=== PATIENT | female | born 1965 | race Caucasian/White ===

== ENCOUNTER 2020-09-15 12:56 | Outpatient (REF) | payer MEDICARE, MEDICAID, SELFPAY | END 2020-09-15 12:57 | disposition home or self-care (01) | LOC: HO.LAB 12:56 | PROVIDERS: Visit Provider Nurse Practitioner Family | DX: Z13.9 Encounter for screening, unspecified (principal) | CPT/HCPCS: 87071; 87880; U0003 ==

== ENCOUNTER 2020-10-18 10:41 | Outpatient (REF) | payer MEDICARE, MEDICAID, SELFPAY ==
[2020-10-18 12:45] LABS: Thyroid Stimulating Hormone 1.21 uIU/mL (0.32-4.0)
[2020-10-18 13:17] LABS: Folate 8.4 ng/mL (> or = 4.0); Vitamin B12 388 pg/mL (200-900)
== END 2020-10-18 10:42 | disposition home or self-care (01) ==
LOC: HO.LAB 10:41
PROVIDERS: PCP Internal Medicine; Visit Provider Psychiatry & Neurology Neurology
DX: R41.3 Other amnesia (principal)
CPT/HCPCS: 36415; 82607; 82746; 84443

== ENCOUNTER 2020-11-16 08:23 | Outpatient (REF) | payer MEDICARE, MEDICAID, SELFPAY ==
--- NOTE | 2020-11-16 08:27 | CT_ITS ---
EXAMINATION: CT HEAD WITHOUT CONTRAST CLINICAL INFORMATION: Seizure. COMPARISON: Head CT November 07, 2019. TECHNIQUE: Contiguous axial imaging was performed from the skull base to vertex without intravenous administration of contrast. This CT examination was performed using dose optimization techniques as appropriate, variously including the following: *Automated exposure control *Adjustment of mA and/or kV according to patient size (this includes techniques or standardized protocols for targeted exams where dose is matched to indication/reason for exam; i.e. extremities or head) *Use of iterative reconstruction technique FINDINGS: There is a suspected right CP angle/right intracanalicular mass that could reflect a vestibular schwannoma. Given that the patient has a non-MRI compatible pacemaker, this can be further assessed with a contrast-enhanced CT of the head. There is no intracranial hemorrhage, hydrocephalus, extra-axial surface collection, midline shift, or other herniation pattern. Benoit to white matter differentiation is diffusely maintained without evidence of an evolved acute territorial infarct. The basilar cisterns are preserved. No significant soft tissue abnormality. No acute osseous abnormality. The paranasal sinuses and the mastoid air cells are well aerated. CT/CT head/brain wo con IMPRESSION: There is a suspected right CP angle/right intracanalicular mass that could reflect a vestibular schwannoma. Given that the patient has a non-MRI compatible pacemaker, this can be further assessed with a contrast-enhanced CT of the head.
== END 2020-11-16 08:24 | disposition home or self-care (01) ==
LOC: HO.CT 08:23
PROVIDERS: Visit Provider Psychiatry & Neurology Neurology
DX: R56.9 Unspecified convulsions (principal)
CPT/HCPCS: 70450

== ENCOUNTER 2020-11-30 10:17 | Outpatient (REF) | payer MEDICARE, MEDICAID, SELFPAY ==
[2020-11-30 11:02] LABS: MANUAL DIFF FLAG NO
[2020-11-30 11:10] LABS: Basophils Percent Auto 0.3 % (0-2); Eosinophils Absolute Auto 0.1 X10*3/uL (0.0-0.4); Eosinophils Percent Auto 1.2 % (0-4); Hematocrit 39.1 % (37-47); Hemoglobin 12.4 g/dl (12.0-16.0); Imm Gran Abs Auto 0.03 X10*3/uL (0.00-0.03); Imm Gran Pct Auto 0.3 % (0.0-0.4); Lymphocytes Absolute Auto 2.9 X10*3/uL (1.2-4.9); Lymphocytes Percent Auto 30.3 % (20-40); Mean Corpuscular HGB Conc 31.7 g/dl (31.0-35.0); Mean Corpuscular Hemoglobin 27.6 pg (27.0-33.0); Mean Corpuscular Volume 87.1 fL (80-98); Mean Platelet Volume 8.9 fL (9.4-12.3); Monocytes Absolute Auto 0.6 X10*3/uL (0.1-1.2); Neutrophils Absolute Auto 5.9 X10*3/uL (2.0-8.3); Neutrophils Percent Auto 61.9 % (45-73); Platelet Count 341 X10*3/uL (160-400); Red Blood Count 4.49 X10*6/uL (4.20-5.50); Red Cell Distribution Width 13.1 % (11.0-16.0); White Blood Count 9.5 X10*3/uL (4.8-10.8)
[2020-11-30 11:13] LABS: Glucose Urine UA NEG (NEG); Leukocyte Esterase Urine NEG (NEG); Nitrite Urine NEG (NEG); PH 6.5 (5.0-8.0); Urine Blood NEG (NEG); Urine Ketones NEG (NEG); Urine Protein NEG (NEG-TRACE)
[2020-11-30 11:15] LABS: Appearance Urine CLEAR; Color Urine YELLOW
[2020-11-30 11:23] LABS: RBC Urine 0 /HPF (0); Squamous Epithelial Cell Urine TRACE /LPF; WBC Urine 0 /HPF (0-4)
[2020-11-30 12:18] LABS: Erythrocyte Sedimentation Rate 10 MM/HR (0-20)
[2020-11-30 12:40] LABS: Folate 6.3 ng/mL (> or = 4.0); Vitamin B12 410 pg/mL (200-900)
[2020-11-30 13:29] LABS: Alanine Aminotransferase 13 U/L (0-31); Albumin Level 4.1 g/dL (3.5-5.0); Alkaline Phosphatase 125 U/L (39-117); Anion Gap 11 (12-20); Aspartate Amino Transferase 18 U/L (5-31); Bilirubin Total 0.6 mg/dL (0.0-1.0); Blood Urea Nitrogen 17 mg/dL (9-16); Calcium 9.2 mg/dL (8.4-10.2); Carbon Dioxide 29 mmol/L (22-29); Chloride 104 mmol/L (96-108); Cholesterol 198 mg/dL; Estimated Glomerular Filt Rate > 60; Glucose Random 93 mg/dL (60-115); HDL Cholesterol 69 mg/dL; LDL Cholesterol Calculated 113 mg/dl; Potassium 4.4 mmol/L (3.3-5.1); Sodium 140 mmol/L (135-145); Total Protein 6.8 g/dL (6.5-8.0); Triglycerides 82 mg/dL
[2020-11-30 13:50] LABS: Free T4 (Free Thyroxine) 0.99 ng/dL (0.71-1.85); Thyroid Stimulating Hormone 1.19 uIU/mL (0.32-4.0); Vitamin D 25-OH Total 10.5 ng/mL (>30)
== END 2020-11-30 10:18 | disposition home or self-care (01) ==
LOC: HO.LAB 10:17
PROVIDERS: PCP Internal Medicine; Visit Provider Psychiatry & Neurology Neurology
DX: I10 Essential (primary) hypertension (principal); F31.32 Bipolar disorder, current episode depressed, moderate; E78.00 Pure hypercholesterolemia, unspecified
CPT/HCPCS: 36415; 80053; 80061; 81001; 82306; 82607; 82746; 84439; 84443; 85025; 85652

== ENCOUNTER 2020-12-06 07:53 | Outpatient (REF) | payer MEDICARE, MEDICAID, SELFPAY | END 2020-12-06 07:54 | disposition home or self-care (01) | LOC: HO.CT 07:53 | PROVIDERS: Visit Provider Psychiatry & Neurology Neurology | DX: Z13.89 Encounter for screening for other disorder (principal) ==

== ENCOUNTER 2020-12-10 08:04 | Outpatient (REF) | payer MEDICARE, MEDICAID, SELFPAY ==
--- NOTE | ~2020-12-10 | CT_ITS ---
CT HEAD WITH CONTRAST CLINICAL INFORMATION: Acoustic neuroma. COMPARISON: Head CT 11/16/2020. TECHNIQUE: Contiguous axial imaging was performed from the skull base to vertex following the administration of 100 mL of Omnipaque [address] examination was performed using dose optimization techniques as appropriate, variously including the following: *Automated exposure control *Adjustment of mA and/or kV according to patient size (this includes techniques or standardized protocols for targeted exams where dose is matched to indication/reason for exam; i.e. extremities or head) *Use of iterative reconstruction technique FINDINGS: It is very difficult to identify a discrete enhancing lesion within the CP angles and the intracanalicular regions however these areas are obscured by artifact on this postcontrast head CT. The previous noncontrast CT finding may have been artifactual or there could be a nonenhancing CP angle/intracanalicular lesion. There is no pathologic enhancement intracranially. There is no intracranial hemorrhage, hydrocephalus, extra-axial surface collection, midline shift, or other herniation pattern. Benoit to white matter differentiation is diffusely maintained without evidence of an evolved acute territorial infarct. The basilar cisterns are preserved. No significant soft tissue abnormality. No acute osseous abnormality. The paranasal sinuses and the mastoid air cells are well aerated. CT/CT head/brain w con IMPRESSION: It is very difficult to identify a discrete enhancing lesion within the CP angles and the intracanalicular regions however these areas are obscured by artifact on this postcontrast head CT. The previous noncontrast CT finding may have been artifactual or there could be a nonenhancing CP angle/intracanalicular lesion. There is no pathologic enhancement intracranially.
[2020-12-10] MEDS: iohexoL 350 MG/ML 100 ML INFUS..BTL 75 ML IV (09:08)
== END 2020-12-10 08:05 | disposition home or self-care (01) ==
LOC: HO.CT 08:04
PROVIDERS: Visit Provider Psychiatry & Neurology Neurology
DX: D33.3 Benign neoplasm of cranial nerves (principal)
CPT/HCPCS: 70460; Q9967

== ENCOUNTER → 2020-12-20 13:03 | Outpatient (BNVA) | payer MEDICARE, MEDICAID, SELFPAY | PROVIDERS: PCP Internal Medicine; Visit Provider Nurse Practitioner | DX: Z13.89 Encounter for screening for other disorder (principal) | CPT/HCPCS: Q3014 ==

== ENCOUNTER → 2021-01-17 13:31 | Outpatient (BNVA) | payer MEDICARE, MEDICAID, SELFPAY | PROVIDERS: PCP Internal Medicine; Visit Provider Nurse Practitioner | DX: K59.04 Chronic idiopathic constipation (principal); Z12.11 Encounter for screening for malignant neoplasm of colon; K21.9 Gastro-esophageal reflux disease without esophagitis; K90.0 Celiac disease | CPT/HCPCS: Q3014 ==

== ENCOUNTER 2021-01-30 02:50 | Emergency (ER) | payer MEDICARE, MEDICAID, SELFPAY ==
--- NOTE | ~2021-01-30 | XR_ITS ---
EXAMINATION: CHEST 1 VIEW CLINICAL INFORMATION: Chest tightness. COMPARISON: 05/17/2020. TECHNIQUE: An AP view of the chest is provided. FINDINGS: The cardiac silhouette is stable. Pacer leads are in unchanged position. The mediastinal and hilar contours are unremarkable. There are neither pleural effusions nor pneumothoraces. There are no consolidations. The osseous structures are stable. XR/XR chest 1V IMPRESSION: No evidence for acute disease.
--- NOTE | ~2021-01-30 | CT_ITS ---
EXAMINATION: CT PULMONARY EMBOLISM STUDY CLINICAL INFORMATION: Chest pressure, shortness of breath, elevated d-dimer. COMPARISON: Same day chest radiograph. Chest CTA from 11/04/2019. TECHNIQUE: Contiguous helical images of the chest were obtained following the administration of IV contrast. Multiplanar reconstructions were performed. MIPS were obtained and reviewed. DLP: 286 mGy-cm. CONTRAST: 65 mL of Omnipaque 350 were administered without incident. FINDINGS: The heart is of normal size. There is no pericardial effusion. The great vessels are unremarkable. Specifically, there is no pulmonary arterial filling defect. There is no CT evidence for pulmonary embolism. There are no chest wall masses. Review of lung windows demonstrates that there are neither pleural effusions nor pneumothoraces. There are no consolidations. There are no pulmonary parenchymal nodules. Limited evaluation of the upper abdomen demonstrates that the liver is of normal size and attenuation without focal lesions.))). Surgical clips are identified. Normal adrenal glands are identified. CT/CT angio chest PE protocol IMPRESSION: No CT evidence for pulmonary embolism. Automated exposure control (Care Dose) Adjustment of the mA and/or kv according to patient size (this includes techniques or standardized protocols for targeted exams where dose is matched to indication / reason for exam; i.e. extremities or head).
[2021-01-30 02:53] VITALS: BP 118/64; PULSE 62; RESP 18; TEMP 36.7; O2SAT 100; BMI 32.3
--- NOTE | 2021-01-30 03:06 | ECG_ITS ---
Test Reason : ASTHMA Blood Pressure : / mmHG Vent. Rate : 060 BPM Atrial Rate : 060 BPM P-R Int : 154 ms QRS Dur : 082 ms QT Int : 432 ms P-R-T Axes : 017 029 032 degrees QTc Int : 432 ms Atrial-paced rhythm Abnormal ECG When compared with ECG of 17-MAY-2020 19:15, Electronic atrial pacemaker has replaced Sinus rhythm Referred By: Lo Engel Electronically Signed By:Oziel Morfin
--- NOTE | 2021-01-30 03:07 | ED.ASTHMA ---
HPI - Asthma General Chief Complaint: Asthma Stated Complaint: Asthma Time Seen by Provider: 01/30/21 02:59 Source: patient Mode of arrival: ambulatory Limitations: no limitations History of Present Illness HPI Narrative: Patient comes emergency room complaining of chest tightness, states she has been using a lot of albuterol lately due to her asthma exacerbation. Approximately 4 days ago she took the last dose of a 5 day prednisone burst. Patient used her inhaler right before coming to the emergency room. At this time, she says that she feels better, no shortness of breath. Patient states her chest feels tight, no chest pain, no shortness of breath Related Data Home Medications Medication Instructions Recorded Confirmed albuterol sulfate 90 mcg/actuation 90 mcg INHALATION DAILY 07/16/20 01/13/21 aerosol inhaler aripiprazole 5 mg tablet 5 mg PO DAILY 07/16/20 01/13/21 atorvastatin 20 mg tablet 20 mg PO BEDTIME 07/16/20 01/13/21 benztropine 1 mg tablet 1 mg PO DAILY 07/16/20 01/13/21 buspirone 15 mg tablet 15 mg PO TID 07/16/20 01/13/21 clonazepam 2 mg tablet 2 mg PO BID 07/16/20 01/13/21 epinephrine 0.3 mg/0.3 mL 0.3 mg IM NEEDED PRN 07/16/20 01/13/21 injection, auto-injector fluticasone furoate 200 200 inh INHALATION NEEDED 07/16/20 01/13/21 mcg-vilanterol 25 mcg/dose inhalation powder fluticasone propionate 50 50 mcg INTRANASAL NEEDED 07/16/20 01/13/21 mcg/actuation nasal spray,suspension isosorbide mononitrate 30 mg 30 mg PO DAILY 07/16/20 01/13/21 tablet,extended release 24 hr montelukast 10 mg tablet 10 mg PO DAILY 07/16/20 01/13/21 omalizumab 150 mg subcutaneous 150 mg SUBCUT USEASDIRECTD 07/16/20 01/13/21 solution rosuvastatin 20 mg tablet 20 mg PO BEDTIME 07/16/20 01/13/21 sertraline 100 mg tablet 100 mg PO DAILY 07/16/20 01/13/21 tiotropium bromide 2.5 2.5 mcg INHALATION NEEDED 07/16/20 01/13/21 mcg/actuation mist for inhalation gabapentin 300 mg capsule mg PO 01/17/21 suvorexant 20 mg tablet mg PO 01/17/21 Previous Rx's Medication Instructions Recorded hydrocortisone 2.5 % topical cream 1 appl [place] BID-QID PRN #30 g 11/12/20 with perineal applicator linaclotide 145 mcg capsule 145 mcg PO QAM 30 Days #30 cap 12/20/20 amoxicillin 875 mg tablet 875 mg PO BID #14 tab 01/13/21 cholecalciferol (vitamin D3) 1,250 1,250 mcg PO QWEEK 90 Days #13 cap 01/13/21 mcg (50,000 unit) capsule dicyclomine 20 mg tablet 20 mg PO QID PRN 30 Days #60 tab 01/17/21 famotidine 40 mg tablet 40 mg PO BID 30 Days #60 tab 01/17/21 sennosides 8.6 mg capsule 17.2 mg PO BEDTIME 30 Days #60 cap 01/17/21 prednisone 10 mg tablet See Rx Instructions PO DAILY #20 01/18/21 tab Allergies Allergy/AdvReac Type Severity Reaction Status Date / Time almond Allergy Severe DIFFICULTY Verified 01/30/21 02:53 BREATHING shellfish derived Allergy Severe ANAPHYLAXIS Verified 01/30/21 02:53 morphine Allergy Intermediate C/P - Verified 01/30/21 02:53 STOMACH CRAMPS, HIVES, DIFF BREATHING, anaphylaxis, shortness of breath strawberry Allergy Mild HIVES Verified 01/30/21 02:53 Sulfa (Sulfonamide Allergy Mild DIARRHEA Verified 01/30/21 02:53 Antibiotics) [SULFA (SULFONAMIDE ANTIBIOTICS)] gluten [GLUTEN] Allergy Unknown UNKNOWN Verified 01/30/21 02:53 meperidine [Demerol] Allergy Unknown upset Verified 01/30/21 02:53 stomach nitrofurantoin [Macrobid] Allergy Unknown Unknown Verified 01/30/21 02:53 codeine AdvReac Mild STOMACH Verified 01/30/21 02:53 [From TYLENOL-CODEINE #3] SPASM hydromorphone [From DILAUDID] AdvReac Mild STOMACH Verified 01/30/21 02:53 UPSET Review of Systems Review of Systems: Constitutional : No Weight loss, No Fever, No Chills, No Night Sweats, No Fatigue, No Malaise ENT/Mouth : No Hearing loss, No Ear Pain, No Nasal Congestion, No Sinus Pain, No Hoarseness, No sore throat, No Rhinorrhea, No Swallowing Difficulty Eyes: No Eye Pain, No Swelling, No Redness, No Foreign Body, No Discharge, No Vision Changes Cardiovascular : No Chest Pain, No SOB, No Dyspnea on Exertion, No Orthopnea, No Edema, No Palpitations Respiratory : Complaining of chest tightness, intermittent wheezing for several days, intermittent shortness of breath but none at this time Gastrointestinal : No Nausea, No Vomiting, No Diarrhea, No Constipation, No abdominal Pain, No Hematochezia, No Melena Genitourinary : no irregular bleeding, No Dysuria, No Urinary Frequency, No Hematuria, No Urinary Incontinence, No Urgency, No Flank Pain, No Urinary Flow Changes, No Hesitancy Musculoskeletal : No joint pain, No Myalgias, No Joint Swelling Skin : No Skin Lesions, No rash Neuro : No Weakness, No Numbness, No Paresthesias, No Loss of Consciousness, No Dizziness, No Headache Psych : No Anxiety/Panic, No Depression, No SI/HI/AH/VH, No Social Issues, Heme/Lymph: No Bruising, No Bleeding,No Lymphadenopathy Endocrine : No Polyuria, No Polydipsia, No Temperature Intolerance PMFSH Past Medical History Medical History Anemia Asthma Bipolar disorder Celiac sprue Depression Fibromyalgia GERD (gastroesophageal reflux disease) Hypercholesterolemia Hypertension Irritable bowel syndrome Knee osteoarthritis Obstructive sleep apnea Osteopenia Pulmonary nocardiosis Sick sinus syndrome Superficial thrombophlebitis TIA (transient ischemic attack) Surgical History H/O cardiac catheterization History of appendectomy History of arthroscopy of right shoulder History of cardiac pacemaker History of cholecystectomy History of foot surgery History of laparoscopic partial gastrectomy History of total hysterectomy with bilateral salpingo-oophorectomy (BSO) Hx of arthroscopy of knee Hx of colonoscopy Family History Family History Father No problems noted. Mother CVD (cerebrovascular disease) CAD (coronary artery disease) Stroke Maternal Grandmother Myocardial infarction Paternal Grandmother CVD (cerebrovascular disease) CAD (coronary artery disease) Social History Social History (Updated 01/17/21 @ 13:32 by Phoebe Hassan [facility]) Household Members: Children Alcohol intake: never Smoking Status: Never smoker Advance Directives: No Advance Directives Information Provided: No Current occupational status: disabled Physical Exam Vital Signs: Vital Signs: Last Vital Signs Temp 98.1 F 01/30/21 02:53 Pulse 62 01/30/21 02:53 Resp 18 01/30/21 02:53 BP 118/64 01/30/21 02:53 Pulse Ox 100 01/30/21 02:53 Body Mass Index 32.3 Appearance: Alert. Oriented X3. No acute distress. Eyes: Pupils equal, round and reactive to light. ENT: Pharynx normal. Neck: Normal inspection. Neck supple. No lymph nodes noted. No crepitus CVS: Normal heart rate and rhythm. Pulses normal. Normal S1 and S2 Respiratory: No respiratory distress. Breath sounds normal. No Wheezing. No rales Abdomen: Soft and nontender. No rigidity. No distention. good BS x4 Skin: Skin warm and dry. Normal skin color. Normal skin turgor. Extremities: No lower extremity edema. No lower extremity edema. No Lacerations. No Rash Neuro: Oriented X 3. No motor deficit. No sensory deficit. Moving all extermities. No slurred speech. Course Course Course Narrative: Patient's white blood cell count is 15.9, secondary to prednisone use for several days. Sepsis is not suspected. Patient has no fever, vitals within normal limits. CTA for pulmonary embolism within normal limits. Patient was ambulated around the emergency room, oxygen saturation remained stable at 99% RA, patient had no chest pain, no shortness of breath, patient feels well. Patient ready for discharge MDM - Asthma Lab Data Result diagrams: 01/30/21 03:28 01/30/21 03:28 Labs: Lab Results 01/30/21 01/30/21 01/30/21 Range/Units 03:28 03:28 03:28 WBC 15.9 H (4.8-10.8) X10*3/uL RBC 4.26 (4.20-5.50) X10*6/uL Hgb 11.5 L (12.0-16.0) g/dl Hct 37.2 (37-47) % MCV 87.3 (80-98) fL MCH 27.0 (27.0-33.0) pg MCHC 30.9 L (31.0-35.0) g/dl RDW 14.1 (11.0-16.0) % Plt Count 322 (160-400) X10*3/uL MPV 8.8 L (9.4-12.3) fL Immature Gran % (Auto) 0.8 H (0.0-0.4) % Neut % (Auto) 69.9 (45-73) % Lymph % (Auto) 17.0 L (20-40) % [place] % (Auto) 12.1 H (2-11) % Eos % (Auto) 0.1 (0-4) % Baso % (Auto) 0.1 (0-2) % Lymph # (Auto) 2.7 (1.2-4.9) X10*3/uL [place] # (Auto) 1.9 H (0.1-1.2) X10*3/uL Eos # (Auto) 0.0 (0.0-0.4) X10*3/uL Baso # (Auto) 0.0 (0.0-0.2) X10*3/uL Abs Immat Gran (auto) 0.13 H (0.00-0.03) X10*3/uL Absolute Neuts (auto) 11.1 H (2.0-8.3) X10*3/uL Absolute Nucleated RBC 0.000 (0.0-0.012) X10*3/uL Nucleated RBC % (auto) 0.0 (0.0-0.2) /100WBC Smear Tech's Comments VERIFIED D-Dimer NG/ML Sodium 142 (135-145) mmol/L Potassium 4.5 (3.3-5.1) mmol/L Chloride 105 (96-108) mmol/L Carbon Dioxide 24 (22-29) mmol/L Anion Gap 18 (12-20) BUN 14 (9-16) mg/dL Creatinine 0.64 (0.5-1.4) mg/dL Estim Creat Clear Calc 85.1 Estimated GFR > 60 Random Glucose 86 (60-115) mg/dL Calcium 8.7 (8.4-10.2) mg/dL Troponin I High Sens < 3.5 (<3.5-17.0) ng/L B-Natriuretic Peptide 43 (<100) pg/mL 01/30/21 Range/Units 04:09 WBC (4.8-10.8) X10*3/uL RBC (4.20-5.50) X10*6/uL Hgb (12.0-16.0) g/dl Hct (37-47) % MCV (80-98) fL MCH (27.0-33.0) pg MCHC (31.0-35.0) g/dl RDW (11.0-16.0) % Plt Count (160-400) X10*3/uL MPV (9.4-12.3) fL Immature Gran % (Auto) (0.0-0.4) % Neut % (Auto) (45-73) % Lymph % (Auto) (20-40) % [place] % (Auto) (2-11) % Eos % (Auto) (0-4) % Baso % (Auto) (0-2) % Lymph # (Auto) (1.2-4.9) X10*3/uL [place] # (Auto) (0.1-1.2) X10*3/uL Eos # (Auto) (0.0-0.4) X10*3/uL Baso # (Auto) (0.0-0.2) X10*3/uL Abs Immat Gran (auto) (0.00-0.03) X10*3/uL Absolute Neuts (auto) (2.0-8.3) X10*3/uL Absolute Nucleated RBC (0.0-0.012) X10*3/uL Nucleated RBC % (auto) (0.0-0.2) /100WBC Smear Tech's Comments D-Dimer 514 NG/ML Sodium (135-145) mmol/L Potassium (3.3-5.1) mmol/L Chloride (96-108) mmol/L Carbon Dioxide (22-29) mmol/L Anion Gap (12-20) BUN (9-16) mg/dL Creatinine (0.5-1.4) mg/dL Estim Creat Clear Calc Estimated GFR Random Glucose (60-115) mg/dL Calcium (8.4-10.2) mg/dL Troponin I High Sens (<3.5-17.0) ng/L B-Natriuretic Peptide (<100) pg/mL Imaging Data Chest x-ray: Radiologist's impression: The cardiac silhouette is stable. Pacer leads are in unchanged position. The mediastinal and hilar contours are unremarkable. There are neither pleural effusions nor pneumothoraces. There are no consolidations. The osseous structures are stable. XR/XR chest 1V IMPRESSION: No evidence for acute disease. ECG Data Attestation: I personally reviewed and interpreted this ECG as follows: (Atrial paced rhythm, heart rate 60, no ST segment depression or elevation, EKG interference) Discharge Plan Discharge Clinical Impression: Dyspnea Qualifiers: Dyspnea type: unspecified Qualified Code(s): R06.00 - Dyspnea, unspecified Patient Disposition: Home, Self-Care Instructions: Shortness of Breath (ED) Additional Instructions: Please follow-up with your primary care physician tomorrow. If you have any worsening or new symptoms, please return to the emergency room or call 911 Prescriptions: No Action hydrocortisone [Proctosol HC] 2.5 % cream with perineal applicator 1 appl WV BID-QID PRN (Reason: hemorrhoids) Qty: 30 RF: 1 prednisone 10 mg tablet See Rx Instructions PO DAILY Qty: 20 RF: 0 Breo Ellipta 200-25 mcg/dose blister with device 200 inh inhalation NEEDED RF: 0 Spiriva Respimat 2.5 mcg/actuation mist 2.5 mcg inhalation NEEDED RF: 0 aripiprazole 5 mg tablet 5 mg PO DAILY RF: 0 benztropine 1 mg tablet 1 mg PO DAILY RF: 0 sertraline 100 mg tablet 100 mg PO DAILY RF: 0 clonazepam 2 mg tablet 2 mg PO BID RF: 0 rosuvastatin 20 mg tablet 20 mg PO BEDTIME RF: 0 Xolair 150 mg recon soln 150 mg subcut USEASDIRECTD RF: 0 fluticasone propionate 50 mcg/actuation spray,suspension 50 mcg intranasal NEEDED RF: 0 isosorbide mononitrate 30 mg tablet extended release 24 hr 30 mg PO DAILY RF: 0 atorvastatin 20 mg tablet 20 mg PO BEDTIME RF: 0 buspirone 15 mg tablet 15 mg PO TID RF: 0 albuterol sulfate 90 mcg/actuation HFA aerosol inhaler 90 mcg inhalation DAILY RF: 0 montelukast 10 mg tablet 10 mg PO DAILY RF: 0 epinephrine 0.3 mg/0.3 mL auto-injector 0.3 mg IM NEEDED PRN (Reason: Anaphylaxis) RF: 0 amoxicillin 875 mg tablet 875 mg PO BID Qty: 14 RF: 0 cholecalciferol (vitamin D3) 1,250 mcg (50,000 unit) capsule 1,250 mcg PO QWEEK 90 Days Qty: 13 RF: 1 Linzess 145 mcg capsule 145 mcg PO QAM 30 Days Qty: 30 RF: 3 senna 8.6 mg capsule 17.2 mg PO BEDTIME 30 Days Qty: 60 RF: 1 famotidine 40 mg tablet 40 mg PO BID 30 Days Qty: 60 RF: 6 dicyclomine 20 mg tablet 20 mg PO QID PRN (Reason: Cramps) 30 Days Qty: 60 RF: 6
[2021-01-30 03:39] LABS: Basophils Percent Auto 0.1 % (0-2); Eosinophils Percent Auto 0.1 % (0-4); Hematocrit 37.2 % (37-47); Hemoglobin 11.5 g/dl (12.0-16.0); Imm Gran Abs Auto 0.13 X10*3/uL (0.00-0.03); Imm Gran Pct Auto 0.8 % (0.0-0.4); Lymphocytes Absolute Auto 2.7 X10*3/uL (1.2-4.9); MANUAL DIFF FLAG SCAN; Mean Corpuscular HGB Conc 30.9 g/dl (31.0-35.0); Mean Corpuscular Volume 87.3 fL (80-98); Mean Platelet Volume 8.8 fL (9.4-12.3); Monocytes Absolute Auto 1.9 X10*3/uL (0.1-1.2); Monocytes Percent Auto 12.1 % (2-11); Neutrophils Absolute Auto 11.1 X10*3/uL (2.0-8.3); Neutrophils Percent Auto 69.9 % (45-73); Platelet Count 322 X10*3/uL (160-400); Red Blood Count 4.26 X10*6/uL (4.20-5.50); Red Cell Distribution Width 14.1 % (11.0-16.0); SCAN SMEAR FLAG 1; White Blood Count 15.9 X10*3/uL (4.8-10.8)
[2021-01-30 03:40] LABS: SLIDE REVIEW VERIFIED
[2021-01-30 03:59] LABS: Anion Gap 18 (12-20); Blood Urea Nitrogen 14 mg/dL (9-16); Calcium 8.7 mg/dL (8.4-10.2); Carbon Dioxide 24 mmol/L (22-29); Chloride 105 mmol/L (96-108); Creatinine Clr Calc Pharmacy 85.1; Estimated Glomerular Filt Rate > 60; Glucose Random 86 mg/dL (60-115); Potassium 4.5 mmol/L (3.3-5.1); Sodium 142 mmol/L (135-145)
[2021-01-30 04:00] VITALS: BP 130/66; PULSE 66; RESP 20; TEMP 36.8; O2SAT 100
[2021-01-30 04:04] LABS: B Type Natriuretic Peptide 43 pg/mL (<100); Troponin-I High Sensitivity < 3.5 ng/L (<3.5-17.0)
[2021-01-30 04:25] LABS: D Dimer 514 NG/ML
--- NOTE | 2021-01-30 05:05 | PC.NURSE ---
While in CT scan, 20g in right AC infiltrated. New 20g IV access established in left AC by this RN. Yared Cummins RN (primary ED RN) aware.
[2021-01-30] MEDS: iohexoL 350 MG/ML 100 ML INFUS..BTL 65 ML IV (05:19)
== END 2021-01-30 06:01 | disposition home or self-care (01) ==
PROVIDERS: Emergency Provider Emergency Medicine; PCP Internal Medicine
DX: R06.00 Dyspnea, unspecified (principal); J45.909 Unspecified asthma, uncomplicated; Z79.899 Other long term (current) drug therapy
CPT/HCPCS: 36415; 71045; 71275; 80048; 83880; 84484; 85025; 85379; 93005; 99284; Q9967

== ENCOUNTER 2021-01-31 06:40 | Emergency (ER) | payer MEDICARE, MEDICAID, SELFPAY ==
--- NOTE | ~2021-01-31 | XR_ITS ---
EXAMINATION: XR CHEST CLINICAL INFORMATION: Chest pain COMPARISON: Chest radiographs 01/30/2021, 05/17/2020, CTA chest 01/30/2021 TECHNIQUE: Frontal view of the chest was obtained. FINDINGS: There is no pneumothorax or pneumomediastinum. No airspace consolidation or groundglass opacity or effusion. The costophrenic sulci are clear. The heart is normal in size. Bipolar pacemaker again noted with atrial and ventricular leads. The hilar and mediastinal contours and bony structures are stable. XR/XR chest 1V IMPRESSION: No acute intrathoracic disease.
[2021-01-31 07:29] VITALS: BP 120/67; PULSE 83; RESP 16; TEMP 38.7; O2SAT 98; BMI 30.2
--- NOTE | 2021-01-31 07:41 | ECG_ITS ---
Test Reason : FEVER Blood Pressure : / mmHG Vent. Rate : 065 BPM Atrial Rate : 065 BPM P-R Int : 126 ms QRS Dur : 082 ms QT Int : 374 ms P-R-T Axes : 060 018 036 degrees QTc Int : 388 ms Normal sinus rhythm Normal ECG When compared with ECG of 30-JAN-2021 03:19, Sinus rhythm has replaced Electronic atrial pacemaker Referred By: Krysta Bailey Electronically Signed By:Oziel Morfin
--- NOTE | 2021-01-31 07:44 | ED_ITS ---
HPI - Fever General Chief Complaint: Fever Stated Complaint: COVID SYMPTOMS - IN BLACK CHAIRS Time Seen by Provider: 01/31/21 07:40 Source: patient Mode of arrival: ambulatory Limitations: no limitations History of Present Illness HPI Narrative: 55-year-old female came in for evaluation for chest pain/fever for the past 4 days. This is a 55-year-old female who is status post a Alek and Alek COVID vaccination about 2 weeks ago, patient declined any exposure to a known sick contact, came in for the past 4 days been having chest tightness, coughing, shortness of breath, fever, generalized body ache, generalized joint ache. Patient was seen in the emergency department yesterday for similar symptoms, patient had extensive workup including CT of the chest because the elevated D- dimer which did not confirm PE. Patient declined recent travel, patient has been complying with CDC guideline, face mask, social distancing, hand washing. Related Data Home Medications Medication Instructions Recorded Confirmed albuterol sulfate 90 mcg/actuation 90 mcg INHALATION DAILY 07/16/20 01/13/21 aerosol inhaler aripiprazole 5 mg tablet 5 mg PO DAILY 07/16/20 01/13/21 atorvastatin 20 mg tablet 20 mg PO BEDTIME 07/16/20 01/13/21 benztropine 1 mg tablet 1 mg PO DAILY 07/16/20 01/13/21 buspirone 15 mg tablet 15 mg PO TID 07/16/20 01/13/21 clonazepam 2 mg tablet 2 mg PO BID 07/16/20 01/13/21 epinephrine 0.3 mg/0.3 mL 0.3 mg IM NEEDED PRN 07/16/20 01/13/21 injection, auto-injector fluticasone furoate 200 200 inh INHALATION NEEDED 07/16/20 01/13/21 mcg-vilanterol 25 mcg/dose inhalation powder fluticasone propionate 50 50 mcg INTRANASAL NEEDED 07/16/20 01/13/21 mcg/actuation nasal spray,suspension isosorbide mononitrate 30 mg 30 mg PO DAILY 07/16/20 01/13/21 tablet,extended release 24 hr montelukast 10 mg tablet 10 mg PO DAILY 07/16/20 01/13/21 omalizumab 150 mg subcutaneous 150 mg SUBCUT USEASDIRECTD 07/16/20 01/13/21 solution rosuvastatin 20 mg tablet 20 mg PO BEDTIME 07/16/20 01/13/21 sertraline 100 mg tablet 100 mg PO DAILY 07/16/20 01/13/21 tiotropium bromide 2.5 2.5 mcg INHALATION NEEDED 07/16/20 01/13/21 mcg/actuation mist for inhalation gabapentin 300 mg capsule mg PO 01/17/21 suvorexant 20 mg tablet mg PO 01/17/21 Previous Rx's Medication Instructions Recorded hydrocortisone 2.5 % topical cream 1 appl AR BID-QID PRN #30 g 11/12/20 with perineal applicator linaclotide 145 mcg capsule 145 mcg PO QAM 30 Days #30 cap 12/20/20 amoxicillin 875 mg tablet 875 mg PO BID #14 tab 01/13/21 cholecalciferol (vitamin D3) 1,250 1,250 mcg PO QWEEK 90 Days #13 cap 01/13/21 mcg (50,000 unit) capsule dicyclomine 20 mg tablet 20 mg PO QID PRN 30 Days #60 tab 01/17/21 famotidine 40 mg tablet 40 mg PO BID 30 Days #60 tab 01/17/21 sennosides 8.6 mg capsule 17.2 mg PO BEDTIME 30 Days #60 cap 01/17/21 prednisone 10 mg tablet See Rx Instructions PO DAILY #20 01/18/21 tab Allergies Allergy/AdvReac Type Severity Reaction Status Date / Time almond Allergy Severe DIFFICULTY Verified 01/30/21 02:53 BREATHING shellfish derived Allergy Severe ANAPHYLAXIS Verified 01/30/21 02:53 morphine Allergy Intermediate C/P - Verified 01/30/21 02:53 STOMACH CRAMPS, HIVES, DIFF BREATHING, anaphylaxis, shortness of breath strawberry Allergy Mild HIVES Verified 01/30/21 02:53 Sulfa (Sulfonamide Allergy Mild DIARRHEA Verified 01/30/21 02:53 Antibiotics) [SULFA (SULFONAMIDE ANTIBIOTICS)] gluten [GLUTEN] Allergy Unknown UNKNOWN Verified 01/30/21 02:53 meperidine [Demerol] Allergy Unknown upset Verified 01/30/21 02:53 stomach nitrofurantoin [Macrobid] Allergy Unknown Unknown Verified 01/30/21 02:53 codeine AdvReac Mild STOMACH Verified 01/30/21 02:53 [From TYLENOL-CODEINE #3] SPASM hydromorphone [From DILAUDID] AdvReac Mild STOMACH Verified 01/30/21 02:53 UPSET Review of Systems Review of Systems: All other systems are reviewed and are negative Constitutional: Reports as per HPI and Reports no additional constitutional complaints Eyes: Reports as per HPI and Reports no additional eye complaints Reports system reviewed and no additional complaints, except as documented Cardiovascular: Reports as per HPI and Reports no additional cardiovascular complaints Respiratory: Reports as per HPI and Reports no additional respiratory complaints Gastrointestinal: Reports as per HPI and Reports no additional gastrointestinal complaints Genitourinary: Reports no additional female genitourinary complaints Musculoskeletal: Reports no additional musculoskeletal complaints Skin/Breast: Reports system reviewed and no additional complaints, except as docu Psychiatric: Reports no additional psychiatric complaints Endocrine: Reports no additional endocrine complaints Hematologic/Lymphatic: Reports no additional hematologic/lymphatic complaints Allergic/Immunologic: Reports no additional allergic/immunologic complaints Reports system reviewed and no additional complaints, except as documented and Reports Abnormal speech present [facility] Past Medical History Medical History Anemia Asthma Bipolar disorder Celiac sprue Depression Fibromyalgia GERD (gastroesophageal reflux disease) Hypercholesterolemia Hypertension Irritable bowel syndrome Knee osteoarthritis Obstructive sleep apnea Osteopenia Pulmonary nocardiosis Sick sinus syndrome Superficial thrombophlebitis TIA (transient ischemic attack) Surgical History H/O cardiac catheterization History of appendectomy History of arthroscopy of right shoulder History of cardiac pacemaker History of cholecystectomy History of foot surgery History of laparoscopic partial gastrectomy History of total hysterectomy with bilateral salpingo-oophorectomy (BSO) Hx of arthroscopy of knee Hx of colonoscopy Family History Family History Father No problems noted. Mother CVD (cerebrovascular disease) CAD (coronary artery disease) Stroke Maternal Grandmother Myocardial infarction Paternal Grandmother CVD (cerebrovascular disease) CAD (coronary artery disease) Social History Social History Household Members: Children Alcohol intake: never Smoking Status: Never smoker Use of substances other than those prescribed or required for medical reasons: No Advance Directives: No Advance Directives Information Provided: No Current occupational status: disabled Physical Exam Vital Signs: Vital Signs: Last Vital Signs Temp 101.7 F H 01/31/21 08:18 Pulse 83 01/31/21 08:18 Resp 16 01/31/21 08:18 BP 120/67 01/31/21 08:18 Pulse Ox 98 01/31/21 08:18 Body Mass Index 30.2 Vital signs have been reviewed as appeared to be correct. Blood pressure normal. Heart rate normal. Respiration rate normal. Febrile. Oxygen saturation normal. Appearance: Alert. Oriented X3. No acute distress. Head: Normal external exam. Normocephalic. Atraumatic. No Carpenter signs noted. No raccoon eyes noted Eyes: PERRLA. EOMI. Conjunctiva and sclera normal. Eyelids normal. ENT: TM's Normal. Pharynx normal. Uvula midline. Moist mucous membranes. No trismus noted. No drooling noted. No muffled voice noted. Neck: Normal inspection. Neck supple. FROM. No adenopathy. Thyroid Normal. No meningeal signs. No neck mass noted. CVS: Normal heart rate and rhythm. Heart sound normal. No murmurs noted. Pulses normal throughout. Respiratory: No respiratory distress. Painless inspiration. Breath sounds normal. No wheezes/rales/rhonchi noted. Chest nontender. No accessory muscle usage noted or decreased air movement noted. Abdomen: Soft and nontender. Bowel sounds normal in all 4 quadrants. No distention noted. No organomegaly noted. No visible injury noted. Back: No CVA tenderness. Full range of motion noted. Skin: Skin warm and dry. Normal skin color. Normal skin turgor. No rashes/lesions/lacerations noted. Extremities: No lower extremity edema. Extremities exhibit normal range of motion. Extremities nontender. Neuro: Oriented X 3. No motor deficit. No sensory deficit. Reflexes normal. Course Course Course Narrative: Assessment and plan. This is a 55-year-old female who presented with flu-like symptoms. Despite patient had 1st dose of Alek and Alek vaccination for COVID 2 weeks ago patient tested positive for COVID infection today which will explain patient's symptoms. Patient hemodynamically stable, no respiratory issue, no hypoxia. Patient was instructed to go home using antipyretic medication as needed, return for difficulty breathing. And continue with CDC guidelines precautions. MDM - Fever Lab Data Attestation: I reviewed the patient's lab results. Result diagrams: 01/31/21 08:06 01/31/21 08:06 Labs: Lab Results 01/31/21 01/31/21 Range/Units 08:06 08:06 WBC 9.0 (4.8-10.8) X10*3/uL RBC 4.14 L (4.20-5.50) X10*6/uL Hgb 11.4 L (12.0-16.0) g/dl Hct 35.9 L (37-47) % MCV 86.7 (80-98) fL MCH 27.5 (27.0-33.0) pg MCHC 31.8 (31.0-35.0) g/dl RDW 14.5 (11.0-16.0) % Plt Count 244 (160-400) X10*3/uL MPV 9.0 L (9.4-12.3) fL Immature Gran % (Auto) 0.8 H (0.0-0.4) % Neut % (Auto) 71.8 (45-73) % Lymph % (Auto) 11.2 L (20-40) % [place] % (Auto) 15.9 H (2-11) % Eos % (Auto) 0.2 (0-4) % Baso % (Auto) 0.1 (0-2) % Lymph # (Auto) 1.0 L (1.2-4.9) X10*3/uL [place] # (Auto) 1.4 H (0.1-1.2) X10*3/uL Eos # (Auto) 0.0 (0.0-0.4) X10*3/uL Baso # (Auto) 0.0 (0.0-0.2) X10*3/uL Abs Immat Gran (auto) 0.07 H (0.00-0.03) X10*3/uL Absolute Neuts (auto) 6.5 (2.0-8.3) X10*3/uL Absolute Nucleated RBC 0.000 (0.0-0.012) X10*3/uL Nucleated RBC % (auto) 0.0 (0.0-0.2) /100WBC COVID-19 (ALEXEY) Positive A (Negative) COVID-19 Clin Com See Note Imaging Data Chest x-ray: Radiologist's impression: No acute intrathoracic disease. ECG Data ECG #1: Interpretation: Normal sinus rhythm at 65 beats per minutes, normal axis, normal intervals, no ST-T changes. Discharge Plan Discharge Clinical Impression: COVID-19 virus infection Patient Disposition: Home, Self-Care Instructions: COVID-19 (Coronavirus Disease 2019) (ED) Additional Instructions: Continue with frequent hand washing, continue with wearing face mask, and continue with social distancing. You should be self quarantine for the next 2 weeks. Return to the emergency department if having difficulty breathing. Prescriptions: No Action hydrocortisone [Proctosol HC] 2.5 % cream with perineal applicator 1 appl AR BID-QID PRN (Reason: hemorrhoids) Qty: 30 RF: 1 prednisone 10 mg tablet See Rx Instructions PO DAILY Qty: 20 RF: 0 Breo Ellipta 200-25 mcg/dose blister with device 200 inh inhalation NEEDED RF: 0 Spiriva Respimat 2.5 mcg/actuation mist 2.5 mcg inhalation NEEDED RF: 0 aripiprazole 5 mg tablet 5 mg PO DAILY RF: 0 benztropine 1 mg tablet 1 mg PO DAILY RF: 0 sertraline 100 mg tablet 100 mg PO DAILY RF: 0 clonazepam 2 mg tablet 2 mg PO BID RF: 0 rosuvastatin 20 mg tablet 20 mg PO BEDTIME RF: 0 Xolair 150 mg recon soln 150 mg subcut USEASDIRECTD RF: 0 fluticasone propionate 50 mcg/actuation spray,suspension 50 mcg intranasal NEEDED RF: 0 isosorbide mononitrate 30 mg tablet extended release 24 hr 30 mg PO DAILY RF: 0 atorvastatin 20 mg tablet 20 mg PO BEDTIME RF: 0 buspirone 15 mg tablet 15 mg PO TID RF: 0 albuterol sulfate 90 mcg/actuation HFA aerosol inhaler 90 mcg inhalation DAILY RF: 0 montelukast 10 mg tablet 10 mg PO DAILY RF: 0 epinephrine 0.3 mg/0.3 mL auto-injector 0.3 mg IM NEEDED PRN (Reason: Anaphylaxis) RF: 0 amoxicillin 875 mg tablet 875 mg PO BID Qty: 14 RF: 0 cholecalciferol (vitamin D3) 1,250 mcg (50,000 unit) capsule 1,250 mcg PO QWEEK 90 Days Qty: 13 RF: 1 Linzess 145 mcg capsule 145 mcg PO QAM 30 Days Qty: 30 RF: 3 senna 8.6 mg capsule 17.2 mg PO BEDTIME 30 Days Qty: 60 RF: 1 famotidine 40 mg tablet 40 mg PO BID 30 Days Qty: 60 RF: 6 dicyclomine 20 mg tablet 20 mg PO QID PRN (Reason: Cramps) 30 Days Qty: 60 RF: 6
[2021-01-31] MEDS: 0.9 % Sodium Chloride 1,000 ML 999 ML IVCONT (08:14)
[2021-01-31] MEDS: Acetaminophen 325 MG TABLET 650 MG PO (08:15)
[2021-01-31 08:18] VITALS: BP 120/67; PULSE 83; RESP 16; TEMP 38.7; O2SAT 98
[2021-01-31 08:21] LABS: MANUAL DIFF FLAG NO
[2021-01-31 08:33] LABS: Basophils Percent Auto 0.1 % (0-2); Eosinophils Percent Auto 0.2 % (0-4); Hematocrit 35.9 % (37-47); Hemoglobin 11.4 g/dl (12.0-16.0); Imm Gran Abs Auto 0.07 X10*3/uL (0.00-0.03); Imm Gran Pct Auto 0.8 % (0.0-0.4); Lymphocytes Percent Auto 11.2 % (20-40); Mean Corpuscular HGB Conc 31.8 g/dl (31.0-35.0); Mean Corpuscular Hemoglobin 27.5 pg (27.0-33.0); Mean Corpuscular Volume 86.7 fL (80-98); Monocytes Absolute Auto 1.4 X10*3/uL (0.1-1.2); Monocytes Percent Auto 15.9 % (2-11); Neutrophils Absolute Auto 6.5 X10*3/uL (2.0-8.3); Neutrophils Percent Auto 71.8 % (45-73); Platelet Count 244 X10*3/uL (160-400); Red Blood Count 4.14 X10*6/uL (4.20-5.50); Red Cell Distribution Width 14.5 % (11.0-16.0)
[2021-01-31 08:44] LABS: COVID-19 Test Positive (Negative)
[2021-01-31 08:49] LABS: Lactic Acid 1.1 mmol/L (0.5-2.0)
[2021-01-31 08:56] LABS: Alanine Aminotransferase 22 U/L (0-31); Albumin Level 3.5 g/dL (3.5-5.0); Alkaline Phosphatase 106 U/L (39-117); Anion Gap 11 (12-20); Aspartate Amino Transferase 21 U/L (5-31); Bilirubin Direct < 0.2 mg/dL (0.0-0.5); Bilirubin Total 0.4 mg/dL (0.0-1.0); Blood Urea Nitrogen 11 mg/dL (9-16); Carbon Dioxide 27 mmol/L (22-29); Chloride 103 mmol/L (96-108); Creatinine Clr Calc Pharmacy 84.9; Estimated Glomerular Filt Rate > 60; Glucose Random 93 mg/dL (60-115); Lipase 25 U/L (8-78); Potassium 4.3 mmol/L (3.3-5.1); Sodium 137 mmol/L (135-145); Total Protein 5.9 g/dL (6.5-8.0)
[2021-01-31 09:00] LABS: B Type Natriuretic Peptide 29 pg/mL (<100); Troponin-I High Sensitivity < 3.5 ng/L (<3.5-17.0)
[2021-01-31 09:37] VITALS: BP 112/61; PULSE 87; RESP 15; TEMP 37.6; O2SAT 96
[2021-01-31 10:00] VITALS: BP 112/61; PULSE 87; RESP 15; TEMP 37.6; O2SAT 96
== END 2021-01-31 10:21 | disposition home or self-care (01) ==
PROVIDERS: Emergency Provider Emergency Medicine; PCP Internal Medicine
DX: U07.1 COVID-19 (principal); R07.9 Chest pain, unspecified; J45.909 Unspecified asthma, uncomplicated; K21.9 Gastro-esophageal reflux disease without esophagitis; E78.00 Pure hypercholesterolemia, unspecified; I10 Essential (primary) hypertension; Z86.73 Personal history of transient ischemic attack (TIA), and cerebral infarction without residual deficits; Z79.899 Other long term (current) drug therapy; Z79.51 Long term (current) use of inhaled steroids; Z79.02 Long term (current) use of antithrombotics/antiplatelets
CPT/HCPCS: 36415; 71045; 80048; 80076; 83605; 83690; 83880; 84484; 85025; 87040; 87635; 93005; 96360; 99284; 99285

== ENCOUNTER 2021-02-10 11:21 | Outpatient (REF) | payer MEDICARE, MEDICAID, SELFPAY ==
--- NOTE | ~2021-02-10 | XR_ITS ---
EXAMINATION: XR CHEST CLINICAL INFORMATION: Covid 19 COMPARISON: January 31, 2021 TECHNIQUE: 2 views of the chest were obtained. FINDINGS: There is a small focus of density present within the mid right lung. There also appears to be some faint peripheral density about the lateral aspects of the right hemithorax as well as at the right base. No significant confluent disease is appreciated. Heart normal size. No evidence of pulmonary edema. No pneumothorax. No significant pleural effusion. Dual-chamber pacemaker in place. XR/XR chest 2V IMPRESSION: Small focal regions of density within the right lung which may be related to atelectasis or atypical/viral pneumonitis.
== END 2021-02-10 11:22 | disposition home or self-care (01) ==
LOC: HO.HMGCX 11:21
PROVIDERS: PCP Internal Medicine; Visit Provider Hospitalist
DX: U07.1 COVID-19 (principal)
CPT/HCPCS: 71046

== ENCOUNTER 2021-02-14 02:02 | Emergency (ER) | payer MEDICARE, MEDICAID, SELFPAY ==
--- NOTE | ~2021-02-14 | CT_ITS ---
EXAMINATION: CT ABDOMEN AND PELVIS WITH CONTRAST CLINICAL INFORMATION: Left-sided abdominal pain. Rule out diverticulitis, bowel obstruction. COMPARISON: 01/25/2019 TECHNIQUE: Multidetector volumetric images were obtained from the superior aspect of the liver through the pubic symphysis following administration 85 mL of Omnipaque 350 intravenous contrast. Sagittal and coronal reformatted images were obtained on the technologist's workstation. Oral contrast: No This CT examination was performed using dose optimization techniques as appropriate, variously including the following: *Automated exposure control *Adjustment of mA and/or kV according to patient size (this includes techniques or standardized protocols for targeted exams where dose is matched to indication/reason for exam; i.e. extremities or head) *Use of iterative reconstruction technique DLP: 543 mGy-cm FINDINGS: LUNG BASES: Minimal patchy bibasilar opacities noted. Cardiac pacer leads noted. LIVER, GALLBLADDER, AND BILIARY TREE: The liver is normal in size, shape, and attenuation. No focal hepatic lesion. Cholecystectomy. Mild intrahepatic biliary ductal dilatation. No ductal filling defect. This is similar to prior. PANCREAS: Unremarkable. SPLEEN: Unremarkable. ADRENAL GLANDS: Unremarkable. KIDNEYS AND URETERS: The kidneys are normal in size, shape, and attenuation. There is mild fullness of the left renal collecting system. The left ureter is decompressed. No calculi are seen. Right midpole 0.8 cm hypoattenuating lesion is unchanged from prior. BLADDER: Unremarkable. GASTROINTESTINAL TRACT: Status post sleeve gastrectomy. Normal caliber small bowel. No obstruction. No colonic wall thickening or inflammatory change. No free air. No free fluid. ABDOMINAL WALL: No significant hernia is appreciated. LYMPH NODES: Normal. VASCULAR: Normal caliber aorta with mild atherosclerotic calcification. PELVIC VISCERA: Uterus is not seen. No adnexal mass. OSSEOUS STRUCTURES: No acute or suspicious osseous abnormality. CT/CT abdomen pelvis w con IMPRESSION: Mild fullness of the left renal collecting system. The ureter is decompressed. No calculi seen. No diverticulosis. No inflammatory changes. No bowel obstruction. Mild patchy lung basilar opacities are nonspecific. While this could represent atelectasis, these may be infectious or inflammatory.
[2021-02-14 02:08] VITALS: BP 125/65; PULSE 60; RESP 20; TEMP 36.8; O2SAT 97; BMI 28.3
--- NOTE | 2021-02-14 02:16 | PC.NURSE ---
at bedside for eval. UA obtained and sent.
--- NOTE | 2021-02-14 02:28 | ED_ITS ---
HPI - Abdominal Pain General Chief Complaint: Abdominal Pain Stated Complaint: back pain Time Seen by Provider: 02/14/21 02:07 Source: patient Mode of arrival: ambulatory Limitations: no limitations History of Present Illness HPI narrative: 55-year-old female who presents emergency department for evaluation of left-sided abdominal pain and left-sided flank pain. The patient states that the pain came on suddenly around 5:00 p.m. and has gotten progressively worse. She describes the pain as a constant, sharp pain which is 10/10. The pain is associated with nausea and she had 2 episodes of vomiting. She states that she was constipated and yesterday she took milk of magnesia and senna which caused her to have a large diarrheal stool today. She states she did notice bright red blood in the stool. She denied fever, chills, chest pain, shortness of breath, cough. The patient does have a history of left-sided diverticulitis and she states the pain is similar to her diverticulitis pain. The patient was seen by her doctor on , 4 days prior to evaluation. The patient had left-sided throat pain and was started on doxycycline and doxycycline. She says she had a chest x-ray at that time which was unremarkable. The patient did have a COVID-19 infection 3 weeks prior. Past surgical history is significant for appendectomy, cholecystectomy, gastric sleeve surgery 3 years prior done at [facility], hysterectomy. Related Data Home Medications Medication Instructions Recorded Confirmed albuterol sulfate 90 mcg/actuation 90 mcg INHALATION DAILY 07/16/20 02/10/21 aerosol inhaler aripiprazole 5 mg tablet 5 mg PO DAILY 07/16/20 02/10/21 atorvastatin 20 mg tablet 20 mg PO BEDTIME 07/16/20 02/10/21 benztropine 1 mg tablet 1 mg PO DAILY 07/16/20 02/10/21 buspirone 15 mg tablet 15 mg PO TID 07/16/20 02/10/21 clonazepam 2 mg tablet 2 mg PO BID 07/16/20 02/10/21 epinephrine 0.3 mg/0.3 mL 0.3 mg IM NEEDED PRN 07/16/20 01/13/21 injection, auto-injector fluticasone furoate 200 200 inh INHALATION NEEDED 07/16/20 01/13/21 mcg-vilanterol 25 mcg/dose inhalation powder fluticasone propionate 50 50 mcg INTRANASAL NEEDED 07/16/20 01/13/21 mcg/actuation nasal spray,suspension isosorbide mononitrate 30 mg 30 mg PO DAILY 07/16/20 01/13/21 tablet,extended release 24 hr montelukast 10 mg tablet 10 mg PO DAILY 07/16/20 01/13/21 omalizumab 150 mg subcutaneous 150 mg SUBCUT USEASDIRECTD 07/16/20 01/13/21 solution rosuvastatin 20 mg tablet 20 mg PO BEDTIME 07/16/20 02/10/21 sertraline 100 mg tablet 100 mg PO DAILY 07/16/20 02/10/21 tiotropium bromide 2.5 2.5 mcg INHALATION NEEDED 07/16/20 02/10/21 mcg/actuation mist for inhalation gabapentin 300 mg capsule mg PO 01/17/21 02/10/21 suvorexant 20 mg tablet mg PO 01/17/21 02/10/21 Previous Rx's Medication Instructions Recorded hydrocortisone 2.5 % topical cream 1 appl OK BID-QID PRN #30 g 11/12/20 with perineal applicator linaclotide 145 mcg capsule 145 mcg PO QAM 30 Days #30 cap 12/20/20 amoxicillin 875 mg tablet 875 mg PO BID #14 tab 01/13/21 cholecalciferol (vitamin D3) 1,250 1,250 mcg PO QWEEK 90 Days #13 cap 01/13/21 mcg (50,000 unit) capsule dicyclomine 20 mg tablet 20 mg PO QID PRN 30 Days #60 tab 01/17/21 famotidine 40 mg tablet 40 mg PO BID 30 Days #60 tab 01/17/21 sennosides 8.6 mg capsule 17.2 mg PO BEDTIME 30 Days #60 cap 01/17/21 prednisone 10 mg tablet See Rx Instructions PO DAILY #20 01/18/21 tab ibuprofen 400 mg tablet 400 mg PO Q8H PRN #60 tab 02/02/21 dexamethasone 4 mg tablet 4 mg PO .COMPLEX #18 tab 02/10/21 doxycycline hyclate 100 mg tablet 100 mg PO BID #14 tab 02/10/21 Allergies Allergy/AdvReac Type Severity Reaction Status Date / Time almond Allergy Severe DIFFICULTY Verified 02/14/21 02:14 BREATHING shellfish derived Allergy Severe ANAPHYLAXIS Verified 02/14/21 02:14 morphine Allergy Intermediate C/P - Verified 02/14/21 02:14 STOMACH CRAMPS, HIVES, DIFF BREATHING, anaphylaxis, shortness of breath strawberry Allergy Mild HIVES Verified 02/14/21 02:14 Sulfa (Sulfonamide Allergy Mild DIARRHEA Verified 02/14/21 02:14 Antibiotics) [SULFA (SULFONAMIDE ANTIBIOTICS)] gluten [GLUTEN] Allergy Unknown UNKNOWN Verified 02/14/21 02:14 meperidine [Demerol] Allergy Unknown upset Verified 02/14/21 02:14 stomach nitrofurantoin [Macrobid] Allergy Unknown Unknown Verified 02/14/21 02:14 codeine AdvReac Mild STOMACH Verified 02/14/21 02:14 [From TYLENOL-CODEINE #3] SPASM hydromorphone [From DILAUDID] AdvReac Mild STOMACH Verified 02/14/21 02:14 UPSET Review of Systems Review of Systems Yes all other systems are reviewed and are negative Physical Exam Vital Signs: Vital Signs: Last Vital Signs Temp 98.3 F 02/14/21 02:08 Pulse 60 02/14/21 02:08 Resp 20 02/14/21 02:08 BP 125/65 02/14/21 02:08 Pulse Ox 97 02/14/21 02:08 Body Mass Index 28.3 Const: General: cooperative and healthy appearing Orientation/consciousness: oriented to person and oriented to place Limitations: no limitations HENMT: Head: Yes normal to inspection, Yes normocephalic and Yes atraumatic Ears: external ears normal General nose exam: Normal external nose present Face and sinus: Yes normal facial exam Mouth: Normal oral and palatal mucosa present Throat: Yes posterior oropharynx normal Eyes: Periorbital: periorbital findings normal Eyelids: Yes eyelids normal Conjunctivae: conjunctivae normal Sclerae: sclerae normal Corneas: cor neas normal Pupils: Equal, round and reactive pupils present Direct Ophthalmoscopy: normal light reflex Neck: Neck: Yes full ROM, Yes no lymphadenopathy, Yes no meningeal signs, Yes trachea midline and Yes supple Chest: Chest palpation & inspection: normal inspection of the chest and normal palpation of entire chest wall Resp: Effort & Inspection: normal respiratory effort and able to speak in complete sentences Auscultation: clear to auscultation bilaterally Cardio: Rate: regular rate Rhythm: regular rhythm Heart sounds: S1 normal heart sound present, S2 normal heart sound present and no murmurs GI: Inspection: Yes normal to inspection Palpation (GI): Soft to palpation, Tenderness to palpation present (GI) in the LLQ (Moderate) and in the LUQ (Moderate), no guarding, not rigid and No hepatosplenomegaly present : General: Yes CVA tenderness on the left (Moderate) Back/Spine/Pelvis: Back: CVA tenderness Cervical Spine: normal cervical lordosis Thoracic/Lumbar Spine: thoracic and lumbar spine normal to inspection Skin: Lesions: no lesions Rashes: no rashes Wounds: no wounds Neuro: General: oriented to person, oriented to place and no meningeal signs Cranial nerves: Yes CN's II-XII intact bilaterally and Yes Equal, round and reactive pupils present Cognition (Neuro): normal cognition Motor exam (neuro): 5/5 motor strength present throughout Extrem: General: Yes normal to inspection and Yes full ROM Psych: Appearance: well kempt Mental Status: mental status grossly normal Speech and movement: Normal speech and movement present Affect: normal affect Attitude: cooperative Thought process: Normal thought process present Thought content: Normal thought content present Course Course Course Narrative: 55-year-old female who presents emergency department for evaluation of left sided abdominal and left flank pain which began yesterday at 5:00 p.m.. The pain has been constant and is 10/10. Patient does have a histo ry of diverticulitis and multiple surgical procedures including gastric sleeve 3 years prior. The differential includes but is not limited to diverticulitis, renal stone, bowel obstruction, internal hernia, ischemic bowel. I did order a CBC, CMP, lipase, lactic acid, urinalysis. The patient was also ordered to get a CT scan of the abdomen pelvis with IV contrast. Her pain was treated with fentanyl 100 mcg IV. She was also given Zofran 4 mg IV for her nausea and normal saline IV x1 L. 0409: The patient's laboratory evaluation [place] [address] and an elevated platelet count of 688. The patient did recently start prednisone and this could explain the elevated WBC. The patient's CT scan of the abdomen pelvis with IV contrast revealed mild fullness of the left renal collecting system with a decompressed ureter and no calcification. There was no evidence for diverticulosis, no inflammatory is changes and no bowel obstruction noted. The patient did get improvement of her abdominal pain with the fentanyl. Her exam revealed decreased tenderness of the left side of her abdomen with resolution of the left flank tenderness. I did discuss these findings with the patient, at this time I do not have a clear etiology for the patient's symptoms. The patient states she has tramadol at home that she takes for pain. She was advised to take her tramadol as prescribed by her doctor, to return to the emergency department if her symptoms get worse and to follow-up with her doctor for re-evaluation within 2 days. MDM - Abdominal Pain Lab Data Result diagrams: 02/14/21 02:36 02/14/21 02:35 Labs: Lab Results 02/14/21 02/14/21 02/14/21 Range/Units 02:16 02:35 02:35 WBC (4.8-10.8) X10*3/uL RBC (4.20-5.50) X10*6/uL Hgb (12.0-16.0) g/dl Hct (37-47) % MCV (80-98) fL MCH (27.0-33.0) pg MCHC (31.0-35.0) g/dl RDW (11.0-16.0) % Plt Count (160-400) X10*3/uL MPV (9.4-12.3) fL Immature Gran % (Auto) (0.0-0.4) % Neut % (Auto) (45-73) % Lymph % (Auto) (20-40) % [place] % (Auto) (2-11) % Eos % (Auto) (0-4) % Baso % (Auto) (0-2) % Lymph # (Auto) (1.2-4.9) X10*3/uL [place] # (Auto) (0.1-1.2) X10*3/uL Eos # (Auto) (0.0-0.4) X10*3/uL Baso # (Auto) (0.0-0.2) X10*3/uL Abs Immat Gran (auto) (0.00-0.03) X10*3/uL Absolute Neuts (auto) (2.0-8.3) X10*3/uL Absolute Nucleated RBC (0.0-0.012) X10*3/uL Nucleated RBC % (auto) (0.0-0.2) /100WBC Sodium 140 (135-145) mmol/L Potassium 4.7 (3.3-5.1) mmol/L Chloride 105 (96-108) mmol/L Carbon Dioxide 27 (22-29) mmol/L Anion Gap 13 (12-20) BUN 22 H D (9-16) mg/dL Creatinine 0.62 (0.5-1.4) mg/dL Estim Creat Clear Calc 82.0 Estimated GFR > 60 Random Glucose 85 (60-115) mg/dL Lactic Acid 1.7 (0.5-2.0) mmol/L Calcium 9.3 D (8.4-10.2) mg/dL Total Bilirubin 0.3 (0.0-1.0) mg/dL AST 14 (5-31) U/L ALT 17 (0-31) U/L Alkaline Phosphatase 144 H D (39-117) U/L Total Protein 6.6 (6.5-8.0) g/dL Albumin 3.7 (3.5-5.0) g/dL Lipase 38 (8-78) U/L Urine Color YELLOW Urine Appearance CLEAR Urine pH 7.5 (5.0-8.0) Ur Specific [place] 1.015 (1.005-1.025) Urine Protein NEG (NEG-TRACE) MG/DL Urine Glucose (UA) NEG (NEG) MG/DL Urine Ketones NEG (NEG) MG/DL Urine Blood NEG (NEG) Urine Nitrite NEG (NEG) Ur Leukocyte Esterase NEG (NEG) 02/14/21 Range/Units 02:36 WBC 17.1 H (4.8-10.8) X10*3/uL RBC 4.76 (4.20-5.50) X10*6/uL Hgb 13.1 (12.0-16.0) g/dl Hct 39.9 (37-47) % MCV 83.8 (80-98) fL MCH 27.5 (27.0-33.0) pg MCHC 32.8 (31.0-35.0) g/dl RDW 13.2 (11.0-16.0) % Plt Count 688 H D (160-400) X10*3/uL MPV 8.8 L (9.4-12.3) fL Immature Gran % (Auto) 0.8 H (0.0-0.4) % Neut % (Auto) 73.7 H (45-73) % Lymph % (Auto) 17.3 L (20-40) % [place] % (Auto) 8.1 (2-11) % Eos % (Auto) 0.0 (0-4) % Baso % (Auto) 0.1 (0-2) % Lymph # (Auto) 3.0 (1.2-4.9) X10*3/uL [place] # (Auto) 1.4 H (0.1-1.2) X10*3/uL Eos # (Auto) 0.0 (0.0-0.4) X10*3/uL Baso # (Auto) 0.0 (0.0-0.2) X10*3/uL Abs Immat Gran (auto) 0.14 H (0.00-0.03) X10*3/uL Absolute Neuts (auto) 12.6 H (2.0-8.3) X10*3/uL Absolute Nucleated RBC 0.000 (0.0-0.012) X10*3/uL Nucleated RBC % (auto) 0.0 (0.0-0.2) /100WBC Sodium (135-145) mmol/L Potassium (3.3-5.1) mmol/L Chloride (96-108) mmol/L Carbon Dioxide (22-29) mmol/L Anion Gap (12-20) BUN (9-16) mg/dL Creatinine (0.5-1.4) mg/dL Estim Creat Clear Calc Estimated GFR Random Glucose (60-115) mg/dL Lactic Acid (0.5-2.0) mmol/L Calcium (8.4-10.2) mg/dL Total Bilirubin (0.0-1.0) mg/dL AST (5-31) U/L ALT (0-31) U/L Alkaline Phosphatase (39-117) U/L Total Protein (6.5-8.0) g/dL Albumin (3.5-5.0) g/dL Lipase (8-78) U/L Urine Color Urine Appearance Urine pH (5.0-8.0) Ur Specific [place] (1.005-1.025) Urine Protein (NEG-TRACE) MG/DL Urine Glucose (UA) (NEG) MG/DL Urine Ketones (NEG) MG/DL Urine Blood (NEG) Urine Nitrite (NEG) Ur Leukocyte Esterase (NEG) Discharge Plan Discharge Clinical Impression: Acute flank pain Abdominal pain Qualifiers: Abdominal location: left lower quadrant Qualified Code(s): R10.32 - Left lower quadrant pain Patient Disposition: Home, Self-Care Instructions: Abdominal Pain (ED) Additional Instructions: Your blood work did reveal a elevation in your white blood cell count and your platelet count, this could be secondary to the prednisone that you are taking. Your blood work was otherwise unremarkable. Your urinalysis was normal. Your CT scan of your abdomen pelvis with IV contrast revealed no evidence of diverticulitis at this time. You do have some swelling of the left kidney which could suggest that you passed a kidney stone however this is hard to diagnose since no kidney stone was seen. At this time I do not have a clear cause for your pain but I think it is okay to send you home. Take your tramadol as prescribed by your doctor for your pain. Follow-up with your doctor in 2 days. Please return to the emergency department if your symptoms get worse or if you develop any symptoms that are concerning to you. Prescriptions: No Action hydrocortisone [Proctosol HC] 2.5 % cream with perineal applicator 1 appl OK BID-QID PRN (Reason: hemorrhoids) Qty: 30 RF: 1 prednisone 10 mg tablet See Rx Instructions PO DAILY Qty: 20 RF: 0 ibuprofen 400 mg tablet 400 mg PO Q8H PRN (Reason: pain) Qty: 60 RF: 0 Breo Ellipta 200-25 mcg/dose blister with device 200 inh inhalation NEEDED RF: 0 Spiriva Respimat 2.5 mcg/actuation mist 2.5 mcg inhalation NEEDED RF: 0 aripiprazole 5 mg tablet 5 mg PO DAILY RF: 0 benztropine 1 mg tablet 1 mg PO DAILY RF: 0 sertraline 100 mg tablet 100 mg PO DAILY RF: 0 clonazepam 2 mg tablet 2 mg PO BID RF: 0 rosuvastatin 20 mg tablet 20 mg PO BEDTIME RF: 0 Xolair 150 mg recon soln 150 mg subcut USEASDIRECTD RF: 0 fluticasone propionate 50 mcg/actuation spray,suspension 50 mcg intranasal NEEDED RF: 0 isosorbide mononitrate 30 mg tablet extended release 24 hr 30 mg PO DAILY RF: 0 atorvastatin 20 mg tablet 20 mg PO BEDTIME RF: 0 buspirone 15 mg tablet 15 mg PO TID RF: 0 albuterol sulfate 90 mcg/actuation HFA aerosol inhaler 90 mcg inhalation DAILY RF: 0 montelukast 10 mg tablet 10 mg PO DAILY RF: 0 epinephrine 0.3 mg/0.3 mL auto-injector 0.3 mg IM NEEDED PRN (Reason: Anaphylaxis) RF: 0 amoxicillin 875 mg tablet 875 mg PO BID Qty: 14 RF: 0 cholecalciferol (vitamin D3) 1,250 mcg (50,000 unit) capsule 1,250 mcg PO QWEEK 90 Days Qty: 13 RF: 1 doxycycline hyclate 100 mg tablet 100 mg PO BID Qty: 14 RF: 0 dexamethasone 4 mg tablet 4 mg PO .COMPLEX Qty: 18 RF: 0 Linzess 145 mcg capsule 145 mcg PO QAM 30 Days Qty: 30 RF: 3 gabapentin 300 mg capsule PO RF: 0 Belsomra 20 mg tablet PO RF: 0 senna 8.6 mg capsule 17.2 mg PO BEDTIME 30 Days Qty: 60 RF: 1 famotidine 40 mg tablet 40 mg PO BID 30 Days Qty: 60 RF: 6 dicyclomine 20 mg tablet 20 mg PO QID PRN (Reason: Cramps) 30 Days Qty: 60 RF: 6 PMFSH Past Medical History Medical History Anemia Asthma Bipolar disorder Celiac sprue Depression Diverticulitis Fibromyalgia GERD (gastroesophageal reflux disease) Hypercholesterolemia Hypertension Irritable bowel syndrome Knee osteoarthritis Obstructive sleep apnea Osteopenia Pulmonary nocardiosis Sick sinus syndrome Superficial thrombophlebitis TIA (transient ischemic attack) Surgical History H/O cardiac catheterization History of appendectomy History of arthroscopy of right shoulder History of cardiac pacemaker History of cholecystectomy History of foot surgery History of laparoscopic partial gastrectomy History of total hysterectomy with bilateral salpingo-oophorectomy (BSO) Hx of arthroscopy of knee Hx of colonoscopy Family History Family History Father No problems noted. Mother CVD (cerebrovascular disease) CAD (coronary artery disease) Stroke Maternal Grandmother Myocardial infarction Paternal Grandmother CVD (cerebrovascular disease) CAD (coronary artery disease) Social History Social History Household Members: Children Alcohol intake: never Smoking Status: Never smoker Advance Directives: No Current occupational status: disabled
[2021-02-14 02:39] LABS: MANUAL DIFF FLAG NO
[2021-02-14 02:40] LABS: Basophils Percent Auto 0.1 % (0-2); Hematocrit 39.9 % (37-47); Hemoglobin 13.1 g/dl (12.0-16.0); Imm Gran Abs Auto 0.14 X10*3/uL (0.00-0.03); Imm Gran Pct Auto 0.8 % (0.0-0.4); Lymphocytes Percent Auto 17.3 % (20-40); Mean Corpuscular HGB Conc 32.8 g/dl (31.0-35.0); Mean Corpuscular Hemoglobin 27.5 pg (27.0-33.0); Mean Corpuscular Volume 83.8 fL (80-98); Mean Platelet Volume 8.8 fL (9.4-12.3); Monocytes Absolute Auto 1.4 X10*3/uL (0.1-1.2); Monocytes Percent Auto 8.1 % (2-11); Neutrophils Absolute Auto 12.6 X10*3/uL (2.0-8.3); Neutrophils Percent Auto 73.7 % (45-73); Platelet Count 688 X10*3/uL (160-400); Red Blood Count 4.76 X10*6/uL (4.20-5.50); Red Cell Distribution Width 13.2 % (11.0-16.0); White Blood Count 17.1 X10*3/uL (4.8-10.8)
[2021-02-14] MEDS: fentaNYL citrate/PF 100 MCG/2 ML VIAL IVPUSH (02:43)
[2021-02-14] MEDS: ondansetron HCL 4 MG/2 ML VIAL IVPUSH (02:43)
[2021-02-14] MEDS: 0.9 % Sodium Chloride 1,000 ML 999 ML IV (02:44)
[2021-02-14 02:45] LABS: Glucose Urine UA NEG (NEG); Leukocyte Esterase Urine NEG (NEG); Nitrite Urine NEG (NEG); PH 7.5 (5.0-8.0); Specific Gravity - Urine 1.015 (1.005-1.025); Urine Blood NEG (NEG); Urine Ketones NEG (NEG); Urine Protein NEG (NEG-TRACE)
--- NOTE | 2021-02-14 02:46 | PC.NURSE ---
IV established, labs obtained. Pt medicated per DEC for 07/[address] Call montero within reach, continue to monitor.
[2021-02-14 02:49] LABS: Appearance Urine CLEAR; Color Urine YELLOW
[2021-02-14 02:55] LABS: Lactic Acid 1.7 mmol/L (0.5-2.0)
[2021-02-14 03:09] LABS: Alanine Aminotransferase 17 U/L (0-31); Albumin Level 3.7 g/dL (3.5-5.0); Alkaline Phosphatase 144 U/L (39-117); Anion Gap 13 (12-20); Aspartate Amino Transferase 14 U/L (5-31); Bilirubin Total 0.3 mg/dL (0.0-1.0); Blood Urea Nitrogen 22 mg/dL (9-16); Calcium 9.3 mg/dL (8.4-10.2); Carbon Dioxide 27 mmol/L (22-29); Chloride 105 mmol/L (96-108); Estimated Glomerular Filt Rate > 60; Glucose Random 85 mg/dL (60-115); Lipase 38 U/L (8-78); Potassium 4.7 mmol/L (3.3-5.1); Sodium 140 mmol/L (135-145); Total Protein 6.6 g/dL (6.5-8.0)
[2021-02-14] MEDS: iohexoL 350 MG/ML 100 ML INFUS..BTL 85 ML IV (03:24)
[2021-02-14 04:21] VITALS: BP 166/75; PULSE 59; RESP 16
== END 2021-02-14 04:44 | disposition home or self-care (01) ==
PROVIDERS: Emergency Provider Emergency Medicine Emergency Medical Services; PCP Internal Medicine
DX: R10.32 Left lower quadrant pain (principal); R10.9 Unspecified abdominal pain; I10 Essential (primary) hypertension; E78.00 Pure hypercholesterolemia, unspecified; Z86.73 Personal history of transient ischemic attack (TIA), and cerebral infarction without residual deficits
CPT/HCPCS: 36415; 74177; 80053; 81003; 83605; 83690; 85025; 96361; 96374; 96375; 99284; J2405; J3010; Q9967

== ENCOUNTER 2021-07-05 08:07 | Outpatient (REF) | payer MEDICARE, MEDICAID, SELFPAY ==
--- NOTE | ~2021-07-05 | MM_ITS ---
EXAMINATION: BONE DENSITOMETRY CLINICAL INDICATION: Menopause. COMPARISON: Previous BD dated 01/09/2019 and baseline BD dated 11/02/2009. TECHNIQUE: Using a [employer] DXA System (software version: 13.1) manufactured by [employer], dual-energy x-ray absorptiometry was performed of the lumbar spine and left hip. The images are of good technical quality. Summary results are attached. FINDINGS: AP SPINE L1-L4: Current: BMD 0.910 g/cm2, Z-score -1.5, T-score -2.3, osteopenia, 2.7% decrease from previous, 10.7% decrease from baseline (<5% change is not significant). Prior: BMD 0.935 g/cm2. Baseline: BMD 1.019 g/cm2. LEFT FEMUR, NECK: Current: BMD 0.838 g/cm2, Z-score -0.4, T-score -1.4, osteopenia. Prior: BMD 0.824 g/cm2. Baseline: BMD 0.919 g/cm2. LEFT FEMUR, TOTAL: Current: BMD 0.856 g/cm2, Z-score -0.6, T-score -1.2, osteopenia, 3.4% decrease from previous, 15.7% decrease from baseline (<5% change is not significant). Prior: BMD 0.886 g/cm2. Baseline: BMD 1.016 g/cm2. IDENTIFIED RISK FACTORS: Early menopause, bilateral oophorectomy, secondary osteoporosis, hysterectomy. HISTORY OF FRACTURE: None listed. MEDICATIONS: Calcium, vitamin D. MM/XR DEXA axial skeleton IMPRESSION: 1. DIAGNOSIS: Osteopenia based on the lowest T-score value of -2.3 in the lumbar spine applying World Health Organization criteria. 2. 10-YEAR FRACTURE RISK PREDICTION, FRAX: Major osteoporotic fracture (clinical spine, forearm, hip or shoulder) 3.7%. Hip fracture 0.3%. 3. Treatment Recommendations: NOF guidelines recommend consideration for treatment in postmenopausal women and men age 50 and older presenting with the following: -A hip or vertebral (clinical or morphometric) fracture. -T-score less than or equal to -2.5 at the femoral neck or spine after appropriate evaluation to exclude secondary causes. -Low bone mass at the hip or spine and a 10-year fracture probability by FRAX of greater than or equal to 3% for hip fracture or greater than or equal to 20% for major osteoporotic fracture based on the [place] adapted WHO algorithm. 4. Other Recommendations: All treatment decisions require clinical judgment and consideration of individual patient factors, including patient preferences, comorbidities, previous drug use, risk factors not captured in the FRAX model (e.g. frailty, falls, vitamin D deficiency, increased bone turnover, interval significant decline in bone density) and possible under or overestimation of fracture risk by FRAX. Additional medical evaluation for secondary cause of low bone mineral density may be appropriate. FUTURE SCAN RECOMMENDATION: People with diagnosed cases of osteoporosis or at high risk for fracture should have regular bone mineral density tests. For patients eligible for Medicare, routine testing is allowed once every 2 years. The testing frequency can be increased to one year for patients who have rapidly progressing disease, those who are receiving or discontinuing medical therapy to restore bone mass, or have additional risk factors.
== END 2021-07-05 08:08 | disposition home or self-care (01) ==
LOC: HO.MAMMO 08:07
PROVIDERS: PCP Nurse Practitioner Family; Visit Provider Nurse Practitioner Family
DX: Z13.820 Encounter for screening for osteoporosis (principal); M85.80 Other specified disorders of bone density and structure, unspecified site; Z78.0 Asymptomatic menopausal state; Z79.899 Other long term (current) drug therapy
CPT/HCPCS: 77080

== ENCOUNTER → 2021-08-25 13:57 | Outpatient (BNVA) | payer MEDICARE, MEDICAID, SELFPAY | PROVIDERS: PCP Internal Medicine; Referring Provider Internal Medicine; Visit Provider Nurse Practitioner | DX: K59.04 Chronic idiopathic constipation (principal); K90.0 Celiac disease; K21.9 Gastro-esophageal reflux disease without esophagitis | CPT/HCPCS: 99212 ==

== ENCOUNTER 2021-10-18 16:44 | Outpatient (REF) | payer MEDICARE, MEDICAID, SELFPAY ==
[2021-10-18 18:01] LABS: Influenza A PCR NEGATIVE (Negative); Influenza B PCR NEGATIVE (Negative); Resp Syncy Virus RNA Qual PCR NEGATIVE (Negative); SARS COV2 PCR INHOUSE NEGATIVE (Negative)
== END 2021-10-18 16:45 | disposition home or self-care (01) ==
LOC: HO.LNP 16:44
PROVIDERS: Visit Provider Physician Assistant
DX: J32.9 Chronic sinusitis, unspecified (principal); Z20.822 Contact with and (suspected) exposure to COVID-19
CPT/HCPCS: 0241U

== ENCOUNTER 2021-11-09 07:31 | Outpatient (REF) | payer MEDICARE, MEDICAID, SELFPAY ==
--- NOTE | ~2021-11-09 | MM_ITS ---
EXAMINATION: MM SCREENING DIGITAL BREAST TOMOSYNTHESIS, BILATERAL CLINICAL INFORMATION: Screening. Asymptomatic. The lifetime risk of breast cancer based on the Tyrer-Cuzick Model is 10%. COMPARISON: Mammography: 12/09/2018, 11/27/2017, 03/22/2016 TECHNIQUE: Digital breast tomosynthesis is performed in both the craniocaudal and mediolateral oblique views along with computer-aided detection (CAD). Synthesized 2D images are generated from the tomosynthesis. Additional right CC view is provided. FINDINGS: There are scattered areas of fibroglandular density (ACR BI-RADS breast composition Category b). There are no significant masses, abnormal calcifications, or other abnormalities. There is a pacemaker generator overlying and partly obscuring left axilla on MLO view. There are scattered bilateral vascular and some punctate round calcifications. The visualized axilla and skin contours are unremarkable. No significant changes from prior exams. MM/MM tomosynthesis screening BI IMPRESSION: No mammographic evidence of malignancy. ASSESSMENT: BI-RADS 2: Benign RECOMMENDATION: Routine annual mammography screening. This patient's information was entered into a reminder system with a target due date for their next mammogram.
== END 2021-11-09 07:32 | disposition home or self-care (01) ==
LOC: HO.MAMMO 07:31
PROVIDERS: PCP Internal Medicine; Visit Provider Internal Medicine
DX: Z12.31 Encounter for screening mammogram for malignant neoplasm of breast (principal)
CPT/HCPCS: 77063; 77067

== ENCOUNTER → 2021-11-24 13:59 | Outpatient (BNVA) | payer MEDICARE, MEDICAID, SELFPAY | PROVIDERS: PCP Internal Medicine; Referring Provider Internal Medicine; Visit Provider Nurse Practitioner | DX: K59.04 Chronic idiopathic constipation (principal); K21.9 Gastro-esophageal reflux disease without esophagitis; K90.0 Celiac disease | CPT/HCPCS: 99212 ==

== ENCOUNTER → 2022-01-04 10:57 | Outpatient (BNVA) | payer MEDICARE, MEDICAID, SELFPAY | PROVIDERS: Visit Provider Internal Medicine | DX: Z13.89 Encounter for screening for other disorder (principal) ==

== ENCOUNTER 2022-04-12 08:54 | Outpatient (REF) | payer MEDICARE, MEDICAID, SELFPAY ==
[2022-04-12 09:09] LABS: MANUAL DIFF FLAG NO
[2022-04-12 10:31] LABS: Basophils Percent Auto 0.4 % (0-2); Eosinophils Absolute Auto 0.3 X10*3/uL (0.0-0.4); Eosinophils Percent Auto 3.9 % (0-4); Hematocrit 39.6 % (37.0-47.0); Hemoglobin 12.4 g/dl (12.0-16.0); Imm Gran Abs Auto 0.03 X10*3/uL (0.00-0.03); Imm Gran Pct Auto 0.4 % (0.0-0.4); Lymphocytes Absolute Auto 2.9 X10*3/uL (1.2-4.9); Lymphocytes Percent Auto 34.6 % (20-40); Mean Corpuscular HGB Conc 31.3 g/dl (31.0-35.0); Mean Corpuscular Hemoglobin 26.6 pg (27.0-33.0); Mean Platelet Volume 9.2 fL (9.4-12.3); Monocytes Absolute Auto 0.8 X10*3/uL (0.1-1.2); Monocytes Percent Auto 9.1 % (2-11); Neutrophils Absolute Auto 4.4 x10*3/uL (2.0-8.3); Neutrophils Percent Auto 51.6 % (45-73); Platelet Count 328 X10*3/uL (160-400); Red Blood Count 4.66 X10*6/uL (4.20-5.50); Red Cell Distribution Width 13.2 % (11.0-16.0); White Blood Count 8.5 X10*3/uL (4.8-10.8)
[2022-04-12 11:10] LABS: Cholesterol 221 mg/dL; HDL Cholesterol 68 mg/dL; LDL Cholesterol Calculated 135 mg/dl; Triglycerides 93 mg/dL
[2022-04-12 11:21] LABS: Free T4 (Free Thyroxine) 0.92 ng/dL (0.71-1.85); Thyroid Stimulating Hormone 1.31 uIU/mL (0.32-4.0); Vitamin D 25-OH Total 13.9 ng/mL (>30)
[2022-04-12 11:33] LABS: Vitamin B12 623 pg/mL (200-900)
== END 2022-04-12 08:55 | disposition home or self-care (01) ==
LOC: HO.LAB 08:54
PROVIDERS: PCP Internal Medicine; Visit Provider Internal Medicine
DX: E78.00 Pure hypercholesterolemia, unspecified (principal)
CPT/HCPCS: 36415; 80061; 82306; 82607; 82746; 84439; 84443; 85025

== ENCOUNTER 2022-05-31 08:30 | Outpatient (RCR) | payer MEDICARE, MEDICAID, SELFPAY | END 2022-07-18 09:03 | disposition home or self-care (01) | LOC: HO.OT 08:30 | PROVIDERS: PCP Internal Medicine; Visit Provider Physician Assistant | DX: Z96.691 Finger-joint replacement of right hand (principal) | CPT/HCPCS: 29130; 97035; 97110; 97140; 97166; 97760 ==

== ENCOUNTER → 2022-07-04 09:57 | Outpatient (BNVA) | payer MEDICARE, MEDICAID, SELFPAY | PROVIDERS: PCP Internal Medicine; Visit Provider Internal Medicine Rheumatology | DX: M25.552 Pain in left hip (principal); M54.9 Dorsalgia, unspecified; M79.7 Fibromyalgia | CPT/HCPCS: 99202 ==

== ENCOUNTER 2022-11-07 16:56 | Emergency (ER) | payer MEDICARE, MEDICAID, SELFPAY ==
--- NOTE | ~2022-11-07 | XR_ITS ---
EXAMINATION: XR CHEST CLINICAL INFORMATION: Chest pain with shortness of breath COMPARISON: 02/10/2021 TECHNIQUE: 2 views of the chest were obtained. FINDINGS: A left chest wall bipolar pacemaker is present in good position. No significant abnormality is noted involving the heart, lungs, mediastinum, bony thorax or soft tissues. Multifocal infiltrates seen on the 02/10/2021 study have all cleared. Surgical clips are present in the gallbladder fossa. XR/XR chest 2V IMPRESSION: No acute intrathoracic disease.
--- NOTE | 2022-11-07 16:58 | ED_ITS ---
HPI - Chest Pain General Chief Complaint: Chest Pain <JW Mclaughlin - Last Filed: 11/07/22 17:04> Stated Complaint: Chest pain <JW Mclaughlin - Last Filed: 11/07/22 17:04> Time Seen by Provider: 11/07/22 22:11 <JW Mclaughlin - Last Filed: 11/07/22 17:04> Source: patient <Poncho Anaya MD - Last Filed: 11/08/22 06:28> Mode of arrival: ambulatory <Poncho Anaya MD - Last Filed: 11/08/22 06:28> Limitations: no limitations <Poncho Anaya MD - Last Filed: 11/08/22 06:28> History of Present Illness HPI narrative: Patient status post replacement of pacemaker battery on 10/24/2022 for bradycardia, history of hypertension arthritis comes here for the pain in the area of pacemaker for last 2 days also complaining of headache no shortness of breath no fever no chills patient feels anxious <Poncho Anaya MD - Last Filed: 11/08/22 06:28> Related Data Home Medications: Home Medications Medication Instructions Recorded Confirmed aripiprazole 5 mg tablet 5 mg PO DAILY 07/16/20 08/15/22 benztropine 1 mg tablet 1 mg PO DAILY 07/16/20 08/15/22 buspirone 15 mg tablet 15 mg PO TID 07/16/20 08/15/22 clonazepam 2 mg tablet 2 mg PO BID 07/16/20 08/15/22 epinephrine 0.3 mg/0.3 mL 0.3 mg IM NEEDED PRN Anaphylaxis 07/16/20 08/15/22 injection, auto-injector fluticasone furoate 200 200 inh inhalation NEEDED 07/16/20 08/15/22 mcg-vilanterol 25 mcg/dose inhalation powder (Breo Ellipta) fluticasone propionate 50 50 mcg intranasal NEEDED 07/16/20 08/15/22 mcg/actuation nasal spray,suspension isosorbide mononitrate 30 mg 30 mg PO DAILY 07/16/20 08/15/22 tablet,extended release 24 hr montelukast 10 mg tablet 10 mg PO DAILY 07/16/20 08/15/22 rosuvastatin 20 mg tablet 20 mg PO BEDTIME 07/16/20 08/15/22 sertraline 100 mg tablet 100 mg PO DAILY 07/16/20 08/15/22 tiotropium bromide 2.5 2.5 mcg inhalation NEEDED 07/16/20 08/15/22 mcg/actuation mist for inhalation (Spiriva Respimat) suvorexant 20 mg tablet 20 mg PO DAILY 01/17/21 08/15/22 omalizumab 150 mg subcutaneous 150 mg subcut .every 2 weeks 07/04/22 08/15/22 solution (Xolair) Previous Rx's Medication Instructions Recorded ibuprofen 600 mg tablet 600 mg PO Q8H PRN pain #20 tabs 10/18/21 dicyclomine 20 mg tablet 20 mg PO QID PRN Cramps 30 days 11/24/21 #60 tabs linaclotide 290 mcg capsule 290 mcg PO QAM #30 caps 11/24/21 (Linzess) sennosides 8.6 mg tablet (senna) 17.2 mg PO BEDTIME #60 tabs 11/24/21 albuterol sulfate 90 mcg/actuation 2 puff inhalation Q6H PRN 04/18/22 aerosol inhaler shortness of breath or wheezing #6.7 grams cholecalciferol (vitamin D3) 50 50 mcg PO DAILY 90 days #90 caps 08/15/22 mcg (2,000 unit) capsule ondansetron 8 mg disintegrating 8 mg PO DAILY PRN nausea and 08/15/22 tablet vomiting 30 days #14 tabs tramadol 50 mg tablet 50 mg PO TID PRN pain 30 days #90 08/22/22 tabs fluconazole 150 mg tablet 150 mg PO ONCE 1 day #1 tab 10/04/22 (Diflucan) pantoprazole 40 mg tablet,delayed 40 mg PO DAILY 90 days #90 tabs 10/19/22 release ibuprofen 600 mg tablet 600 mg PO Q6H PRN fever or pain 11/07/22 #30 tabs <JW Mclaughlin - Last Filed: 11/07/22 17:04> Allergies/Adverse Reactions: Allergies Allergy/AdvReac Type Severity Reaction Status Date / Time almond Allergy Severe DIFFICULTY Verified 08/15/22 16:54 BREATHING shellfish derived Allergy Severe ANAPHYLAXIS Verified 08/15/22 16:54 morphine Allergy Intermediate C/P - Verified 08/15/22 16:54 STOMACH CRAMPS, HIVES, DIFF BREATHING, anaphylaxis, shortness of breath strawberry Allergy Mild HIVES Verified 08/15/22 16:54 Sulfa (Sulfonamide Allergy Mild DIARRHEA Verified 08/15/22 16:54 Antibiotics) [SULFA (SULFONAMIDE ANTIBIOTICS)] gluten [GLUTEN] Allergy Unknown UNKNOWN Verified 08/15/22 16:54 meperidine [Demerol] Allergy Unknown upset Verified 08/15/22 16:54 stomach nitrofurantoin [Macrobid] Allergy Unknown Unknown Verified 08/15/22 16:54 codeine AdvReac Mild STOMACH Verified 08/15/22 16:54 [From TYLENOL-CODEINE #3] SPASM hydromorphone [From DILAUDID] AdvReac Mild STOMACH Verified 08/15/22 16:54 UPSET <JW Mclaughlin - Last Filed: 11/07/22 17:04> Review of Systems Review of Systems: Yes all other systems are reviewed and are negative <Poncho Anaya MD - Last Filed: 11/08/22 06:28> FOR[facility]LY [facility] Past Medical History Medical History: Medical History Anemia Asthma Bipolar disorder Breast cancer screening by mammogram Carpal tunnel syndrome Celiac sprue Colon cancer screening COVID-19 virus infection Depression Diverticulitis Fibromyalgia GERD (gastroesophageal reflux disease) History of arthroplasty of finger Hypercholesterolemia Hypertension Knee osteoarthritis Obstructive sleep apnea Osteopenia Otitis externa Pharyngitis Post-menopausal Pulmonary nocardiosis Rectal bleed Right otitis media Screening for diabetes mellitus Sick sinus syndrome Sinus congestion Superficial thrombophlebitis Thumb injury TIA (transient ischemic attack) Trigger finger <JW Mclaughlin - Last Filed: 11/07/22 17:04> Surgical History: Surgical History H/O cardiac catheterization H/O carpal tunnel repair H/O thumb surgery History of appendectomy History of arthroscopy of right shoulder History of cardiac pacemaker History of cholecystectomy History of foot surgery History of laparoscopic partial gastrectomy History of total hysterectomy with bilateral salpingo-oophorectomy (BSO) Hx of arthroscopy of knee Hx of colonoscopy <JW Mclaughlin - Last Filed: 11/07/22 17:04> Family History Family History: Family History Father No problems noted. 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1 <JW Mclaughlin - Last Filed: 11/07/22 17:04> Vital Signs: Last Vital Signs Temp 98.3 F 11/07/22 17:00 Pulse 70 11/07/22 17:00 Resp 18 11/07/22 17:00 BP 148/51 H 11/07/22 17:00 Pulse Ox 100 11/07/22 17:00 O2 Del Method 11/07/22 17:00 BMI result Body Mass Index 33.1 <Poncho Anaya MD - Last Filed: 11/08/22 06:28> Appearance: Alert. Oriented X3. No acute distress. Anxious Eyes: PERRLA, No Nystagmus ENT: Pharynx normal. Oral Mucosa moist Neck: Normal inspection. Neck supple. CVS: Normal heart rate and rhythm. Pulses normal. Tenderness at the pacemaker area skin normal in color Respiratory: No respiratory distress. Equal air entry bilateral, no wheezing/ rales/rhonchi Abdomen: Soft and nontender. Bowel sounds are present, no mass palpable, no CVA tenderness Skin: Skin warm and dry. Normal skin color. Normal skin turgor. Extremities: No lower extremity edema. No calf tenderness Neuro: Oriented X 3. No motor deficit. No sensory deficit.No cerebellar signs , cranial nerves II-XII intact <Poncho Anaya MD - Last Filed: 11/08/22 06:28> Course Course Course Narrative: RME - 56 yo female with history fibromyalgia, asthma, bipolar disorder, GERD, HLD, obesity s/p gastric sleeve, history of PPM with recent replacement on 10/24 due to malfunction who presents to the ER for evaluation of central chest pressure that started last night along with SOB. Was at cardiology office today for wound check and pacer evaluation - told all was fine but to come to the ER if symptoms worsened. Chest pain radiates up into the neck, worse with exertion. Tried inhalers at home. Also report throbbing headache. VSS In triage. Needs EKG, CXR, trop, labs. <JW Mclaughlin - Last Filed: 11/07/22 17:04> Medications Administered Discontinued Medications Generic Name Dose Route Start Last Admin Trade Name Freq PRN Reason Stop Dose Admin Ibuprofen 600 mg 11/07/22 22:33 11/08/22 00:02 Ibuprofen 600 Mg Tablet PO 11/07/22 22:34 Not Given ONCE ONE <JW Mclaughlin - Last Filed: 11/07/22 17:04> Medications Administered Discontinued Medications Generic Name Dose Route Start Last Admin Trade Name Freq PRN Reason Stop Dose Admin Ibuprofen 600 mg 11/07/22 22:33 11/08/22 00:02 Ibuprofen 600 Mg Tablet PO 11/07/22 22:34 Not Given ONCE ONE <Poncho Anaya MD - Last Filed: 11/08/22 06:28> Medical Decision Making Medical Decision Making MDM Narrative: Patient with pain at the site of the pacemaker for last few days 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 <Poncho Anaya MD - Last Filed: 11/08/22 06:28> Result Diagrams: 11/07/22 17:29 11/07/22 17:29 <JW Mclaughlin - Last Filed: 11/07/22 17:04> Labs: Lab Results 11/07/22 11/07/22 11/07/22 Range/Units 17:29 17:29 17:29 WBC 10.6 (4.8-10.8) X10*3/uL RBC 4.56 (4.20-5.50) X10*6/uL Hgb 12.1 (12.0-16.0) g/dl Hct 38.1 (37.0-47.0) % MCV 83.6 (80.0-98.0) fL MCH 26.5 L (27.0-33.0) pg MCHC 31.8 (31.0-35.0) g/dl RDW 14.2 (11.0-16.0) % Plt Count 341 (160-400) X10*3/uL MPV 8.9 L (9.4-12.3) fL Immature Gran % (Auto) 0.3 (0.0-0.4) % Neut % (Auto) 53.2 (45-73) % Lymph % (Auto) 37.1 (20-40) % Emmons % (Auto) 7.7 (2-11) % Eos % (Auto) 1.4 (0-4) % Baso % (Auto) 0.3 (0-2) % Lymph # (Auto) 3.9 (1.2-4.9) X10*3/uL Emmons # (Auto) 0.8 (0.1-1.2) X10*3/uL Eos # (Auto) 0.2 (0.0-0.4) X10*3/uL Baso # (Auto) 0.0 (0.0-0.2) X10*3/uL Abs Immat Gran (auto) 0.03 (0.00-0.03) X10*3/uL Absolute Neuts (auto) 5.6 (2.0-8.3) x10*3/uL Absolute Nucleated RBC 0.000 (0.0-0.012) X10*3/uL Nucleated RBC % (auto) 0.0 (0.0-0.2) /100WBC PT (10.0-13.1) SEC INR (0.9-1.1) APTT (26.0-36.4) SEC Sodium 143 (135-145) mmol/L Potassium 3.6 (3.3-5.1) mmol/L Chloride 106 (96-108) mmol/L Carbon Dioxide 29 (22-29) mmol/L Anion Gap 12 (12-20) BUN 13 (9-16) mg/dL Creatinine 0.66 (0.5-1.4) mg/dL Estim Creat Clear Calc 82.6 Estimated GFR > 60 Random Glucose 97 (60-115) mg/dL Calcium 9.2 (8.4-10.2) mg/dL Magnesium 2.2 (1.6-2.6) mg/dL Total Bilirubin 0.3 (0.0-1.0) mg/dL Direct Bilirubin < 0.2 (0.0-0.5) mg/dL AST 23 (5-31) U/L ALT 18 (0-31) U/L Alkaline Phosphatase 125 H (39-117) U/L Troponin I High Sens < 3.5 (<3.5-17.0) ng/L B-Natriuretic Peptide (<100) pg/mL Total Protein 6.7 (6.5-8.0) g/dL Albumin 4.0 (3.5-5.0) g/dL COVID-19 ([facility]) (Negative) COVID-19 Clin Com 11/07/22 11/07/22 11/07/22 Range/Units 17:29 17:29 17:29 WBC (4.8-10.8) X10*3/uL RBC (4.20-5.50) X10*6/uL Hgb (12.0-16.0) g/dl Hct (37.0-47.0) % MCV (80.0-98.0) fL MCH (27.0-33.0) pg MCHC (31.0-35.0) g/dl RDW (11.0-16.0) % Plt Count (160-400) X10*3/uL MPV (9.4-12.3) fL Immature Gran % (Auto) (0.0-0.4) % Neut % (Auto) (45-73) % Lymph % (Auto) (20-40) % Emmons % (Auto) (2-11) % Eos % (Auto) (0-4) % Baso % (Auto) (0-2) % Lymph # (Auto) (1.2-4.9) X10*3/uL Emmons # (Auto) (0.1-1.2) X10*3/uL Eos # (Auto) (0.0-0.4) X10*3/uL Baso # (Auto) (0.0-0.2) X10*3/uL Abs Immat Gran (auto) (0.00-0.03) X10*3/uL Absolute Neuts (auto) (2.0-8.3) x10*3/uL Absolute Nucleated RBC (0.0-0.012) X10*3/uL Nucleated RBC % (auto) (0.0-0.2) /100WBC PT 10.6 (10.0-13.1) SEC INR 0.9 (0.9-1.1) APTT 31.1 (26.0-36.4) SEC Sodium (135-145) mmol/L Potassium (3.3-5.1) mmol/L Chloride (96-108) mmol/L Carbon Dioxide (22-29) mmol/L Anion Gap (12-20) BUN (9-16) mg/dL Creatinine (0.5-1.4) mg/dL Estim Creat Clear Calc Estimated GFR Random Glucose (60-115) mg/dL Calcium (8.4-10.2) mg/dL Magnesium (1.6-2.6) mg/dL Total Bilirubin (0.0-1.0) mg/dL Direct Bilirubin (0.0-0.5) mg/dL AST (5-31) U/L ALT (0-31) U/L Alkaline Phosphatase (39-117) U/L Troponin I High Sens (<3.5-17.0) ng/L B-Natriuretic Peptide 29 (<100) pg/mL Total Protein (6.5-8.0) g/dL Albumin (3.5-5.0) g/dL COVID-19 ([facility]) Negative (Negative) COVID-19 Clin Com See Note <JW Mclaughlin - Last Filed: 11/07/22 17:04> Lab Results 11/07/22 11/07/22 11/07/22 Range/Units 17:29 17:29 17:29 WBC 10.6 (4.8-10.8) X10*3/uL RBC 4.56 (4.20-5.50) X10*6/uL Hgb 12.1 (12.0-16.0) g/dl Hct 38.1 (37.0-47.0) % MCV 83.6 (80.0-98.0) fL MCH 26.5 L (27.0-33.0) pg MCHC 31.8 (31.0-35.0) g/dl RDW 14.2 (11.0-16.0) % Plt Count 341 (160-400) X10*3/uL MPV 8.9 L (9.4-12.3) fL Immature Gran % (Auto) 0.3 (0.0-0.4) % Neut % (Auto) 53.2 (45-73) % Lymph % (Auto) 37.1 (20-40) % Emmons % (Auto) 7.7 (2-11) % Eos % (Auto) 1.4 (0-4) % Baso % (Auto) 0.3 (0-2) % Lymph # (Auto) 3.9 (1.2-4.9) X10*3/uL Emmons # (Auto) 0.8 (0.1-1.2) X10*3/uL Eos # (Auto) 0.2 (0.0-0.4) X10*3/uL Baso # (Auto) 0.0 (0.0-0.2) X10*3/uL Abs Immat Gran (auto) 0.03 (0.00-0.03) X10*3/uL Absolute Neuts (auto) 5.6 (2.0-8.3) x10*3/uL Absolute Nucleated RBC 0.000 (0.0-0.012) X10*3/uL Nucleated RBC % (auto) 0.0 (0.0-0.2) /100WBC PT (10.0-13.1) SEC INR (0.9-1.1) APTT (26.0-36.4) SEC Sodium 143 (135-145) mmol/L Potassium 3.6 (3.3-5.1) mmol/L Chloride 106 (96-108) mmol/L Carbon Dioxide 29 (22-29) mmol/L Anion Gap 12 (12-20) BUN 13 (9-16) mg/dL Creatinine 0.66 (0.5-1.4) mg/dL Estim Creat Clear Calc 82.6 Estimated GFR > 60 Random Glucose 97 (60-115) mg/dL Calcium 9.2 (8.4-10.2) mg/dL Magnesium 2.2 (1.6-2.6) mg/dL Total Bilirubin 0.3 (0.0-1.0) mg/dL Direct Bilirubin < 0.2 (0.0-0.5) mg/dL AST 23 (5-31) U/L ALT 18 (0-31) U/L Alkaline Phosphatase 125 H (39-117) U/L Troponin I High Sens < 3.5 (<3.5-17.0) ng/L B-Natriuretic Peptide (<100) pg/mL Total Protein 6.7 (6.5-8.0) g/dL Albumin 4.0 (3.5-5.0) g/dL COVID-19 ([facility]) (Negative) COVID-19 Clin Com 11/07/22 11/07/22 11/07/22 Range/Units 17:29 17:29 17:29 WBC (4.8-10.8) X10*3/uL RBC (4.20-5.50) X10*6/uL Hgb (12.0-16.0) g/dl Hct (37.0-47.0) % MCV (80.0-98.0) fL MCH (27.0-33.0) pg MCHC (31.0-35.0) g/dl RDW (11.0-16.0) % Plt Count (160-400) X10*3/uL MPV (9.4-12.3) fL Immature Gran % (Auto) (0.0-0.4) % Neut % (Auto) (45-73) % Lymph % (Auto) (20-40) % Emmons % (Auto) (2-11) % Eos % (Auto) (0-4) % Baso % (Auto) (0-2) % Lymph # (Auto) (1.2-4.9) X10*3/uL Emmons # (Auto) (0.1-1.2) X10*3/uL Eos # (Auto) (0.0-0.4) X10*3/uL Baso # (Auto) (0.0-0.2) X10*3/uL Abs Immat Gran (auto) (0.00-0.03) X10*3/uL Absolute Neuts (auto) (2.0-8.3) x10*3/uL Absolute Nucleated RBC (0.0-0.012) X10*3/uL Nucleated RBC % (auto) (0.0-0.2) /100WBC PT 10.6 (10.0-13.1) SEC INR 0.9 (0.9-1.1) APTT 31.1 (26.0-36.4) SEC Sodium (135-145) mmol/L Potassium (3.3-5.1) mmol/L Chloride (96-108) mmol/L Carbon Dioxide (22-29) mmol/L Anion Gap (12-20) BUN (9-16) mg/dL Creatinine (0.5-1.4) mg/dL Estim Creat Clear Calc Estimated GFR Random Glucose (60-115) mg/dL Calcium (8.4-10.2) mg/dL Magnesium (1.6-2.6) mg/dL Total Bilirubin (0.0-1.0) mg/dL Direct Bilirubin (0.0-0.5) mg/dL AST (5-31) U/L ALT (0-31) U/L Alkaline Phosphatase (39-117) U/L Troponin I High Sens (<3.5-17.0) ng/L B-Natriuretic Peptide 29 (<100) pg/mL Total Protein (6.5-8.0) g/dL Albumin (3.5-5.0) g/dL COVID-19 ([facility]) Negative (Negative) COVID-19 Clin Com See Note <Poncho Anaya MD - Last Filed: 11/08/22 06:28> Independent Interpretation I performed an independent interpretation of an: EKG <Poncho Anaya MD - Last Filed: 11/08/22 06:28> Interpretation: Atrial paced rhythm ventricular rate 60 beats per minute no acute ST wave changes no acute ischemia <Poncho Anaya MD - Last Filed: 11/08/22 06:28> Discharge Plan Discharge Clinical Impression: Chest wall pain following surgery <JW Mclaughlin - Last Filed: 11/07/22 17:04> Patient Disposition: Home, Self-Care <JW Mclaughlin - Last Filed: 11/07/22 17:04> Instructions: Chest Wall Pain (ED) <JW Mclaughlin - Last Filed: 11/07/22 17:04> Additional Instructions: Take ibuprofen for pain Follow with PCP/director media <JW Mclaughlin - Last Filed: 11/07/22 17:04> Prescriptions: New ibuprofen 600 mg tablet 600 mg PO Q6H PRN (Reason: fever or pain) Qty: 30 0RF No Action tramadol 50 mg tablet 50 mg PO TID PRN (Reason: pain) 30 Days Qty: 90 1RF fluconazole [Diflucan] 150 mg tablet 150 mg PO ONCE 1 Days Qty: 1 0RF pantoprazole 40 mg tablet,delayed release (DR/EC) 40 mg PO DAILY 90 Days Qty: 90 0RF Breo Ellipta 200-25 mcg/dose blister with device 200 inh inhalation NEEDED Spiriva Respimat 2.5 mcg/actuation mist 2.5 mcg inhalation NEEDED aripiprazole 5 mg tablet 5 mg PO DAILY benztropine 1 mg tablet 1 mg PO DAILY sertraline 100 mg tablet 100 mg PO DAILY clonazepam 2 mg tablet 2 mg PO BID rosuvastatin 20 mg tablet 20 mg PO BEDTIME fluticasone propionate 50 mcg/actuation spray,suspension 50 mcg intranasal NEEDED isosorbide mononitrate 30 mg tablet extended release 24 hr 30 mg PO DAILY buspirone 15 mg tablet 15 mg PO TID montelukast 10 mg tablet 10 mg PO DAILY epinephrine 0.3 mg/0.3 mL auto-injector 0.3 mg IM NEEDED PRN (Reason: Anaphylaxis) Xolair 150 mg recon soln 150 mg subcut .every 2 weeks Label Comments: every 2 weeks albuterol sulfate 90 mcg/actuation HFA aerosol inhaler 2 puff inhalation Q6H PRN (Reason: shortness of breath or wheezing) Qty: 6.7 0RF ibuprofen 600 mg tablet 600 mg PO Q8H PRN (Reason: pain) Qty: 20 0RF cholecalciferol (vitamin D3) 50 mcg (2,000 unit) capsule 50 mcg PO DAILY 90 Days Qty: 90 3RF ondansetron 8 mg tablet,disintegrating 8 mg PO DAILY PRN (Reason: nausea and vomiting) 30 Days Qty: 14 0RF Belsomra 20 mg tablet 20 mg PO DAILY sennosides [senna] 8.6 mg tablet 17.2 mg PO BEDTIME Qty: 60 6RF Linzess 290 mcg capsule 290 mcg PO QAM Qty: 30 6RF dicyclomine 20 mg tablet 20 mg PO QID PRN (Reason: Cramps) 30 Days Qty: 60 6RF <JW Mclaughlin - Last Filed: 11/07/22 17:04> Interventions: ED Discharge Assessment Last Done: 11/08/22 00:03 <JW Mclaughlin - Last Filed: 11/07/22 17:04> Discharge Date/Time: 11/08/22 00:04 <JW Mclaughlin - Last Filed: 11/07/22 17:04>
[2022-11-07 17:00] VITALS: BP 148/51; PULSE 70; RESP 18; TEMP 36.8; O2SAT 100; BMI 33.1
--- NOTE | 2022-11-07 17:02 | ECG_ITS ---
Test Reason : CHEST PAIN Blood Pressure : / mmHG Vent. Rate : 060 BPM Atrial Rate : 060 BPM P-R Int : 188 ms QRS Dur : 082 ms QT Int : 428 ms P-R-T Axes : 086 022 036 degrees QTc Int : 428 ms Atrial-paced rhythm Abnormal ECG When compared with ECG of 31-JAN-2021 07:49, Electronic atrial pacemaker has replaced Sinus rhythm T wave inversion now evident in Anterior leads Referred By: Jayla Owen Electronically Signed By:JAS FRIEDMAN
[2022-11-07 17:42] LABS: MANUAL DIFF FLAG NO
[2022-11-07 17:50] LABS: Basophils Percent Auto 0.3 % (0-2); Eosinophils Absolute Auto 0.2 X10*3/uL (0.0-0.4); Eosinophils Percent Auto 1.4 % (0-4); Hematocrit 38.1 % (37.0-47.0); Hemoglobin 12.1 g/dl (12.0-16.0); Imm Gran Abs Auto 0.03 X10*3/uL (0.00-0.03); Imm Gran Pct Auto 0.3 % (0.0-0.4); Lymphocytes Absolute Auto 3.9 X10*3/uL (1.2-4.9); Lymphocytes Percent Auto 37.1 % (20-40); Mean Corpuscular HGB Conc 31.8 g/dl (31.0-35.0); Mean Corpuscular Hemoglobin 26.5 pg (27.0-33.0); Mean Corpuscular Volume 83.6 fL (80.0-98.0); Mean Platelet Volume 8.9 fL (9.4-12.3); Monocytes Absolute Auto 0.8 X10*3/uL (0.1-1.2); Monocytes Percent Auto 7.7 % (2-11); Neutrophils Absolute Auto 5.6 x10*3/uL (2.0-8.3); Neutrophils Percent Auto 53.2 % (45-73); Platelet Count 341 X10*3/uL (160-400); Red Blood Count 4.56 X10*6/uL (4.20-5.50); Red Cell Distribution Width 14.2 % (11.0-16.0); White Blood Count 10.6 X10*3/uL (4.8-10.8)
[2022-11-07 17:58] LABS: INTERNATIONAL NORM RATIO 0.9 (0.9-1.1); Prothrombin Time 10.6 SEC (10.0-13.1)
[2022-11-07 18:01] LABS: Partial Thromboplastin Time 31.1 SEC (26.0-36.4)
[2022-11-07 18:10] LABS: COVID-19 Test Negative (Negative); IDNOW Serial# 16C4AD1C
[2022-11-07 18:16] LABS: Alanine Aminotransferase 18 U/L (0-31); Alkaline Phosphatase 125 U/L (39-117); Anion Gap 12 (12-20); Aspartate Amino Transferase 23 U/L (5-31); Bilirubin Direct < 0.2 mg/dL (0.0-0.5); Bilirubin Total 0.3 mg/dL (0.0-1.0); Blood Urea Nitrogen 13 mg/dL (9-16); Calcium 9.2 mg/dL (8.4-10.2); Carbon Dioxide 29 mmol/L (22-29); Chloride 106 mmol/L (96-108); Creatinine Clr Calc Pharmacy 82.6; Estimated Glomerular Filt Rate > 60; Glucose Random 97 mg/dL (60-115); Magnesium 2.2 mg/dL (1.6-2.6); Potassium 3.6 mmol/L (3.3-5.1); Sodium 143 mmol/L (135-145); Total Protein 6.7 g/dL (6.5-8.0)
[2022-11-07 18:21] LABS: B Type Natriuretic Peptide 29 pg/mL (<100)
[2022-11-07 18:23] LABS: Troponin-I High Sensitivity < 3.5 ng/L (<3.5-17.0)
--- NOTE | 2022-11-07 23:30 | PC.NURSE ---
This RN in to bedside to medicate pt. for d/c. Pt. had already left without medications or paperwork. Pt. did receive rx that was called into pharmacy.
== END 2022-11-08 00:04 | disposition home or self-care (01) ==
PROVIDERS: Physician Assistant; Emergency Provider Internal Medicine; PCP Internal Medicine
DX: R07.89 Other chest pain (principal); R06.02 Shortness of breath; Z20.822 Contact with and (suspected) exposure to COVID-19; Z20.828 Contact with and (suspected) exposure to other viral communicable diseases; Z79.899 Other long term (current) drug therapy
CPT/HCPCS: 36415; 71046; 80048; 80076; 83735; 83880; 84484; 85025; 85610; 85730; 87635; 93005; 99283

== ENCOUNTER 2022-11-20 08:39 | Emergency (ER) | payer MEDICARE, MEDICAID, SELFPAY ==
--- NOTE | ~2022-11-20 | CT_ITS ---
EXAMINATION: CT ABDOMEN AND PELVIS WITHOUT CONTRAST CLINICAL INFORMATION: Lower abdominal pain. History of diverticulitis. COMPARISON: CT scans of the abdomen and pelvis dating between February 14, 2021 and December 10, 2007. TECHNIQUE: Multidetector volumetric imaging was performed from the superior aspect of the liver through the pubic symphysis. Sagittal and coronal reformatted images were obtained on the technologist's workstation. This CT examination was performed using dose optimization techniques as appropriate, variously including the following: *Automated exposure control *Adjustment of mA and/or kV according to patient size (this includes techniques or standardized protocols for targeted exams where dose is matched to indication/reason for exam; i.e. extremities or head) *Use of iterative reconstruction technique DLP: 539 mGy-cm FINDINGS: Limited by lack of oral and intravenous contrast. LUNG BASES: The lung bases appear clear, with no evidence of inflammation or nodules. Tips of pulse generator device lead and right ventricular apex. LIVER, GALLBLADDER, AND BILIARY TREE: The liver appears unremarkable in size, shape, and attenuation. No focal hepatic lesion or biliary ductal dilatation is appreciated. Status post cholecystectomy. PANCREAS: Unremarkable SPLEEN: Unremarkable ADRENAL GLANDS: Unremarkable KIDNEYS AND URETERS: Mild fullness of the left renal collecting system appears unchanged. The kidneys otherwise appear unremarkable in size, shape, and attenuation. No hydronephrosis, hydroureter, or calculi seen. BLADDER: Unremarkable GASTROINTESTINAL TRACT: Status post gastric sleeve. Small hiatus hernia. The small and large bowel appear unremarkable. No diverticulosis. Normal-appearing distal ileum and vermiform appendix. ABDOMINAL WALL: No significant hernia is appreciated. Postsurgical changes of the anterior abdominal wall to the right of midline. LYMPH NODES: No evidence of adenopathy by size criteria. VASCULAR: Unremarkable PELVIC VISCERA: Uterus not visualized, suggesting prior surgical removal. OSSEOUS STRUCTURES: Unremarkable CT/CT abdomen pelvis wo IV con IMPRESSION: No acute finding.
[2022-11-20 09:10] VITALS: BP 102/49; PULSE 60; RESP 14; TEMP 36.2; O2SAT 100; BMI 33.7
--- NOTE | 2022-11-20 09:59 | ED_ITS ---
HPI - Abdominal Pain General Chief Complaint: Abdominal Pain Stated Complaint: Abd pain Time Seen by Provider: 11/20/22 09:54 Source: patient Mode of arrival: ambulatory Limitations: no limitations History of Present Illness HPI narrative: Increased right sided abdominal pain for one week, no back pain, no dysuria no hematuria, yesterday had nausea, vomiting and diarrhea. Chills only no fever. MD elicited complaint: abdominal pain Pertinent past history: diverticulitis and other (she has had her uterus, ovaries, gallbladder and appendix all removed) Onset (ago): week(s) Pain Consistency: constant Severity: moderate Quality: cramping, stabbing and sharp Radiation: LLQ and RLQ Associated symptoms: nausea, vomiting and diarrhea Related Data Home Medications Medication Instructions Recorded Confirmed aripiprazole 5 mg tablet 5 mg PO DAILY 07/16/20 08/15/22 benztropine 1 mg tablet 1 mg PO DAILY 07/16/20 08/15/22 buspirone 15 mg tablet 15 mg PO TID 07/16/20 08/15/22 clonazepam 2 mg tablet 2 mg PO BID 07/16/20 08/15/22 epinephrine 0.3 mg/0.3 mL 0.3 mg IM NEEDED PRN Anaphylaxis 07/16/20 08/15/22 injection, auto-injector fluticasone furoate 200 200 inh inhalation NEEDED 07/16/20 08/15/22 mcg-vilanterol 25 mcg/dose inhalation powder (Breo Ellipta) fluticasone propionate 50 50 mcg intranasal NEEDED 07/16/20 08/15/22 mcg/actuation nasal spray,suspension isosorbide mononitrate 30 mg 30 mg PO DAILY 07/16/20 08/15/22 tablet,extended release 24 hr montelukast 10 mg tablet 10 mg PO DAILY 07/16/20 08/15/22 rosuvastatin 20 mg tablet 20 mg PO BEDTIME 07/16/20 08/15/22 sertraline 100 mg tablet 100 mg PO DAILY 07/16/20 08/15/22 tiotropium bromide 2.5 2.5 mcg inhalation NEEDED 07/16/20 08/15/22 mcg/actuation mist for inhalation (Spiriva Respimat) suvorexant 20 mg tablet 20 mg PO DAILY 01/17/21 08/15/22 omalizumab 150 mg subcutaneous 150 mg subcut .every 2 weeks 07/04/22 08/15/22 solution (Xolair) Previous Rx's Medication Instructions Recorded ibuprofen 600 mg tablet 600 mg PO Q8H PRN pain #20 tabs 10/18/21 dicyclomine 20 mg tablet 20 mg PO QID PRN Cramps 30 days 11/24/21 #60 tabs linaclotide 290 mcg capsule 290 mcg PO QAM #30 caps 11/24/21 (Linzess) sennosides 8.6 mg tablet (senna) 17.2 mg PO BEDTIME #60 tabs 11/24/21 albuterol sulfate 90 mcg/actuation 2 puff inhalation Q6H PRN 04/18/22 aerosol inhaler shortness of breath or wheezing #6.7 grams cholecalciferol (vitamin D3) 50 50 mcg PO DAILY 90 days #90 caps 08/15/22 mcg (2,000 unit) capsule ondansetron 8 mg disintegrating 8 mg PO DAILY PRN nausea and 08/15/22 tablet vomiting 30 days #14 tabs tramadol 50 mg tablet 50 mg PO TID PRN pain 30 days #90 08/22/22 tabs fluconazole 150 mg tablet 150 mg PO ONCE 1 day #1 tab 10/04/22 (Diflucan) pantoprazole 40 mg tablet,delayed 40 mg PO DAILY 90 days #90 tabs 10/19/22 release ibuprofen 600 mg tablet 600 mg PO Q6H PRN fever or pain 11/07/22 #30 tabs dicyclomine 20 mg tablet 20 mg PO TID #20 tabs 11/20/22 Allergies Allergy/AdvReac Type Severity Reaction Status Date / Time almond Allergy Severe DIFFICULTY Verified 08/15/22 16:54 BREATHING shellfish derived Allergy Severe ANAPHYLAXIS Verified 08/15/22 16:54 morphine Allergy Intermediate C/P - Verified 08/15/22 16:54 STOMACH CRAMPS, HIVES, DIFF BREATHING, anaphylaxis, shortness of breath strawberry Allergy Mild HIVES Verified 08/15/22 16:54 Sulfa (Sulfonamide Allergy Mild DIARRHEA Verified 08/15/22 16:54 Antibiotics) [SULFA (SULFONAMIDE ANTIBIOTICS)] gluten [GLUTEN] Allergy Unknown UNKNOWN Verified 08/15/22 16:54 meperidine [Demerol] Allergy Unknown upset Verified 08/15/22 16:54 stomach nitrofurantoin [Macrobid] Allergy Unknown Unknown Verified 08/15/22 16:54 codeine AdvReac Mild STOMACH Verified 08/15/22 16:54 [From TYLENOL-CODEINE #3] SPASM hydromorphone [From DILAUDID] AdvReac Mild STOMACH Verified 08/15/22 16:54 UPSET Review of Systems Review of Systems Yes all other systems are reviewed and are negative Gastrointestinal: Reports diarrhea, Reports nausea and Reports vomiting PMFSH Past Medical History Medical History Anemia Asthma Bipolar disorder Breast cancer screening by mammogram Carpal tunnel syndrome Celiac sprue Colon cancer screening COVID-19 virus infection Depression Diverticulitis Fibromyalgia GERD (gastroesophageal reflux disease) History of arthroplasty of finger Hypercholesterolemia Hypertension Knee osteoarthritis Obstructive sleep apnea Osteopenia Otitis externa Pharyngitis Post-menopausal Pulmonary nocardiosis Rectal bleed Right otitis media Screening for diabetes mellitus Sick sinus syndrome Sinus congestion Superficial thrombophlebitis Thumb injury TIA (transient ischemic attack) Trigger finger Surgical History H/O cardiac catheterization H/O carpal tunnel repair H/O thumb surgery History of appendectomy History of arthroscopy of right shoulder History of cardiac pacemaker History of cholecystectomy History of foot surgery History of laparoscopic partial gastrectomy History of total hysterectomy with bilateral salpingo-oophorectomy (BSO) Hx of arthroscopy of knee Hx of colonoscopy Family History Family History Father No problems noted. 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) Alcohol intake: never Patient Tobacco Use Status: Never used Tobacco Smoked in Last 30 Days: No e-Cigarette/Vaping Use: Never Used Second Hand Smoke Exposure: No Use of substances other than those prescribed or required for medical reasons: No Any prior treatment program specific to substance use: No Advance Directives: No Advance Directives Information Provided: Yes service: No Current occupational status: disabled Cognitive needs: No Hearing needs: No Vision needs: No Physical Exam ED Vital Signs: Vital Signs - 24 hr 11/20/22 09:10 Temperature 97.1 F Pulse Rate 60 Respiratory Rate 14 Blood Pressure 102/49 L Pulse Oximetry 100 Oxygen Delivery Method Room Air BMI result Body Mass Index 33.7 Const Other: obese female uncomfortable Orientation/consciousness: oriented to person and patient oriented x3 Limitations: no limitations HENMT Head: Yes normal to inspection Ears: external ears normal General nose exam: Normal external nose present Mouth: Normal oral and palatal mucosa present and oropharynx normal Throat: Yes posterior oropharynx normal Eyes General: appearance normal, both eyes and all related structures Neck Neck: Yes normal visual inspection Chest Chest palpation & inspection: normal inspection of the chest Resp Auscultation: clear to auscultation bilaterally Cardio Jugular venous distension: no JVD Rate: regular rate Rhythm: regular rhythm Heart sounds: S1 normal heart sound present and S2 normal heart sound present GI Other: soft, diffuse lower abdominal tenderness General: Yes no CVA tenderness Back/Spine/Pelvis Back: no CVA tenderness Skin General skin exam: no rashes or lesions noted Neuro General: oriented to person and patient oriented x3 Cranial nerves: Yes CN's II-XII intact bilaterally Motor exam (neuro): 5/5 motor strength present throughout Extrem General: Yes normal to inspection Psych Appearance: grossly normal Course Reevaluation(s) Reevaluation #1: no diverticulitis or renal colic seen, will dc on and follow up with pmd Time: 11:19 Medical Decision Making Differential Diagnosis Differential Diagnoses: The differential diagnosis associated with the presentation includes diverticulitis, renal colic, coilits, Admission/Observation Consideration of admission/observation: Escalation of care including admission/observation considered (Patient with known diverticulitis, admission was considered) Lab Data MDM Lab Attestation statement: I reviewed the patient's lab results. 11/20/22 10:12 11/20/22 10:12 Labs: Lab Results 11/20/22 11/20/22 11/20/22 Range/Units 10:12 10:12 10:32 WBC 9.8 (4.8-10.8) X10*3/uL RBC 4.47 (4.20-5.50) X10*6/uL Hgb 11.8 L (12.0-16.0) g/dl Hct 37.6 (37.0-47.0) % MCV 84.1 (80.0-98.0) fL MCH 26.4 L (27.0-33.0) pg MCHC 31.4 (31.0-35.0) g/dl RDW 14.2 (11.0-16.0) % Plt Count 375 (160-400) X10*3/uL MPV 9.0 L (9.4-12.3) fL Immature Gran % (Auto) 0.4 (0.0-0.4) % Neut % (Auto) 54.7 (45-73) % Lymph % (Auto) 34.0 (20-40) % Andrew % (Auto) 9.2 (2-11) % Eos % (Auto) 1.4 (0-4) % Baso % (Auto) 0.3 (0-2) % Lymph # (Auto) 3.4 (1.2-4.9) X10*3/uL Andrew # (Auto) 0.9 (0.1-1.2) X10*3/uL Eos # (Auto) 0.1 (0.0-0.4) X10*3/uL Baso # (Auto) 0.0 (0.0-0.2) X10*3/uL Abs Immat Gran (auto) 0.04 H (0.00-0.03) X10*3/uL Absolute Neuts (auto) 5.4 (2.0-8.3) x10*3/uL Absolute Nucleated RBC 0.000 (0.0-0.012) X10*3/uL Nucleated RBC % (auto) 0.0 (0.0-0.2) /100WBC Sodium 141 (135-145) mmol/L Potassium 4.4 D (3.3-5.1) mmol/L Chloride 104 (96-108) mmol/L Carbon Dioxide 28 (22-29) mmol/L Anion Gap 13 (12-20) BUN 10 (9-16) mg/dL Creatinine 0.57 (0.5-1.4) mg/dL Estim Creat Clear Calc 96.6 Estimated GFR > 60 Random Glucose 93 (60-115) mg/dL Calcium 9.4 (8.4-10.2) mg/dL Total Bilirubin 0.4 (0.0-1.0) mg/dL AST 22 (5-31) U/L ALT 14 (0-31) U/L Alkaline Phosphatase 127 H (39-117) U/L Total Protein 6.9 (6.5-8.0) g/dL Albumin 4.2 (3.5-5.0) g/dL Lipase 21 (8-78) U/L Urine Color Yellow Urine Appearance Cloudy Urine pH 7.5 (5.0-9.0) Ur Specific [place] 1.015 (1.005-1.025) Urine Protein Negative (Neg-Trace) mg/dL Urine Glucose (UA) Negative (Negative) mg/dL Urine Ketones Negative (Negative) mg/dL Urine Blood Negative (Negative) Urine Nitrite Negative (Negative) Ur Leukocyte Esterase Negative (Negative) Independent Interpretation I performed an independent interpretation of an: CT Scan (no abscess or diverticulitis seen by me) Radiology Impression Discussion of test interpretation with radiology: I have reviewed the radiologist's reading. Medications Administered Discontinued Medications Generic Name Dose Route Start Last Admin Trade Name Freq PRN Reason Stop Dose Admin Ketorolac Tromethamine 30 mg 11/20/22 10:03 11/20/22 10:16 Ketorolac Tromethamine 30 Mg/Ml Vial IVPUSH 11/20/22 10:04 30 mg ONCE ONE Administration Ondansetron HCl 4 mg 11/20/22 10:03 11/20/22 10:16 Ondansetron Hcl 4 Mg/2 Ml Vial IVPUSH 11/20/22 10:04 4 mg ONCE ONE Administration Discharge Plan Discharge Clinical Impression: Abdominal pain Patient Disposition: Home, Self-Care Instructions: Abdominal Pain (ED) Prescriptions: New dicyclomine 20 mg tablet 20 mg PO TID Qty: 20 0RF No Action tramadol 50 mg tablet 50 mg PO TID PRN (Reason: pain) 30 Days Qty: 90 1RF fluconazole [Diflucan] 150 mg tablet 150 mg PO ONCE 1 Days Qty: 1 0RF pantoprazole 40 mg tablet,delayed release (DR/EC) 40 mg PO DAILY 90 Days Qty: 90 0RF ibuprofen 600 mg tablet 600 mg PO Q6H PRN (Reason: fever or pain) Qty: 30 0RF Breo Ellipta 200-25 mcg/dose blister with device 200 inh inhalation NEEDED Spiriva Respimat 2.5 mcg/actuation mist 2.5 mcg inhalation NEEDED aripiprazole 5 mg tablet 5 mg PO DAILY benztropine 1 mg tablet 1 mg PO DAILY sertraline 100 mg tablet 100 mg PO DAILY clonazepam 2 mg tablet 2 mg PO BID rosuvastatin 20 mg tablet 20 mg PO BEDTIME fluticasone propionate 50 mcg/actuation spray,suspension 50 mcg intranasal NEEDED isosorbide mononitrate 30 mg tablet extended release 24 hr 30 mg PO DAILY buspirone 15 mg tablet 15 mg PO TID montelukast 10 mg tablet 10 mg PO DAILY epinephrine 0.3 mg/0.3 mL auto-injector 0.3 mg IM NEEDED PRN (Reason: Anaphylaxis) Xolair 150 mg recon soln 150 mg subcut .every 2 weeks Label Comments: every 2 weeks albuterol sulfate 90 mcg/actuation HFA aerosol inhaler 2 puff inhalation Q6H PRN (Reason: shortness of breath or wheezing) Qty: 6.7 0RF ibuprofen 600 mg tablet 600 mg PO Q8H PRN (Reason: pain) Qty: 20 0RF cholecalciferol (vitamin D3) 50 mcg (2,000 unit) capsule 50 mcg PO DAILY 90 Days Qty: 90 3RF ondansetron 8 mg tablet,disintegrating 8 mg PO DAILY PRN (Reason: nausea and vomiting) 30 Days Qty: 14 0RF Belsomra 20 mg tablet 20 mg PO DAILY sennosides [senna] 8.6 mg tablet 17.2 mg PO BEDTIME Qty: 60 6RF Linzess 290 mcg capsule 290 mcg PO QAM Qty: 30 6RF dicyclomine 20 mg tablet 20 mg PO QID PRN (Reason: Cramps) 30 Days Qty: 60 6RF Referrals: Po,Javy Camilo MD [Primary Care Provider] - 5 days
[2022-11-20] MEDS: Ketorolac Tromethamine 30 MG/ML VIAL IVPUSH (10:16)
[2022-11-20] MEDS: ondansetron HCL 4 MG/2 ML VIAL IVPUSH (10:16)
[2022-11-20 10:20] LABS: MANUAL DIFF FLAG NO
[2022-11-20 10:31] LABS: Basophils Percent Auto 0.3 % (0-2); Eosinophils Absolute Auto 0.1 X10*3/uL (0.0-0.4); Eosinophils Percent Auto 1.4 % (0-4); Hematocrit 37.6 % (37.0-47.0); Hemoglobin 11.8 g/dl (12.0-16.0); Imm Gran Abs Auto 0.04 X10*3/uL (0.00-0.03); Imm Gran Pct Auto 0.4 % (0.0-0.4); Lymphocytes Absolute Auto 3.4 X10*3/uL (1.2-4.9); Mean Corpuscular HGB Conc 31.4 g/dl (31.0-35.0); Mean Corpuscular Hemoglobin 26.4 pg (27.0-33.0); Mean Corpuscular Volume 84.1 fL (80.0-98.0); Monocytes Absolute Auto 0.9 X10*3/uL (0.1-1.2); Monocytes Percent Auto 9.2 % (2-11); Neutrophils Absolute Auto 5.4 x10*3/uL (2.0-8.3); Neutrophils Percent Auto 54.7 % (45-73); Platelet Count 375 X10*3/uL (160-400); Red Blood Count 4.47 X10*6/uL (4.20-5.50); Red Cell Distribution Width 14.2 % (11.0-16.0); White Blood Count 9.8 X10*3/uL (4.8-10.8)
[2022-11-20 10:38] LABS: Appearance Urine Cloudy; Color Urine Yellow; Glucose Urine UA Negative (Negative); Leukocyte Esterase Urine Negative (Negative); Nitrite Urine Negative (Negative); PH 7.5 (5.0-9.0); Specific Gravity - Urine 1.015 (1.005-1.025); Urine Blood Negative (Negative); Urine Ketones Negative (Negative); Urine Protein Negative (Neg-Trace)
[2022-11-20 10:41] LABS: Alanine Aminotransferase 14 U/L (0-31); Albumin Level 4.2 g/dL (3.5-5.0); Alkaline Phosphatase 127 U/L (39-117); Anion Gap 13 (12-20); Aspartate Amino Transferase 22 U/L (5-31); Bilirubin Total 0.4 mg/dL (0.0-1.0); Blood Urea Nitrogen 10 mg/dL (9-16); Calcium 9.4 mg/dL (8.4-10.2); Carbon Dioxide 28 mmol/L (22-29); Chloride 104 mmol/L (96-108); Creatinine Clr Calc Pharmacy 96.6; Estimated Glomerular Filt Rate > 60; Glucose Random 93 mg/dL (60-115); Lipase 21 U/L (8-78); Potassium 4.4 mmol/L (3.3-5.1); Sodium 141 mmol/L (135-145); Total Protein 6.9 g/dL (6.5-8.0)
[2022-11-20 12:01] VITALS: BP 107/64; PULSE 76; RESP 15; O2SAT 98
== END 2022-11-20 12:04 | disposition home or self-care (01) ==
PROVIDERS: Emergency Provider Emergency Medicine; PCP Internal Medicine
DX: R10.30 Lower abdominal pain, unspecified (principal); I10 Essential (primary) hypertension; E78.00 Pure hypercholesterolemia, unspecified; Z79.899 Other long term (current) drug therapy; Z79.02 Long term (current) use of antithrombotics/antiplatelets
CPT/HCPCS: 36415; 74176; 80053; 81003; 83690; 85025; 96374; 96375; 99284; J1885; J2405

== ENCOUNTER → 2022-12-29 08:14 | Outpatient (BNVA) | payer MEDICARE, MEDICAID, SELFPAY | PROVIDERS: PCP Internal Medicine; Visit Provider Nurse Practitioner | DX: K21.9 Gastro-esophageal reflux disease without esophagitis (principal); K59.04 Chronic idiopathic constipation | CPT/HCPCS: 99212 ==

== ENCOUNTER 2023-01-03 07:42 | Outpatient (REF) | payer MEDICARE, MEDICAID, SELFPAY ==
--- NOTE | ~2023-01-03 | MM_ITS ---
EXAMINATION: MM SCREENING DIGITAL BREAST TOMOSYNTHESIS, BILATERAL CLINICAL INFORMATION: Screening. Asymptomatic. Family history breast cancer, mother, sister. The lifetime risk of breast cancer based on the Tyrer-Cuzick Model is 9%. COMPARISON: Mammography: 11/09/2021, 12/09/2018, 11/27/2017, 03/22/2016 TECHNIQUE: Digital breast tomosynthesis is performed in both the craniocaudal and mediolateral oblique views along with computer-aided detection (CAD). Synthesized 2D images are generated from the tomosynthesis. FINDINGS: There are scattered areas of fibroglandular density (ACR BI-RADS breast composition Category b). Parenchymal pattern is similar to prior studies and there is no developing density or interval significant mass or architectural abnormality. There are scattered minor asymmetries similar to previous exam. Small intramammary node again seen mid upper outer right breast. There is a pacemaker generator overlying the posterior left axilla on MLO view. No abnormal calcifications. No significant changes. MM/MM tomosynthesis screening BI IMPRESSION: No mammographic evidence of malignancy. ASSESSMENT: BI-RADS 2: Benign RECOMMENDATION: Routine annual mammography screening. This patient's information was entered into a reminder system with a target due date for their next mammogram.
== END 2023-01-03 07:43 | disposition home or self-care (01) ==
LOC: HO.MAMMO 07:42
PROVIDERS: PCP Internal Medicine; Visit Provider Internal Medicine
DX: Z12.31 Encounter for screening mammogram for malignant neoplasm of breast (principal)
CPT/HCPCS: 77063; 77067

== ENCOUNTER 2023-06-29 07:55 | Outpatient (AMB) | payer MEDICARE, MEDICAID, SELFPAY ==
--- NOTE | 2023-06-29 08:01 | A.OFFVIS_ITS ---
Intake Vital Signs 06/29/23 08:05 Height 4 ft 11 in Weight 170 lb BMI 34.3 BP 109/66 Blood Pressure Location Lt brachial Position Sitting Pulse 60 Intake Visit Reasons: 6 month CIC GERD Intake Note: Patient 6 month follow for CIC GERD. Patient cc: acid reflex she think is the hot chocolate at night time, and denies any other GI issues. 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: No Accompanied by: Self / Same As Patient Allergies almond Allergy (Severe, Verified 07/02/23 16:53) DIFFICULTY BREATHING shellfish derived Allergy (Severe, Verified 07/02/23 16:53) ANAPHYLAXIS morphine Allergy (Intermediate, Verified 07/02/23 16:53) C/P - STOMACH CRAMPS, HIVES, DIFF BREATHING, anaphylaxis, shortness of breath strawberry Allergy (Mild, Verified 07/02/23 16:53) HIVES Sulfa (Sulfonamide Antibiotics) [SULFA (SULFONAMIDE ANTIBIOTICS)] Allergy (Mild, Verified 07/02/23 16:53) DIARRHEA gluten [GLUTEN] Allergy (Unknown, Verified 07/02/23 16:53) UNKNOWN meperidine [Demerol] Allergy (Unknown, Verified 07/02/23 16:53) upset stomach nitrofurantoin [Macrobid] Allergy (Unknown, Verified 07/02/23 16:53) Unknown codeine [From TYLENOL-CODEINE #3] Adverse Reaction (Mild, Verified 07/02/23 16:53) STOMACH SPASM hydromorphone [From DILAUDID] Adverse Reaction (Mild, Verified 07/02/23 16:53) STOMACH UPSET HPI 6 month CIC GERD HPI Details Assessment & Plan (1) Chronic idiopathic constipation: Code(s): K59.04 - Chronic idiopathic constipation Plan: Her pacemaker failed and she was in and out of the hospital with this in early October! Because of this and her increase in NSAID use for post op pain her GERD was worse. AND, despite me prescribing bid protonix she was only getting qd for a while - and then she ran out. Her RX has since been straightened out, and now her GERD IS controlled on bid protonix. She also is using bentyl for cramping with good relief, and her Linzess 290 with senna is moving her bowels well. She will need a cardiac cath, and right rotator cuff surgery. She remains satisfied with her GI regimen and is agreeable to a 6 mos follow up. ROV 6 mos. (2) GERD (gastroesophageal reflux diseas e): Code(s): K21.9 - Gastro-esophageal reflux disease without esophagitis Qualifiers: Esophagitis presence: without esophagitis Qualified Code(s): K21.9 - Gastro-esophageal reflux disease without esophagitis (3) Celiac sprue: Comment: Last EGD bx 2017--changes c/ Celiac Disease Last [id number]--12 Code(s): K90.0 - Celiac disease Medications: Refilled dicyclomine 20 mg PO TID 90 t abs 6RF linaclotide (Linze ss) 290 mcg PO QAM 30 caps 6RF pantoprazole 40 mg PO BID 90 d ays 180 tabs 2RF K21.9 - Gastro-eso phageal reflux dis ease without esoph agitis sennosides (senna) 17.2 mg (2 x 8.6 m g) PO BEDTIME 60 t abs 6RF TODAYS VISIT The only new upcoming problem is knee pain and she has failed cortisone injections and is considering TKR. Her GERD IS controlled on bid protonix, except when she drinks hot chocolate at night which she plans on cutting out and considering herbal tea instead at bedtime. She also is using bentyl for cramping with good relief, and her Linzess 290 with senna is moving her bowels well. ROV 6 mos. [facility] Medical History Anemia Asthma Bipolar disorder Breast cancer screening by mammogram Carpal tunnel syndrome Celiac sprue Colon cancer screening COVID-19 virus infection Depression Diverticulitis Fibromyalgia GERD (gastroesophageal reflux disease) History of arthroplasty of finger Hypercholesterolemia Hypertension Knee osteoarthritis Obstructive sleep apnea Osteopenia Otitis externa Pharyngitis Post-menopausal Pulmonary nocardiosis Rectal bleed Right otitis media Screening for diabetes mellitus Sick sinus syndrome Sinus congestion Superficial thrombophlebitis Thumb injury TIA (transient ischemic attack) Trigger finger Surgical History H/O thumb surgery H/O carpal tunnel repair Hx of colonoscopy H/O cardiac catheterization History of laparoscopic partial gastrectomy History of foot surgery History of cardiac pacemaker History of arthroscopy of right shoulder Hx of arthroscopy of knee History of cholecystectomy History of appendectomy History of total hysterectomy with bilateral salpingo-oophorectomy (BSO) Family History Father No problems noted. 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) Alcohol intake: never Patient Tobacco Use Status: Never used Tobacco e-Cigarette/Vaping Use: Never Used Second Hand Smoke Exposure: No service: No Current occupational status: disabled Cognitive needs: No Hearing needs: No Vision needs: No Review of Systems Const Denies fatigue, Denies fever(s), Denies night sweats, Denies poor appetite and Denies weight loss ENT Reports Normal hearing present, Denies dental pain, Denies dysphagia, Denies hearing loss, Denies mouth pain, Denies odynophagia, Denies throat swelling, Denies tongue swelling and Reports other (Dentition adequate) Card Reports no additional complaints Resp Reports no additional complaints GI Denies abdominal pain, Denies melena, Denies bloating, Denies hematochezia, Reports constipation, Denies GI cramping, Denies dysphagia, Denies excessive flatus, Denies early satiety, Reports heartburn, Denies diarrhea, Denies nausea, Denies odynophagia, Denies vomiting and Denies hematemesis Musc Reports myalgias and Reports arthralgias Skin/Breast Denies pruritus, Denies lesions, Denies rash and Denies jaundice Neuro Reports Normal hearing present and Denies Abnormal speech present Endo Denies fatigue Aller/Immun Denies throat swelling and Denies tongue swelling Physical Exam Vital Signs: Last Vital Signs Pulse 60 06/29/23 08:05 BP 109/66 06/29/23 08:05 BMI result Body Mass Index 34.3 Const General: cooperative, no acute distress, well developed and well groomed Nutritional Appearance: well nourished and obese Orientation/consciousness: oriented to person, oriented to place and oriented to time Limitations: No language barrier HEENT Head: Yes normocephalic and Yes atraumatic Eyes General: appearance normal, both eyes and all related structures Pupils: Equal, round and reactive pupils present Neck Neck: Yes normal visual inspection and Yes no lymphadenopathy Thyroid: Thyroid normal Resp Effort & Inspection: normal respiratory effort and able to speak in complete sentences Auscultation: clear to auscultation bilaterally Cardio Rate: regular rate Rhythm: regular rhythm Heart sounds: Normal, physiologic split S2 sound present Peripheral pulses: radial pulses present and posterior tibial pulses present GI Inspection: No distended, No Abdominal panniculus present and Yes obesity Palpation (GI): Soft to palpation, nontender, no guarding, not rigid and No hepatosplenomegaly present Percussion: Yes normal to percussion Auscultation: normal bowel sounds Rectal Exam - Female: deferred Skin General skin exam: no rashes or lesions noted, turgor normal, skin not dry, no jaundice, No spider nevi and no striae Rashes: no rashes Nails: normal Neuro General: oriented to person, oriented to place and oriented to time Cranial nerves: Yes Equal, round and reactive pupils present and Yes Normal hearing present Speech: No Abnormal speech present Extrem General: Yes normal to inspection, No clubbing, No cyanosis and No edema Psych Appearance: grossly normal and well kempt Mental Status: mental status grossly normal Speech and movement: Normal speech and movement present Affect: normal affect Attitude: cooperative Thought process: Normal thought process present and not confabulating Thought content: Normal thought content present Insight: Limited insight present (Psych) Judgement: Limited judgement present (Psych) Assessment & Plan Assessment & Plan (1) Chronic idiopathic constipation: Code(s): K59.04 - Chronic idiopathic constipation Plan: The only new upcoming problem is knee pain and she has failed cortisone injections and is considering TKR. Her GERD IS controlled on bid protonix, except when she drinks hot chocolate at night which she plans on cutting out and considering herbal tea instead at bedtime. She also is using bentyl for cramping with good relief, and her Linzess 290 with senna is moving her bowels well. ROV 6 mos. (2) GERD (gastroesophageal reflux disease): Code(s): K21.9 - Gastro-esophageal reflux disease without esophagitis Qualifiers: Esophagitis presence: without esophagitis Qualified Code(s): K21.9 - Gastro-esophageal reflux disease without esophagitis Medications: Refilled pantoprazole 40 mg PO BID 180 tabs 2RF 90 days K21.9 - Gastro-esophageal reflux disease without esophagitis linaclotide (Linzess) 290 mcg PO QAM 30 caps 6RF dicyclomine 20 mg PO TID 90 tabs 6RF sennosides (senna) 17.2 mg (2 x 8.6 mg) PO BEDTIME 60 tabs 6RF Coding Level of Care Code Est Pt Level 3 (89222) Diagnoses Chronic idiopathic constipation K59.04 Gastroesophageal reflux disease without esophagitis K21.9 Esophagitis presence: without esophagitis
[2023-06-29 08:05] VITALS: BP 109/66; PULSE 60; BMI 34.3
== END 2023-06-29 08:29 | disposition home or self-care (01) ==
PROVIDERS: PCP Internal Medicine; Visit Provider Nurse Practitioner
DX: K59.04 Chronic idiopathic constipation (principal); K21.9 Gastro-esophageal reflux disease without esophagitis
CPT/HCPCS: 99213

== ENCOUNTER → 2023-06-29 07:55 | Outpatient (BNVA) | payer MEDICARE, MEDICAID, SELFPAY | PROVIDERS: PCP Internal Medicine; Visit Provider Nurse Practitioner | DX: K59.04 Chronic idiopathic constipation (principal); K21.9 Gastro-esophageal reflux disease without esophagitis | CPT/HCPCS: 99212 ==

== ENCOUNTER 2023-07-02 16:45 | Outpatient (AMB) | payer MEDICARE, MEDICAID, SELFPAY ==
[2023-07-02 16:51] VITALS: BP 122/70; BMI 34.7
--- NOTE | 2023-07-02 16:51 | MHC.PC.OV ---
Vital Signs 07/02/23 16:51 Height 4 ft 11 in Weight 172 lb BMI 34.7 BP 122/70 Blood Pressure Location Lt brachial Position Sitting Intake Visit Reasons: 3m F/U Asthma, GERD, hypercholesterolemia Intake Note: Patient here for 3 month follow up Asthma, GERD, hypercholesterolemia Manager Mental Health Required: No Accompanied by: Self / Same As Patient Allergies almond Allergy (Severe, Verified 07/02/23 16:53) DIFFICULTY BREATHING shellfish derived Allergy (Severe, Verified 07/02/23 16:53) ANAPHYLAXIS morphine Allergy (Intermediate, Verified 07/02/23 16:53) C/P - STOMACH CRAMPS, HIVES, DIFF BREATHING, anaphylaxis, shortness of breath strawberry Allergy (Mild, Verified 07/02/23 16:53) HIVES Sulfa (Sulfonamide Antibiotics) [SULFA (SULFONAMIDE ANTIBIOTICS)] Allergy (Mild, Verified 07/02/23 16:53) DIARRHEA gluten [GLUTEN] Allergy (Unknown, Verified 07/02/23 16:53) UNKNOWN meperidine [Demerol] Allergy (Unknown, Verified 07/02/23 16:53) upset stomach nitrofurantoin [Macrobid] Allergy (Unknown, Verified 07/02/23 16:53) Unknown codeine [From TYLENOL-CODEINE #3] Adverse Reaction (Mild, Verified 07/02/23 16:53) STOMACH SPASM hydromorphone [From DILAUDID] Adverse Reaction (Mild, Verified 07/02/23 16:53) STOMACH UPSET Tobacco use date assessed: 12/15/22 Dental Screening Dental Screen Date: 07/02/23 Did you have a dental visit in the last 12 months?: Yes Did you have a dental problem in the last 6 months where you did not have access to dental care?: No Was dental information given to patient?: Patient has dentist HPI 3m F/U Asthma, GERD, hypercholesterolemia HPI Details 57-year-old obese female with bipolar disorder hypercholesterolemia GERD hypertension asthma coming in for follow-up. Patient was last seen in December 2022 has a history of laparoscopic partial gastrectomy July 2018. Mammograms up-to-date colonoscopy is up-to-date. Review of the notes patient follows up with Gastroenterology seen last week for chronic idiopathic constipation and GERD continuing on pantoprazole, Linzess dicyclomine and senna.. Patient also follows up with orthopedics May 2023 grade for end-stage arthritis of the right knee considering right knee arthroplasty. Received also note from Cardiology nonobstructive coronary artery disease per current cardiac CTA chest pain has improved with Imdur echo is within normal limits. Last cholesterol test was March 2022. Patient is here for follow-up. Keloid problem on the L chest where the pacemaker is PFSH Medical History Anemia Asthma Bipolar disorder Breast cancer screening by mammogram Carpal tunnel syndrome Celiac sprue Colon cancer screening COVID-19 virus infection Depression Diverticulitis Fibromyalgia GERD (gastroesophageal reflux disease) History of arthroplasty of finger Hypercholesterolemia Hypertension Knee osteoarthritis Obstructive sleep apnea Osteopenia Otitis externa Pharyngitis Post-menopausal Pulmonary nocardiosis Rectal bleed Right otitis media Screening for diabetes mellitus Sick sinus syndrome Sinus congestion Superficial thrombophlebitis Thumb injury TIA (transient ischemic attack) Trigger finger Surgical History H/O thumb surgery H/O carpal tunnel repair Hx of colonoscopy H/O cardiac catheterization History of laparoscopic partial gastrectomy History of foot surgery History of cardiac pacemaker History of arthroscopy of right shoulder Hx of arthroscopy of knee History of cholecystectomy History of appendectomy History of total hysterectomy with bilateral salpingo-oophorectomy (BSO) Family History Father No problems noted. 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 Laron Cobb, Evelyn Osuna, Lane Garcia and colleagues, with an educational zaida from [employer]. Physical exam (Primary Care) Vital Signs: Last Vital Signs BP 122/70 07/02/23 16:51 BMI result Body Mass Index 34.7 Tobacco/Smoking Status: Tobacco use Status Tobacco use date assessed 12/15/22 07/02/23 16:55 Patient Tobacco Use Status Never used Tobacco 07/02/23 16:55 e-Cigarette/Vaping Use Never Used 07/02/23 16:55 Thrive Assessment: Date of Thrive Assessment Date Thrive assessed 12/15/22 07/02/23 16:55 Const General: alert; No acute distress Eyes Conjunctivae: conjunctivae normal Chest Other: 3 in keloid on the skin with pacemaker was placed Chest/axillae images: 1. Keloid formed on pacemaker scar 3 in pink scar Resp Auscultation: clear to auscultation bilaterally Cardio Rate: regular rate Rhythm: regular rhythm GI Inspection: Yes normal to inspection Extrem General: Yes normal to inspection and No edema Assessment and Plan Assessment & Plan (1) Hypercholesterolemia: Code(s): E78.00 - Pure hypercholesterolemia, unspecified Plan: Avoid fried foods, chicken skin, eggs, butter margarine, pastries and meat. Be it pork or beef they have a lot of cholesterol LDL goal of less than 70 patient on rosuvastatin 20 mg reminded about the blood work (2) GERD (gastroesophageal reflux disease): Code(s): K21.9 - Gastro-esophageal reflux disease without esophagitis Qualifiers: Esophagitis presence: without esophagitis Qualified Code(s): K21.9 - Gastro-esophageal reflux disease without esophagitis Plan: Avoid the foods that causes that usually spicy foods, tomato products, juices, coffee, soda and foods that your sensitive to. After eating do not lie down, allow 3-4 hours before in lie down. And keep the head of bed above 30 degrees to avoid the acid from going up. (3) Hypertension: Comment: Catheterization 2016 clear coronary. Code(s): I10 - Essential (primary) hypertension Qualifiers: Hypertension type: essential hypertension Qualified Code(s): I10 - Essential (primary) hypertension Plan: Continue with blood pressure medication. Decrease salt intake and exercise patient takes diltiazem (4) Bipolar disorder: Comment: Counseling and psychiatry with emelia Hoyt September 2021 Code(s): F31.9 - Bipolar disorder, unspecified Qualifiers: Active/Remission status: currently active Current bipolar episode type: depressed Current episode severity: moderate Qualified Code(s): F31.32 - Bipolar disorder, current episode depressed, moderate Plan: Continue with counseling and therapy patient is on sertraline 100 mg once a day clonazepam as needed Abilify buspirone and benztropine (5) Asthma: Code(s): J45.909 - Unspecified asthma, uncomplicated Qualifiers: Asthma severity: mild Asthma persistence: intermittent Asthma complication type: uncomplicated Qualified Code(s): J45.20 - Mild intermittent asthma, uncomplicated Plan: Continue with the albuterol has the Breo and Spiriva for controllers patient also on Xolair and singular (6) History of laparoscopic partial gastrectomy: Comment: 07-18-2018 Code(s): Z90.3 - Acquired absence of stomach [part of] Plan: Keep active (7) Obesity (BMI 30-39.9): Code(s): E66.9 - Obesity, unspecified Plan: Diet and exercise (8) Chronic idiopathic constipation: Code(s): K59.04 - Chronic idiopathic constipation Plan: Patient follows up with Gastroenterology and is on Linzess and senna (9) Osteoarthritis of right knee: Code(s): M17.11 - Unilateral primary osteoarthritis, right knee Plan: Patient has met with orthopedics and planned right total knee arthroplasty (10) Keloid of skin: Code(s): L91.0 - Hypertrophic scar Plan: Referral to Dermatology Orders: Orders Comprehensive Met. Panel Today D72.829 - Elevated white blood cell count, unspecified Referrals Dermatology Referral L91.0 - Hypertrophic scar Medications: Changed From albuterol sulfate 90 mcg/actuation 2 puffs inhalation Q6H PRN 6.7 grams 0RF shortness of breath or wheezing To albuterol sulfate 90 mcg/actuation VEntolin HFA 2 puffs inhalation Q6H PRN 6.7 grams 0RF shortness of breath or wheezing Coding Level of Care Code Est Pt Level 4 (95701) Diagnoses Hypercholesterolemia E78.00 Gastroesophageal reflux disease without esophagitis K21.9 Esophagitis presence: without esophagitis Essential hypertension I10 Hypertension type: essential hypertension Bipolar affective disorder, currently depressed, moderate F31.32 Active/Remission status: currently active Current bipolar episode type: depressed Current episode severity: moderate Mild intermittent asthma without complication J45.20 Asthma severity: mild Asthma persistence: intermittent Asthma complication type: uncomplicated History of laparoscopic partial gastrectomy Z90.3 Obesity (BMI 30-39.9) E66.9 Chronic idiopathic constipation K59.04 Osteoarthritis of right knee M17.11 Keloid of skin L91.0
== END 2023-07-02 17:11 | disposition home or self-care (01) ==
PROVIDERS: PCP Internal Medicine; Visit Provider Internal Medicine
DX: K21.9 Gastro-esophageal reflux disease without esophagitis (principal); I10 Essential (primary) hypertension; F31.32 Bipolar disorder, current episode depressed, moderate; J45.20 Mild intermittent asthma, uncomplicated; Z90.3 Acquired absence of stomach [part of]; E78.00 Pure hypercholesterolemia, unspecified; E66.9 Obesity, unspecified; K59.04 Chronic idiopathic constipation; M17.11 Unilateral primary osteoarthritis, right knee; L91.0 Hypertrophic scar
CPT/HCPCS: 99214

== ENCOUNTER 2023-08-07 11:16 | Outpatient (AMB) | payer MEDICARE, MEDICAID, SELFPAY ==
--- NOTE | 2023-08-07 11:16 | A.OFFPC_ITS ---
Intake Visit Reasons: Per Dr Po Allergies almond Allergy (Severe, Verified 08/07/23 11:17) DIFFICULTY BREATHING shellfish derived Allergy (Severe, Verified 08/07/23 11:17) ANAPHYLAXIS morphine Allergy (Intermediate, Verified 08/07/23 11:17) C/P - STOMACH CRAMPS, HIVES, DIFF BREATHING, anaphylaxis, shortness of breath strawberry Allergy (Mild, Verified 08/07/23 11:17) HIVES Sulfa (Sulfonamide Antibiotics) [SULFA (SULFONAMIDE ANTIBIOTICS)] Allergy (Mild, Verified 08/07/23 11:17) DIARRHEA gluten [GLUTEN] Allergy (Unknown, Verified 08/07/23 11:17) UNKNOWN meperidine [Demerol] Allergy (Unknown, Verified 08/07/23 11:17) upset stomach nitrofurantoin [Macrobid] Allergy (Unknown, Verified 08/07/23 11:17) Unknown codeine [From TYLENOL-CODEINE #3] Adverse Reaction (Mild, Verified 08/07/23 11:17) STOMACH SPASM hydromorphone [From DILAUDID] Adverse Reaction (Mild, Verified 08/07/23 11:17) STOMACH UPSET Medication List - Last Reconciled 08/07/23 by Javy Schaefer, albuterol sulfate 90 mcg/actuation 2 puffs inhalation Q6H PRN aripiprazole 5 mg PO DAILY benztropine 1 mg PO DAILY buspirone mg PO cholecalciferol (vitamin D3) 50 mcg PO DAILY 90 days clonazepam 2 mg PO BID dicyclomine 20 mg PO TID diltiazem HCl ER mg PO epinephrine 0.3 mg IM NEEDED PRN fluticasone furoate-vilanterol 200-25 mcg/dose (Breo Ellipta) 200 inhalations inhalation NEEDED fluticasone propionate 50 mcg/actuation 50 mcg intranasal NEEDED ibuprofen 600 mg PO Q6H PRN isosorbide mononitrate ER mg PO linaclotide (Linzess) 290 mcg PO QAM montelukast 10 mg PO DAILY omalizumab (Xolair) 150 mg subcut .every 2 weeks ondansetron 8 mg PO DAILY PRN 30 days pantoprazole 40 mg PO BID 90 days prednisone 4 tabs QD x 2 days then 3 tabs QD x 2 days then 2 tabs Qd x 2 days then 1 tab QD x 2 days PO daily; rosuvastatin 20 mg PO BEDTIME sennosides (senna) 17.2 mg (2 x 8.6 mg) PO BEDTIME sertraline 100 mg PO DAILY suvorexant 20 mg PO DAILY tiotropium bromide 2.5 mcg/actuation (Spiriva Respimat) 2.5 mcg inhalation NEEDED tramadol 50 mg PO TID PRN 30 days Tobacco use date assessed: 12/15/22 Dental Screening Dental Screen Date: 08/07/23 Did you have a dental visit in the last 12 months?: Yes Did you have a dental problem in the last 6 months where you did not have access to dental care?: No Was dental information given to patient?: Patient has dentist HPI Per Dr Schaefer HPI Details Fifty 7 Year old obese female with asthma bipolar disorder hypertension last seen in 07/02/2023. Patient comes in for an acute problem through Telehealth 4 days of asthma exacerbaction. no fevers PFSH Medical History Anemia Asthma Bipolar disorder Breast cancer screening by mammogram Carpal tunnel syndrome Celiac sprue Colon cancer screening COVID-19 virus infection Depression Diverticulitis Fibromyalgia GERD (gastroesophageal reflux disease) History of arthroplasty of finger Hypercholesterolemia Hypertension Knee osteoarthritis Obstructive sleep apnea Osteopenia Otitis externa Pharyngitis Post-menopausal Pulmonary nocardiosis Rectal bleed Right otitis media Screening for diabetes mellitus Sick sinus syndrome Sinus congestion Superficial thrombophlebitis Thumb injury TIA (transient ischemic attack) Trigger finger Surgical History H/O thumb surgery H/O carpal tunnel repair Hx of colonoscopy H/O cardiac catheterization History of laparoscopic partial gastrectomy History of foot surgery History of cardiac pacemaker History of arthroscopy of right shoulder Hx of arthroscopy of knee History of cholecystectomy History of appendectomy History of total hysterectomy with bilateral salpingo-oophorectomy (BSO) Family History Father No problems noted. 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 1. Little interest or pleasure in doing things: more than half the days 2. Feeling down, depressed, or hopeless: nearly every day 3. Trouble falling or staying asleep, or sleeping too much: more than half the days 4. Feeling tired or having little energy: nearly every day 5. Poor appetite or overeating: more than half the days 6. Feeling bad about yourself - or that you are a failure or have let yourself or your family down: more than half the days 7. Trouble concentrating on things, such as reading the newspaper or watching television: more than half the days 8. Moving or speaking so slowly that other people could have noticed. Or the opposite - being so fidgety or restless that you have been moving around a lot more than usual: more than half the days 9. Thoughts that you would be better off or of hurting yourself in some way: not at all Total score: 18 Depression Screening Interpretation: Positive Depression Screening Follow-up: In treatment Depression Screening Done: Yes Source: Developed by Drs. Laron Cobb, Evelyn Osuna, Lane Garcia and colleagues, with an educational zaida from [employer]. Thrive Questionnaire Date Thrive assessed: 12/15/22 AUDIT C Alcohol Use Questionnaire (AUDIT-C) 1. How often do you have a drink containing alcohol?: Never 2. How many drinks containing alcohol do you have on a typical day when you are drinking?: 1 or 2 (none) 3. How often do you have six or more drinks on one occasion?: Never Total Score: 0 Score Reviewed/Action Taken: No MILE-7 AMB Questionnaire MILE-7 Date MILE - 7 assessed: 12/15/22 Source: Developed by Drs. Laron Cobb, Evelyn Osuna, Lane Garcia and colleagues, with an educational zaida from [employer]. Physical exam (Primary Care) Tobacco/Smoking Status: Tobacco use Status Tobacco use date assessed 12/15/22 08/07/23 11:18 Patient Tobacco Use Status Never used Tobacco 08/07/23 11:18 e-Cigarette/Vaping Use Never Used 08/07/23 11:18 PHQ-9: PHQ-9 Score PHQ-9: Total score 18 08/07/23 11:18 Depression Screening Interpretation: Positive Depression Screening Follow-up: In treatment Thrive Assessment: Date of Thrive Assessment Date Thrive assessed 12/15/22 08/07/23 11:18 Telehealth Telehealth Location of provider rendering services: practice address Location of patient: address on file Patient Identification confirmed using: Name, : Yes Telehealth method: video (Iphone) Patient verbally consented to treatment: Yes Patient verbally consented to billing insurance company: Yes Patient informed of any privacy concerns related to visit: Yes Minutes spent on Phone/Video with Pt.: 15 Assessment and Plan Assessment & Plan (1) Asthma exacerbation: Code(s): J45.901 - Unspecified asthma with (acute) exacerbation Plan: Prednisone sent in patient has inhalers. Discussed about taking food with the prednisone. Medications: New prednisone 4 tabs QD x 2 days then 3 tabs QD x 2 days then 2 tabs Qd x 2 days then 1 tab QD x 2 days PO daily; 20 tabs 0RF J45.901 - Unspecified asthma with (acute) exacerbation, J45.909 - Unspecified asthma, uncomplicated Coding Level of Care Code Tele Est Pt Level 3 (91370) Diagnoses Asthma exacerbation J45.901 Additional Codes PHQ-9 - 62039 - PHQ-9 Billing: ([id number])
== END 2023-08-07 14:40 | disposition home or self-care (01) ==
LOC: HO.HMGH 11:16
PROVIDERS: PCP Internal Medicine; Visit Provider Internal Medicine
DX: J45.901 Unspecified asthma with (acute) exacerbation (principal)
CPT/HCPCS: 99213

== ENCOUNTER 2023-08-23 13:04 | Outpatient (AMB) | payer MEDICARE, MEDICAID, SELFPAY ==
--- NOTE | 2023-08-23 13:08 | MHC.OFFWIV ---
Intake Vital Signs 08/23/23 13:17 Height 4 ft 11 in Weight 167 lb 7 oz BMI 33.8 BP 128/62 Blood Pressure Location Rt brachial Position Sitting Pulse 84 Pulse Source Pulse Oximeter Temp 97.3 F Temp Source Temporal Artery Scan Pulse Oximetry (%) 97 Oxygen Delivery Method Room Air Intake Visit Reasons: EST/asthma flair up [phone] Intake Note: Pt is here c/o asthma flair ups. Pt states she just finished prednisone and it hasn't helped her. Patient Tobacco Use Status: Never used Tobacco Allergies almond Allergy (Severe, Verified 08/23/23 13:08) DIFFICULTY BREATHING shellfish derived Allergy (Severe, Verified 08/23/23 13:08) ANAPHYLAXIS morphine Allergy (Intermediate, Verified 08/23/23 13:08) C/P - STOMACH CRAMPS, HIVES, DIFF BREATHING, anaphylaxis, shortness of breath strawberry Allergy (Mild, Verified 08/23/23 13:08) HIVES Sulfa (Sulfonamide Antibiotics) [SULFA (SULFONAMIDE ANTIBIOTICS)] Allergy (Mild, Verified 08/23/23 13:08) DIARRHEA gluten [GLUTEN] Allergy (Unknown, Verified 08/23/23 13:08) UNKNOWN meperidine [Demerol] Allergy (Unknown, Verified 08/23/23 13:08) upset stomach nitrofurantoin [Macrobid] Allergy (Unknown, Verified 08/23/23 13:08) Unknown codeine [From TYLENOL-CODEINE #3] Adverse Reaction (Mild, Verified 08/23/23 13:08) STOMACH SPASM hydromorphone [From DILAUDID] Adverse Reaction (Mild, Verified 08/23/23 13:08) STOMACH UPSET Do you need a note to return to daycare/school/sports/work: Yes HPI HPI Comments History of Present Illness Details The patient presents to urgent care for evaluation of asthma exacerbation as her cough and congestion. Patient reports that her asthma flare started about 2 weeks ago and she was seen and treated with a course of prednisone but reports that her cough and shortness of breath did not improve. She has been using her albuterol inhaler and nebulizer consistently. Four days ago she reports that her cough seemed to worsen and she is now coughing up productive sputum with a greenish discoloration. She feels fatigued occasional chills but no fever. No chest pain. [facility] Medical History Anemia Asthma Bipolar disorder Breast cancer screening by mammogram Carpal tunnel syndrome Celiac sprue Colon cancer screening COVID-19 virus infection Depression Diverticulitis Fibromyalgia GERD (gastroesophageal reflux disease) History of arthroplasty of finger Hypercholesterolemia Hypertension Knee osteoarthritis Obstructive sleep apnea Osteopenia Otitis externa Pharyngitis Post-menopausal Pulmonary nocardiosis Rectal bleed Right otitis media Screening for diabetes mellitus Sick sinus syndrome Sinus congestion Superficial thrombophlebitis Thumb injury TIA (transient ischemic attack) Trigger finger Surgical History H/O thumb surgery H/O carpal tunnel repair Hx of colonoscopy H/O cardiac catheterization History of laparoscopic partial gastrectomy History of foot surgery History of cardiac pacemaker History of arthroscopy of right shoulder Hx of arthroscopy of knee History of cholecystectomy History of appendectomy History of total hysterectomy with bilateral salpingo-oophorectomy (BSO) Family History Father No problems noted. 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) Alcohol intake: never Patient Tobacco Use Status: Never used Tobacco e-Cigarette/Vaping Use: Never Used Second Hand Smoke Exposure: No service: No Current occupational status: disabled Cognitive needs: No Hearing needs: No Vision needs: No Physical Exam Vital Signs: Last Vital Signs Temp 97.3 F 08/23/23 13:17 Pulse 84 08/23/23 13:17 BP 128/62 08/23/23 13:17 Pulse Ox 97 08/23/23 13:17 Oxygen Delivery Method Room Air 08/23/23 13:17 BMI result Body Mass Index 33.8 Const General: healthy appearing and no acute distress HEENT Mouth: Normal oral and palatal mucosa present Resp Effort & Inspection: normal respiratory effort and able to speak in complete sentences Auscultation: clear to auscultation bilaterally Cardio Rate: regular rate Rhythm: regular rhythm Assessment & Plan Assessment & Plan (1) Asthma exacerbation: Code(s): J45.901 - Unspecified asthma with (acute) exacerbation Plan Given that the patient has an ongoing asthma flare despite as steroids at both Po and inhaled along with albuterol therapy will add antibiotic and see if this alleviates the patient's symptoms. Patient comfortable with this plan. Medications: New azithromycin For 250 mg dose pack: take 500 mg today (day 1), then 250 mg for 4 days (days 2-5) PO 6 tabs 0RF Coding Level of Care Code Est Pt Level 3 (09172) Diagnoses Asthma exacerbation J45.901
[2023-08-23 13:17] VITALS: BP 128/62; PULSE 84; TEMP 36.3; O2SAT 97; BMI 33.8
== END 2023-08-23 14:00 | disposition home or self-care (01) ==
PROVIDERS: PCP Internal Medicine; Visit Provider Emergency Medicine
DX: J45.901 Unspecified asthma with (acute) exacerbation (principal)
CPT/HCPCS: 99213

== ENCOUNTER 2023-08-30 16:06 | Outpatient (AMB) | payer MEDICARE, MEDICAID, SELFPAY ==
[2023-08-30 16:26] VITALS: BP 118/68; PULSE 61; O2SAT 100; BMI 34.1
--- NOTE | 2023-08-30 16:26 | A.OFFPC_ITS ---
Vital Signs 08/30/23 16:26 Height 4 ft 11 in Weight 169 lb BMI 34.1 BP 118/68 Blood Pressure Location Lt brachial Position Sitting Pulse 61 Pulse Source Pulse Oximeter Pulse Oximetry (%) 100 Oxygen Delivery Method Room Air Intake Visit Reasons: physical Gage Designer: Not Required per policy Accompanied by: Self / Same As Patient Allergies almond Allergy (Severe, Verified 08/30/23 16:26) DIFFICULTY BREATHING shellfish derived Allergy (Severe, Verified 08/30/23 16:26) ANAPHYLAXIS morphine Allergy (Intermediate, Verified 08/30/23 16:) C/P - STOMACH CRAMPS, HIVES, DIFF BREATHING, anaphylaxis, shortness of breath strawberry Allergy (Mild, Verified 08/30/23 16:) HIVES Sulfa (Sulfonamide Antibiotics) [SULFA (SULFONAMIDE ANTIBIOTICS)] Allergy (Mild, Verified 08/30/23 16:26) DIARRHEA gluten [GLUTEN] Allergy (Unknown, Verified 08/30/23 16:) UNKNOWN meperidine [Demerol] Allergy (Unknown, Verified 08/30/23 16:) upset stomach nitrofurantoin [Macrobid] Allergy (Unknown, Verified 08/30/23 16:) Unknown codeine [From TYLENOL-CODEINE #3] Adverse Reaction (Mild, Verified 08/30/23 16:26) STOMACH SPASM hydromorphone [From DILAUDID] Adverse Reaction (Mild, Verified 08/30/23 16:26) STOMACH UPSET Medication List - Last Reconciled 08/30/23 by Javy Camilo Po, albuterol sulfate 90 mcg/actuation 2 puffs inhalation Q6H PRN aripiprazole 5 mg PO DAILY benztropine 1 mg PO DAILY buspirone mg PO BID cholecalciferol (vitamin D3) 50 mcg PO DAILY 90 days clonazepam 2 mg PO BID dicyclomine 20 mg PO TID diltiazem HCl ER mg PO DAILY epinephrine 0.3 mg IM NEEDED PRN fluticasone furoate-vilanterol 200-25 mcg/dose (Breo Ellipta) 200 inhalations inhalation NEEDED fluticasone propionate 50 mcg/actuation 50 mcg intranasal NEEDED ibuprofen 600 mg PO Q6H PRN isosorbide mononitrate ER mg PO linaclotide (Linzess) 290 mcg PO QAM montelukast 10 mg PO DAILY omalizumab (Xolair) 150 mg subcut .every 2 weeks ondansetron 8 mg PO DAILY PRN 30 days pantoprazole 40 mg PO BID 90 days rosuvastatin 20 mg PO BEDTIME sennosides (senna) 17.2 mg (2 x 8.6 mg) PO BEDTIME sertraline 100 mg PO DAILY suvorexant 20 mg PO DAILY tiotropium bromide 2.5 mcg/actuation (Spiriva Respimat) 2.5 mcg inhalation NEEDED tramadol 50 mg PO TID PRN 30 days Tobacco use date assessed: 12/15/22 Dental Screening Dental Screen Date: 08/30/23 Did you have a dental visit in the last 12 months?: Yes Did you have a dental problem in the last 6 months where you did not have access to dental care?: No Was dental information given to patient?: Patient has dentist HPI physical HPI Details 57-year-old obese female with a history of GERD hypercholesterolemia hypertension celiac sprue bipolar disorder asthma migraine coming in for physical exam. Patient has a history of laparoscopic partial gastrectomy. Last seen in July 2023 for asthma exacerbation. Patient's colonoscopy is up-to-date mammograms up-to-date. Patient did see pulmonary and placed on prednisone and augmentin. PAtient also had the shot on the R knee from [facility] - gel . occ dizziness R ear pain. [facility] Medical History Sinus congestion History of arthroplasty of finger Trigger finger Carpal tunnel syndrome Thumb injury Right otitis media Post-menopausal Screening for diabetes mellitus Otitis externa Pharyngitis Diverticulitis COVID-19 virus infection Breast cancer screening by mammogram Colon cancer screening Rectal bleed Sick sinus syndrome Hypercholesterolemia TIA (transient ischemic attack) Obstructive sleep apnea GERD (gastroesophageal reflux disease) Hypertension Superficial thrombophlebitis Pulmonary nocardiosis Osteopenia Celiac sprue Bipolar disorder Asthma Fibromyalgia Depression Anemia Knee osteoarthritis Surgical History H/O thumb surgery H/O carpal tunnel repair Hx of colonoscopy H/O cardiac catheterization History of laparoscopic partial gastrectomy History of foot surgery History of cardiac pacemaker History of arthroscopy of right shoulder Hx of arthroscopy of knee History of cholecystectomy History of appendectomy History of total hysterectomy with bilateral salpingo-oophorectomy (BSO) Family History Father No problems noted. 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 1. Little interest or pleasure in doing things: more than half the days 2. Feeling down, depressed, or hopeless: nearly every day 3. Trouble falling or staying asleep, or sleeping too much: more than half the days 4. Feeling tired or having little energy: nearly every day 5. Poor appetite or overeating: more than half the days 6. Feeling bad about yourself - or that you are a failure or have let yourself or your family down: more than half the days 7. Trouble concentrating on things, such as reading the newspaper or watching television: more than half the days 8. Moving or speaking so slowly that other people could have noticed. Or the opposite - being so fidgety or restless that you have been moving around a lot more than usual: more than half the days 9. Thoughts that you would be better off or of hurting yourself in some way: not at all Total score: 18 Depression Screening Interpretation: Positive Depression Screening Follow-up: In treatment Depression Screening Done: Yes Source: Developed by Drs. Laron Cobb, Evelyn Osuna, Lane Garcia and colleagues, with an educational zaida from [employer] Thrive Questionnaire Date Thrive assessed: 12/15/22 AUDIT C Alcohol Use Questionnaire (AUDIT-C) 1. How often do you have a drink containing alcohol?: Never 2. How many drinks containing alcohol do you have on a typical day when you are drinking?: 1 or 2 (none) 3. How often do you have six or more drinks on one occasion?: Never Total Score: 0 Score Reviewed/Action Taken: No MILE-7 AMB Questionnaire MILE-7 Date MILE - 7 assessed: 12/15/22 Source: Developed by Drs. Laron Cobb, Evelyn Osuna, Lane Garcia and colleagues, with an educational zaida from [employer] Review of Systems Const Denies poor appetite and Denies weakness Eyes Denies no additional complaints ENT Reports Normal hearing present, Denies dizziness, Denies nasal congestion, Denies tinnitus and Denies sore throat Card Denies chest pain, Denies syncope, Denies rapid heart rate and Denies dyspnea Resp Denies cough and Denies dyspnea GI Denies change in stool character, Reports constipation, Denies diarrhea, Denies nausea and Denies vomiting Denies urinary frequency, Denies difficulty voiding and Denies dysuria Neuro Reports Normal hearing present, Denies confusion, Denies dizziness, Denies syncope and Denies weakness Psych Denies confusion Physical exam (Primary Care) Vital Signs: Last Vital Signs Pulse 61 08/30/23 16:26 BP 118/68 08/30/23 16:26 Pulse Ox 100 08/30/23 16:26 Oxygen Delivery Method Room Air 08/30/23 16:26 BMI result Body Mass Index 34.1 Tobacco/Smoking Status: Tobacco use Status Tobacco use date assessed 12/15/22 08/30/23 16:32 Patient Tobacco Use Status Never used Tobacco 08/30/23 16:32 e-Cigarette/Vaping Use Never Used 08/30/23 16:32 PHQ-9: PHQ-9 Score PHQ-9: Total score 18 08/30/23 16:32 Depression Screening Interpretation: Positive Depression Screening Follow-up: In treatment Thrive Assessment: Date of Thrive Assessment Date Thrive assessed 12/15/22 08/30/23 16:32 Const General: No confusion Orientation/consciousness: No confusion HENMT Head: Yes normocephalic Ears: external ears normal and TM's normal bilaterally Face and sinus: Yes normal facial exam Mouth: moist mucous membranes Throat: Yes tonsils normal Eyes Conjunctivae: conjunctivae normal Pupils: Equal, round and reactive pupils present and Pupil accommodation reflex normal Direct Ophthalmoscopy: normal light reflex Neck Neck: No lymphadenopathy Thyroid: Thyroid normal Chest Chest palpation & inspection: normal inspection of the chest Resp Effort & Inspection: normal respiratory effort and no audible wheezes Auscultation: clear to auscultation bilaterally, no crackles, no wheezes and lung sounds not diminished Cardio Rate: regular rate Rhythm: regular rhythm Peripheral pulses: radial pulses present and dorsalis pedis present GI Palpation (GI): no masses Auscultation: normal bowel sounds and normoactive bowel sounds Rectal Exam - Female: deferred Skin General skin exam: no rashes or lesions noted Rashes: no rashes Neuro General: No confusion Cranial nerves: Yes Equal, round and reactive pupils present and Yes Normal hearing present Cognition (Neuro): normal cognition Gait exam (Neuro): Normal gait present Motor exam (neuro): 5/5 motor strength present throughout Deep tendon reflexes (DTR's): Right brachioradialis reflex intensity grade: 2+, Left brachioradialis reflex intensity grade: 2+, Right patellar reflex intensity grade: 2+ and Left patellar reflex intensity grade: 2+ Extrem General: No edema Assessment and Plan Assessment & Plan (1) Annual physical exam: Code(s): Z00.00 - Encounter for general adult medical examination without abnormal fin dings (2) Hypercholesterolemia: Code(s): E78.00 - Pure hypercholesterolemia, unspecified Plan: Avoid fried foods, chicken skin, eggs, butter margarine, pastries and meat. Be it pork or beef they have a lot of cholesterol LDL goal of less than 130 and triglyceride of less than 150 patient on rosuvastatin 20 mg once a day November 2022 last blood (3) GERD (gastroesophageal reflux disease): Code(s): K21.9 - Gastro-esophageal reflux disease without esophagitis Qualifiers: Esophagitis presence: without esophagitis Qualified Code(s): K21.9 - Gastro-esophageal reflux disease without esophagitis Plan: Avoid the foods that causes that usually spicy foods, tomato products, juices, coffee, soda and foods that your sensitive to. After eating do not lie down, allow 3-4 hours before in lie down. And keep the head of bed above 30 degrees to avoid the acid from going up. (4) Hypertension: Comment: Catheterization 2016 clear coronary. Code(s): I10 - Essential (primary) hypertension Qualifiers: Hypertension type: essential hypertension Qualified Code(s): I10 - Essential (primary) hypertension Plan: Continue with blood pressure medication. Decrease salt intake and exercise patient is on diltiazem (5) Celiac sprue: Comment: Last EGD bx 2017--changes c/ Celiac Disease Last [id number] Code(s): K90.0 - Celiac disease Plan: Gluten free diet (6) Bipolar disorder: Comment: Counseling and psychiatry with emelia Hoyt September 2021 Code(s): F31.9 - Bipolar disorder, unspecified Qualifiers: Active/Remission status: currently active Current bipolar episode type: depressed Current episode severity: moderate Qualified Code(s): F31.32 - Bipolar disorder, current episode depressed, moderate Plan: Continue with counseling and therapy (7) Asthma: Code(s): J45.909 - Unspecified asthma, uncomplicated Qualifiers: Asthma severity: mild Asthma persistence: intermittent Asthma complication type: uncomplicated Qualified Code(s): J45.20 - Mild intermittent asthma, uncomplicated Plan: Continue with inhalers (8) History of laparoscopic partial gastrectomy: Comment: 07-18-2018 Code(s): Z90.3 - Acquired absence of stomach [part of] (9) Obesity (BMI 30-39.9): Code(s): E66.9 - Obesity, unspecified Plan: Diet and exercise Medications: Refilled tramadol 50 mg PO TID 30 days PRN 90 tabs 1RF pain M17.0 - Bilateral primary osteoarthritis of knee, M17.10 - Unilateral primary osteoarthritis, unspecified knee ondansetron 8 mg PO DAILY 30 days PRN 14 tabs 0RF nausea and vomiting Coding Level of Care Code Est Pt Prev Care 40-64y(07563) Diagnoses Annual physical exam Z00.00 Hypercholesterolemia E78.00 Gastroesophageal reflux disease without esophagitis K21.9 Esophagitis presence: without esophagitis Essential hypertension I10 Hypertension type: essential hypertension Celiac sprue K90.0 Bipolar affective disorder, currently depressed, moderate F31.32 Active/Remission status: currently active Current bipolar episode type: depressed Current episode severity: moderate Mild intermittent asthma without complication J45.20 Asthma severity: mild Asthma persistence: intermittent Asthma complication type: uncomplicated History of laparoscopic partial gastrectomy Z90.3 Obesity (BMI 30-39.9) E66.9 Additional Codes PHQ-9 - 12486 - PHQ-9 Billing: ([id number])
== END 2023-08-30 17:14 | disposition home or self-care (01) ==
PROVIDERS: Visit Provider Internal Medicine
DX: Z00.00 Encounter for general adult medical examination without abnormal findings (principal); F31.32 Bipolar disorder, current episode depressed, moderate; E78.00 Pure hypercholesterolemia, unspecified; K21.9 Gastro-esophageal reflux disease without esophagitis; I10 Essential (primary) hypertension; K90.0 Celiac disease; J45.20 Mild intermittent asthma, uncomplicated; Z90.3 Acquired absence of stomach [part of]; E66.9 Obesity, unspecified; H60.91 Unspecified otitis externa, right ear
CPT/HCPCS: 96127; 99396

== ENCOUNTER 2023-08-31 08:23 | Outpatient (REF) | payer MEDICARE, MEDICAID, SELFPAY ==
--- NOTE | ~2023-08-31 | XR_ITS ---
EXAMINATION: XR SHOULDER, BILATERAL CLINICAL INFORMATION: Pain and unspecified shoulder COMPARISON: Left shoulder of 09/27/2016 TECHNIQUE: 3 views each of bilateral shoulders. FINDINGS: Left shoulder: Redemonstration of a left chest wall pacer overlying the left shoulder, limiting evaluation. Mild degenerative changes with hypertrophic change and narrowing of the acromioclavicular joint. Mild hypertrophic spurring along the inferomedial aspect of the humeral head. No abnormal soft tissue calcifications identified adjacent to the humeral head. Right shoulder: Widening of the acromioclavicular interval measuring 11 mm, of indeterminate age, appearing more pronounced compared with chest radiograph of 11/07/2022, although comparison limited due to technical differences. Glenohumeral alignment maintained. Irregularity and sclerosis with corticated cystic region along the superolateral aspect of the humeral head. No abnormal soft tissue calcifications identified adjacent to the humeral head. XR/XR shoulder RT min 2V IMPRESSION: 1. Widening of the right acromioclavicular space with mild associated degenerative changes appears increased compared with chest radiograph of 11/07/2022 although comparison limited due to technical differences. 2. Mild to moderate degenerative changes in the bilateral shoulders. MRI recommended if there is concern for fracture or other underlying pathology.
--- NOTE | ~2023-08-31 | XR_ITS ---
EXAMINATION: XR SHOULDER, BILATERAL CLINICAL INFORMATION: Pain and unspecified shoulder COMPARISON: Left shoulder of 09/27/2016 TECHNIQUE: 3 views each of bilateral shoulders. FINDINGS: Left shoulder: Redemonstration of a left chest wall pacer overlying the left shoulder, limiting evaluation. Mild degenerative changes with hypertrophic change and narrowing of the acromioclavicular joint. Mild hypertrophic spurring along the inferomedial aspect of the humeral head. No abnormal soft tissue calcifications identified adjacent to the humeral head. Right shoulder: Widening of the acromioclavicular interval measuring 11 mm, of indeterminate age, appearing more pronounced compared with chest radiograph of 11/07/2022, although comparison limited due to technical differences. Glenohumeral alignment maintained. Irregularity and sclerosis with corticated cystic region along the superolateral aspect of the humeral head. No abnormal soft tissue calcifications identified adjacent to the humeral head. XR/XR shoulder LT min 2V IMPRESSION: 1. Widening of the right acromioclavicular space with mild associated degenerative changes appears increased compared with chest radiograph of 11/07/2022 although comparison limited due to technical differences. 2. Mild to moderate degenerative changes in the bilateral shoulders. MRI recommended if there is concern for fracture or other underlying pathology.
== END 2023-08-31 08:24 | disposition home or self-care (01) ==
LOC: HO.HOSX 08:23
PROVIDERS: Visit Provider Orthopaedic Surgery
DX: M75.51 Bursitis of right shoulder (principal); M75.52 Bursitis of left shoulder; M25.511 Pain in right shoulder; M25.512 Pain in left shoulder
CPT/HCPCS: 20610; 73030; 99202; J0665; J1100

== ENCOUNTER 2023-08-31 09:30 | Outpatient (AMB) | payer MEDICARE, MEDICAID, SELFPAY ==
--- NOTE | 2023-08-31 09:47 | A.OFFVIS_ITS ---
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 Patient reports that she has been having bilateral shoulder pain for quite somel time now. She has history of bilateral shoulder surgeries with Dr. Mccray. [place] relief after surgery but has recently had increase of pain. Increased pain with all ROM of th e shoulder and lifting. Denies numbness and tingling. Takes tylenol, ibuprofen, and tramadol for her pain which only gives mild relief, Allergies almond Allergy (Severe, Verified 08/31/23 09:55) DIFFICULTY BREATHING shellfish derived Allergy (Severe, Verified 08/31/23 09:55) ANAPHYLAXIS morphine Allergy (Intermediate, Verified 08/31/23 09:55) C/P - STOMACH CRAMPS, HIVES, DIFF BREATHING, anaphylaxis, shortness of breath strawberry Allergy (Mild, Verified 08/31/23 09:55) HIVES Sulfa (Sulfonamide Antibiotics) [SULFA (SULFONAMIDE ANTIBIOTICS)] Allergy (Mild, Verified 08/31/23 09:55) DIARRHEA gluten [GLUTEN] Allergy (Unknown, Verified 08/31/23 09:55) UNKNOWN meperidine [Demerol] Allergy (Unknown, Verified 08/31/23 09:55) upset stomach nitrofurantoin [Macrobid] Allergy (Unknown, Verified 08/31/23 09:55) Unknown codeine [From TYLENOL-CODEINE #3] Adverse Reaction (Mild, Verified 08/31/23 09:55) STOMACH SPASM hydromorphone [From DILAUDID] Adverse Reaction (Mild, Verified 08/31/23 09:55) STOMACH UPSET HPI 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 She complains of pain with daily activity, worse with overhead activity and at night. She finds lifting activities difficult for her as well. She says her pain began ~2 months ago, and she finds mild relief from NSAIDs or Tramadol. She has a hx of bilateral shoulder in ~2013. [facility] Medical History (Updated 08/31/23 @ 10:00 by Mahesh Carrillo) Otitis externa Sinus congestion History of arthroplasty of finger Trigger finger Carpal tunnel syndrome Thumb injury Right otitis media Post-menopausal Screening for diabetes mellitus Pharyngitis Diverticulitis COVID-19 virus infection Breast cancer screening by mammogram Colon cancer screening Rectal bleed Sick sinus syndrome Hypercholesterolemia TIA (transient ischemic attack) Obstructive sleep apnea GERD (gastroesophageal reflux disease) Hypertension Superficial thrombophlebitis Pulmonary nocardiosis Osteopenia Celiac sprue Bipolar disorder Asthma Fibromyalgia Depression Anemia Knee osteoarthritis Surgical History H/O thumb surgery H/O carpal tunnel repair Hx of colonoscopy H/O cardiac catheterization History of laparoscopic partial gastrectomy History of foot surgery History of cardiac pacemaker History of arthroscopy of right shoulder Hx of arthroscopy of knee History of cholecystectomy History of appendectomy History of total hysterectomy with bilateral salpingo-oophorectomy (BSO) Family History Father No problems noted. 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) Alcohol intake: never Patient Tobacco Use Status: Never used Tobacco e-Cigarette/Vaping Use: Never Used Second Hand Smoke Exposure: No service: No Current occupational status: disabled Cognitive needs: No Hearing needs: No Vision needs: No Review of Systems Const All systems reviewed & are unremarkable except as noted in HPI and below Physical Exam Vital Signs: BMI result Body Mass Index 34.1 Const General: no acute distress, alert and awake Orientation/consciousness: patient oriented x3 HEENT Head: Yes normocephalic and Yes atraumatic Eyes EOM: EOMs intact bilaterally Resp Effort & Inspection: normal respiratory effort and able to speak in complete sentences Cardio Jugular venous distension: no JVD Skin General skin exam: turgor normal Rashes: no rashes Neuro General: patient oriented x3 Extrem Other: Bilateral Shoulders: FUll ROM with pain overhead +H/N bilaterally Neg empty can Psych Appearance: grossly normal Affect: normal affect Attitude: cooperative Office Procedures Joint Injection/Drain Joint Injection/Drain Details: Injected 1 mL of Decadron and 3 mL 1% lidocaine and 3 mL of 0.25% Marcaine. Site was prepped using aseptic technique. Patient tolerated the procedure well. Primary Site: right shoulder Approach Used: posterolateral Coding - Large joint Procedure code (CPT) selection complete Results Reviewed Results Reviewed: I personally reviewed relevant radiographs. Mild enthesopathy bilaterally with ACJ OA, mild bilaterally Assessment & Plan Assessment & Plan (1) Bursitis of right shoulder: Code(s): M75.51 - Bursitis of right shoulder Plan: This is a 57 year old woman with bilateral shoulder bursitis, R>L. She has pain with daily activity, worse with overhead activity and at night. She finds some relief from Motrin and Tramadol. I discussed her diagnosis and treatment options. I injected her right shoulder bursa today, which she tolerated well, and ordered PT. I recommend NSAIDs and she continue activity as tolerated, she should be mindful to not push through pain. (2) Bursitis of left shoulder: Code(s): M75.52 - Bursitis of left shoulder Plan Scribed for Gerber Rubin MD by Mahesh Carrillo, medical data entry clerk, on 08/31/23 at 10:00 AM, EST. Orders: Orders XR shoulder RT min 2V 08/31/23 M25.519 - Pain in unspecified shoulder XR shoulder LT min 2V 08/31/23 M25.519 - Pain in unspecified shoulder Coding Level of Care Code New Pt Level 4 (48748) Diagnoses Bursitis of right shoulder M75.51 Bursitis of left shoulder M75.52 CPT Codes Coding - Large joint: - Large joint ([id number])
[2023-08-31 09:48] VITALS: BMI 34.1
== END 2023-08-31 11:02 | disposition home or self-care (01) ==
PROVIDERS: PCP Internal Medicine; Visit Provider Orthopaedic Surgery
DX: M75.51 Bursitis of right shoulder (principal); M75.52 Bursitis of left shoulder
CPT/HCPCS: 20610; 99204

== ENCOUNTER 2023-11-22 11:00 | Outpatient (RCR) | payer MEDICARE, MEDICAID, SELFPAY ==
--- NOTE | 2023-12-06 14:34 | MHC.PT.DC ---
[facility] [place] Office [place] Office [place] Office [address] Osman Lewis [address] [phone] F: [phone] F: [phone] F: [phone] F: [phone] Physical Therapy Discharge Report Diagnosis: RIGHT SHOULDER BURSITIS (KP) Date of Surgery: NA Date of Evaluation: 09/27/23 Date of Discharge: 11/22/23 Treatments to Date: 12 Cancellations to Date: 0 No Shows to Date: 0 Discharge Status: Achieved Goals Improved Function Independent with HEP Discharge Summary: has progressed well in PT, has increased in function and improved ROM and strength overall. DC on this date Electronically signed by: Arlen Fernando PT DPT Please sign and return to therapist. Thank you for your referral.
== END 2023-12-06 14:34 | disposition home or self-care (01) ==
LOC: HO.PT 11:00
PROVIDERS: PCP Internal Medicine; Visit Provider Orthopaedic Surgery
DX: M75.51 Bursitis of right shoulder (principal)
CPT/HCPCS: 97110; 97140; 97161; 97530

== ENCOUNTER 2023-12-03 09:52 | Outpatient (AMB) | payer MEDICARE, MEDICAID, SELFPAY ==
[2023-12-03 11:51] VITALS: BP 110/70; PULSE 74; TEMP 36.9; O2SAT 97; BMI 33.3
--- NOTE | 2023-12-03 11:51 | AM.OFFWIN_ITS ---
Intake Vital Signs 12/03/23 11:51 Height 4 ft 11 in Weight 165 lb BMI 33.3 BP 110/70 Blood Pressure Location Lt brachial Position Sitting Pulse 74 Pulse Source Pulse Oximeter Temp 98.5 F Temp Source Temporal Artery Scan Pulse Oximetry (%) 97 Intake Visit Reasons: EP sinus infection [phone] Intake Note: pt is here today for sinus infection started 3 days ago Patient Tobacco Use Status: Never used Tobacco Allergies almond Allergy (Severe, Verified 12/03/23 11:53) DIFFICULTY BREATHING shellfish derived Allergy (Severe, Verified 12/03/23 11:53) ANAPHYLAXIS morphine Allergy (Intermediate, Verified 12/03/23 11:53) C/P - STOMACH CRAMPS, HIVES, DIFF BREATHING, anaphylaxis, shortness of breath strawberry Allergy (Mild, Verified 12/03/23 11:53) HIVES Sulfa (Sulfonamide Antibiotics) [SULFA (SULFONAMIDE ANTIBIOTICS)] Allergy (Mild, Verified 12/03/23 11:53) DIARRHEA gluten [GLUTEN] Allergy (Unknown, Verified 12/03/23 11:53) UNKNOWN meperidine [Demerol] Allergy (Unknown, Verified 12/03/23 11:53) upset stomach nitrofurantoin [Macrobid] Allergy (Unknown, Verified 12/03/23 11:53) Unknown codeine [From TYLENOL-CODEINE #3] Adverse Reaction (Mild, Verified 12/03/23 11:53) STOMACH SPASM hydromorphone [From DILAUDID] Adverse Reaction (Mild, Verified 12/03/23 11:53) STOMACH UPSET Do you need a note to return to daycare/school/sports/work: No HPI HPI Comments History of Present Illness Details The patient presents to urgent care for evaluation of 3 days of facial pain and pressure over the maxillary region bilaterally with copious nasal drainage and discharge of yellowish-green color. No fever. Congestion. [facility] Medical History (Updated 08/31/23 @ 10:00 by Mahesh Carrillo) Otitis externa Sinus congestion History of arthroplasty of finger Trigger finger Carpal tunnel syndrome Thumb injury Right otitis media Post-menopausal Screening for diabetes mellitus Pharyngitis Diverticulitis COVID-19 virus infection Breast cancer screening by mammogram Colon cancer screening Rectal bleed Sick sinus syndrome Hypercholesterolemia TIA (transient ischemic attack) Obstructive sleep apnea GERD (gastroesophageal reflux disease) Hypertension Superficial thrombophlebitis Pulmonary nocardiosis Osteopenia Celiac sprue Bipolar disorder Asthma Fibromyalgia Depression Anemia Knee osteoarthritis Surgical History H/O thumb surgery H/O carpal tunnel repair Hx of colonoscopy H/O cardiac catheterization History of laparoscopic partial gastrectomy History of foot surgery History of cardiac pacemaker History of arthroscopy of right shoulder Hx of arthroscopy of knee History of cholecystectomy History of appendectomy History of total hysterectomy with bilateral salpingo-oophorectomy (BSO) Family History Father No problems noted. 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) Alcohol intake: never Patient Tobacco Use Status: Never used Tobacco e-Cigarette/Vaping Use: Never Used Second Hand Smoke Exposure: No service: No Current occupational status: disabled Cognitive needs: No Hearing needs: No Vision needs: No Review of Systems Const Reports headache(s) and Denies increased appetite ENT Reports headache(s), Reports nasal obstruction, Denies disequilibrium, Reports post nasal drip, Reports sinus pain and Denies sore throat Card Denies radiating jaw, neck or arm pain and Denies dyspnea Resp Denies hemoptysis and Denies dyspnea Neuro Reports headache(s) and Denies disequilibrium Physical Exam Vital Signs: Last Vital Signs Temp 98.5 F 12/03/23 11:51 Pulse 74 12/03/23 11:51 BP 110/70 12/03/23 11:51 Pulse Ox 97 12/03/23 11:51 BMI result Body Mass Index 33.3 Const General: healthy appearing and no acute distress HEENT Head: Yes normal to inspection Ears: external ears normal General nose exam: Abnormal mucous membranes and turbinates present and Other nasal findings present (max sinus TTP BL) Mouth: Normal oral and palatal mucosa present Throat: Yes posterior oropharynx normal Chest Chest palpation & inspection: normal inspection of the chest Resp Effort & Inspection: normal respiratory effort and able to speak in complete sentences Assessment & Plan Assessment & Plan (1) Sinusitis: Code(s): J32.9 - Chronic sinusitis, unspecified Plan Symptoms suggestive of sinusitis which may be viral however patient on a course of prednisone making bacterial superinfection more plausible. Will place patient on course of antibiotics. Medications: New azithromycin For 250 mg dose pack: take 500 mg today (day 1), then 250 mg for 4 days (days 2-5) PO 6 tabs 0RF Coding Level of Care Code Est Pt Level 3 (35794) Diagnoses Sinusitis J32.9
== END 2023-12-03 12:20 | disposition home or self-care (01) ==
PROVIDERS: PCP Internal Medicine; Visit Provider Emergency Medicine
DX: J32.9 Chronic sinusitis, unspecified (principal)
CPT/HCPCS: 99213

== ENCOUNTER 2023-12-28 07:57 | Outpatient (AMB) | payer MEDICARE, MEDICAID, SELFPAY ==
--- NOTE | 2023-12-28 08:05 | A.OFFVIS_ITS ---
Intake Vital Signs 12/28/23 08:07 Height 4 ft 11 in Weight 167 lb 8.821 oz BMI 33.8 BP 110/67 Blood Pressure Location Lt brachial Position Sitting Pulse 59 Intake Visit Reasons: 6 month follow up Intake Note: Di presents in the office as a 6 month follow up. CC: She states that she is not having any concerns! She is scheduled for total knee replacement in January. Pharmacy Aide Required: No Allergies almond Allergy (Severe, Verified 12/28/23 08:08) DIFFICULTY BREATHING shellfish derived Allergy (Severe, Verified 12/28/23 08:08) ANAPHYLAXIS morphine Allergy (Intermediate, Verified 12/28/23 08:08) C/P - STOMACH CRAMPS, HIVES, DIFF BREATHING, anaphylaxis, shortness of breath strawberry Allergy (Mild, Verified 12/28/23 08:08) HIVES Sulfa (Sulfonamide Antibiotics) [SULFA (SULFONAMIDE ANTIBIOTICS)] Allergy (Mild, Verified 12/28/23 08:08) DIARRHEA gluten [GLUTEN] Allergy (Unknown, Verified 12/28/23 08:08) UNKNOWN meperidine [Demerol] Allergy (Unknown, Verified 12/28/23 08:08) upset stomach nitrofurantoin [Macrobid] Allergy (Unknown, Verified 12/28/23 08:08) Unknown codeine [From TYLENOL-CODEINE #3] Adverse Reaction (Mild, Verified 12/28/23 08:08) STOMACH SPASM hydromorphone [From DILAUDID] Adverse Reaction (Mild, Verified 12/28/23 08:08) STOMACH UPSET HPI 6 month follow up HPI Details Assessment & Plan (1) Chronic idiopathic constipation: Code(s): K59.04 - Chronic idiopathic constipation Plan: The only new upcoming problem is knee pain and she has failed cortisone injections and is considering TKR. Her GERD IS controlled on bid protonix, except when she drinks hot chocolate at night which she plans on cutting out and considering herbal tea instead at bedtime. She also is using bentyl for cramping with good relief, and her Linzess 290 with senna is moving her bowels well. ROV 6 mos. (2) GERD (gastroesophageal reflux diseas e): Code(s): K21.9 - Gastro-esophageal reflux disease without esophagitis Qualifiers: Esophagitis presence: without esophagitis Qualified Code(s): K21.9 - Gastro-esophageal reflux disease without esophagitis Medications: Refilled pantoprazole 40 mg PO BID 180 t abs 2RF 90 days K21.9 - Gastro-eso phageal reflux dis ease without esoph agitis linaclotide (Linze ss) 290 mcg PO QAM 30 caps 6RF dicyclomine 20 mg PO TID 90 ta bs 6RF sennosides (senna) 17.2 mg (2 x 8.6 m g) PO BEDTIME 60 t abs 6RF TODAYS VISIT She will be having a TKR in January! This will be done at [facility]. She has chronic unexplained nausea and she needs 1 zofran a day - her PCP had been sending the sublingual dissolving form and it appears this has been limited to 15 pills a month. I will try sending the regular tablet as this was well covered for her in the past and will see if we can get her better quantities. She continues on her Linzess 290, senna, dicyclomine, pantoprazole 40 mg twice a day and now her Zofran. With this she is satisfied with her GI regimen. Return office visit in 6 months [facility] Medical History Otitis externa Sinus congestion History of arthroplasty of finger Trigger finger Carpal tunnel syndrome Thumb injury Right otitis media Post-menopausal Screening for diabetes mellitus Pharyngitis Diverticulitis COVID-19 virus infection Breast cancer screening by mammogram Colon cancer screening Rectal bleed Sick sinus syndrome Hypercholesterolemia TIA (transient ischemic attack) Obstructive sleep apnea GERD (gastroesophageal reflux disease) Hypertension Superficial thrombophlebitis Pulmonary nocardiosis Osteopenia Celiac sprue Bipolar disorder Asthma Fibromyalgia Depression Anemia Knee osteoarthritis Surgical History H/O thumb surgery H/O carpal tunnel repair Hx of colonoscopy H/O cardiac catheterization History of laparoscopic partial gastrectomy History of foot surgery History of cardiac pacemaker History of arthroscopy of right shoulder Hx of arthroscopy of knee History of cholecystectomy History of appendectomy History of total hysterectomy with bilateral salpingo-oophorectomy (BSO) Family History Father No problems noted. 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) Alcohol intake: never Patient Tobacco Use Status: Never used Tobacco e-Cigarette/Vaping Use: Never Used Second Hand Smoke Exposure: No service: No Current occupational status: disabled Cognitive needs: No Hearing needs: No Vision needs: No Review of Systems Const Denies fatigue, Denies fever(s), Denies night sweats, Denies poor appetite and Denies weight loss ENT Reports Normal hearing present, Denies dental pain, Denies dysphagia, Denies hearing loss, Denies mouth pain, Denies odynophagia, Denies throat swelling, Denies tongue swelling and Reports other (Dentition adequate) Card Reports no additional complaints Resp Reports no additional complaints GI Details: Denies abdominal pain, Denies melena, Denies bloating, Denies hematochezia, Reports constipation, Denies GI cramping, Denies dysphagia, Denies excessive flatus, Denies early satiety, Reports heartburn, Denies diarrhea, Reports nausea, Denies odynophagia, Denies vomiting and Denies hematemesis Musc Reports arthralgias and Reports stiffness Skin/Breast Denies pruritus, Denies lesions, Denies rash and Denies jaundice Neuro Reports Normal hearing present and Denies Abnormal speech present Endo Denies fatigue Aller/Immun Denies throat swelling and Denies tongue swelling Physical Exam Vital Signs: Last Vital Signs Pulse 59 12/28/23 08:07 BP 110/67 12/28/23 08:07 BMI result Body Mass Index 33.8 Const General: cooperative, no acute distress, well developed and well groomed Nutritional Appearance: well nourished and obese Orientation/consciousness: oriented to person, oriented to place and oriented to time Limitations: No language barrier HEENT Head: Yes normocephalic and Yes atraumatic Eyes General: appearance normal, both eyes and all related structures Pupils: Equal, round and reactive pupils present Neck Neck: Yes normal visual inspection and Yes no lymphadenopathy Thyroid: Thyroid normal Resp Effort & Inspection: normal respiratory effort and able to speak in complete sentences Auscultation: clear to auscultation bilaterally Cardio Rate: regular rate Rhythm: regular rhythm Heart sounds: Normal, physiologic split S2 sound present Peripheral pulses: radial pulses present and posterior tibial pulses present GI Inspection: No distended, Yes Abdominal panniculus present and Yes obesity Palpation (GI): Soft to palpation, nontender, no guarding, not rigid and No hepatosplenomegaly present Percussion: Yes normal to percussion Auscultation: normal bowel sounds Rectal Exam - Female: deferred Skin General skin exam: no rashes or lesions noted, turgor normal, skin not dry, no jaundice, No spider nevi and no striae Rashes: no rashes Nails: normal Neuro General: oriented to person, oriented to place and oriented to time Cranial nerves: Yes Equal, round and reactive pupils present and Yes Normal hearing present Speech: No Abnormal speech present Extrem General: Yes normal to inspection, No clubbing, No cyanosis and No edema Psych Appearance: grossly normal and well kempt Mental Status: mental status grossly normal Speech and movement: Normal speech and movement present Affect: normal affect Attitude: cooperative Thought process: Normal thought process present and not confabulating Thought content: Normal thought content present Insight: Limited insight present (Psych) Judgement: Limited judgement present (Psych) Assessment & Plan Assessment & Plan (1) Chronic idiopathic constipation: Code(s): K59.04 - Chronic idiopathic constipation (2) GERD (gastroesophageal reflux disease): Code(s): K21.9 - Gastro-esophageal reflux disease without esophagitis Qualifiers: Esophagitis presence: without esophagitis Qualified Code(s): K21.9 - Gastro-esophageal reflux disease without esophagitis Plan She will be having a TKR in January! This will be done at [facility]. She has chronic unexplained nausea and she needs 1 zofran a day - her PCP had been sending the sublingual dissolving form and it appears this has been limited to 15 pills a month. I will try sending the regular tablet as this was well covered for her in the past and will see if we can get her better quantities. She continues on her Linzess 290, senna, dicyclomine, pantoprazole 40 mg twice a day and now her Zofran. With this she is satisfied with her GI regimen. Return office visit in 6 month Medications: New ondansetron HCl 4 mg PO BID-TID 30 days PRN 60 tabs 3RF nausea and vomiting Refilled dicyclomine 20 mg PO TID 90 tabs 6RF pantoprazole 40 mg PO BID 90 days 180 tabs 2RF K21.9 - Gastro-esophageal reflux disease without esophagitis linaclotide (Linzess) 290 mcg PO QAM 30 caps 6RF sennosides (senna) 17.2 mg (2 x 8.6 mg) PO BEDTIME 60 tabs 6RF Coding Level of Care Code Est Pt Level 3 (45479) Diagnoses Chronic idiopathic constipation K59.04 Gastroesophageal reflux disease without esophagitis K21.9 Esophagitis presence: without esophagitis
[2023-12-28 08:07] VITALS: BP 110/67; PULSE 59; BMI 33.8
== END 2023-12-28 08:30 | disposition home or self-care (01) ==
PROVIDERS: PCP Internal Medicine; Visit Provider Nurse Practitioner
DX: K59.04 Chronic idiopathic constipation (principal); K21.9 Gastro-esophageal reflux disease without esophagitis
CPT/HCPCS: 99213

== ENCOUNTER → 2023-12-28 07:57 | Outpatient (BNVA) | payer MEDICARE, MEDICAID, SELFPAY | PROVIDERS: PCP Internal Medicine; Visit Provider Nurse Practitioner | DX: K59.04 Chronic idiopathic constipation (principal); K21.9 Gastro-esophageal reflux disease without esophagitis | CPT/HCPCS: 99212 ==

== ENCOUNTER 2024-01-18 09:22 | Outpatient (REF) | payer MEDICARE, MEDICAID, SELFPAY ==
[2024-01-18 09:43] LABS: MANUAL DIFF FLAG NO
[2024-01-18 10:41] LABS: Basophils Percent Auto 0.2 % (0-2); Eosinophils Absolute Auto 0.1 X10*3/uL (0.0-0.4); Eosinophils Percent Auto 1.3 % (0-4); Hematocrit 41.2 % (37.0-47.0); Hemoglobin 12.8 g/dl (12.0-16.0); Imm Gran Abs Auto 0.04 X10*3/uL (0.00-0.03); Imm Gran Pct Auto 0.4 % (0.0-0.4); Lymphocytes Absolute Auto 2.9 X10*3/uL (1.2-4.9); Lymphocytes Percent Auto 29.1 % (20-40); Mean Corpuscular HGB Conc 31.1 g/dl (31.0-35.0); Mean Corpuscular Hemoglobin 27.1 pg (27.0-33.0); Mean Corpuscular Volume 87.3 fL (80.0-98.0); Mean Platelet Volume 9.1 fL (9.4-12.3); Monocytes Absolute Auto 0.8 X10*3/uL (0.1-1.2); Monocytes Percent Auto 7.5 % (2-11); Neutrophils Absolute Auto 6.2 x10*3/uL (2.0-8.3); Neutrophils Percent Auto 61.5 % (45-73); Platelet Count 365 X10*3/uL (160-400); Red Blood Count 4.72 X10*6/uL (4.20-5.50); Red Cell Distribution Width 13.4 % (11.0-16.0); White Blood Count 10.1 X10*3/uL (4.8-10.8)
[2024-01-18 11:22] LABS: Erythrocyte Sedimentation Rate 12 MM/HR (0-20)
[2024-01-18 11:40] LABS: Alanine Aminotransferase 14 U/L (0-31); Albumin Level 3.9 g/dL (3.5-5.0); Alkaline Phosphatase 115 U/L (39-117); Anion Gap 11 (12-20); Aspartate Amino Transferase 19 U/L (5-31); Bilirubin Total 0.5 mg/dL (0.0-1.0); Blood Urea Nitrogen 14 mg/dL (9-16); Calcium 9.2 mg/dL (8.4-10.2); Carbon Dioxide 29 mmol/L (22-29); Chloride 105 mmol/L (96-108); Cholesterol 203 mg/dL (<200); Estimated Glomerular Filt Rate > 60; Glucose Random 83 mg/dL (60-115); HDL Cholesterol 75 mg/dL (>40); LDL Cholesterol Calculated 115 mg/dL (<100); Potassium 3.6 mmol/L (3.3-5.1); Sodium 141 mmol/L (135-145); Triglycerides 66 mg/dL (<150)
[2024-01-18 11:59] LABS: Free T4 (Free Thyroxine) 0.97 ng/dL (0.71-1.85); Thyroid Stimulating Hormone 1.22 uIU/mL (0.32-4.0); Vitamin D 25-OH Total 8.7 ng/mL (>30)
[2024-01-18 12:01] LABS: Folate 8.5 ng/mL (> or = 4.0); Vitamin B12 684 pg/mL (200-900)
== END 2024-01-18 09:23 | disposition home or self-care (01) ==
LOC: HO.LAB 09:22
PROVIDERS: PCP Internal Medicine; Visit Provider Internal Medicine
DX: E78.00 Pure hypercholesterolemia, unspecified (principal); M54.9 Dorsalgia, unspecified; M79.7 Fibromyalgia; M25.552 Pain in left hip
CPT/HCPCS: 36415; 80053; 80061; 82306; 82607; 82746; 84439; 84443; 85025; 85652

== ENCOUNTER 2024-02-13 15:19 | Outpatient (REF) | payer MEDICARE, MEDICAID, SELFPAY ==
--- NOTE | ~2024-02-13 | MM_ITS ---
EXAMINATION: MM SCREENING DIGITAL BREAST TOMOSYNTHESIS, BILATERAL CLINICAL INFORMATION: Screening. Asymptomatic. Family history breast cancer, mother, sister. COMPARISON: Mammography: 01/03/2023, 11/09/2021, 12/09/2018, 11/27/2017, 03/22/2016. TECHNIQUE: Digital breast tomosynthesis is performed in both the craniocaudal and mediolateral oblique views along with computer-aided detection (CAD). Synthesized 2D images are generated from the tomosynthesis. Added left MLO view was submitted. FINDINGS: There are scattered areas of fibroglandular density (ACR BI-RADS breast composition Category b). Left-sided pacemaker in place, obscuring the majority of the left axilla. There are benign type and benign vascular calcifications both breasts. There are no suspicious masses, suspicious grouped calcifications, or areas of architectural distortion in either breast. The parenchymal pattern is stable from prior exams. No skin or right axillary abnormalities. MM/MM tomosynthesis screening BI IMPRESSION: No mammographic evidence of malignancy. ASSESSMENT: BI-RADS BI-RADS 2 - Benign Findings RECOMMENDATION: Routine annual mammography screening. 1 year F/U This examination should not preclude the clinical evaluation of a suspicious palpable abnormality. This patient's information was entered into a reminder system with a target due date for their next mammogram.
== END 2024-02-13 15:20 | disposition home or self-care (01) ==
LOC: HO.MAMMO 15:19
PROVIDERS: PCP Internal Medicine; Visit Provider Internal Medicine
DX: Z12.31 Encounter for screening mammogram for malignant neoplasm of breast (principal)
CPT/HCPCS: 77063; 77067

== ENCOUNTER → 2024-02-13 15:30 | Outpatient (BNV) | payer MEDICARE, MEDICAID, SELFPAY | PROVIDERS: PCP Internal Medicine; Visit Provider Radiology Diagnostic Radiology | DX: Z12.31 Encounter for screening mammogram for malignant neoplasm of breast (principal) | CPT/HCPCS: 77063; 77067 ==

== ENCOUNTER 2024-02-22 13:50 | Inpatient (IN) | payer MEDICARE, MEDICAID, SELFPAY ==
--- NOTE | ~2024-02-22 | CT_ITS ---
EXAMINATION: CT HEAD WITHOUT CONTRAST (STROKE PROTOCOL) CLINICAL INFORMATION: Stroke protocol. Left facial numbness, left upper extremity monoparesis COMPARISON: CT scan of brain without contrast on 11/16/2020, with contrast on on 12/10/2020 TECHNIQUE: Contiguous axial imaging was performed from the skull base to vertex without intravenous administration of contrast. This CT examination was performed using dose optimization techniques as appropriate, variously including the following: *Automated exposure control *Adjustment of mA and/or kV according to patient size (this includes techniques or standardized protocols for targeted exams where dose is matched to indication/reason for exam; i.e. extremities or head) *Use of iterative reconstruction technique DLP: 586.98 mGy-cm FINDINGS: Right parasagittal posterior cranial fossa arachnoid cyst is seen measuring 2.3 cm in AP diameter, 1.6 cm in width, 4.3 cm in vertical height, displacing the right cerebellum. Ventricles, sulci and cisterns are otherwise normal. Stable chronic sagittal 1.1 x 0.4 cm bandlike lacunar infarct is seen in right internal capsule anterior limb. There is no midline shift, no abnormal intra- or extra- axial fluid accumulation. Benoit and white matter differentiation is normal. Alignment is unchanged asymmetric subtle soft tissue density is seen in posterior right cerebellopontine angle. Bone window images show no evidence of skull fracture. CT/CT head for stroke IMPRESSION: 1. Unchanged chronic lacunar infarct in right internal capsule anterior limb. 2. No intracranial hemorrhage or skull fracture is seen. 3. No evidence of space occupying lesion could be found. 4. The current plain CT scan of the brain shows no diagnostic evidence of acute cerebral infarction. 5. Unchanged asymmetric soft tissue density in posterior right cerebellopontine angle, with no discrete lesion seen on previous postcontrast images. 6. Unchanged right parasagittal posterior cranial fossa arachnoid cyst. This critical result was discussed with Dr. Augusto Schuler at 1445 hours on 02/22/2024. It was ascertained that the content and urgency of the report was understood at the time of direct communication.
--- NOTE | ~2024-02-22 | CT_ITS ---
EXAMINATION: CTA OF THE HEAD AND NECK CLINICAL INFORMATION: Left facial numbness. COMPARISON: Head CT on 12/10/2020. TECHNIQUE: Test bolus sequences followed by intravenous administration 70 mL of Omnipaque 350. Helical imaging was performed in the axial plane from the mediastinum to the skull vertex. Delayed postcontrast imaging of the head was also performed. The data was processed at the lead cytogenetic technologist's workstation for generation of MIP sequences. Three-dimensional volume rendered reformatted images were also generated at an offline 3-D workstation. Stenoses are assessed in accordance with NASCET criteria unless otherwise indicated. This CT examination was performed using dose optimization techniques as appropriate, variously including the following: *Automated exposure control *Adjustment of mA and/or kV according to patient size (this includes techniques or standardized protocols for targeted exams where dose is matched to indication/reason for exam; i.e. extremities or head) *Use of iterative reconstruction technique DLP: 1371 mGy-cm. FINDINGS: CTA neck: The imaged aortic arch and origins of the great vessels are normal in caliber with mild wall calcifications. The common carotid arteries are widely patent. The carotid bifurcations are normal caliber with mild wall calcifications. Minimal atheromatous disease visible at the origins of the internal carotid arteries without significant stenosis. The remainder of the cervical internal carotid arteries are normal. The vertebral arteries opacify normally and are of normal caliber. The soft tissues of the neck are unremarkable. There are mild degenerative changes of the temporomandibular joints, more so on the left side. The imaged portions of the lungs are clear. CTA head: The intradural vertebral arteries and basilar artery are normal. The posterior cerebral arteries are widely patent. The internal carotid arteries are of normal caliber with mild wall calcifications. The KAYLEN and MCA vascular complexes bilaterally are normal. There is no abnormal parenchymal or leptomeningeal enhancement. Small posterior fossa arachnoid cyst again visible. The venous sinuses opacify normally. CT/CT angio head neck IMPRESSION: No hemodynamically significant stenosis or vessel occlusion in the cervical or intracranial vasculature.
--- NOTE | 2024-02-22 13:51 | ED.GENADULT ---
HPI - General Adult General Chief complaint: Stroke Stated complaint: L side facial numbness, L side pain, hx of strokes Time Seen by Provider: 02/22/24 14:05 Source: patient Mode of arrival: ambulatory Limitations: no limitations History of Present Illness HPI narrative: This is a 58yof with pmhx HTN, HLD, asthma, anemia, depression, GERD, VIMAL, OA, TIA who presents for evaluation of left-sided paresthesias and weakness. Patient states she previously has a had a stroke with weakness in the right leg. She states she is planning on having a right knee replacement next week. She states not taking her aspirin recently as recommended by her surgeon given that she is scheduled to have a knee surgery next week. She states waking up this morning at 10am and states that she initially felt like she slept right because it felt like her left leg was asleep. She states this did not resolve. She states development of similar sensation in her left arm and face. She states associated pain on the left side of her face. She states no vision changes or loss. She states no hearing changes. She states no chest pain or dyspnea. She states no neck pain or back pain. Related Data Home Medications ?Medication ?Instructions ?Recorded ?Confirmed aripiprazole 5 mg tablet 5 mg PO DAILY 07/16/20 08/30/23 benztropine 1 mg tablet 1 mg PO DAILY 07/16/20 08/30/23 clonazepam 2 mg tablet 2 mg PO BID 07/16/20 08/30/23 epinephrine 0.3 mg/0.3 mL 0.3 mg IM NEEDED PRN Anaphylaxis 07/16/20 08/30/23 injection, auto-injector fluticasone furoate 200 200 inh inhalation NEEDED 07/16/20 08/30/23 mcg-vilanterol 25 mcg/dose inhalation powder (Breo Ellipta) fluticasone propionate 50 50 mcg intranasal NEEDED 07/16/20 08/30/23 mcg/actuation nasal spray,suspension montelukast 10 mg tablet 10 mg PO DAILY 07/16/20 08/30/23 rosuvastatin 20 mg tablet 20 mg PO BEDTIME 07/16/20 08/30/23 sertraline 100 mg tablet 100 mg PO DAILY 07/16/20 08/30/23 tiotropium bromide 2.5 2.5 mcg inhalation NEEDED 07/16/20 08/30/23 mcg/actuation mist for inhalation (Spiriva Respimat) suvorexant 20 mg tablet 20 mg PO DAILY 01/17/21 08/30/23 omalizumab 150 mg subcutaneous 150 mg subcut .every 2 weeks 07/04/22 08/30/23 solution (Xolair) isosorbide mononitrate 60 mg mg PO 12/29/22 08/30/23 tablet,extended release 24 hr buspirone 10 mg tablet mg PO BID 08/30/23 08/30/23 diltiazem HCl 120 mg capsule,24 mg PO DAILY 08/30/23 08/30/23 hr,extended release prednisone 20 mg tablet mg PO 12/03/23 Previous Rx's ?Medication ?Instructions ?Recorded cholecalciferol (vitamin D3) 50 50 mcg PO DAILY 90 days #90 caps 08/15/22 mcg (2,000 unit) capsule ibuprofen 600 mg tablet 600 mg PO Q6H PRN fever or pain 11/07/22 #30 tabs albuterol sulfate 90 mcg/actuation 2 puff inhalation Q6H PRN 07/31/23 aerosol inhaler shortness of breath or wheezing #6.7 grams [id number] 3.5 4 drp otic (ear) left Q8H 10 days 08/30/23 mg/mL-10,000 unit/mL-1 % ear #10 mL solution ondansetron 8 mg disintegrating 8 mg PO DAILY PRN nausea and 08/30/23 tablet vomiting 30 days #14 tabs tramadol 50 mg tablet 50 mg PO TID PRN pain 30 days #90 08/30/23 tabs azithromycin 250 mg tablet See Rx Instructions PO .COMPLEX #6 12/03/23 tabs dicyclomine 20 mg tablet 20 mg PO TID #90 tabs 12/28/23 linaclotide 290 mcg capsule 290 mcg PO QAM #30 caps 12/28/23 (Linzess) ondansetron HCl 4 mg tablet 4 mg PO BID-TID PRN nausea and 12/28/23 vomiting 30 days #60 tabs pantoprazole 40 mg tablet,delayed 40 mg PO BID 90 days #180 tabs 12/28/23 release sennosides 8.6 mg tablet (senna) 17.2 mg (2 x 8.6 mg) PO BEDTIME 12/28/23 #60 tabs Allergies Allergy/AdvReac Type Severity Reaction Status Date / Time almond Allergy Severe DIFFICULTY Verified 02/22/24 13:56 BREATHING shellfish derived Allergy Severe ANAPHYLAXIS Verified 02/22/24 13:56 morphine Allergy Intermediate C/P - Verified 02/22/24 13:56 STOMACH CRAMPS, HIVES, DIFF BREATHING, anaphylaxis, shortness of breath strawberry Allergy Mild HIVES Verified 02/22/24 13:56 Sulfa (Sulfonamide Allergy Mild DIARRHEA Verified 02/22/24 13:56 Antibiotics) [SULFA (SULFONAMIDE ANTIBIOTICS)] gluten [GLUTEN] Allergy Unknown UNKNOWN Verified 02/22/24 13:56 meperidine [Demerol] Allergy Unknown upset Verified 02/22/24 13:56 stomach nitrofurantoin [Macrobid] Allergy Unknown Unknown Verified 02/22/24 13:56 codeine AdvReac Mild STOMACH Verified 02/22/24 13:56 [From TYLENOL-CODEINE #3] SPASM hydromorphone [From DILAUDID] AdvReac Mild STOMACH Verified 02/22/24 13:56 UPSET Review of Systems Review of Systems: ROS as per HPI [facility] Past Medical History Medical History Otitis externa Sinus congestion History of arthroplasty of finger Trigger finger Carpal tunnel syndrome Thumb injury Right otitis media Post-menopausal Screening for diabetes mellitus Pharyngitis Diverticulitis COVID-19 virus infection Breast cancer screening by mammogram Colon cancer screening Rectal bleed Sick sinus syndrome Hypercholesterolemia TIA (transient ischemic attack) Obstructive sleep apnea GERD (gastroesophageal reflux disease) Hypertension Superficial thrombophlebitis Pulmonary nocardiosis Osteopenia Celiac sprue Bipolar disorder Asthma Fibromyalgia Depression Anemia Knee osteoarthritis Surgical History H/O thumb surgery H/O carpal tunnel repair Hx of colonoscopy H/O cardiac catheterization History of laparoscopic partial gastrectomy History of foot surgery History of cardiac pacemaker History of arthroscopy of right shoulder Hx of arthroscopy of knee History of cholecystectomy History of appendectomy History of total hysterectomy with bilateral salpingo-oophorectomy (BSO) Family History Family History Father No problems noted. 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) Alcohol intake: never Patient Tobacco Use Status: Never used Tobacco Smoked in Last 30 Days: No e-Cigarette/Vaping Use: Never Used Second Hand Smoke Exposure: No Use of substances other than those prescribed or required for medical reasons: No Advance Directives: No Advance Directives Information Provided: Yes service: No Current occupational status: disabled Cognitive needs: No Hearing needs: No Vision needs: No Physical Exam ED Vital Signs: Vital Signs - 24 hr 02/22/24 13:52 02/22/24 16:41 02/22/24 18:09 Temperature 97.8 F 98.0 F 98.3 F Pulse Rate 61 60 63 Respiratory Rate 18 12 16 Blood Pressure 142/61 H 106/49 L 112/54 L Pulse Oximetry 99 99 99 Oxygen Delivery Method Room Air Room Air Room Air BMI result Body Mass Index 34.1 Gen: NAD, AOx3 HEENT: NCAT, EOMI, normal conjunctiva, no skin changes or tenderness to left face or post auricular region CV: RRR Pulm: CTAB, no increased work of breathing GI: Soft, NTND, no rebound, guarding or rigidity Neuro: Alert and oriented x3, cranial nerves 2-12 were assessed individually and notable for decreased sensation to light touch in left lower face - otherwise intact, no dysmetria, no dysdiadochokinesia, sensation intact to light touch in right upper and lower extremities, decreased sensation to light touch in LUE and LLE, 5/5 strength in RUE and RLE, 4/5 strength in LUE, 5/5 strength in LLE NIH Stroke Scale Internal: Initial- Upon Arrival Time: 13:55 Level of Consciousness: Alert Level of Consciousness Questions: Answers both questions correctly Level of Consciousness Commands: Performs both tasks correctly Best Gaze: Normal Visual: No visual loss Facial Palsy: Normal Motor Arm (Right): No drift Motor Arm (Left): Some effort against gravity Motor Leg (Right): No drift Motor Leg (Left): No drift Limb Ataxia: Absent Sensory: Mild to moderate sensory loss (left facial) Best Language: No aphasia Dysarthia: Normal Extinction and Inattention: No abnormality Score: 3 Course Course Course Narrative: This is a rapid medical exam performed by Cecilio Yang NP: Additional HPI, ROS, PE not included below will be deferred to primary provider. Patient is a 58-year-old female with history of TIA, CPA tumor, HTN, asthma, bipolar, fibromyalgia, migraines presenting to the ED with complaint of left sided facial numbness since 9, now also complaining of jaw pain and some chest tightness. Right sided deficits from previous stroke. Has been off her ASA due to upcoming knee surgery. NIHSS 3. Patient activated as stroke alert from triage. Medications Administered Discontinued Medications Generic Name Dose Route Start Last Admin Trade Name Freq PRN Reason Stop Dose Admin Potassium Chloride 40 meq 02/22/24 17:16 02/22/24 17:41 Potassium Chloride Er 20 Meq Tab.Er.Prt PO 02/22/24 17:17 40 meq ONCE ONE Administration Medical Decision Making Medical Decision Making MDM Narrative: Patient arrives here with left-sided paresthesias and weakness. NIHSS 3 - for left-sided decreased sensation to light touch and weakness in her left upper arm. Code stroke is activated. Given that patient reports symptom onset at time of wakening 1000 hour this morning, patient is certainly outside of the window for thrombolysis at time of presentation approximately 4 hours after wakening and given that her symptoms may have started while sleeping. I am notified by Dr. Carr at 1426 02/22/[address] brain shows nothing acute . Differential diagnosis includes, but is not limited to cerebrovascular accident, transient ischemic attack, paresthesias, electrolyte abnormality. Patient is afebrile and hemodynamically stable on room air. I reviewed and interpreted labs, which are notable for mild hypokalemia, which is repleted. I reviewed and interpreted EKG, which is unremarkable for any acute findings, and troponin is negative effectively ruling out ACS. Diagnostic imaging studies are unremarkable for any acute findings. Patient reports taking baby aspirin prior to arrival so this is completed with 243mg po aspirin. On reexamination, she reports ongoing paresthesias. Her left upper extremity weakness has resolved. Patient is admitted to hospitalist Dr. Tamayo for further work up and management. Admission/Observation Consideration of admission/observation: Escalation of care including admission/observation considered Consult Healthcare Provider Management of the patient was discussed with: Superintendent Recreation I have discussed care with Neurologist, Dr. Lawrence, who states if there is concern for cerebrovascular accident to admit to hospitalist. Lab Data MDM Lab Attestation statement: I reviewed the patient's lab results. 02/22/24 14:32 02/22/24 15:00 Labs: Lab Results 02/22/24 02/22/24 02/22/24 Range/Units 14:29 14:32 14:38 WBC 9.3 (4.8-10.8) X10*3/uL RBC 4.21 (4.20-5.50) X10*6/uL Hgb 12.0 (12.0-16.0) g/dl Hct 36.5 L (37.0-47.0) % MCV 86.7 (80.0-98.0) fL MCH 28.5 (27.0-33.0) pg MCHC 32.9 (31.0-35.0) g/dl RDW 13.4 (11.0-16.0) % Plt Count 309 (160-400) X10*3/uL MPV 9.0 L (9.4-12.3) fL Immature Gran % (Auto) 0.3 (0.0-0.4) % Neut % (Auto) 58.8 (45-73) % Lymph % (Auto) 33.5 (20-40) % Castro % (Auto) 6.2 (2-11) % Eos % (Auto) 1.1 (0-4) % Baso % (Auto) 0.1 (0-2) % Lymph # (Auto) 3.1 (1.2-4.9) X10*3/uL Castro # (Auto) 0.6 (0.1-1.2) X10*3/uL Eos # (Auto) 0.1 (0.0-0.4) X10*3/uL Baso # (Auto) 0.0 (0.0-0.2) X10*3/uL Abs Immat Gran (auto) 0.03 (0.00-0.03) X10*3/uL Absolute Neuts (auto) 5.5 (2.0-8.3) x10*3/uL Absolute Nucleated RBC 0.000 (0.0-0.012) X10*3/uL Nucleated RBC % (auto) 0.0 (0.0-0.2) /100WBC PT 10.8 L (11.1-13.3) SEC Whole Blood PT 12.0 (11.1-13.5) sec INR 0.9 (0.9-1.1) Whole Blood INR 1.0 (0.9-1.1) APTT 30.3 (26.0-36.8) SEC Sodium (135-145) mmol/L Potassium (3.3-5.1) mmol/L Chloride (96-108) mmol/L Carbon Dioxide (22-29) mmol/L Anion Gap (12-20) BUN (9-16) mg/dL Creatinine (0.5-1.4) mg/dL Estim Creat Clear Calc Estimated GFR POC Glucose 110 (60-115) mg/dL Random Glucose (60-115) mg/dL Calcium (8.4-10.2) mg/dL Total Creatine Kinase (26-140) U/L Troponin I High Sens < 2.7 (<3.5-17.0) ng/L 02/22/24 Range/Units 15:00 WBC (4.8-10.8) X10*3/uL RBC (4.20-5.50) X10*6/uL Hgb (12.0-16.0) g/dl Hct (37.0-47.0) % MCV (80.0-98.0) fL MCH (27.0-33.0) pg MCHC (31.0-35.0) g/dl RDW (11.0-16.0) % Plt Count (160-400) X10*3/uL MPV (9.4-12.3) fL Immature Gran % (Auto) (0.0-0.4) % Neut % (Auto) (45-73) % Lymph % (Auto) (20-40) % Castro % (Auto) (2-11) % Eos % (Auto) (0-4) % Baso % (Auto) (0-2) % Lymph # (Auto) (1.2-4.9) X10*3/uL Castro # (Auto) (0.1-1.2) X10*3/uL Eos # (Auto) (0.0-0.4) X10*3/uL Baso # (Auto) (0.0-0.2) X10*3/uL Abs Immat Gran (auto) (0.00-0.03) X10*3/uL Absolute Neuts (auto) (2.0-8.3) x10*3/uL Absolute Nucleated RBC (0.0-0.012) X10*3/uL Nucleated RBC % (auto) (0.0-0.2) /100WBC PT (11.1-13.3) SEC Whole Blood PT (11.1-13.5) sec INR (0.9-1.1) Whole Blood INR (0.9-1.1) APTT (26.0-36.8) SEC Sodium 142 (135-145) mmol/L Potassium 3.1 L (3.3-5.1) mmol/L Chloride 108 (96-108) mmol/L Carbon Dioxide 25 (22-29) mmol/L Anion Gap 12 (12-20) BUN 13 (9-16) mg/dL Creatinine 0.63 (0.5-1.4) mg/dL Estim Creat Clear Calc 85.8 Estimated GFR > 60 POC Glucose (60-115) mg/dL Random Glucose 112 (60-115) mg/dL Calcium 8.9 (8.4-10.2) mg/dL Total Creatine Kinase 74 (26-140) U/L Troponin I High Sens (<3.5-17.0) ng/L Independent Interpretation I performed an independent interpretation of an: EKG Interpretation: EKG demonstrates paced rhythm at 60 bpm, no STEMI (when compared to prior EKG November 07, 2022 there are no diagnostic ischemic changes) Radiology Impression Discussion of test interpretation with radiology: I have reviewed the radiologist's reading. Radiologist Impression: CT/CT head for stroke IMPRESSION: 1. Unchanged chronic lacunar infarct in right internal capsule anterior limb. 2. No intracranial hemorrhage or skull fracture is seen. 3. No evidence of space occupying lesion could be found. 4. The current plain CT scan of the brain shows no diagnostic evidence of acute cerebral infarction. 5. Unchanged asymmetric soft tissue density in posterior right cerebellopontine angle, with no discrete lesion seen on previous postcontrast images. 6. Unchanged right parasagittal posterior cranial fossa arachnoid cyst. This critical result was discussed with Dr. Augusto Schuler at 1445 hours on 02/22/2024. It was ascertained that the content and urgency of the report was understood at the time of direct communication. Dictated By: Dale Carr Signed By: <Electronically signed by Dale Carr in OV> 02/22/24 1447 Discharge Plan Discharge Clinical Impression: Arm paresthesia, left, Paresthesia of left leg, Facial paresthesia, Left arm weakness Prescriptions: No Action albuterol sulfate 90 mcg/actuation HFA aerosol inhaler 2 puff inhalation Q6H PRN (Reason: shortness of breath or wheezing) Qty: 6.7 0RF Rx Instructions: VEntolin HFA ibuprofen 600 mg tablet 600 mg PO Q6H PRN (Reason: fever or pain) Qty: 30 0RF Breo Ellipta 200-25 mcg/dose blister with device 200 inh inhalation NEEDED Spiriva Respimat 2.5 mcg/actuation mist 2.5 mcg inhalation NEEDED aripiprazole 5 mg tablet 5 mg PO DAILY benztropine 1 mg tablet 1 mg PO DAILY sertraline 100 mg tablet 100 mg PO DAILY clonazepam 2 mg tablet 2 mg PO BID rosuvastatin 20 mg tablet 20 mg PO BEDTIME fluticasone propionate 50 mcg/actuation spray,suspension 50 mcg intranasal NEEDED montelukast 10 mg tablet 10 mg PO DAILY epinephrine 0.3 mg/0.3 mL auto-injector 0.3 mg IM NEEDED PRN (Reason: Anaphylaxis) Xolair 150 mg recon soln 150 mg subcut .every 2 weeks Patient Comments: every 2 weeks tramadol 50 mg tablet 50 mg PO TID PRN (Reason: pain) 30 Days Qty: 90 1RF ondansetron 8 mg tablet,disintegrating 8 mg PO DAILY PRN (Reason: nausea and vomiting) 30 Days Qty: 14 0RF [id number]-[id number]-NR 3.5-10,000-1 mg/mL-unit/mL-% solution 4 drp otic (ear) left Q8H 10 Days Qty: 10 0RF prednisone 20 mg tablet PO azithromycin 250 mg tablet See Rx Instructions PO .COMPLEX Qty: 6 0RF Rx Instructions: For 250 mg dose pack: take 500 mg today (day 1), then 250 mg for 4 days (days 2-5) PO cholecalciferol (vitamin D3) 50 mcg (2,000 unit) capsule 50 mcg PO DAILY 90 Days Qty: 90 3RF Belsomra 20 mg tablet 20 mg PO DAILY isosorbide mononitrate 60 mg tablet extended release 24 hr PO buspirone 10 mg tablet PO BID diltiazem HCl 120 mg capsule,extended release 24 hr PO DAILY dicyclomine 20 mg tablet 20 mg PO TID Qty: 90 6RF Linzess 290 mcg capsule 290 mcg PO QAM Qty: 30 6RF pantoprazole 40 mg tablet,delayed release (DR/EC) 40 mg PO BID 90 Days Qty: 180 2RF sennosides [senna] 8.6 mg tablet 17.2 mg PO BEDTIME Qty: 60 6RF ondansetron HCl 4 mg tablet 4 mg PO BID-TID PRN (Reason: nausea and vomiting) 30 Days Qty: 60 3RF Print Language: Hungarian
[2024-02-22 13:52] VITALS: BP 142/61; PULSE 61; RESP 18; TEMP 36.6; O2SAT 99; BMI 34.1
--- NOTE | 2024-02-22 13:56 | ECG_ITS ---
Test Reason : left jaw pain Blood Pressure : / mmHG Vent. Rate : 060 BPM Atrial Rate : 060 BPM P-R Int : 186 ms QRS Dur : 086 ms QT Int : 454 ms P-R-T Axes : 000 020 035 degrees QTc Int : 454 ms Atrial-paced rhythm Abnormal ECG When compared with ECG of 07-NOV-2022 17:33, No significant change was found Referred By: Maday Yang Electronically Signed By:Oziel Morfin
[2024-02-22 14:37] LABS: MANUAL DIFF FLAG NO
--- NOTE | 2024-02-22 14:40 | PC.NURSE ---
pt brought from triage to room 11, this nurse began speaking with patient was then told she previously had a stroke and is going to be a stroke protocol, this nurse went to ct scan and brought pt immediately to CT scan, upon returning to the room pt had IV inserted, labs drawn, ekg performed, poc obtained, pts smile is symmetrical, equal grasp, equal strength to upper and lower extremities although pt states she feels weaker to her left upper and lower extremity. bedside swallow performed in which pt passed. library monitor applied- pt is atrial paced at 60, call montero within reach, awaiting provider, will continue to monitor
[2024-02-22 14:43] LABS: Glucose, Whole Blood 110 mg/dL (60-115)
[2024-02-22 14:44] LABS: Basophils Percent Auto 0.1 % (0-2); Eosinophils Absolute Auto 0.1 X10*3/uL (0.0-0.4); Eosinophils Percent Auto 1.1 % (0-4); Hematocrit 36.5 % (37.0-47.0); Imm Gran Abs Auto 0.03 X10*3/uL (0.00-0.03); Imm Gran Pct Auto 0.3 % (0.0-0.4); Lymphocytes Absolute Auto 3.1 X10*3/uL (1.2-4.9); Lymphocytes Percent Auto 33.5 % (20-40); Mean Corpuscular HGB Conc 32.9 g/dl (31.0-35.0); Mean Corpuscular Hemoglobin 28.5 pg (27.0-33.0); Mean Corpuscular Volume 86.7 fL (80.0-98.0); Monocytes Absolute Auto 0.6 X10*3/uL (0.1-1.2); Monocytes Percent Auto 6.2 % (2-11); Neutrophils Absolute Auto 5.5 x10*3/uL (2.0-8.3); Neutrophils Percent Auto 58.8 % (45-73); Platelet Count 309 X10*3/uL (160-400); Red Blood Count 4.21 X10*6/uL (4.20-5.50); Red Cell Distribution Width 13.4 % (11.0-16.0); White Blood Count 9.3 X10*3/uL (4.8-10.8)
[2024-02-22 14:56] LABS: INTERNATIONAL NORM RATIO 0.9 (0.9-1.1); Prothrombin Time 10.8 SEC (11.1-13.3)
[2024-02-22 14:59] LABS: Partial Thromboplastin Time 30.3 SEC (26.0-36.8)
[2024-02-22 15:00] LABS: Troponin-I High Sensitivity < 2.7 ng/L (<3.5-17.0)
[2024-02-22 15:05] LABS: Stroke Lab Use COMPLETE
[2024-02-22 15:16] LABS: Anion Gap 12 (12-20)
[2024-02-22 15:21] LABS: Blood Urea Nitrogen 13 mg/dL (9-16); Calcium 8.9 mg/dL (8.4-10.2); Carbon Dioxide 25 mmol/L (22-29); Chloride 108 mmol/L (96-108); Creatinine Clr Calc Pharmacy 85.8; Estimated Glomerular Filt Rate > 60; Glucose Random 112 mg/dL (60-115); Potassium 3.1 mmol/L (3.3-5.1); Sodium 142 mmol/L (135-145)
--- NOTE | 2024-02-22 16:15 | MHC.STROKE ---
Called to ED for stroke alert. Pt awake, will respond with head shake to some questions but has been nonverbal. Slight moaning at times. Pt unable to squeeze hands when asked. Not moving any of her extremities intially. Pt tearful. Hypertensive with BP 188/153. CTH and CTA completed. Medicated with Labetolol prior to MRI. Accompanied patient to MRI. BP 186/88 prior to entering MRI. BP 185/88 post MRI. Upon return to ED, some movement noted in left hand. Hx: Per , patient reported that her head felt strange starting around 11am. Reported dizziness. Pt went about her day with no further complaints. Around 1443, stated that the patient was sitting on the couch and not moving, difficult to understand and that her hands seemed stiff . No seizure like activity per family. Family reports patient was well yesterday and this am. Plan of care discussed with patient. Stroke Education provided. Will continue to assist as needed
[2024-02-22 16:41] VITALS: BP 106/49; PULSE 60; RESP 12; TEMP 36.7; O2SAT 99
[2024-02-22] MEDS: Potassium Chloride ER 20 MEQ TAB.ER.PRT 40 MEQ PO (17:41)
--- NOTE | 2024-02-22 17:42 | PC.NURSE ---
pt medicated per order
[2024-02-22 18:09] VITALS: BP 112/54; PULSE 63; RESP 16; TEMP 36.8; O2SAT 99
[2024-02-22 19:40] VITALS: BP 96/42; PULSE 60; RESP 12; O2SAT 98
--- NOTE | 2024-02-22 20:05 | PC.NURSE ---
pt is axox4 ambulated to bathroom with steady gait. bp as documented, pt asymptomatic. provider aware. pt reports pain/numbness resolved. pt to ct scan now.
--- NOTE | 2024-02-22 20:14 | PM.IMHP ---
History of Present Illness Date of Service: 02/22/24 Attending physician on admission: Jason Tamayo Chief Complaint: Left-sided weakness Pt is a 58-year-old female with a PMH significant for?mild nonobstructive CAD (normal left main coronary artery, 20% stenosis of mid LAD, 20% stenosis of the mid circumflex, and mild luminal irregularities in the RCA on 04/24/2016), sick sinus syndrome s/p Med[employer] pacemaker implantation on 03/09/2010 with subsequent generator change on 10/25/2022, atypical chest pain syndrome, asthma, fibromyalgia, GERD, HTN, HLD, hx of CVA, and anxiety who presents to the ED with?lef-sided numbness, tingling, and weakness. Patient reports going to bed in her normal state of health but awakening to numbness, tingling, and weakness on her left side from face to foot. Initially thought she had slept on it wrong, but symptoms did not resolve over the next hour or so. Then developed headache and pain in her left shoulder and jaw. Patient took her home medications including inhaler, nitro, and anxiety medications to no effect. Then went out to the store and noticed her left leg felt heavy, was dragging her left foot, and generally having difficulty walking, which prompted her visit to the ED for further evaluation. Denies any difficulty swallowing or facial droop. No dysarthria or difficulty word finding. Denies any episode of confusion or fogginess. No chest pain/pressure, palpitations. Denies shortness of breath. No fever, chills, nausea, vomiting, abdominal pain. Of note, patient had previous stroke with right sided deficits. Reports has been taking her medications as prescribed, except for her aspirin which she reduced from 325 mg daily to 81 mg daily on Sunday of this week in anticipation for scheduled right TKA on this upcoming Sunday. In the ED pt was hypotensive as low as 96/42, vitals otherwise stable and WNL. Labs were significant for potassium of 3.1, otherwise grossly unremarkable. No leukocytosis. Stable H&H. Renal function baseline. Troponin negative. CPK WNL. CT?of head negative for acute intracranial pathology. Showed unchanged chronic lacunar infarct in right internal capsule anterior limb, and unchanged asymmetric soft tissue density in posterior right cerebellopontine angle and arachnoid cyst. EKG demonstrated atrial paced rhythm without evidence of significant ST elevations or depressions. Pt was treated with potassium chloride, and aspirin. Pt will be admitted to the hospital for treatment and further evaluation of left-sided weakness concerning for possible acute CVA. [facility] Medical History Otitis externa Sinus congestion History of arthroplasty of finger Trigger finger Carpal tunnel syndrome Thumb injury Right otitis media Post-menopausal Screening for diabetes mellitus Pharyngitis Diverticulitis COVID-19 virus infection Breast cancer screening by mammogram Colon cancer screening Rectal bleed Sick sinus syndrome Hypercholesterolemia TIA (transient ischemic attack) Obstructive sleep apnea GERD (gastroesophageal reflux disease) Hypertension Superficial thrombophlebitis Pulmonary nocardiosis Osteopenia Celiac sprue Bipolar disorder Asthma Fibromyalgia Depression Anemia Knee osteoarthritis Family History Father No problems noted. Mother CAD (coronary artery disease) CVD (cerebrovascular disease) Glaucoma Stroke Breast cancer Maternal Grandmother Myocardial infarction Glaucoma Paternal Grandmother CAD (coronary artery disease) CVD (cerebrovascular disease) Sister Breast cancer Other Mental health disorder Surgical History H/O thumb surgery H/O carpal tunnel repair Hx of colonoscopy H/O cardiac catheterization History of laparoscopic partial gastrectomy History of foot surgery History of cardiac pacemaker History of arthroscopy of right shoulder Hx of arthroscopy of knee History of cholecystectomy History of appendectomy History of total hysterectomy with bilateral salpingo-oophorectomy (BSO) Social History Household Members: None Housing: House Are you a primary ocular care technician to a significant other at home: No Do you presently have visiting 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) Alcohol intake: never Patient Tobacco Use Status: Never used Tobacco Smoked in Last 30 Days: No e-Cigarette/Vaping Use: Never Used Second Hand Smoke Exposure: No Use of substances other than those prescribed or required for medical reasons: No Advance Directives: No Advance Directives Information Provided: Yes service: No Current occupational status: disabled Cognitive needs: No Hearing needs: No Vision needs: No Meds Allergies Allergy/AdvReac Type Severity Reaction Status Date / Time almond Allergy Severe DIFFICULTY Verified 02/22/24 13:56 BREATHING shellfish derived Allergy Severe ANAPHYLAXIS Verified 02/22/24 13:56 morphine Allergy Intermediate C/P - Verified 02/22/24 13:56 STOMACH CRAMPS, HIVES, DIFF BREATHING, anaphylaxis, shortness of breath strawberry Allergy Mild HIVES Verified 02/22/24 13:56 Sulfa (Sulfonamide Allergy Mild DIARRHEA Verified 02/22/24 13:56 Antibiotics) [SULFA (SULFONAMIDE ANTIBIOTICS)] gluten [GLUTEN] Allergy Unknown UNKNOWN Verified 02/22/24 13:56 meperidine [Demerol] Allergy Unknown upset Verified 02/22/24 13:56 stomach nitrofurantoin [Macrobid] Allergy Unknown Unknown Verified 02/22/24 13:56 codeine AdvReac Mild STOMACH Verified 02/22/24 13:56 [From TYLENOL-CODEINE #3] SPASM hydromorphone [From DILAUDID] AdvReac Mild STOMACH Verified 02/22/24 13:56 UPSET Home Medications ?Medication ?Instructions ?Recorded ?Confirmed ?Last Taken ?Type aripiprazole 5 mg tablet 5 mg PO DAILY 07/16/20 08/30/23 Unknown History benztropine 1 mg tablet 1 mg PO DAILY 07/16/20 08/30/23 Unknown History clonazepam 2 mg tablet 1 - 2 mg PO DAILY PRN Anxiety 07/16/20 08/30/23 Unknown History epinephrine 0.3 mg/0.3 mL 0.3 mg IM NEEDED PRN Anaphylaxis 07/16/20 08/30/23 Unknown History injection, auto-injector fluticasone furoate 200 1 inh inhalation DAILY 07/16/20 08/30/23 Unknown History mcg-vilanterol 25 mcg/dose inhalation powder (Breo Ellipta) fluticasone propionate 50 50 mcg intranasal NEEDED 07/16/20 08/30/23 Unknown History mcg/actuation nasal spray,suspension montelukast 10 mg tablet 10 mg PO DAILY 07/16/20 08/30/23 Unknown History rosuvastatin 20 mg tablet 20 mg PO BEDTIME 07/16/20 08/30/23 Unknown History tiotropium bromide 2.5 2.5 mcg inhalation NEEDED 07/16/20 08/30/23 Unknown History mcg/actuation mist for inhalation (Spiriva Respimat) suvorexant 20 mg tablet 20 mg PO DAILY 01/17/21 08/30/23 Unknown History omalizumab 150 mg subcutaneous 150 mg subcut .every 2 weeks 07/04/22 08/30/23 Unknown History solution (Xolair) diltiazem HCl 120 mg capsule,24 120 mg PO DAILY 08/30/23 08/30/23 Unknown History hr,extended release buspirone 10 mg tablet 20 mg PO TID 02/22/24 Unknown History isosorbide mononitrate 60 mg 60 mg PO DAILY 02/22/24 Unknown History tablet,extended release 24 hr linaclotide 290 mcg capsule 290 mcg PO DAILY 02/22/24 Unknown History (Linzess) melatonin 3 mg tablet 3 mg PO BEDTIME PRN Insomnia 02/22/24 Unknown History meloxicam 15 mg tablet 15 mg PO DAILY 02/22/24 Unknown History sertraline 100 mg tablet (Zoloft) 150 mg PO DAILY 02/22/24 Unknown History umeclidinium 62.5 mcg/actuation 1 inh inhalation DAILY 02/22/24 Unknown History blister powder for inhalation (Incruse Ellipta) Physical Exam Vital Signs and Narrative: Vital Signs: Last Vital Signs Temp 98.3 F 02/22/24 18:09 Pulse 60 02/22/24 19:40 Resp 12 02/22/24 19:40 BP 96/42 L 02/22/24 19:40 Pulse Ox 98 02/22/24 19:40 O2 Del Method Room Air 02/22/24 19:40 BMI result Body Mass Index 34.1 Constitutional: Alert, in no acute distress. Mental Status: Oriented to person, place and time. Eyes: Pupils are equal, round, and reactive to light. Ear, Nose, and Throat: Oropharynx clear, mucous membranes moist. Ears and nose without deformities. Trachea midline. Respiratory: Clear to auscultation bilaterally. No wheezing, rales, or rhonchi. Cardiovascular: S1, S2 regular. No murmurs, rubs, or gallops. Gastrointestinal: Abdomen soft, non-tender, non-distended. Normal bowel sounds. Neurologic: Moves all extremities spontaneously, though with 3/5 reduced strength of left upper and lower extremities. Reduced sensation to light touch of left face. Intact sensation to light touch of upper and lower extremities bilaterally. Skin: Warm, dry. Extremities: No edema. Psychiatric: Normal mood and affect. Results Labs 02/22/24 14:32 02/22/24 15:00 Labs: Laboratory Results - last 24 hr 02/22/24 02/22/24 02/22/24 14:29 14:32 14:38 MCV 86.7 MCH 28.5 MCHC 32.9 RDW 13.4 Plt Count 309 MPV 9.0 L Immature Gran % (Auto) 0.3 Neut % (Auto) 58.8 Lymph % (Auto) 33.5 [place] % (Auto) 6.2 Eos % (Auto) 1.1 Baso % (Auto) 0.1 Lymph # (Auto) 3.1 [place] # (Auto) 0.6 Eos # (Auto) 0.1 Baso # (Auto) 0.0 Abs Immat Gran (auto) 0.03 Absolute Neuts (auto) 5.5 Absolute Nucleated RBC 0.000 Nucleated RBC % (auto) 0.0 PT 10.8 L Whole Blood PT 12.0 INR 0.9 Whole Blood INR 1.0 APTT 30.3 Anion Gap Estim Creat Clear Calc Estimated GFR POC Glucose 110 Random Glucose Calcium Total Creatine Kinase Troponin I High Sens < 2.7 02/22/24 15:00 MCV MCH MCHC RDW Plt Count MPV Immature Gran % (Auto) Neut % (Auto) Lymph % (Auto) [place] % (Auto) Eos % (Auto) Baso % (Auto) Lymph # (Auto) [place] # (Auto) Eos # (Auto) Baso # (Auto) Abs Immat Gran (auto) Absolute Neuts (auto) Absolute Nucleated RBC Nucleated RBC % (auto) PT Whole Blood PT INR Whole Blood INR APTT Anion Gap 12 Estim Creat Clear Calc 85.8 Estimated GFR > 60 POC Glucose Random Glucose 112 Calcium 8.9 Total Creatine Kinase 74 Troponin I High Sens Imaging Radiologist's Impressions: Impressions Head CT 02/22/24 14:27 IMPRESSION: 1. Unchanged chronic lacunar infarct in right internal capsule anterior limb. 2. No intracranial hemorrhage or skull fracture is seen. 3. No evidence of space occupying lesion could be found. 4. The current plain CT scan of the brain shows no diagnostic evidence of acute cerebral infarction. 5. Unchanged asymmetric soft tissue density in posterior right cerebellopontine angle, with no discrete lesion seen on previous postcontrast images. 6. Unchanged right parasagittal posterior cranial fossa arachnoid cyst. This critical result was discussed with Dr. Augusto Schuler at 1445 hours on 02/22/2024. It was ascertained that the content and urgency of the report was understood at the time of direct communication. Assessment and Plan (1) Left-sided weakness: Status: Acute Plan Pt is a 58-year-old female with a PMH significant for?mild nonobstructive CAD (normal left main coronary artery, 20% stenosis of mid LAD, 20% stenosis of the mid circumflex, and mild luminal irregularities in the RCA on 04/24/2016), sick sinus syndrome s/p Medtr[employer] pacemaker implantation on 03/09/2010 with subsequent generator change on 10/25/2022, atypical chest pain syndrome, asthma, fibromyalgia, GERD, HTN, hx of CVA, and anxiety who presents to the ED with?lef-sided numbness, tingling, and weakness. Pt will be admitted to the hospital for treatment and further evaluation of left-sided weakness concerning for possible acute CVA. Left-sided weakness Pt with continued left-sided weakness, numbness, and tingling since awakening this morning, concerning for acute CVA Hx of previous CVA with right-sided deficits Reduced aspirin from 324mg to 81mg daily on Sunday due to right TKA on 02/26/2024 CT of head negative for acute intracranial hemorrhage or edematous territorial infarction Continue aspirin, increase atorvastatin to 40 mg daily Pt not a candidate for MRI of brain due to pacemaker Will get CTA of head/neck Echocardiogram Lipid profile PT/OT and speech evaluation Neurology consult Cardiac diet Monitor on telemetry Asthma Not in acute exacerbation Continue home inhalers Atypical chest pain syndrome Continue isosorbide mononitrate, nitro p.r.n. GERD Continue PPI Anxiety Continue home meds Full Code Attending:?Dr. Tamayo DVT Prophylaxis: Lovenox Pt will require a hospitalization of at least two nights for treatment of?left-sided weakness concerning for acute CVA. Patient will require additional workup and imaging, as well as close monitoring of vitals and cardiac functioning, and specialist consultation with Neurology. Quality Stroke Does the patient have a stroke diagnosis?: No Reason for No Anti-thrombotic by Day Two: Contraindicated (Last known well time last night before bed.) VTE Prior VTE?: No VTE Risk Level:: Medical - moderate - high VTE Device Contraindication: Treatment Not Indicated VTE Drug Contraindication: N/A - Med Ordered
[2024-02-22] MEDS: iohexoL 350 MG/ML 100 ML INFUS..BTL IV (20:15)
[2024-02-22] MEDS: Aspirin 81 MG TAB.CHEW 243 MG PO (20:23)
[2024-02-22 20:24] VITALS: BP 105/55; PULSE 60; RESP 15; O2SAT 100
--- NOTE | 2024-02-22 21:24 | PHA.MEDREC ---
Pharmacy Consult ? Medication Reconciliation Pharmacy has completed the medication reconciliation with the patient, pt reported all medication doses and directions when provided with name.
[2024-02-22] MEDS: Enoxaparin Sodium 40 MG/0.4 ML SYRINGE SUBCUT (21:32)
[2024-02-22 21:44] LABS: Cholesterol 172 mg/dL (<200); HDL Cholesterol 58 mg/dL (>40); LDL Cholesterol Calculated 94 mg/dL (<100); Triglycerides 103 mg/dL (<150)
[2024-02-22 23:49] VITALS: BP 109/51; PULSE 66; RESP 20; TEMP 36.8; O2SAT 99
[2024-02-23] VITALS (7 sets, daily range): BP systolic 116–135; BP diastolic 56–63; PULSE 60–99; RESP 13–20; TEMP 36.2–36.7; O2SAT 96–99; BMI 34.5
[2024-02-23 06:38] LABS: MANUAL DIFF FLAG NO
[2024-02-23 06:42] LABS: Basophils Percent Auto 0.2 % (0-2); Eosinophils Absolute Auto 0.1 X10*3/uL (0.0-0.4); Eosinophils Percent Auto 1.4 % (0-4); Hematocrit 37.3 % (37.0-47.0); Hemoglobin 12.1 g/dl (12.0-16.0); Imm Gran Abs Auto 0.02 X10*3/uL (0.00-0.03); Imm Gran Pct Auto 0.2 % (0.0-0.4); Lymphocytes Absolute Auto 3.6 X10*3/uL (1.2-4.9); Lymphocytes Percent Auto 43.2 % (20-40); Mean Corpuscular HGB Conc 32.4 g/dl (31.0-35.0); Mean Corpuscular Hemoglobin 27.8 pg (27.0-33.0); Mean Corpuscular Volume 85.6 fL (80.0-98.0); Mean Platelet Volume 8.9 fL (9.4-12.3); Monocytes Absolute Auto 0.6 X10*3/uL (0.1-1.2); Platelet Count 319 X10*3/uL (160-400); Red Blood Count 4.36 X10*6/uL (4.20-5.50); Red Cell Distribution Width 13.6 % (11.0-16.0); White Blood Count 8.3 X10*3/uL (4.8-10.8)
[2024-02-23 06:54] LABS: Anion Gap 12 (12-20); Blood Urea Nitrogen 13 mg/dL (9-16); Carbon Dioxide 24 mmol/L (22-29); Chloride 109 mmol/L (96-108); Creatinine Clr Calc Pharmacy 92.2; Estimated Glomerular Filt Rate > 60; Glucose Random 87 mg/dL (60-115); Potassium 3.7 mmol/L (3.3-5.1); Sodium 141 mmol/L (135-145)
--- NOTE | 2024-02-23 07:37 | P.CNNE_ITS ---
History of Present Illness Data of Consult Service Date: 02/23/24 Primary Care Provider: Unknown Physician HPI Reason for consult: Left-sided numbness 58 years old woman with previous history of headaches not having frequent headaches recently developed left leg numbness and soon after this numbness extended to involve left part of trunk and arm and then face. She came to emergency room and was initially evaluated for acute stroke. She was also having a headache that started after symptoms of numbness. There was no recent cold or flu-like illness. Her head CT and CTA did not reveal any acute abnormality or significant abnormality. Review of Systems 2 Review of Systems: No recent cold or flu-like illness PMFSH Past Medical History Medical History Otitis externa Sinus congestion History of arthroplasty of finger Trigger finger Carpal tunnel syndrome Thumb injury Right otitis media Post-menopausal Screening for diabetes mellitus Pharyngitis Diverticulitis COVID-19 virus infection Breast cancer screening by mammogram Colon cancer screening Rectal bleed Sick sinus syndrome Hypercholesterolemia TIA (transient ischemic attack) Obstructive sleep apnea GERD (gastroesophageal reflux disease) Hypertension Superficial thrombophlebitis Pulmonary nocardiosis Osteopenia Celiac sprue Bipolar disorder Asthma Fibromyalgia Depression Anemia Knee osteoarthritis Family History Family History Father No problems noted. Mother CAD (coronary artery disease) CVD (cerebrovascular disease) Glaucoma Stroke Breast cancer Maternal Grandmother Myocardial infarction Glaucoma Paternal Grandmother CAD (coronary artery disease) CVD (cerebrovascular disease) Sister Breast cancer Other Mental health disorder Surgical History Surgical History H/O thumb surgery H/O carpal tunnel repair Hx of colonoscopy H/O cardiac catheterization History of laparoscopic partial gastrectomy History of foot surgery History of cardiac pacemaker History of arthroscopy of right shoulder Hx of arthroscopy of knee History of cholecystectomy History of appendectomy History of total hysterectomy with bilateral salpingo-oophorectomy (BSO) Social History Social History Household Members: Spouse Housing: House Are you a primary anesthesiologist and critical care to a significant other at home: No Do you presently have visiting nurse or other home services: Yes (ERGONOMIST) Alcohol intake: never Patient Tobacco Use Status: Never used Tobacco e-Cigarette/Vaping Use: Never Used Second Hand Smoke Exposure: No service: No Current occupational status: disabled Cognitive needs: No Hearing needs: No Vision needs: No Meds Allergies Allergy/AdvReac Type Severity Reaction Status Date / Time almond Allergy Severe DIFFICULTY Verified 02/22/24 13:56 BREATHING shellfish derived Allergy Severe ANAPHYLAXIS Verified 02/22/24 13:56 morphine Allergy Intermediate C/P - Verified 02/22/24 13:56 STOMACH CRAMPS, HIVES, DIFF BREATHING, anaphylaxis, shortness of breath strawberry Allergy Mild HIVES Verified 02/22/24 13:56 Sulfa (Sulfonamide Allergy Mild DIARRHEA Verified 02/22/24 13:56 Antibiotics) [SULFA (SULFONAMIDE ANTIBIOTICS)] gluten [GLUTEN] Allergy Unknown UNKNOWN Verified 02/22/24 13:56 meperidine [Demerol] Allergy Unknown upset Verified 02/22/24 13:56 stomach nitrofurantoin [Macrobid] Allergy Unknown Unknown Verified 02/22/24 13:56 codeine AdvReac Mild STOMACH Verified 02/22/24 13:56 [From TYLENOL-CODEINE #3] SPASM hydromorphone [From DILAUDID] AdvReac Mild STOMACH Verified 02/22/24 13:56 UPSET Active Medications: Current Medications Acetaminophen (Acetaminophen 325 Mg Tablet) 650 mg PO Q6H PRN PRN Reason: Pain, Mild (Pain Scale 1-3) Albuterol Sulfate (Albuterol Sulfate 90 Mcg 8 Gm Inhaler) 2 puff INHALE Q6H PRN PRN Reason: shortness of breath or wheezing Aripiprazole (Aripiprazole 5 Mg Tablet) 5 mg PO DAILY [facility] Benztropine Mesylate (Benztropine Mesylate 1 Mg Tablet) 1 mg PO DAILY [facility] Buspirone HCl (Buspirone Hcl 10 Mg Tablet) 20 mg PO TID [facility] Dicyclomine HCl (Dicyclomine Hcl 10 Mg Capsule) 20 mg PO BID [facility] Diltiazem HCl (Diltiazem Hcl Cd 120 Mg Cap.Er.Deg) 120 mg PO DAILY [facility]; Protocol Enoxaparin Sodium (Enoxaparin Sodium 40 Mg/0.4 Ml Syringe) 40 mg SUBCUT Q24H [facility] Last Admin: 02/22/24 21:32 Dose: 40 mg Fluticasone Propionate (Fluticasone Propionate Nasal 16 Gm [place]) 1 spray NOSTRIL-B BEDTIME [facility] Fluticasone/Vilanterol (Fluticasone/Vilanterol 200/25 Blst.W.Dev) 1 puff INHALE DAILY [facility] Isosorbide Mononitrate (Isosorbide Mononitrate 60 Mg Tab.Er.24h) 60 mg PO DAILY [facility]; Protocol Melatonin (Melatonin 3 Mg Tablet) 6 mg PO BEDTIME PRN PRN Reason: Insomnia Montelukast Sodium (Montelukast Sodium 10 Mg Tablet) 10 mg PO BEDTIME [facility] Non-Formulary Medication (Linaclotide [Linzess]) 290 mcg PO DAILY PRN PRN Reason: Constipation Non-Formulary Medication (Meloxicam) 15 mg PO DAILY [facility] Non-Formulary Medication (Omalizumab [Xolair]) 150 mg SUBCUT .every 2 weeks [facility] Non-Formulary Medication (Pantoprazole) 40 mg PO BID [facility] Non-Formulary Medication (Rosuvastatin) 20 mg PO DAILY [facility] Non-Formulary Medication (Suvorexant) 20 mg PO DAILY PRN PRN Reason: Insomnia Non-Formulary Medication (Umeclidinium [Incruse Ellipta]) 1 inhalation INHALE DAILY [facility] Ondansetron HCl (Ondansetron Hcl 4 Mg/2 Ml Vial) 4 mg IVPUSH Q8H PRN PRN Reason: Nausea and Vomiting Ondansetron HCl (Ondansetron Odt 4 Mg Tab.Rapdis) 4 mg TRANSLINGU TID PRN PRN Reason: nausea and vomiting Senna (Sennosides 8.6 Mg Tablet) 17.2 mg PO BEDTIME [facility] Sertraline HCl (Sertraline Hcl 50 Mg Tablet) 150 mg PO DAILY [facility] Sodium Chloride (0.9 % Sodium Chloride Flush 3 Ml Syringe) 3 ml IVFLUSH QSHIFT [facility] Last Admin: 02/23/24 02:24 Dose: Not Given Tiotropium [place] (Tiotropium [place] 2.5 Mcg 1 Puff/2.5 Mcg Mist.Inhal) puff INHALE DAILY [facility] Home Medications ?Medication ?Instructions ?Recorded ?Confirmed ?Last Taken ?Type aripiprazole 5 mg tablet 5 mg PO DAILY 07/16/20 02/22/24 02/22/24 History benztropine 1 mg tablet 1 mg PO DAILY 07/16/20 02/22/24 02/22/24 History clonazepam 2 mg tablet 1 - 2 mg PO DAILY PRN Anxiety 07/16/20 02/22/24 Unknown History epinephrine 0.3 mg/0.3 mL 0.3 mg IM NEEDED PRN Anaphylaxis 07/16/20 02/22/24 Unknown History injection, auto-injector fluticasone furoate 200 1 inh inhalation DAILY 07/16/20 02/22/24 02/22/24 History mcg-vilanterol 25 mcg/dose inhalation powder (Breo Ellipta) fluticasone propionate 50 50 mcg intranasal BEDTIME 07/16/20 02/22/24 Unknown History mcg/actuation nasal spray,suspension montelukast 10 mg tablet 10 mg PO BEDTIME 07/16/20 02/22/24 Unknown History rosuvastatin 20 mg tablet 20 mg PO DAILY 07/16/20 02/22/24 02/22/24 History tiotropium bromide 2.5 2.5 mcg inhalation DAILY 07/16/20 02/22/24 Unknown History mcg/actuation mist for inhalation (Spiriva Respimat) suvorexant 20 mg tablet 20 mg PO DAILY PRN Insomnia 01/17/21 02/22/24 Unknown History omalizumab 150 mg subcutaneous 150 mg subcut .every 2 weeks 07/04/22 02/22/24 02/12/24 History solution (Xolair) diltiazem HCl 120 mg capsule,24 120 mg PO DAILY 08/30/23 02/22/24 02/22/24 History hr,extended release buspirone 10 mg tablet 20 mg PO TID 02/22/24 02/22/24 02/22/24 History dicyclomine 20 mg tablet 20 mg PO BID 02/22/24 02/22/24 02/22/24 History isosorbide mononitrate 60 mg 60 mg PO DAILY 02/22/24 02/22/24 02/22/24 History tablet,extended release 24 hr linaclotide 290 mcg capsule 290 mcg PO DAILY PRN Constipation 02/22/24 02/22/24 Unknown History (Linzess) meloxicam 15 mg tablet 15 mg PO DAILY 02/22/24 02/22/24 02/22/24 History ondansetron HCl 4 mg tablet 4 mg PO TID PRN nausea and vomiting 02/22/24 02/22/24 Unknown History sertraline 100 mg tablet (Zoloft) 150 mg PO DAILY 02/22/24 02/22/24 02/22/24 History umeclidinium 62.5 mcg/actuation 1 inh inhalation DAILY 02/22/24 02/22/24 02/22/24 History blister powder for inhalation (Incruse Ellipta) Physical Exam 2 Vital Signs: Vital Signs: Last Vital Signs Temp 97.1 F 02/23/24 04:00 Pulse 62 02/23/24 04:00 Resp 18 02/23/24 04:00 BP 135/62 02/23/24 04:00 Pulse Ox 99 02/23/24 04:00 O2 Del Method Room Air 02/23/24 04:00 BMI result Body Mass Index 34.5 Neuro: Other: She is alert and awake with normal spontaneity of speech fluency comprehension and affect. Face is symmetrical. Visual hodge are full. There is no focal weakness. Plantars are flexor. Results Labs 02/23/24 06:27 02/23/24 06:27 Labs: Short CBC 02/22/24 02/23/24 Range/Units 14:32 06:27 WBC 9.3 8.3 (4.8-10.8) X10*3/uL Hgb 12.0 12.1 (12.0-16.0) g/dl Hct 36.5 L 37.3 (37.0-47.0) % Plt Count 309 319 (160-400) X10*3/uL BMP 02/22/24 02/23/24 15:00 06:27 Sodium 142 141 Potassium 3.1 L 3.7 Chloride 108 109 H Carbon Dioxide 25 24 BUN 13 13 Creatinine 0.63 0.59 Calcium 8.9 9.0 Cardiac Enzymes 02/22/24 Range/Units 15:00 Total Creatine Kinase 74 (26-140) U/L Noncontrast head CT did not reveal any acute abnormality. There is a small hypodense lesion in right basal ganglia that was also noted in 2018. CTA did not reveal any large vessel disease. Assessment and Plan (1) Left-sided weakness: Status: Acute 58 years old woman with left-sided numbness that slowly evolved followed by headache. This set of clinical features are strongly suggestive of hemiplegic migraine. Her blood pressure is not high. I noted that she had brain scans in the past and in [address] scan of brain revealed a right basal ganglia signal abnormality that we still see. Differential diagnosis would also include demyelinating disease and I recommend obtaining an MRI of brain without contrast to rule out any acute lesion. Procedures Date of Service Date of Service: 02/23/24
[2024-02-23] MEDS: Dicyclomine HCl 10 MG CAPSULE 20 MG PO (08:11)
[2024-02-23] MEDS: Sertraline HCL 50 MG TABLET 150 MG PO (08:11)
[2024-02-23] MEDS: dilTIAZem HCL CD 120 MG CAP.ER.DEG PO (08:11)
[2024-02-23] MEDS: 0.9 % Sodium Chloride Flush 3 ML SYRINGE IVFLUSH (08:11)
[2024-02-23] MEDS: Atorvastatin Calcium 80 MG TABLET PO (08:12)
[2024-02-23] MEDS: ARIPiprazole 5 MG TABLET PO (08:12)
[2024-02-23] MEDS: Omeprazole 20 MG CAPSULE.DR PO ×2 (08:12→15:42)
[2024-02-23] MEDS: Isosorbide Mononitrate 60 MG TAB.ER.24H PO (08:12)
[2024-02-23] MEDS: busPIRone HCl 10 MG TABLET 20 MG PO (08:13)
[2024-02-23] MEDS: Benztropine Mesylate 1 MG TABLET PO (08:13)
[2024-02-23] MEDS: Acetaminophen 325 MG TABLET 650 MG PO (10:04)
[2024-02-23] MEDS: Fluticasone/Vilanterol 200/25 BLST.W.DEV 1 PUFF INHALE (10:04)
[2024-02-23] MEDS: ondansetron HCL 4 MG/2 ML VIAL IVPUSH (10:04)
--- NOTE | 2024-02-23 11:40 | P.DS_ITS ---
DS: Providers Provider Date of Service: 02/23/24 Date of admission: 02/22/24 21:02 Primary care physician: Unknown Physician Consults: 02/22/24 21:03 Consult to Neurology Routine Consulting Provider: [facility] Reason for consultation: left sided numbness DS: Diagnosis Discharge Diagnosis (1) Left-sided weakness: Status: Acute DS: Summary Hospital Course Hospital Course: admission hpi Attending physician on admission: Jason Tamayo Chief Complaint: Left-sided weakness Pt is a 58-year-old female with a PMH significant for?mild nonobstructive CAD (normal left main coronary artery, 20% stenosis of mid LAD, 20% stenosis of the mid circumflex, and mild luminal irregularities in the RCA on 04/24/2016), sick sinus syndrome s/p [employer] pacemaker implantation on 03/09/2010 with subsequent generator change on 10/25/2022, atypical chest pain syndrome, asthma, fibromyalgia, GERD, HTN, HLD, hx of CVA, and anxiety who presents to the ED with?lef-sided numbness, tingling, and weakness. Patient reports going to bed in her normal state of health but awakening to numbness, tingling, and weakness on her left side from face to foot. Initially thought she had slept on it wrong, but symptoms did not resolve over the next hour or so. Then developed headache and pain in her left shoulder and jaw. Patient took her home medications including inhaler, nitro, and anxiety medications to no effect. Then went out to the store and noticed her left leg felt heavy, was dragging her left foot, and generally having difficulty walking, which prompted her visit to the ED for further evaluation. Denies any difficulty swallowing or facial droop. No dysarthria or difficulty word finding. Denies any episode of confusion or fogginess. No chest pain/pressure, palpitations. Denies shortness of breath. No fever, chills, nausea, vomiting, abdominal pain. Of note, patient had previous stroke with right sided deficits. Reports has been taking her medications as prescribed, except for her aspirin which she reduced from 325 mg daily to 81 mg daily on Sunday of this week in anticipation for scheduled right TKA on this upcoming Sunday. In the ED pt was hypotensive as low as 96/42, vitals otherwise stable and WNL. Labs were significant for potassium of 3.1, otherwise grossly unremarkable. No leukocytosis. Stable H&H. Renal function baseline. Troponin negative. CPK WNL. CT?of head negative for acute intracranial pathology. Showed unchanged chronic lacunar infarct in right internal capsule anterior limb, and unchanged asymmetric soft tissue density in posterior right cerebellopontine angle and arachnoid cyst. EKG demonstrated atrial paced rhythm without evidence of significant ST elevations or depressions. Pt was treated with potassium chloride, and aspirin. Pt will be admitted to the hospital for treatment and further evaluation of left-sided weakness concerning for possible acute CVA. hospital course: She presented with left-sided numbness and weakness that slowly evolved followed by headache. Symptoms have resolved, CT head and CTA of head and neck show no acute finding. Neurologist evaluated her and thinking her presentation is consistent with hemiplegic Migraine, however recommended an MRI to further evaluate an old right basal ganglia signal abnormalities.. Given that she has a pace maker, MRI cannot be done until a rep is available to put in MRI mode next week, and therefore will arrange for the MRI to be done on outpatient basis to rule out demylanating disease Time Attestation Discharge Coordination Time (in mins): 30 Quality: Safe Use of Opioids Does Pt have an Active Cancer Diagnosis on the Problem List?: No Quality: Stroke Does the patient have a stroke diagnosis?: No Physical Exam Vital Signs: Vital Signs: Last Vital Signs Temp 97.6 F 02/23/24 11:33 Pulse 99 02/23/24 11:33 Resp 18 02/23/24 11:33 BP 116/63 02/23/24 11:33 Pulse Ox 99 02/23/24 11:33 O2 Del Method Room Air 02/23/24 11:33 BMI result Body Mass Index 34.5 DS: Data Data Completed and Pending Labs on day of discharge: Laboratory Results - last 24 hr 02/22/24 02/22/24 02/22/24 14:29 14:32 14:38 WBC 9.3 RBC 4.21 Hgb 12.0 Hct 36.5 L MCV 86.7 MCH 28.5 MCHC 32.9 RDW 13.4 Plt Count 309 MPV 9.0 L Immature Gran % (Auto) 0.3 Neut % (Auto) 58.8 Lymph % (Auto) 33.5 [place] % (Auto) 6.2 Eos % (Auto) 1.1 Baso % (Auto) 0.1 Lymph # (Auto) 3.1 [place] # (Auto) 0.6 Eos # (Auto) 0.1 Baso # (Auto) 0.0 Abs Immat Gran (auto) 0.03 Absolute Neuts (auto) 5.5 Absolute Nucleated RBC 0.000 Nucleated RBC % (auto) 0.0 PT 10.8 L Whole Blood PT 12.0 INR 0.9 Whole Blood INR 1.0 APTT 30.3 Sodium Potassium Chloride Carbon Dioxide Anion Gap BUN Creatinine Estim Creat Clear Calc Estimated GFR POC Glucose 110 Random Glucose Calcium Total Creatine Kinase Troponin I High Sens < 2.7 Triglycerides Cholesterol LDL Cholesterol, Calc HDL Cholesterol 02/22/24 02/23/24 15:00 06:27 WBC 8.3 RBC 4.36 Hgb 12.1 Hct 37.3 MCV 85.6 MCH 27.8 MCHC 32.4 RDW 13.6 Plt Count 319 MPV 8.9 L Immature Gran % (Auto) 0.2 Neut % (Auto) 48.0 Lymph % (Auto) 43.2 H [place] % (Auto) 7.0 Eos % (Auto) 1.4 Baso % (Auto) 0.2 Lymph # (Auto) 3.6 [place] # (Auto) 0.6 Eos # (Auto) 0.1 Baso # (Auto) 0.0 Abs Immat Gran (auto) 0.02 Absolute Neuts (auto) 4.0 Absolute Nucleated RBC 0.000 Nucleated RBC % (auto) 0.0 PT Whole Blood PT INR Whole Blood INR APTT Sodium 142 141 Potassium 3.1 L 3.7 Chloride 108 109 H Carbon Dioxide 25 24 Anion Gap 12 12 BUN 13 13 Creatinine 0.63 0.59 Estim Creat Clear Calc 85.8 92.2 Estimated GFR > 60 > 60 POC Glucose Random Glucose 112 87 Calcium 8.9 9.0 Total Creatine Kinase 74 Troponin I High Sens Triglycerides 103 Cholesterol 172 LDL Cholesterol, Calc 94 HDL Cholesterol 58 Discharge Plan Discharge Anticipated Discharge Date/Time: 02/23/24 11:37 Patient Disposition: Home, Self-Care Discharge Diagnosis: Hemiplegic Migraine Referrals: Lance GROSSMAN [Outside] Physician,Unknown J [Primary Care Provider] - 1 Week Discharge Medications: Continued albuterol sulfate 90 mcg/actuation HFA aerosol inhaler 2 puff inhalation Q6H PRN (Reason: shortness of breath or wheezing) Qty: 6.7 0RF Rx Instructions: VEntolin HFA meloxicam 15 mg tablet 15 mg PO DAILY sertraline [Zoloft] 100 mg tablet 150 mg PO DAILY isosorbide mononitrate 60 mg tablet extended release 24 hr 60 mg PO DAILY buspirone 10 mg tablet 20 mg PO TID Incruse Ellipta 62.5 mcg/actuation blister with device 1 inh inhalation DAILY Linzess 290 mcg capsule 290 mcg PO DAILY PRN (Reason: Constipation) ondansetron HCl 4 mg tablet 4 mg PO TID PRN (Reason: nausea and vomiting) dicyclomine 20 mg tablet 20 mg PO BID Breo Ellipta 200-25 mcg/dose blister with device 1 inh inhalation DAILY Spiriva Respimat 2.5 mcg/actuation mist 2.5 mcg inhalation DAILY aripiprazole 5 mg tablet 5 mg PO DAILY benztropine 1 mg tablet 1 mg PO DAILY clonazepam 2 mg tablet 1 - 2 mg PO DAILY PRN (Reason: Anxiety) rosuvastatin 20 mg tablet 20 mg PO DAILY fluticasone propionate 50 mcg/actuation spray,suspension 50 mcg intranasal BEDTIME montelukast 10 mg tablet 10 mg PO BEDTIME epinephrine 0.3 mg/0.3 mL auto-injector 0.3 mg IM NEEDED PRN (Reason: Anaphylaxis) Xolair 150 mg recon [place]n 150 mg subcut .every 2 weeks Patient Comments: every 2 weeks tramadol 50 mg tablet 50 mg PO TID PRN (Reason: pain) 30 Days Qty: 90 1RF suvorexant 20 mg tablet 20 mg PO DAILY PRN (Reason: Insomnia) diltiazem HCl 120 mg capsule,extended release 24 hr 120 mg PO DAILY pantoprazole 40 mg tablet,delayed release (DR/EC) 40 mg PO BID 90 Days Qty: 180 2RF sennosides [senna] 8.6 mg tablet 17.2 mg PO BEDTIME Qty: 60 6RF Discharge Orders: Discharge Order (Routine); Ordered 02/23/24 Ordered By: Jesu Ward Diet: Advance to usual diet Activity on Discharge: As tolerated Stand Alone Forms: Patient Portal Discharge page Print Language: Upper Sorbian Other Ambulatory Orders: MR head/brain wo con (Routine) Timeframe: 1 Week Facility: [facility] - Location: MRI Ordered By: Jesu Ward Care Plan Goals: control of hemiplegic migraine and rule out other cause of numbness on the left side Health Concerns: hemiplegic migraine Plan of Treatment: follow up with your doctor and Neurologist on outpatient basis Assessment: see above Discharge Date/Time: 02/23/24 16:11
--- NOTE | 2024-02-23 13:46 | MHC.CM.PN ---
pt lives with physical therapy recommends home with services referral to [facility] pt has own ride home
--- NOTE | 2024-02-23 16:46 | W.MHC.F2F ---
Service Date Service Date: 02/23/24 Encounter Date of encounter: 02/23/24 Reasons for Services Signs and symptoms assessed: weaknes, numbness of the left side Reason for physical therapy: therapeutic exercises and gait/transfer training Reason for occupational therapy: therapeutic exercises Homebound: Leaving the home is medically contraindicated at this time without the asist of a device and/or another person due th the listed conditions above and below. Reason homebound: leg weakness Homebound supporting statement: home bound due to weakness on left side and therefore needs the assistance of another person Certification: Based on the above findings, I certify that this patient is confined to the home and needs intermittent nursing home care, physical therapy and/or speech therapy, or continues to need occupational therapy. The patient is under my care, and I have initiated the establishment of the plan of care. The patient will be followed by a physician who will periodically review the plan of care. Time Spent With Patient Time: Total time managing care of this patient today ____ minutes.
== END 2024-02-23 16:11 | disposition home or self-care (01) | DRG 103 ==
LOC: HO.ED 15:32 → HO.EDOVER 21:15 → HO.IMC 02-23 02:19
PROVIDERS: Registered Nurse Emergency; Admitting Provider Student in an Organized Health Care Education/Training Program; Emergency Provider Emergency Medicine; Visit Provider Internal Medicine
DX: G43.409 Hemiplegic migraine, not intractable, without status migrainosus (principal); G47.33 Obstructive sleep apnea (adult) (pediatric); I25.10 Atherosclerotic heart disease of native coronary artery without angina pectoris; M79.7 Fibromyalgia; I49.5 Sick sinus syndrome; Z95.0 Presence of cardiac pacemaker; Z79.51 Long term (current) use of inhaled steroids; Z79.899 Other long term (current) drug therapy
CPT/HCPCS: 36415; 70450; 70496; 70498; 80048; 80061; 82550; 82947; 84484; 85025; 85610; 85730; 93005; 97162; 99285; J1650; J2405; Q9967

== ENCOUNTER → 2024-02-22 13:56 | Outpatient (BNV) | payer MEDICARE, MEDICAID, SELFPAY | PROVIDERS: Admitting Provider Student in an Organized Health Care Education/Training Program; Emergency Provider Emergency Medicine; Visit Provider Internal Medicine Cardiovascular Disease | DX: R94.31 Abnormal electrocardiogram [ECG] [EKG] (principal); R68.84 Jaw pain | CPT/HCPCS: 93010 ==

== ENCOUNTER → 2024-02-22 21:02 | Outpatient (BNV) | payer MEDICARE, MEDICAID, SELFPAY | PROVIDERS: Admitting Provider Student in an Organized Health Care Education/Training Program; Emergency Provider Emergency Medicine; Visit Provider Psychiatry & Neurology Neurology | DX: G81.94 Hemiplegia, unspecified affecting left nondominant side (principal) | CPT/HCPCS: 99222 ==

== ENCOUNTER → 2024-02-22 21:02 | Outpatient (BNV) | payer MEDICARE, MEDICAID, SELFPAY | PROVIDERS: Admitting Provider Student in an Organized Health Care Education/Training Program; Emergency Provider Emergency Medicine; Visit Provider Student in an Organized Health Care Education/Training Program | DX: R53.1 Weakness (principal) | CPT/HCPCS: 99223; 99238; G0180 ==

== ENCOUNTER 2024-03-20 12:37 | Outpatient (AMB) | payer MEDICARE, MEDICAID, SELFPAY ==
[2024-03-20 12:43] VITALS: BP 120/76; PULSE 69; O2SAT 99; BMI 33.0
--- NOTE | 2024-03-20 12:43 | MHC.PC.OV ---
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: Not Required per policy Accompanied by: Self / Same As Patient Allergies almond Allergy (Severe, Verified 03/20/24 12:43) DIFFICULTY BREATHING shellfish derived Allergy (Severe, Verified 03/20/24 12:43) ANAPHYLAXIS morphine Allergy (Intermediate, Verified 03/20/24 12:43) C/P - STOMACH CRAMPS, HIVES, DIFF BREATHING, anaphylaxis, shortness of breath strawberry Allergy (Mild, Verified 03/20/24 12:43) HIVES Sulfa (Sulfonamide Antibiotics) [SULFA (SULFONAMIDE ANTIBIOTICS)] Allergy (Mild, Verified 03/20/24 12:43) DIARRHEA gluten [GLUTEN] Allergy (Unknown, Verified 03/20/24 12:43) UNKNOWN meperidine [Demerol] Allergy (Unknown, Verified 03/20/24 12:43) upset stomach nitrofurantoin [Macrobid] Allergy (Unknown, Verified 03/20/24 12:43) Unknown codeine [From TYLENOL-CODEINE #3] Adverse Reaction (Mild, Verified 03/20/24 12:43) STOMACH SPASM hydromorphone [From DILAUDID] Adverse Reaction (Mild, Verified 03/20/24 12:43) STOMACH UPSET Tobacco use date assessed: 03/20/24 Dental Screening Dental Screen Date: 03/20/24 Did you have a dental visit in the last 12 months?: Yes Did you have a dental problem in the last 6 months where you did not have access to dental care?: No Was dental information given to patient?: Patient has dentist HPI Right Shoulder Pain HPI Details 58-year-old obese female with hypercholesterolemia GERD hypertension celiac sprue bipolar disorder asthma coming in for an acute problem last seen in 09/03/2023 had physical exam at that time. Patient's colonoscopy is up-to-date mammogram is up-to-date. Review of the notes [id number] ER visit for right knee osteoarthritis and had right total knee arthroplasty under Dr. Solomon earlier that time 02/23/2024 was in the hospital for left-sided weakness woke up with left side numbness tingling and weakness noted in the ER to be hypotensive but stable patient was evaluated by Neurology diagnosis of hemiplegic migraine. Patient also follows up with Gastroenterology on Zofran for nausea August patient follows up with orthopedics for bilateral shoulder pain right more than the left diagnosis of bursitis of the right shoulder had injections done also had left shoulder but PFSH Medical History Otitis externa Sinus congestion History of arthroplasty of finger Trigger finger Carpal tunnel syndrome Thumb injury Right otitis media Post-menopausal Screening for diabetes mellitus Pharyngitis Diverticulitis COVID-19 virus infection Breast cancer screening by mammogram Colon cancer screening Rectal bleed Sick sinus syndrome Hypercholesterolemia TIA (transient ischemic attack) Obstructive sleep apnea GERD (gastroesophageal reflux disease) Hypertension Superficial thrombophlebitis Pulmonary nocardiosis Osteopenia Celiac sprue Bipolar disorder Asthma Fibromyalgia Depression Anemia Knee osteoarthritis Surgical History H/O thumb surgery H/O carpal tunnel repair Hx of colonoscopy H/O cardiac catheterization History of laparoscopic partial gastrectomy History of foot surgery History of cardiac pacemaker History of arthroscopy of right shoulder Hx of arthroscopy of knee History of cholecystectomy History of appendectomy History of total hysterectomy with bilateral salpingo-oophorectomy (BSO) Family History Father No problems noted. 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 1. Little interest or pleasure in doing things: more than half the days 2. Feeling down, depressed, or hopeless: nearly every day 3. Trouble falling or staying asleep, or sleeping too much: more than half the days 4. Feeling tired or having little energy: nearly every day 5. Poor appetite or overeating: more than half the days 6. Feeling bad about yourself - or that you are a failure or have let yourself or your family down: more than half the days 7. Trouble concentrating on things, such as reading the newspaper or watching television: more than half the days 8. Moving or speaking so slowly that other people could have noticed. Or the opposite - being so fidgety or restless that you have been moving around a lot more than usual: more than half the days 9. Thoughts that you would be better off or of hurting yourself in some way: not at all Total score: 18 Depression Screening Interpretation: Positive Depression Screening Follow-up: In treatment Depression Screening Done: Yes Source: Developed by Drs. Laron Cobb, Evelyn Osuna, Lane Garcia and colleagues, with an educational zaida from [employer]. Thrive Questionnaire Date Thrive assessed: 02/23/24 AUDIT C Alcohol Use Questionnaire (AUDIT-C) 1. How often do you have a drink containing alcohol?: Never 2. How many drinks containing alcohol do you have on a typical day when you are drinking?: 1 or 2 (none) 3. How often do you have six or more drinks on one occasion?: Never Total Score: 0 Score Reviewed/Action Taken: No MILE-7 AMB Questionnaire MILE-7 Date MILE - 7 assessed: 03/20/24 Feeling nervous, anxious, or on edge: 0 = Not at all Not being able to stop or control worryin = Not at all Worrying too much about different things: 0 = Not at all Trouble relaxin = Not at all Being so restless that it is hard to sit still: 0 = Not at all Becoming easily annoyed or irritable: 0 = Not at all Feeling afraid as if something awful might happen: 0 = Not at all Total MILE-7 score (0-4 normal; 5-9 mild; 10-14 moderate; 15-21 severe): 0 Source: Developed by Drs. Laron Cobb, Evelyn Osuna, Lane Garcia and colleagues, with an educational zaida from [employer]. Physical exam (Primary Care) Vital Signs: Last Vital Signs Pulse 69 03/20/24 12:43 BP 120/76 03/20/24 12:43 Pulse Ox 99 03/20/24 12:43 Oxygen Delivery Method Room Air 03/20/24 12:43 BMI result Body Mass Index 33.0 Tobacco/Smoking Status: Tobacco use Status Tobacco use date assessed 03/20/24 03/20/24 12:47 Patient Tobacco Use Status Never used Tobacco 03/20/24 12:47 e-Cigarette/Vaping Use Never Used 03/20/24 12:47 PHQ-9: PHQ-9 Score PHQ-9: Total score 18 03/20/24 12:47 Depression Screening Interpretation: Positive Depression Screening Follow-up: In treatment Thrive Assessment: Date of Thrive Assessment Date Thrive assessed 02/23/24 03/20/24 12:47 Const General: alert; No acute distress Eyes Conjunctivae: conjunctivae normal Resp Auscultation: clear to auscultation bilaterally Cardio Rate: regular rate Rhythm: regular rhythm GI Inspection: Yes normal to inspection Extrem General: Yes normal to inspection and No edema Assessment and Plan Assessment & Plan (1) Bursitis of left shoulder: Code(s): M75.52 - Bursitis of left shoulder Plan: Patient follows up with orthopedics has had injection in the right shoulder (2) Osteoarthritis of right knee: Comment: Right knee arthroplasty Dr. Solomon 03/03/2024 Code(s): M17.11 - Unilateral primary osteoarthritis, right knee Plan: Status post right knee arthroplasty (3) Obesity (BMI 30-39.9): Code(s): E66.9 - Obesity, unspecified Plan: Diet and exercise (4) History of laparoscopic partial gastrectomy: Comment: 07-18-2018 Code(s): Z90.3 - Acquired absence of stomach [part of] Plan: Stable (5) Bipolar disorder: Comment: Counseling and psychiatry with emelia Hoyt September 2021 Code(s): F31.9 - Bipolar disorder, unspecified Qualifiers: Active/Remission status: currently active Current bipolar episode type: depressed Current episode severity: moderate Qualified Code(s): F31.32 - Bipolar disorder, current episode depressed, moderate Plan: Continue with counseling and therapy (6) Celiac sprue: Comment: Last EGD bx 2017--changes c/ Celiac Disease Last [id number] Code(s): K90.0 - Celiac disease Plan: Patient follows up with Gastroenterology, diet controlled (7) Hypertension: Comment: Catheterization 2016 clear coronary. Code(s): I10 - Essential (primary) hypertension Qualifiers: Hypertension type: essential hypertension Qualified Code(s): I10 - Essential (primary) hypertension Plan: Continue with blood pressure medication. Decrease salt intake and exercise takes diltiazem 120 mg once a day as her bite mononitrate. (8) GERD (gastroesophageal reflux disease): Code(s): K21.9 - Gastro-esophageal reflux disease without esophagitis Qualifiers: Esophagitis presence: without esophagitis Qualified Code(s): K21.9 - Gastro-esophageal reflux disease without esophagitis Plan: Avoid the foods that causes that usually spicy foods, tomato products, juices, coffee, soda and foods that your sensitive to. After eating do not lie down, allow 3-4 hours before in lie down. And keep the head of bed above 30 degrees to avoid the acid from going up. (9) Hypercholesterolemia: Code(s): E78.00 - Pure hypercholesterolemia, unspecified Plan: Avoid fried foods, chicken skin, eggs, butter margarine, pastries and meat. Be it pork or beef they have a lot of cholesterol LDL goal of less than 130 and triglyceride of less than 150 on rosuvastatin 20 once a day Medications: New rosuvastatin 40 mg PO DAILY 30 tabs 9RF E78.00 - Pure hypercholesterolemia, unspecified Coding Level of Care Code Est Pt Level 4 (99782) Complex EM visit Add On G2211 Diagnoses Bursitis of left shoulder M75.52 Osteoarthritis of right knee M17.11 Obesity (BMI 30-39.9) E66.9 History of laparoscopic partial gastrectomy Z90.3 Bipolar affective disorder, currently depressed, moderate F31.32 Active/Remission status: currently active Current bipolar episode type: depressed Current episode severity: moderate Celiac sprue K90.0 Essential hypertension I10 Hypertension type: essential hypertension Gastroesophageal reflux disease without esophagitis K21.9 Esophagitis presence: without esophagitis Hypercholesterolemia E78.00 Additional Codes PHQ-9 - 33113 - PHQ-9 Billing: ([id number])
== END 2024-03-20 13:24 | disposition home or self-care (01) ==
PROVIDERS: PCP Internal Medicine; Visit Provider Internal Medicine
DX: M75.52 Bursitis of left shoulder (principal); F31.32 Bipolar disorder, current episode depressed, moderate; E66.9 Obesity, unspecified; Z68.30 Body mass index [BMI] 30.0-30.9, adult; M17.11 Unilateral primary osteoarthritis, right knee; Z90.3 Acquired absence of stomach [part of]; K90.0 Celiac disease; I10 Essential (primary) hypertension; K21.9 Gastro-esophageal reflux disease without esophagitis; E78.00 Pure hypercholesterolemia, unspecified
CPT/HCPCS: 99214; G2211

== ENCOUNTER 2024-06-24 09:33 | Outpatient (AMB) | payer MEDICARE, MEDICAID, SELFPAY ==
[2024-06-24 09:35] VITALS: BP 125/74; PULSE 67; BMI 32.8
--- NOTE | 2024-06-24 09:35 | A.OFFVIS_ITS ---
Vital Signs 06/24/24 09:35 Height 4 ft 11 in Weight 162 lb 4.163 oz BMI 32.8 BP 125/74 Blood Pressure Location Rt brachial Position Sitting Pulse 67 Intake Visit Reasons: 6 months follow up Intake Note: Di presents in 6 months follow up of CIC. CC: Patient states that she is out of the Linzess. She has been taking the Senna and prune juice. She reports nausea, abd pain today, and some constipation. Pants Closer Required: No Accompanied by: Self / Same As Patient Allergies almond Allergy (Severe, Verified 06/24/24 09:45) DIFFICULTY BREATHING shellfish derived Allergy (Severe, Verified 06/24/24 09:45) ANAPHYLAXIS morphine Allergy (Intermediate, Verified 06/24/24 09:45) C/P - STOMACH CRAMPS, HIVES, DIFF BREATHING, anaphylaxis, shortness of breath strawberry Allergy (Mild, Verified 06/24/24 09:45) HIVES Sulfa (Sulfonamide Antibiotics) [SULFA (SULFONAMIDE ANTIBIOTICS)] Allergy (Mild, Verified 06/24/24 09:45) DIARRHEA gluten [GLUTEN] Allergy (Unknown, Verified 06/24/24 09:45) UNKNOWN meperidine [Demerol] Allergy (Unknown, Verified 06/24/24 09:45) upset stomach nitrofurantoin [Macrobid] Allergy (Unknown, Verified 06/24/24 09:45) Unknown codeine [From TYLENOL-CODEINE #3] Adverse Reaction (Mild, Verified 06/24/24 09:45) STOMACH SPASM hydromorphone [From DILAUDID] Adverse Reaction (Mild, Verified 06/24/24 09:45) STOMACH UPSET HPI HPI 6 months follow up: Details: Assessment & Plan (1) Chronic idiopathic constipation: Code(s): K59.04 - Chronic idiopathic constipation (2) GERD (gastroesophageal reflux disease): Code(s): K21.9 - Gastro-esophageal reflux disease without esophagitis Qualifiers: Esophagitis presence: without esophagitis Qualified Code(s): K21.9 - Gastro-esophageal reflux disease without esophagitis Plan She will be having a TKR in January! This will be done at [facility]. She has chronic unexplained nausea and she needs 1 zofran a day - her PCP had been sending the sublingual dissolving form and it appears this has been limited to 15 pills a month. I will try sending the regular tablet as this was well covered for her in the past and will see if we can get her better quantities. She continues on her Linzess 290, senna, dicyclomine, pantoprazole 40 mg twice a day and now her Zofran. With this she is satisfied with her GI regimen. Return office visit in 6 month Medications: New ondansetron HCl 4 mg PO BID-TID 30 days PRN 60 tabs 3RF nausea and vomiting Refilled dicyclomine 20 mg PO TID 90 tabs 6RF pantoprazole 40 mg PO BID 90 days 180 tabs 2RF K21.9 - Gastro-esophageal reflux disease without esophagitis linaclotide (Linzess) 290 mcg PO QAM 30 caps 6RF sennosides (senna) 17.2 mg (2 x 8.6 mg) PO BEDTIME 60 tabs 6RF TODAYS VISIT She had her TKR and had to stay in the hospital a couple days longer because of hypotension. Also she had severe constipation after the surgery despite taking all of her medications. She ended up warming up prune juice which worked well but then she moved her bowels for several days. She has run out of the Linzess so obviously this is causing her problems, I am uncertain why this happened but I will send a today and if she does not get it I asked her to call me because it might be a prior approval/insurance problem. Otherwise she is satisfied with her GI regimen going forward. She continues with physical therapy for her knee. Apparently she developed a keloid in his using a lidocaine patch for this odd sensation. She continues on her Linzess 290, senna, dicyclomine, pantoprazole 40 mg twice a day and now her Zofran. ROV 6 mos. [facility] Medical History Otitis externa Sinus congestion History of arthroplasty of finger Trigger finger Carpal tunnel syndrome Thumb injury Right otitis media Post-menopausal Screening for diabetes mellitus Pharyngitis Diverticulitis COVID-19 virus infection Breast cancer screening by mammogram Colon cancer screening Rectal bleed Sick sinus syndrome Hypercholesterolemia TIA (transient ischemic attack) Obstructive sleep apnea GERD (gastroesophageal reflux disease) Hypertension Superficial thrombophlebitis Pulmonary nocardiosis Osteopenia Celiac sprue Bipolar disorder Asthma Fibromyalgia Depression Anemia Knee osteoarthritis Surgical History H/O thumb surgery H/O carpal tunnel repair Hx of colonoscopy H/O cardiac catheterization History of laparoscopic partial gastrectomy History of foot surgery History of cardiac pacemaker History of arthroscopy of right shoulder Hx of arthroscopy of knee History of cholecystectomy History of appendectomy History of total hysterectomy with bilateral salpingo-oophorectomy (BSO) Family History Father No problems noted. 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) Alcohol intake: never Patient Tobacco Use Status: Never used Tobacco e-Cigarette/Vaping Use: Never Used Second Hand Smoke Exposure: No service: No Current occupational status: disabled Cognitive needs: No Hearing needs: No Vision needs: No Review of Systems Const Denies fatigue, Denies fever(s), Denies night sweats, Denies poor appetite and Denies weight loss ENT Reports Normal hearing present, Denies dental pain, Denies dysphagia, Denies hearing loss, Denies mouth pain, Denies odynophagia, Denies throat swelling, Denies tongue swelling and Reports other (Dentition adequate) Card Reports no additional complaints Resp Reports no additional complaints GI Details: Denies abdominal pain, Denies melena, Denies bloating, Denies hematochezia, Reports constipation, Denies GI cramping, Denies dysphagia, Denies excessive flatus, Denies early satiety, Reports heartburn, Denies diarrhea, Reports nausea, Denies odynophagia, Denies vomiting and Denies hematemesis Musc Reports arthralgias Skin/Breast Denies pruritus, Denies lesions, Denies rash and Denies jaundice Neuro Reports Normal hearing present and Denies Abnormal speech present Endo Denies fatigue Aller/Immun Denies throat swelling and Denies tongue swelling Physical Exam Vital Signs: Last Vital Signs Pulse 67 06/24/24 09:35 BP 125/74 06/24/24 09:35 BMI result Body Mass Index 32.8 Const General: cooperative, no acute distress, well developed and well groomed Nutritional Appearance: well nourished and obese Orientation/consciousness: oriented to person, oriented to place and oriented to time Limitations: No language barrier HEENT Head: Yes normocephalic and Yes atraumatic Eyes General: appearance normal, both eyes and all related structures Pupils: Equal, round and reactive pupils present Neck Neck: Yes normal visual inspection and Yes no lymphadenopathy Thyroid: Thyroid normal Resp Effort & Inspection: normal respiratory effort and able to speak in complete sentences Auscultation: clear to auscultation bilaterally Cardio Rate: regular rate Rhythm: regular rhythm Heart sounds: Normal, physiologic split S2 sound present Peripheral pulses: radial pulses present and posterior tibial pulses present GI Inspection: No distended, No Abdominal panniculus present and Yes obesity Palpation (GI): Soft to palpation, nontender, no guarding, not rigid and No hepatosplenomegaly present Percussion: Yes normal to percussion Auscultation: normal bowel sounds Rectal Exam - Female: deferred Skin General skin exam: no rashes or lesions noted, turgor normal, skin not dry, no jaundice, No spider nevi and no striae Rashes: no rashes Nails: normal Neuro General: oriented to person, oriented to place and oriented to time Cranial nerves: Yes Equal, round and reactive pupils present and Yes Normal hearing present Speech: No Abnormal speech present Extrem General: Yes normal to inspection, No clubbing, No cyanosis and No edema Psych Appearance: grossly normal and well kempt Mental Status: mental status grossly normal Speech and movement: Normal speech and movement present Affect: normal affect Attitude: cooperative Thought process: Normal thought process present and not confabulating Thought content: Normal thought content present Insight: Fair insight present (Psych) Judgement: Fair judgement present (Psych) Assessment & Plan Assessment & Plan (1) Chronic idiopathic constipation: Code(s): K59.04 - Chronic idiopathic constipation Category: Medical (2) GERD (gastroesophageal reflux disease): Code(s): K21.9 - Gastro-esophageal reflux disease without esophagitis Category: Medical Qualifiers: Esophagitis presence: without esophagitis Qualified Code(s): K21.9 - Gastro-esophageal reflux disease without esophagitis Plan She had her TKR and had to stay in the hospital a couple days longer because of hypotension. Also she had severe constipation after the surgery despite taking all of her medications. She ended up warming up prune juice which worked well but then she moved her bowels for several days. She has run out of the Linzess so obviously this is causing her problems, I am uncertain why this happened but I will send a today and if she does not get it I asked her to call me because it might be a prior approval/insurance problem. Otherwise she is satisfied with her GI regimen going forward. She continues with physical therapy for her knee. Apparently she developed a keloid in his using a lidocaine patch for this odd sensation. She continues on her Linzess 290, senna, dicyclomine, pantoprazole 40 mg twice a day and now her Zofran. ROV 6 mos. Medications: Changed From linaclotide (Linzess) 290 mcg PO DAILY PRN Constipation K59.04 - Chronic idiopathic constipation To linaclotide (Linzess) 290 mcg PO DAILY 30 caps 6RF Constipation K59.04 - Chronic idiopathic constipation Refilled pantoprazole 40 mg PO BID 180 tabs 2RF 90 days K21.9 - Gastro-esophageal reflux disease without esophagitis sennosides (senna) 17.2 mg (2 x 8.6 mg) PO BEDTIME 60 tabs 6RF dicyclomine 20 mg PO TID 90 tabs 0RF Coding Level of Care Code Est Pt Level 3 (94476) Diagnoses Chronic idiopathic constipation K59.04 Gastroesophageal reflux disease without esophagitis K21.9 Esophagitis presence: without esophagitis
== END 2024-06-24 10:05 | disposition home or self-care (01) ==
PROVIDERS: Visit Provider Nurse Practitioner
DX: K59.04 Chronic idiopathic constipation (principal); K21.9 Gastro-esophageal reflux disease without esophagitis
CPT/HCPCS: 99213

== ENCOUNTER → 2024-06-24 09:33 | Outpatient (BNVA) | payer MEDICARE, MEDICAID, SELFPAY | PROVIDERS: Visit Provider Nurse Practitioner | DX: K59.04 Chronic idiopathic constipation (principal); K21.9 Gastro-esophageal reflux disease without esophagitis | CPT/HCPCS: 99212 ==

== ENCOUNTER 2024-07-22 12:32 | Outpatient (REF) | payer MEDICARE, MEDICAID, SELFPAY ==
[2024-07-22 13:26] LABS: Appearance Urine Clear; Color Urine Yellow; Glucose Urine UA Negative (Negative); Leukocyte Esterase Urine Trace (Negative); Nitrite Urine Negative (Negative); Specific Gravity - Urine 1.015 (1.005-1.025); UMIC TRIGGER UACC YES; Urine Blood Large (3+) (Negative); Urine Ketones Negative (Negative); Urine Protein Trace mg/dL (Neg-Trace)
[2024-07-22 13:28] LABS: Bacteria Urine None Seen (None Seen); Hyaline Casts Urine 0-2 /LPF (0-2); RBC Urine >20 /HPF (0-2); Squamous Epithelial Cell Urine 0-2 /HPF (0-2); UACC Culture Trigger YES
== END 2024-07-22 12:33 | disposition home or self-care (01) ==
LOC: HO.LAB 12:32
PROVIDERS: PCP Internal Medicine; Visit Provider Internal Medicine
DX: R39.9 Unspecified symptoms and signs involving the genitourinary system (principal)
CPT/HCPCS: 81001; 87086

== ENCOUNTER 2024-08-01 10:00 | Outpatient (AMB) | payer MEDICARE, MEDICAID, SELFPAY ==
--- NOTE | 2024-08-01 10:17 | A.OFFPC_ITS ---
Vital Signs 08/01/24 10:18 Height 4 ft 11 in Weight 161 lb BMI 32.5 BP 110/60 Blood Pressure Location Lt brachial Position Sitting Pulse 60 Pulse Source Pulse Oximeter Pulse Oximetry (%) 98 Oxygen Delivery Method Room Air Intake Visit Reasons: 3mth f/u Allergies almond Allergy (Severe, Verified 06/24/24 09:45) DIFFICULTY BREATHING shellfish derived Allergy (Severe, Verified 06/24/24 09:45) ANAPHYLAXIS morphine Allergy (Intermediate, Verified 06/24/24 09:45) C/P - STOMACH CRAMPS, HIVES, DIFF BREATHING, anaphylaxis, shortness of breath strawberry Allergy (Mild, Verified 06/24/24 09:45) HIVES Sulfa (Sulfonamide Antibiotics) [SULFA (SULFONAMIDE ANTIBIOTICS)] Allergy (Mild, Verified 06/24/24 09:45) DIARRHEA gluten [GLUTEN] Allergy (Unknown, Verified 06/24/24 09:45) UNKNOWN meperidine [Demerol] Allergy (Unknown, Verified 06/24/24 09:45) upset stomach nitrofurantoin [Macrobid] Allergy (Unknown, Verified 06/24/24 09:45) Unknown codeine [From TYLENOL-CODEINE #3] Adverse Reaction (Mild, Verified 06/24/24 09:45) STOMACH SPASM hydromorphone [From DILAUDID] Adverse Reaction (Mild, Verified 06/24/24 09:45) STOMACH UPSET Tobacco use date assessed: 03/20/24 Dental Screening Dental Screen Date: 03/20/24 HPI 3mth f/u HPI Details 58-year-old obese female with a history of laparoscopic partial gastrectomy bipolar disorder celiac sprue hypertension hypercholesterolemia GERD coming in for follow-up. March last seen. Patient's colonoscopy last done in 2018. Mammograms up-to-date. Patient follows up with Gastroenterology 06/24/2024 for chronic idiopathic constipation and GERD patient on Linzess, senna, dicyclomine and pantoprazole. Patient also has seen [facility] status post right total knee arthroplasty review of the notes had a CT angio showing nonobstructive disease on aspirin 81 mg once a day [facility] Medical History (Updated 08/01/24 @ 19:11 by Javy Schaefer MD) Asthma exacerbation Otitis externa Sinus congestion History of arthroplasty of finger Trigger finger Carpal tunnel syndrome Thumb injury Right otitis media Post-menopausal Screening for diabetes mellitus Pharyngitis Diverticulitis COVID-19 virus infection Breast cancer screening by mammogram Colon cancer screening Rectal bleed Sick sinus syndrome Hypercholesterolemia TIA (transient ischemic attack) Obstructive sleep apnea GERD (gastroesophageal reflux disease) Hypertension Superficial thrombophlebitis Pulmonary nocardiosis Osteopenia Celiac sprue Bipolar disorder Asthma Fibromyalgia Depression Anemia Knee osteoarthritis Surgical History H/O thumb surgery H/O carpal tunnel repair Hx of colonoscopy H/O cardiac catheterization History of laparoscopic partial gastrectomy History of foot surgery History of cardiac pacemaker History of arthroscopy of right shoulder Hx of arthroscopy of knee History of cholecystectomy History of appendectomy History of total hysterectomy with bilateral salpingo-oophorectomy (BSO) Family History Father No problems noted. Mother CAD (coronary artery disease) CVD (cerebrovascular disease) Glaucoma Stroke Breast cancer Maternal Grandmother Myocardial infarction Glaucoma Paternal Grandmother CAD (coronary artery disease) CVD (cerebrovascular disease) Sister Breast cancer Other Mental health disorder Social History Household Members: Spouse Housing: House Are you a primary residential care facility manager to a significant other at home: No Do you presently have visiting nurse or other home services: Yes ([employer]) Alcohol intake: never Patient Tobacco Use Status: Never used Tobacco e-Cigarette/Vaping Use: Never Used Second Hand Smoke Exposure: No service: No Current occupational status: disabled Cognitive needs: No Hearing needs: No Vision needs: No Questionnaire Thrive Questionnaire Date Thrive assessed: 02/23/24 MILE-7 AMB Questionnaire MILE-7 Date MILE - 7 assessed: 03/20/24 Source: Developed by Drs. Laron Cobb, Evelyn Osnua, Lane Garcia and colleagues, with an educational zaida from [employer]. Physical exam (Primary Care) Vital Signs: Last Vital Signs Pulse 60 08/01/24 10:18 BP 110/60 08/01/24 10:18 Pulse Ox 98 08/01/24 10:18 Oxygen Delivery Method Room Air 08/01/24 10:18 BMI result Body Mass Index 32.5 Tobacco/Smoking Status: Tobacco use Status Tobacco use date assessed 03/20/24 08/01/24 10:18 Patient Tobacco Use Status Never used Tobacco 08/01/24 10:18 e-Cigarette/Vaping Use Never Used 08/01/24 10:18 Thrive Assessment: Date of Thrive Assessment Date Thrive assessed 02/23/24 08/01/24 10:18 Const General: alert; No acute distress Eyes Conjunctivae: conjunctivae normal Resp Auscultation: clear to auscultation bilaterally Cardio Rate: regular rate Rhythm: regular rhythm GI Inspection: Yes normal to inspection Extrem General: Yes normal to inspection and No edema Office Procedures Flu Questionnaire Does the patient have a severe egg allergy?: No Does the patient have severe life threatening allergies?: No Does the patient have a fever or illness today?: No Has the patient ever had Guillain-Clemons Syndrome?: No Has the patient ever had any past reaction to a flu shot?: No Results AMB Urinalysis, Automated UA Leukoctes 0 Shilpi/uL Last Edit by JOAQUIM Valles on 08/01/24 10:25 UA Nitrite Negative Last Edit by JOAQUIM Valles on 08/01/24 10:25 UA Urobilinogen 0 mg/dL Last Edit by JOAQUIM Valles on 08/01/24 10:25 UA Protein 0 mg/dL Last Edit by JOAQUIM Valles on 08/01/24 10:25 UA pH 6.0 Last Edit by JOAQUIM Valles on 08/01/24 10:25 UA Blood 0 Reynaldo/uL Last Edit by JOAQUIM Valles on 08/01/24 10:25 UA Specific [place] 1.030 Last Edit by JOAQUIM Valles on 08/01/24 10:25 UA Ketone Negative Last Edit by JOAQUIM Valles on 08/01/24 10:25 UA Bilirubin 0 mg/dL Last Edit by JOAQUIM Valles on 08/01/24 10:25 UA Glucose 0 mg/dL Last Edit by JOAQUIM Valles on 08/01/24 10:25 Immunizations Fluarix Triv [id number] (PF) 45 mcg (15 mcg x 3)/0.5 mL IM syringe Performing Provider: Javy Schaefer MD [facility] Administered by: JOAQUIM Valles on 08/01/24 10:19 Dose Route Admin Location Dispensed Lot Number Expiration Date [facility] Inbound Sales Manager 0.5 mL IM Right Deltoid 0.5 mL [id number] 04/13/25 [id number] [employer] VIS Given Date VIS Provided VIS Publication Date 08/01/24 Single Vaccine 21 Eligibility Eligibility Date Funding Source Not [facility] Eligible 08/01/24 Private Results Reviewed Results Reviewed: Laboratory Last Values Urine pH (Auto) 6.0 08/01/24 10:18 Specific [place] (Auto) 1.030 08/01/24 10:18 Urine Protein (Auto) 0 mg/dL 08/01/24 10:18 Glucose (UA)(Auto) 0 mg/dL 08/01/24 10:18 Urine Ketones (Auto) Negative 08/01/24 10:18 Urine Blood (Auto) 0 Reynaldo/uL 08/01/24 10:18 Urine Nitrite (Auto) Negative 08/01/24 10:18 Urine Bilirubin (Auto) 0 mg/dL 08/01/24 10:18 Urine Urobilinogen (Auto) 0 mg/dL 08/01/24 10:18 Leukocyte Esterase (Auto) 0 Shilpi/uL 08/01/24 10:18 Coding Level of Care Code Est Pt Level 4 (17340) Complex EM visit Add On G2211 Diagnoses Primary osteoarthritis of right knee M17.11 Osteoarthritis type: primary Obesity (BMI 30-39.9) E66.9 Bipolar affective disorder, currently depressed, moderate F31.32 Active/Remission status: currently active Current bipolar episode type: depressed Current episode severity: moderate Essential hypertension I10 Hypertension type: essential hypertension Gastroesophageal reflux disease without esophagitis K21.9 Esophagitis presence: without esophagitis Hypercholesterolemia E78.00 Chronic idiopathic constipation K59.04 Mild intermittent asthma without complication J45.20 Asthma severity: mild Asthma persistence: intermittent Asthma complication type: uncomplicated Assessment & Plan Assessment & Plan (1) Osteoarthritis of right knee: Comment: Right knee arthroplasty Dr. Solomon 03/03/2024 Code(s): M17.11 - Unilateral primary osteoarthritis, right knee Category: Medical Qualifiers: Osteoarthritis type: primary Qualified Code(s): M17.11 - Unilateral primary osteoarthritis, right knee Plan: Continue to follow-up with orthopedics (2) Obesity (BMI 30-39.9): Code(s): E66.9 - Obesity, unspecified Category: Medical Plan: Diet and exercise (3) Bipolar disorder: Comment: Counseling and psychiatry with emelia Hoyt September 2021 Code(s): F31.9 - Bipolar disorder, unspecified Category: Medical Qualifiers: Active/Remission status: currently active Current bipolar episode type: depressed Current episode severity: moderate Qualified Code(s): F31.32 - Bipolar disorder, current episode depressed, moderate Plan: Continue with counseling and therapy on sertraline 150 mg once a day (4) Hypertension: Comment: Catheterization 2016 clear coronary. Code(s): I10 - Essential (primary) hypertension Category: Medical Qualifiers: Hypertension type: essential hypertension Qualified Code(s): I10 - Essential (primary) hypertension Plan: Continue with blood pressure medication. Decrease salt intake and exercise takes diltiazem 120 mg once a day (5) GERD (gastroesophageal reflux disease): Code(s): K21.9 - Gastro-esophageal reflux disease without esophagitis Category: Medical Qualifiers: Esophagitis presence: without esophagitis Qualified Code(s): K21.9 - Gastro-esophageal reflux disease without esophagitis Plan: Avoid the foods that causes that usually spicy foods, tomato products, juices, coffee, soda and foods that your sensitive to. After eating do not lie down, allow 3-4 hours before in lie down. And keep the head of bed above 30 degrees to avoid the acid from going up. (6) Hypercholesterolemia: Code(s): E78.00 - Pure hypercholesterolemia, unspecified Category: Medical Plan: Avoid fried foods, chicken skin, eggs, butter margarine, pastries and meat. Be it pork or beef they have a lot of cholesterol February 2024 last blood work on rosuvastatin 40 mg once a day (7) Chronic idiopathic constipation: Code(s): K59.04 - Chronic idiopathic constipation Category: Medical Plan: Three rules for constipation 1. Diet need to have a high fiber diet less of meat 2. Increase oral fluids 3. Exercise patient has been follow-up with Gastroenterology and on Linzess. (8) Asthma: Code(s): J45.909 - Unspecified asthma, uncomplicated Category: Medical Qualifiers: Asthma severity: mild Asthma persistence: intermittent Asthma complication type: uncomplicated Qualified Code(s): J45.20 - Mild intermittent asthma, uncomplicated Plan: Continue with the inhalers Orders: Orders Influenza [id number] Immunization Today Z23 - Encounter for immunization AMB Urinalysis Automated Today R30.0 - Dysuria Medications: New albuterol sulfate 2.5 mg (3 mL) inhalation Q4-6H PRN 180 mL 2RF shortness of breath or wheezing J45.909 - Unspecified asthma, uncomplicated Changed From tramadol 50 mg PO TID 7 days 21 tabs 1RF pain M17.0 - Bilateral primary osteoarthritis of knee, M17.10 - Unilateral primary osteoarthritis, unspecified knee To tramadol 50 mg PO BID 60 tabs 1RF pain 30 days M17.0 - Bilateral primary osteoarthritis of knee, M17.10 - Unilateral primary osteoarthritis, unspecified knee Refilled albuterol sulfate 90 mcg/actuation VEntolin HFA 2 puffs inhalation Q6H PRN 6.7 grams 0RF shortness of breath or wheezing Discontinued amoxicillin-pot clavulanate 500-125 mg Discontinued Reason: Patient Completed Course 1 tab PO BID 14 tabs 0RF
[2024-08-01 10:18] VITALS: BP 110/60; PULSE 60; O2SAT 98; BMI 32.5
== END 2024-08-01 10:46 | disposition home or self-care (01) ==
PROVIDERS: Visit Provider Internal Medicine
DX: M17.11 Unilateral primary osteoarthritis, right knee (principal); E66.9 Obesity, unspecified; F31.32 Bipolar disorder, current episode depressed, moderate; Z68.32 Body mass index [BMI] 32.0-32.9, adult; I10 Essential (primary) hypertension; K21.9 Gastro-esophageal reflux disease without esophagitis; E78.00 Pure hypercholesterolemia, unspecified; K59.04 Chronic idiopathic constipation; J45.20 Mild intermittent asthma, uncomplicated; R30.0 Dysuria

== ENCOUNTER → 2024-08-01 10:00 | Outpatient (BNVA) | payer MEDICARE, MEDICAID, SELFPAY | PROVIDERS: Visit Provider Internal Medicine | DX: M17.11 Unilateral primary osteoarthritis, right knee (principal); I10 Essential (primary) hypertension; E66.9 Obesity, unspecified; F31.32 Bipolar disorder, current episode depressed, moderate; K21.9 Gastro-esophageal reflux disease without esophagitis; E78.00 Pure hypercholesterolemia, unspecified; K59.04 Chronic idiopathic constipation; J45.20 Mild intermittent asthma, uncomplicated; Z79.899 Other long term (current) drug therapy; Z23 Encounter for immunization | CPT/HCPCS: 81003; 90471; 90656; 99212 ==

== ENCOUNTER 2024-09-05 13:01 | Outpatient (AMB) | payer MEDICARE, MEDICAID, SELFPAY ==
[2024-09-05 13:02] VITALS: BP 108/62; PULSE 60; O2SAT 95; BMI 31.5
--- NOTE | 2024-09-05 13:02 | A.OFFPC_ITS ---
Vital Signs 09/05/24 13:02 Height 4 ft 11 in Weight 156 lb BMI 31.5 BP 108/62 Blood Pressure Location Lt brachial Position Sitting Pulse 60 Pulse Source Pulse Oximeter Pulse Oximetry (%) 95 Oxygen Delivery Method Room Air Intake Visit Reasons: Annual Exam Allergies almond Allergy (Severe, Verified 09/05/24 13:03) DIFFICULTY BREATHING shellfish derived Allergy (Severe, Verified 09/05/24 13:03) ANAPHYLAXIS morphine Allergy (Intermediate, Verified 09/05/24 13:03) C/P - STOMACH CRAMPS, HIVES, DIFF BREATHING, anaphylaxis, shortness of breath strawberry Allergy (Mild, Verified 09/05/24 13:03) HIVES Sulfa (Sulfonamide Antibiotics) [SULFA (SULFONAMIDE ANTIBIOTICS)] Allergy (Mild, Verified 09/05/24 13:03) DIARRHEA gluten [GLUTEN] Allergy (Unknown, Verified 09/05/24 13:03) UNKNOWN meperidine [Demerol] Allergy (Unknown, Verified 09/05/24 13:03) upset stomach nitrofurantoin [Macrobid] Allergy (Unknown, Verified 09/05/24 13:03) Unknown codeine [From TYLENOL-CODEINE #3] Adverse Reaction (Mild, Verified 09/05/24 13:03) STOMACH SPASM hydromorphone [From DILAUDID] Adverse Reaction (Mild, Verified 09/05/24 13:03) STOMACH UPSET Medication List - Last Reconciled 09/05/24 by Javy Schaefer MD albuterol sulfate 2.5 mg (3 mL) inhalation Q4-6H PRN albuterol sulfate 90 mcg/actuation 2 puffs inhalation Q6H PRN aripiprazole 5 mg PO DAILY aspirin 81 mg PO DAILY benztropine 1 mg PO DAILY buspirone 20 mg PO TID clonazepam 1 - 2 mg PO DAILY PRN dicyclomine 20 mg PO TID diltiazem HCl ER 120 mg PO DAILY epinephrine 0.3 mg IM NEEDED PRN fluticasone furoate-vilanterol 200-25 mcg/dose (Breo Ellipta) 1 inh inhalation DAILY fluticasone propionate 50 mcg/actuation 50 mcg intranasal BEDTIME isosorbide mononitrate ER 60 mg PO DAILY isosorbide mononitrate ER mg PO linaclotide (Linzess) 290 mcg PO DAILY meloxicam 15 mg PO DAILY montelukast 10 mg PO BEDTIME nitroglycerin 0.4 mg sublingual DAILY omalizumab (Xolair) 150 mg subcut .every 2 weeks ondansetron HCl 4 mg PO TID PRN pantoprazole 40 mg PO BID 90 days phenazopyridine (Pyridium) 200 mg PO TID 4 days rosuvastatin 40 mg PO DAILY sennosides (senna) 17.2 mg (2 x 8.6 mg) PO BEDTIME sertraline (Zoloft) 150 mg PO DAILY suvorexant 20 mg PO DAILY PRN tramadol 50 mg PO BID 30 days umeclidinium 62.5 mcg/actuation (Incruse Ellipta) 1 inh inhalation DAILY Tobacco use date assessed: 09/05/24 Dental Screening Dental Screen Date: 03/20/24 HPI Annual Exam HPI Details 58-year-old obese female with hypertensi on GERD hypercholesterolemia asthma, chronic idiopathic constipation and bipolar disorder last seen in 08/03/2024. Patient's last colonoscopy was done in 2019 mammograms up-to-date bone density due. Review of the notes has seen Orthopedics August 14 for right knee pain rechecked right total knee replacement 5 months status post diagnosis of trochanteric bursitis advised injection.. constipation [employer] Medical History (Updated 08/01/24 @ 19:11 by Javy Schaefer MD) Asthma exacerbation Otitis externa Sinus congestion History of arthroplasty of finger Trigger finger Carpal tunnel syndrome Thumb injury Right otitis media Post-menopausal Screening for diabetes mellitus Pharyngitis Diverticulitis COVID-19 virus infection Breast cancer screening by mammogram Colon cancer screening Rectal bleed Sick sinus syndrome Hypercholesterolemia TIA (transient ischemic attack) Obstructive sleep apnea GERD (gastroesophageal reflux disease) Hypertension Superficial thrombophlebitis Pulmonary nocardiosis Osteopenia Celiac sprue Bipolar disorder Asthma Fibromyalgia Depression Anemia Knee osteoarthritis Surgical History H/O thumb surgery H/O carpal tunnel repair Hx of colonoscopy H/O cardiac catheterization History of laparoscopic partial gastrectomy History of foot surgery History of cardiac pacemaker History of arthroscopy of right shoulder Hx of arthroscopy of knee History of cholecystectomy History of appendectomy History of total hysterectomy with bilateral salpingo-oophorectomy (BSO) Family History Father No problems noted. Mother CAD (coronary artery disease) CVD (cerebrovascular disease) Glaucoma Stroke Breast cancer Maternal Grandmother Myocardial infarction Glaucoma Paternal Grandmother CAD (coronary artery disease) CVD (cerebrovascular disease) Sister Breast cancer Other Mental health disorder Social History Household Members: Spouse Housing: House Are you a primary care services manager to a significant other at home: No Do you presently have visiting nurse or other home services: Yes ([employer]PRES[employer]IVE) Alcohol intake: never Patient Tobacco Use Status: Never used Tobacco Tobacco use type: Cigarette e-Cigarette/Vaping Use: Never Used Second Hand Smoke Exposure: No service: No Current occupational status: disabled Cognitive needs: No Hearing needs: No Vision needs: No Questionnaire PHQ-9 Over the last 2 weeks, how often have you been bothered by any of the following problems? 1. Little interest or pleasure in doing things: more than half the days 2. Feeling down, depressed, or hopeless: more than half the days 3. Trouble falling or staying asleep, or sleeping too much: more than half the days 4. Feeling tired or having little energy: more than half the days 5. Poor appetite or overeating: several days 6. Feeling bad about yourself - or that you are a failure or have let yourself or your family down: several days 7. Trouble concentrating on things, such as reading the newspaper or watching television: more than half the days 8. Moving or speaking so slowly that other people could have noticed. Or the opposite - being so fidgety or restless that you have been moving around a lot more than usual: not at all 9. Thoughts that you would be better off or of hurting yourself in some way: not at all Total score: 12 Source: Developed by Drs. aLron Cobb, Evelyn Osuna, Lane Garcia and colleagues, with an educational zaida from [employer]. Thrive Questionnaire Date Thrive assessed: 02/23/24 I am a: Patient What is your living situation today?: I have a steady place to live Within the past 12 months, did the food you bought not last and you didn't have the money to get more?: Never true Within the past 12 months, did you worry whether your food would run out before you got money to buy more?: Never true Do you have trouble paying for medicines?: No Do you have trouble getting transportation to medical appointments?: No Do you have trouble paying your heating and electricity bill?: No Do you have trouble taking care of your child, family member or friend?: No Do you have trouble with day-to-day activities such as bathing, preparing meals, shopping, managing finances, etc.?: Yes Are you currently unemployed and looking for a job?: Yes Are you interested in more education?: No Please select the resources that you would like help with: None Currently or been in a relationship where the following occur: No concerns reported THRIVE Score: 0 AUDIT C Alcohol Use Questionnaire (AUDIT-C) 1. How often do you have a drink containing alcohol?: Never Total Score: 0 IMLE-7 AMB Questionnaire MILE-7 Date MILE - 7 assessed: 03/20/24 Feeling nervous, anxious, or on edge: 2 = More than half the days Not being able to stop or control worryin = More than half the days Worrying too much about different things: 2 = More than half the days Trouble relaxin = More than half the days Being so restless that it is hard to sit still: 2 = More than half the days Becoming easily annoyed or irritable: 2 = More than half the days Feeling afraid as if something awful might happen: 1 = Several days Total MILE-7 score (0-4 normal; 5-9 mild; 10-14 moderate; 15-21 severe): 13 Source: Developed by Drs. Laron Cobb, Evelyn Osuna, Lane Garcia and colleagues, with an educational zaida from [employer]. Review of Systems Const Denies poor appetite and Denies weakness Eyes Denies no additional complaints ENT Reports Normal hearing present, Denies dizziness, Denies nasal congestion, Denies tinnitus and Denies sore throat Card Denies chest pain, Denies syncope, Denies rapid heart rate and Denies dyspnea Resp Denies cough and Denies dyspnea GI Denies change in stool character, Reports constipation, Denies diarrhea, Denies nausea and Denies vomiting Denies urinary frequency, Denies difficulty voiding and Denies dysuria Neuro Reports Normal hearing present, Denies confusion, Denies dizziness, Denies syncope and Denies weakness Psych Denies confusion Physical exam (Primary Care) Vital Signs: Last Vital Signs Pulse 60 09/05/24 13:02 BP 108/62 09/05/24 13:02 Pulse Ox 95 09/05/24 13:02 Oxygen Delivery Method Room Air 09/05/24 13:02 BMI result Body Mass Index 31.5 Tobacco/Smoking Status: Tobacco use Status Tobacco use date assessed 09/05/24 09/05/24 13:15 Patient Tobacco Use Status Never used Tobacco 09/05/24 13:04 Tobacco use type Cigarette 09/05/24 13:04 e-Cigarette/Vaping Use Never Used 09/05/24 13:04 PHQ-9: PHQ-9 Score PHQ-9: Total score 12 09/05/24 13:15 Thrive Assessment: Date of Thrive Assessment Date Thrive assessed 02/23/24 09/05/24 13:04 Currently or been in a relationship where the following occur: No concerns reported Const General: No confusion Orientation/consciousness: No confusion HENMT Head: Yes normocephalic Ears: external ears normal and TM's normal bilaterally Face and sinus: Yes normal facial exam Mouth: moist mucous membranes Throat: Yes tonsils normal Eyes Conjunctivae: conjunctivae normal Pupils: Equal, round and reactive pupils present and Pupil accommodation reflex normal Direct Ophthalmoscopy: normal light reflex Neck Neck: No lymphadenopathy Thyroid: Thyroid normal Chest Chest palpation & inspection: normal inspection of the chest Resp Effort & Inspection: normal respiratory effort and no audible wheezes Auscultation: clear to auscultation bilaterally, no crackles, no wheezes and lung sounds not diminished Cardio Rate: regular rate Rhythm: regular rhythm Peripheral pulses: radial pulses present and dorsalis pedis present GI Other: decline rectal Palpation (GI): no masses Auscultation: normal bowel sounds and normoactive bowel sounds Rectal Exam - Female: deferred Skin General skin exam: no rashes or lesions noted Rashes: no rashes Neuro General: No confusion Cranial nerves: Yes Equal, round and reactive pupils present and Yes Normal hearing present Cognition (Neuro): normal cognition Gait exam (Neuro): Normal gait present Motor exam (neuro): 5/5 motor strength present throughout Deep tendon reflexes (DTR's): Right brachioradialis reflex intensity grade: 2+, Left brachioradialis reflex intensity grade: 2+, Right patellar reflex intensity grade: 2+ and Left patellar reflex intensity grade: 2+ Extrem General: No edema Coding Level of Care Code Est Pt Prev Care 40-64y(23374) Diagnoses Annual physical exam Z00.00 Obesity (BMI 30-39.9) E66.9 Essential hypertension I10 Hypertension type: essential hypertension Hypercholesterolemia E78.00 Gastroesophageal reflux disease without esophagitis K21.9 Esophagitis presence: without esophagitis Mild intermittent asthma without complication J45.20 Asthma severity: mild Asthma persistence: intermittent Asthma complication type: uncomplicated Bipolar affective disorder, currently depressed, moderate F31.32 Active/Remission status: currently active Current bipolar episode type: depressed Current episode severity: moderate History of laparoscopic partial gastrectomy Z90.3 Chronic idiopathic constipation K59.04 Assessment & Plan Assessment & Plan (1) Annual physical exam: Code(s): Z00.00 - Encounter for general adult medical examination without abnormal findings Category: Medical Plan: Patient is advised to eat healthy, keep well hydrated, keep active and have adequate sleep. (2) Obesity (BMI 30-39.9): Code(s): E66.9 - Obesity, unspecified Category: Medical Plan: Continue with diet and exercise (3) Hypertension: Comment: Catheterization 2016 clear coronary. Code(s): I10 - Essential (primary) hypertension Category: Medical Qualifiers: Hypertension type: essential hypertension Qualified Code(s): I10 - Essential (primary) hypertension Plan: Continue with blood pressure medication. Decrease salt intake and exercise patient is taking diltiazem 120 mg once a day (4) Hypercholesterolemia: Code(s): E78.00 - Pure hypercholesterolemia, unspecified Category: Medical Plan: Avoid fried foods, chicken skin, eggs, butter margarine, pastries and meat. Be it pork or beef they have a lot of cholesterol on rosuvastatin 40 mg once a day (5) GERD (gastroesophageal reflux disease): Code(s): K21.9 - Gastro-esophageal reflux disease without esophagitis Category: Medical Qualifiers: Esophagitis presence: without esophagitis Qualified Code(s): K21.9 - Gastro-esophageal reflux disease without esophagitis Plan: Avoid the foods that causes that usually spicy foods, tomato products, juices, coffee, soda and foods that your sensitive to. After eating do not lie down, allow 3-4 hours before in lie down. And keep the head of bed above 30 degrees to avoid the acid from going up. (6) Asthma: Code(s): J45.909 - Unspecified asthma, uncomplicated Category: Medical Qualifiers: Asthma severity: mild Asthma persistence: intermittent Asthma complication type: uncomplicated Qualified Code(s): J45.20 - Mild intermittent asthma, uncomplicated Plan: Continue with albuterol inhaler, Breo inhaler and Incruse (7) Bipolar disorder: Comment: Counseling and psychiatry with [facility] September 2021 Code(s): F31.9 - Bipolar disorder, unspecified Category: Medical Qualifiers: Active/Remission status: currently active Current bipolar episode type: depressed Current episode severity: moderate Qualified Code(s): F31.32 - Bipolar disorder, current episode depressed, moderate Plan: Continue with counseling and therapy (8) History of laparoscopic partial gastrectomy: Comment: 07-18-2018 Code(s): Z90.3 - Acquired absence of stomach [part of] Category: Surgical Plan: Stable (9) Chronic idiopathic constipation: Code(s): K59.04 - Chronic idiopathic constipation Category: Medical Plan: increase oral fluids, eat more fiber and keep moving Orders: Orders Comprehensive Met. Panel Today E78.00 - Pure hypercholesterolemia, unspecified UA CC w/rflx Micro + Cult Today E78.00 - Pure hypercholesterolemia, unspecified, R30.0 - Dysuria Free T4 (Free Thyroxine) Today E78.00 - Pure hypercholesterolemia, unspecified Vitamin B12 and Folate Today E78.00 - Pure hypercholesterolemia, unspecified Vitamin D 25-OH Total Today E78.00 - Pure hypercholesterolemia, unspecified Complete Blood Count Auto Diff Today E78.00 - Pure hypercholesterolemia, unspecified Thyroid Stimulating Hormone Today E78.00 - Pure hypercholesterolemia, unspecified Lipid Panel Today E78.00 - Pure hypercholesterolemia, unspecified
== END 2024-09-05 15:28 | disposition home or self-care (01) ==
PROVIDERS: Visit Provider Internal Medicine
DX: Z00.00 Encounter for general adult medical examination without abnormal findings (principal); F31.32 Bipolar disorder, current episode depressed, moderate; Z68.42 Body mass index [BMI] 45.0-49.9, adult; E66.9 Obesity, unspecified; I10 Essential (primary) hypertension; E78.00 Pure hypercholesterolemia, unspecified; K21.9 Gastro-esophageal reflux disease without esophagitis; J45.20 Mild intermittent asthma, uncomplicated; Z90.3 Acquired absence of stomach [part of]; K59.04 Chronic idiopathic constipation

== ENCOUNTER → 2024-09-05 13:01 | Outpatient (BNVA) | payer MEDICARE, MEDICAID, SELFPAY | PROVIDERS: Visit Provider Internal Medicine | DX: Z00.00 Encounter for general adult medical examination without abnormal findings (principal); E66.9 Obesity, unspecified; I10 Essential (primary) hypertension; E78.00 Pure hypercholesterolemia, unspecified; K21.9 Gastro-esophageal reflux disease without esophagitis; J45.20 Mild intermittent asthma, uncomplicated; F31.32 Bipolar disorder, current episode depressed, moderate; K59.04 Chronic idiopathic constipation; Z90.3 Acquired absence of stomach [part of] | CPT/HCPCS: 96127; 99396 ==

== ENCOUNTER 2024-11-14 08:19 | Outpatient (AMB) | payer MEDICARE, MEDICAID, SELFPAY ==
--- NOTE | 2024-11-14 08:20 | MHC.PC.OV ---
Vital Signs 11/14/24 08:23 Height 4 ft 11 in Weight 155 lb 4 oz BMI 31.4 BP 124/60 Blood Pressure Location Lt brachial Position Sitting Temp 96.6 F L Temp Source Skin Intake Visit Reasons: asthma Intake Note: Patient is here to follow up on Asthma. Property Specialist Required: No Hitting Coach: Not Required per policy Accompanied by: Self / Same As Patient Allergies almond Allergy (Severe, Verified 11/14/24 08:22) DIFFICULTY BREATHING shellfish derived Allergy (Severe, Verified 11/14/24 08:22) ANAPHYLAXIS morphine Allergy (Intermediate, Verified 11/14/24 08:22) C/P - STOMACH CRAMPS, HIVES, DIFF BREATHING, anaphylaxis, shortness of breath strawberry Allergy (Mild, Verified 11/14/24 08:22) HIVES Sulfa (Sulfonamide Antibiotics) [SULFA (SULFONAMIDE ANTIBIOTICS)] Allergy (Mild, Verified 11/14/24 08:22) DIARRHEA gluten [GLUTEN] Allergy (Unknown, Verified 11/14/24 08:22) UNKNOWN meperidine [Demerol] Allergy (Unknown, Verified 11/14/24 08:22) upset stomach nitrofurantoin [Macrobid] Allergy (Unknown, Verified 11/14/24 08:22) Unknown codeine [From TYLENOL-CODEINE #3] Adverse Reaction (Mild, Verified 11/14/24 08:22) STOMACH SPASM hydromorphone [From DILAUDID] Adverse Reaction (Mild, Verified 11/14/24 08:22) STOMACH UPSET Tobacco use date assessed: 11/14/24 Dental Screening Dental Screen Date: 11/14/24 Did you have a dental visit in the last 12 months?: Yes Did you have a dental problem in the last 6 months where you did not have access to dental care?: No Was dental information given to patient?: Patient has dentist HPI asthma HPI Details The patient is a 58-year-old female presenting with knee pain and asthma management. The knee pain, noted to be associated with the iliotibial (IT) band, persists despite physical therapy and past interventions, including cortisone injections. Initial symptoms included pain and limited motion, with continued mild swelling reported. The patient has tried Voltaren gel for relief, observing slight improvement. No traumatic incidents were reported directly related to initial pain onset, but a recent fall was described with no noted exacerbation of knee symptoms from the incident. Her knee symptoms were first evaluated by an forestry extension specialist previously but no surgery or other interventions were planned at that time. The asthma symptoms worsened after the patient stopped her Brio inhaler due to insurance concerns. The cessation led to exacerbation of symptoms, prompting her to resume Brio and undergo a pulmonary function test on Sunday, the results of which are pending. The patient currently uses Albuterol daily, noting limited symptomatic relief with it alone. She attends therapy every two weeks for depression and anxiety, and they continue to impact her overall well-being. There is concern about norovirus exposure mentioned, with emphasis placed on maintaining preventative measures. The patient also requests antibiotics for an upcoming dental procedure, which historically led to adverse gastrointestinal effects. She remains concerned about influenza and other viral respiratory illnesses given the current season's impact. [facility] Medical History (Updated 11/14/24 @ 08:47 by Javy Schaefer MD) Asthma exacerbation Otitis externa Sinus congestion History of arthroplasty of finger Trigger finger Carpal tunnel syndrome Thumb injury Right otitis media Post-menopausal Screening for diabetes mellitus Pharyngitis Diverticulitis COVID-19 virus infection Breast cancer screening by mammogram Colon cancer screening Rectal bleed Sick sinus syndrome Hypercholesterolemia TIA (transient ischemic attack) Obstructive sleep apnea GERD (gastroesophageal reflux disease) Hypertension Superficial thrombophlebitis Pulmonary nocardiosis Osteopenia Celiac sprue Bipolar disorder Asthma Fibromyalgia Depression Anemia Knee osteoarthritis Surgical History H/O thumb surgery H/O carpal tunnel repair Hx of colonoscopy H/O cardiac catheterization History of laparoscopic partial gastrectomy History of foot surgery History of cardiac pacemaker History of arthroscopy of right shoulder Hx of arthroscopy of knee History of cholecystectomy History of appendectomy History of total hysterectomy with bilateral salpingo-oophorectomy (BSO) Family History Father No problems noted. Mother CAD (coronary artery disease) CVD (cerebrovascular disease) Glaucoma Stroke Breast cancer Maternal Grandmother Myocardial infarction Glaucoma Paternal Grandmother CAD (coronary artery disease) CVD (cerebrovascular disease) Sister Breast cancer Other Mental health disorder Social History Household Members: Spouse Housing: House Are you a primary patient care nursing assistant to a significant other at home: No Do you presently have visiting nurse or other home services: Yes ([employer]) Alcohol intake: never Patient Tobacco Use Status: Never used Tobacco Tobacco use type: Cigarette e-Cigarette/Vaping Use: Never Used Second Hand Smoke Exposure: No service: No Current occupational status: disabled Cognitive needs: Yes (cane) Hearing needs: No Vision needs: No Questionnaire PHQ-9 Over the last 2 weeks, how often have you been bothered by any of the following problems? 1. Little interest or pleasure in doing things: more than half the days 2. Feeling down, depressed, or hopeless: nearly every day 3. Trouble falling or staying asleep, or sleeping too much: nearly every day 4. Feeling tired or having little energy: several days 5. Poor appetite or overeating: not at all 6. Feeling bad about yourself - or that you are a failure or have let yourself or your family down: several days 7. Trouble concentrating on things, such as reading the newspaper or watching television: more than half the days 8. Moving or speaking so slowly that other people could have noticed. Or the opposite - being so fidgety or restless that you have been moving around a lot more than usual: more than half the days 9. Thoughts that you would be better off or of hurting yourself in some way: not at all Total score: 14 Depression Screening Interpretation: Positive Depression Screening Done: Yes Source: Developed by Drs. Laron Cobb, Evelyn Osuna, Lane Garcia and colleagues, with an educational zaida from [employer]. Thrive Questionnaire Date Thrive assessed: 11/14/24 AUDIT C Alcohol Use Questionnaire (AUDIT-C) 1. How often do you have a drink containing alcohol?: Never Total Score: 0 MILE-7 AMB Questionnaire MILE-7 Date MILE - 7 assessed: 11/14/24 Feeling nervous, anxious, or on edge: 3 = Nearly every day Not being able to stop or control worryin = Nearly every day Worrying too much about different things: 3 = Nearly every day Trouble relaxin = Nearly every day Being so restless that it is hard to sit still: 2 = More than half the days Becoming easily annoyed or irritable: 3 = Nearly every day Feeling afraid as if something awful might happen: 2 = More than half the days Total MILE-7 score (0-4 normal; 5-9 mild; 10-14 moderate; 15-21 severe): 19 Source: Developed by Drs. Laron Cobb, Evelyn Osuna, Lane Garcia and colleagues, with an educational zaida from [employer]. Physical exam (Primary Care) Vital Signs: Last Vital Signs Temp 96.6 F L 11/14/24 08:23 BP 124/60 11/14/24 08:23 BMI result Body Mass Index 31.4 Tobacco/Smoking Status: Tobacco use Status Tobacco use date assessed 11/14/24 11/14/24 08:29 Patient Tobacco Use Status Never used Tobacco 11/14/24 08:29 Tobacco use type Cigarette 11/14/24 08:29 e-Cigarette/Vaping Use Never Used 11/14/24 08:29 PHQ-9: PHQ-9 Score PHQ-9: Total score 14 11/14/24 08:29 Depression Screening Interpretation: Positive Thrive Assessment: Date of Thrive Assessment Date Thrive assessed 11/14/24 11/14/24 08:29 Const General: alert; No acute distress Eyes Conjunctivae: conjunctivae normal Resp Auscultation: clear to auscultation bilaterally Cardio Rate: regular rate Rhythm: regular rhythm GI Inspection: Yes normal to inspection Extrem General: Yes normal to inspection and No edema Coding Level of Care Code Est Pt Level 4 (47903) Diagnoses Mild intermittent asthma without complication J45.20 Asthma severity: mild Asthma persistence: intermittent Asthma complication type: uncomplicated Essential hypertension I10 Hypertension type: essential hypertension Hypercholesterolemia E78.00 Gastroesophageal reflux disease without esophagitis K21.9 Esophagitis presence: without esophagitis Bipolar affective disorder, currently depressed, moderate F31.32 Active/Remission status: currently active Current bipolar episode type: depressed Current episode severity: moderate Primary osteoarthritis of both knees M17.0 Osteoarthritis type: primary Laterality: bilateral Assessment & Plan Assessment & Plan (1) Asthma: Code(s): J45.909 - Unspecified asthma, uncomplicated Category: Medical Qualifiers: Asthma severity: mild Asthma persistence: intermittent Asthma complication type: uncomplicated Qualified Code(s): J45.20 - Mild intermittent asthma, uncomplicated (2) Hypertension: Comment: Catheterization 2016 clear coronary. Code(s): I10 - Essential (primary) hypertension Category: Medical Qualifiers: Hypertension type: essential hypertension Qualified Code(s): I10 - Essential (primary) hypertension (3) Hypercholesterolemia: Code(s): E78.00 - Pure hypercholesterolemia, unspecified Category: Medical (4) GERD (gastroesophageal reflux disease): Code(s): K21.9 - Gastro-esophageal reflux disease without esophagitis Category: Medical Qualifiers: Esophagitis presence: without esophagitis Qualified Code(s): K21.9 - Gastro-esophageal reflux disease without esophagitis (5) Bipolar disorder: Comment: Counseling and psychiatry with emelia Hoyt September 2021 BHN Q 2 weeks Code(s): F31.9 - Bipolar disorder, unspecified Category: Medical Qualifiers: Active/Remission status: currently active Current bipolar episode type: depressed Current episode severity: moderate Qualified Code(s): F31.32 - Bipolar disorder, current episode depressed, moderate (6) Knee osteoarthritis: Code(s): M17.10 - Unilateral primary osteoarthritis, unspecified knee Category: Medical Qualifiers: Osteoarthritis type: primary Laterality: bilateral Qualified Code(s): M17.0 - Bilateral primary osteoarthritis of knee Plan - Continue Breo disk for asthma management along with Albuterol as needed for acute symptoms. Reinforce the importance of adherence to prevent worsening. - Suggest continued use of Voltaren gel for IT band syndrome, and re-evaluate physical therapy if symptoms persist or escalate. Monitor for changes in knee swelling or function. - Constipation management with LinzesS for appropriate bowel movement pattern, encouraging adequate hydration as supportive therapy. - Discussed fall risk precautions, especially regarding potential contributing factors from depression and medication. - Increase vigilance against viral infections such as norovirus through regular hand washing and avoiding known outbreaks or exposure. - Address depression and anxiety with continued psychotherapy biweekly, assessing for any change in symptoms or therapy response. - Before dental procedures, review necessity and patient tolerance of antibiotic prophylaxis, as guidelines indicate it may not be required; crisis counselor on potential side effects. - Assessment of future needs, such as the shingles vaccination, acknowledging age-related considerations in preventative care. - Schedule repeat blood work in five months to compare with past data and ensure continued management of chronic conditions. Medications: New amoxicillin (4 x 500 mg) 2,000 mg orally one hour before the procedure; 4 caps 0RF
[2024-11-14 08:23] VITALS: BP 124/60; TEMP 35.9; BMI 31.4
--- OUTSIDE RECORDS SUMMARY | 2024-11-14 08:23 | XMS_ITS | Data Portability ---
Author Organization JW Germain [facility]ena [id number] Address [address] [place] [address] Care Team Providers Care Drop Wirer Name Role Phone [facility] Primary Care Provider Assessment No assessment recorded. Plan of Treatment Reminders Order Date Submit Date Provider Last Modified By Organization Details Last Modified Time Details Appointments None recorded. Lab None recorded. Referral None recorded. Procedures None recorded. Surgeries None recorded. Imaging None recorded. Medication Orders amoxicillin 875 mg-potassiu m clavulanate 125 mg tablet 2021 022 [id number], [address], [place], [id number], 16:33:57 Patient TargetsNo targets recorded. Patient Instructions Encounter Date Encounter Id Patient Instructions Last Modified By Organization Details Last Modified Time 09/22/2022 [id number] ear infection (otitis media): care instructions [email or web address] Not available 09/22/2022 16:33:47 You have been diagnosed with a Ear Infection Today. Suggestions to help with your discomfort and recovery include: 1. Laying the effected ear on a heating pad or applying a warm rice bag or something warm. 2. Motrin and Tylenol Regularly - this will help with pain and inflammation of the Eustachian Tube - this is very important for a speedy recovery. 3. Antihistamine like Claritin/Zyrtec/Al legra/Benedryl - will help with congestion and swelling in the Eustachian Tube. 4. Saline Nasal [place] 5. Salt Water Gargle 6. Staying Hydrated If you develop any of the following Symptoms I would be seen again: 1. Fever > 101.0 2. Stiff Neck 3. Swelling of the Lymph Nodes around the ear or neck 4. Worsening Pain 5. Bleeding from the Ear 6. Severe Sore Throat Go Immediately to the ER if you develop 1. Severe Headache 2. Chest Pain 3. Shortness of Breath. Antibiotics typically take 4-5 days to start working so do the above to help with your symptoms. Probiotics are important while taking antibiotics - I recommend Florastor Make sure you finish the full course of the antibiotics - if you don't this can lead to antibiotic resistance. Thank you for using [facility] today - and don't hesitate to contact our office if you have any concerns or questions. [email or web address] Not available 09/22/2022 16:33:43 Reason for Referral None Reported. Problems Name Problem SNOMED Code Status Onset Date Resolution Date Notes Provider Name and Address Organization Details Recorded Time Gastroesophage al reflux disease 611477663 Active 2021 GISELLA carl, PA - [facility] 15:50:20 Hyperlipidemia 55476022 Active 2021 GISELLA carl, PA - [facility] 15:50:28 Asthma 444452881 Active 2021 GISELLA carl, PA - [facility] 15:50:35 Heart disease 89647086 Active 2021 GISELLA carl, PA - [facility] 15:51:13 Problem Notes None recorded. Procedures Surgical History Date Name Laterality Status Provider Name and Address Organization Details Recorded Time Shoulder joint surgery completed GISELLA HAMPTON PA - [facility] 09/22/2022 15:52:24 hysterectomy completed GISELLA HAMPTON PA - [facility] 09/22/2022 15:52:32 Appendectomy completed GISELLA HAMPTON PA - [facility] 09/22/2022 15:52:37 thumb surgery completed GISELLA HAMPTON PA - [facility] 09/22/2022 15:53:03 Pacemaker monitr digital/vis completed GISELLA HAMPTON PA - [facility] 09/22/2022 15:53:12 Imaging Results None recorded. Procedure Notes None recorded. Medical Equipment None Reported. Allergies Allergen ID Allergen Name Allergen Category Reaction Reaction Severity Criticality Documentation Date Start Date Code Code System Note Provider Name and Address Organization Details Recorded Time 44688 shellfish derived food,medi cation Not available Not available Not available 09/22/2022 44811 UNK GISELLA RUEDAMOUNA carl, PA - [facility] 15:48:48 75259 Substance with sulfonami de structure and antibacte rial mechanism of action (substanc e) medicatio n Not available Not available Not available 09/22/2022 79273 8003 SNOMED GISELLA RUEDAMOUNA null, PA - [facility] 2 15:48:54 85335 Macrobid medicatio n Not available Not available Not available 09/22/2022 86448 1 RxNorm GISELLA RUEDAMOUNA null, PA - [facility] 2 15:48:59 13055 morphine medicatio n Not available Not available Not available 09/22/2022 7052 RxNorm GISELLA RUEDAMOUNA carl, PA - [facility] 2 15:49:16 Medications Name Sig Start Date Stop Date Status Note LastModified by Organization Details LastModified Time prednisone 10 mg tablet active Not Available Not Available Not Available albuterol sulfate 2.5 mg/3 mL (0.083 %) solution for nebulization USE 3 ML VIA NEBULIZER EVERY 6 HOURS NEEDED active Not Available Not Available No t Available azithromycin 250 mg tablet TAKE 2 TABLETS BY MOUTH ON THE FIRST DAY THEN 1 TABLET DAILY FOR 4 ADDITIONAL DAYS active Not Available Not Available No t Available ibuprofen 800 mg tablet TAKE 1 TABLET BY MOUTH EVERY 8 HOURS WITH FOOD NEEDED FOR PAIN active Not Available Not Available No t Available senna 8.6 mg tablet TAKE 2 TABLETS BY MOUTH EVERY NIGHT AT BEDTIME active Not Available Not Available No t Available famotidine 40 mg tablet TAKE 1 TABLET BY MOUTH TWICE DAILY active Not Available Not Available No t Available prednisone 20 mg tablet TAKE 2 TABLETS BY MOUTH DAILY FOR 5 DAYS active Not Available Not Available N ot Available isosorbide mononitrate ER 30 mg tablet,exten ded release 24 hr TAKE 1 TABLET BY MOUTH DAILY IN THE MORNING active Not Available Not Available No t Available sertraline 100 mg tablet TAKE 1 AND 1/2 TABLETS BY MOUTH EVERY DAY active Not Available Not Available No t Available melatonin 3 mg tablet TAKE 1 TABLET BY MOUTH EVERY NIGHT AT BEDTIME NEEDED active Not Available Not Available No t Available omeprazole 40 mg capsule,kylah yed release TAKE 1 CAPSULE BY MOUTH TWICE DAILY active Not Available Not Available No t Available tramadol 50 mg tablet TAKE 1 TABLET BY MOUTH THREE TIMES DAILY NEEDED FOR PAIN active Not Available Not Available No t Available acetaminophe n 500 mg tablet active Not Available Not Available Not Available ondansetron 8 mg disintegrati ng tablet DISSOLVE 1 TABLET ON THE TONGUE DAILY NEEDED FOR NAUSEA OR VOMITING active Not Available Not Available No t Available dicyclomine 20 mg tablet TAKE 1 TABLET BY MOUTH FOUR TIMES DAILY NEEDED FOR CRAMPS active Not Available Not Available N ot Available diltiazem ER 120 mg capsule,24 hr,extended release TAKE 1 TABLET BY MOUTH DAILY THIS. REPLACES HER REGIMEN OF SHORT ACTING DILTIAZEM active Not Available Not Available No t Available benzonatate 100 mg capsule TAKE 1 CAPSULE BY MOUTH TWICE DAILY NEEDED FOR COUGH active Not Available Not Available No t Available pantoprazole 40 mg tablet,delay ed release TAKE 1 TABLET BY MOUTH TWICE DAILY active Not Available Not Available No t Available buspirone 10 mg tablet TAKE 2 TABLETS BY MOUTH THREE TIMES DAILY active Not Available Not Available Not Available clonazepam 2 mg tablet TAKE 1 TABLET BY MOUTH TWICE DAILY NEEDED FOR ANXIETY active Not Available Not Available No t Available benztropine 1 mg tablet TAKE 1 TABLET BY MOUTH EVERY DAY active Not Available Not Available No t Available montelukast 10 mg tablet TAKE 1 TABLET BY MOUTH EVERY DAY IN THE EVENING active Not Available Not Available No t Available gabapentin 100 mg capsule TAKE 1 CAPSULE BY MOUTH EVERY NIGHT active Not Available Not Available No t Available epinephrine 0.3 mg/0.3 mL injection, auto-injecto r INJECT DIRECTED NEEDED FOR ANAPHYLAXIS active Not Available Not Available Not Available ibuprofen 600 mg tablet TAKE 1 TABLET BY MOUTH EVERY 8 HOURS NEEDED FOR PAIN active Not Available Not Available No t Available methylpredni solone 4 mg tablets in a dose pack FOLLOW PACKAGE DIRECTIONS active Not Available Not Available N ot Available fluticasone propionate 50 mcg/actuatio n nasal spray,suspen shaun SHAKE LIQUID AND USE 1 SPRAY IN EACH NOSTRIL EVERY DAY active Not Available Not Available No t Available amoxicillin 875 mg-potassium clavulanate 125 mg tablet TAKE 1 TABLET BY MOUTH EVERY 12 HOURS FOR 10 DAYS active Not Available Not Available Not Available Ventolin HFA 90 mcg/actuatio n aerosol inhaler INHALE 2 PUFFS BY MOUTH EVERY 4 HOURS NEEDED active Not Available Not Available No t Available oxycodone 5 mg tablet TAKE 1 TABLET BY MOUTH EVERY 8 HOURS FOR UP TO 20 DOSES NEEDED FOR PAIN active Not Available Not Available No t Available Xolair 150 mg subcutaneous solution active Not Available Not Available Not Available aripiprazole 5 mg tablet TAKE 1 TABLET BY MOUTH EVERY MORNING active Not Available Not Available No t Available rosuvastatin 20 mg tablet TAKE 1 TABLET BY MOUTH DAILY active Not Available Not Available Not Available cholecalcife rol (vitamin D3) 1,250 mcg (50,000 unit) capsule TAKE ONE CAPSULE BY MOUTH EVERY WEEK active Not Available Not Available No t Available Linzess 290 mcg capsule TAKE 1 CAPSULE BY MOUTH EVERY MORNING active Not Available Not Available No t Available Spiriva Respimat 2.5 mcg/actuatio n solution for inhalation INHALE 2 PUFFS BY MOUTH EVERY DAY active Not Available Not Available No t Available Belsomra 20 mg tablet TAKE 1 TABLET BY MOUTH AT BEDTIME NEEDED active Not Available Not Available No t Available Breo Ellipta 200 mcg-25 mcg/dose powder for inhalation INHALE 1 PUFF BY MOUTH EVERY DAY active Not Available Not Available No t Available BinaxNOW COVID-19 Ag Self Test kit TEST DIRECTED TODAY active Not Available Not Available No t Available Vitals Date Recorded Body height Provider Name an d Address Organization Details Last Updated DateTime 09/22/2022 149.86 cm GISELLA HAMPTON PA - [facility] 09/22/2022 15:53:26 Date Recorded Body mass index (BMI) Body weight Provider Name and Address Organization Details Last Updated DateTime 09/22/2022 32.7 kg/m2 26007.96 g GISELLA HAMPTON [facility] - [facility] 09/22/2022 15:53:33 Date Recorded Body temperature Provider Name a nd Address Organization Details Last Updated DateTime 09/22/2022 97.8 [degF] GISELLA HAMPTON PA - [facility] 09/22/2022 15:54:08 Date Recorded Oxygen saturation Oxygen saturation in Arterial blood by Pulse oximetry Provider Name and Address Organization Details Last Updated DateTime 09/22/2022 99 % 99 % GISELLA HAMPTON PA - [facility] 09/22/2022 15:54:18 Date Recorded Heart rate Provider Name an d Address Organization Details Last Updated DateTime 09/22/2022 60 /min GISELLA HAMPTON PA - [facility] 09/22/2022 15:54:20 Date Recorded Respiratory rate Provider Name a nd Address Organization Details Last Updated DateTime 09/22/2022 18 /min GISELLA HAMPTON PA - [facility] 09/22/2022 15:54:22 Date Recorded Systolic blood pressure Diastolic blood pressure Provider Name and Address Organization Details Last Updated DateTime 09/22/2022 122 mm[Hg] 77 mm[Hg] GISELLA HAMPTON PA - [facility] 09/22/2022 15:55:12 Social History Question Answer Notes LastModified by Organizat ion Details LastModified Time Tobacco Smoking Status Never Smoker GISELLA RUEDAMOUNA carl PA - [facility] 09/22/2022 15:51:54 What Is Your Level Of Alcohol Consumption? None Information not available 09/22/2022 Have You Had Direct Contact, Or Contact During Intimacy, With Monkeypox Rash, Scabs, Or Body Fluids From A Person With Monkeypox? No Information not available 09/22/2022 Do You Use Any Illicit Or Recreational Drugs? No Information not available 09/22/2022 Have You Recently Traveled Abroad? No Information not available 09/22/2022 Do You Or Have You Ever Used Any Other Forms Of Tobacco Or Nicotine? No Information not available 09/22/2022 Sex: Unknown Functional Status None recorded. Mental Status None recorded. Family History Relationship Description Onset Age of this Age Resolved Age Notes LastModified by Organization Details LastModified Time Mother Malignant tumor of breast Not available 09/22 15:51:36 Mother Heart disease Not available 09/22 15:51:44 Medical History No medical history recorded. Gynecological HistoryNo gynecological history recorded. Obstetrics History GPAL:G 0 P 0 0 0 0 Past Encounters Encounter ID Performer Location Encounter Start Date Encounter Closed Date Diagnosis/Indication Diagnosis SNOMED-CT Code Diagnosis ICD10 Code Diagnosis Note [id number] [address] [place] [address] 03/09/2018 08:40:11 03/09/2018 10:30:12 [id number] JW GREWAL [address] [place] [address] 09/22/2022 14:22:46 09/22/2022 16:44:49 Acute right otitis media 502419576 H66.91 Health Concerns Section Related Observation LastModified by Organization Detai ls LastModified Time None Recorded Concern Status LastModified by Organization Details LastModified Time None Recorded Advance Directives Directive None Recorded Payers Encounter Date Sequence Insurance Name Policy Number Policy Huggins Covered Member ID Huggins Member ID Guarantor Name 03/09/2018 1 [place] [employer] Di L Gastelum [id number] Di L Gastelum 03/09/2018 2 [place] Di L Gastelum [id number] Di L Gastelum 09/22/2022 1 [place] Di L Gastelum [id number] Di L Gastelum 09/22/2022 2 [place] [facility] Di L Gastelum [id number] Di L Gastelum Notes Date Note Type Note Provider Name and Address Organization Details Recorded Time 09/22/2022 text/html Ear Pain Brief HPIReported bypatient.Location :right Onset/Timing:new onset Quality:no itching; no discharge from the ears; no burning;sharp pain Severity:no fever Context:no recent URI Alleviating factors:acetaminop hen Associated Symptoms:no cough; no jaw popping or clicking; No decreased appetite; no discharge from ear; no nasal discharge; no hearing loss; no sore throat; no tinnitus;nasal congestion JW GREWAL [facility] [place], [address], PA - [facility] 09/22/2022 16:36:17 OBGyn Episode No OBEpisode recorded.
== END 2024-11-14 08:51 | disposition home or self-care (01) ==
PROVIDERS: Visit Provider Internal Medicine
DX: J45.20 Mild intermittent asthma, uncomplicated (principal); F31.32 Bipolar disorder, current episode depressed, moderate; I10 Essential (primary) hypertension; E78.00 Pure hypercholesterolemia, unspecified; K21.9 Gastro-esophageal reflux disease without esophagitis; M17.0 Bilateral primary osteoarthritis of knee

== ENCOUNTER → 2024-11-14 08:19 | Outpatient (BNVA) | payer MEDICARE, MEDICAID, SELFPAY | PROVIDERS: Visit Provider Internal Medicine | DX: J45.20 Mild intermittent asthma, uncomplicated (principal); I10 Essential (primary) hypertension; E78.00 Pure hypercholesterolemia, unspecified; K21.9 Gastro-esophageal reflux disease without esophagitis; F31.32 Bipolar disorder, current episode depressed, moderate; M17.0 Bilateral primary osteoarthritis of knee | CPT/HCPCS: 99212 ==

== ENCOUNTER 2025-02-26 07:21 | Outpatient (REF) | payer MEDICARE, MEDICAID, SELFPAY ==
--- OUTSIDE RECORDS SUMMARY | 2025-02-26 07:23 | XMS_ITS | Data Portability ---
Author Organization SILVER Thien Whitley [facility], [facility] Address [address] [place] [address] Care Team Providers Care Signal Intelligence/Electronic Warfare Name Role Phone VERÓNICA TEMONUNU Referring Provider Assessment Encounter Date Assessment Date Assessment LastModified by Organization Details LastModified Time 10/27/2024 10/27/2024 Assessment: Tender along length of IT band, significant weakness into hip abductor. Plan: Continue with remaining visits then DC to HEP. [email or web address] Not available 10/27/2024 11:06:11 10/29/2024 10/29/2024 Assessment: Tender along length of IT band, significant weakness into hip abductor. Knee appears to lock up with moving from extension into flexion. Plan: Discharge to formal HEP. [email or web address] Not available 10/29/2024 09:17:18 11/03/2024 11/03/2024 nature of diagnosis discussed with patient today. At this time symptoms are most consistent with underlying tendinopathy however does have some calcifications which could be near LCL attachment and origin sites but no gross evidence of instability on exam. Pain discomfort with hip traveling all the way down to the knee that has been refractory to conservative management. Did recommend trying 1 more cortisone injection today to follow-up in approximately 3 months for repeat evaluation. A changes in symptoms to contact our office sooner. [email or web address] Not available 11/03/2024 12:22:27 Plan of Treatment Reminders Order Date Submit Date Provider Last Modified By Organization Details Last Modified Time Details Appointments RECHECK 15 2024 07:45A M Phoenix Vega PA-C Not available Not available Not available Lab None recorded . Referral None recorded . Procedures None recorded . Surgeries None recorded . Imaging XR, knee, 3 view - RTKR (02/26/24 - AL rm 203 2024 025 [email or web address] [facility], [address], [place], [address], 02/18/2025 09:39:42 XR, pelvis, 1 or 2 view - ap pelvis. room 212 2024 025 [email or web address] [facility], [address], [place], [address], 11/03/2024 12:29:33 XR, knee, 3 view - room 212, R TKR recheck dr maciel 2024 025 [email or web address] 1 [facility], [address], [place], [address], 11/03/2024 12:29:33 Medication Orders None recorded . Patient TargetsNo targets recorded. Patient InstructionsNo instructions recorded. Reason for Referral None Reported. Results Created Date Observation Date Name Description Value Unit Range Abnormal Flag Note LastModifiedBy Organization Detail LastModifiedTime 10/30/1910/30/2024 CBC WITH DIFFE RENTI AL/PL ATELE T WBC 11.7 K/mm3 4.0-11 .0 above high normal Not Available [address], [address], 10/30/2024 17:15:05 10/30/1910/30/2024 CBC WITH DIFFE RENTI AL/PL ATELE T RBC 4.38 M/mm3 4.20-5 .40 normal Not Available [address], [address], 10/30/2024 17:15:05 10/30/19 25 10/30/2024 CBC WITH DIFFE RENTI AL/PL ATELE T hemoglobin 12.0 gm/dL 11.7-1 5.5 normal Not Available [address], [address], 10/30/2024 17:15:05 10/30/19 25 10/30/2024 CBC WITH DIFFE RENTI AL/PL ATELE T hematocrit 38.6 % 35.7-4 5.8 normal Not Available [address], [address], 10/30/2024 17:15:05 10/30/19 25 10/30/2024 CBC WITH DIFFE RENTI AL/PL ATELE T MCV 88.1 fL 80.0-1 00.0 normal Not Available [address], [address], 10/30/2024 17:15:05 10/30/19 25 10/30/2024 CBC WITH DIFFE RENTI AL/PL ATELE T MCH 27.4 pg 27.0-3 4.0 normal Not Available [address], [address], 10/30/2024 17:15:05 10/30/19 25 10/30/2024 CBC WITH DIFFE RENTI AL/PL ATELE T MCHC 31.1 g/dL 33.0-3 7.0 below low normal Not Available [address], [address], 10/30/2024 17:15:05 10/30/19 25 10/30/2024 CBC WITH DIFFE RENTI AL/PL ATELE T RDW 45.0 fL <47.0 Not Available [address], [address], 10/30/2024 17:15:05 10/30/19 25 10/30/2024 CBC WITH DIFFE RENTI AL/PL ATELE T platelets 325 K/mm3 150-46 0 normal Not Available [address], [address], 10/30/2024 17:15:05 10/30/19 25 10/30/2024 CBC WITH DIFFE RENTI AL/PL ATELE T neutrophils 63.4 % 44-76 normal Not Available [address], [address], 10/30/2024 17:15:05 10/30/19 25 10/30/2024 CBC WITH DIFFE RENTI AL/PL ATELE T lymphs 27.5 % 15-43 normal Not Available [address], [address], 10/30/2024 17:15:05 10/30/19 25 10/30/2024 CBC WITH DIFFE RENTI AL/PL ATELE T monocytes 7.0 % 4.5-10 .5 normal Not Available [address], [address], 10/30/2024 17:15:05 10/30/19 25 10/30/2024 CBC WITH DIFFE RENTI AL/PL ATELE T eos 1.4 % 0-6 normal Not Available [address], [address], 10/30/2024 17:15:05 10/30/19 25 10/30/2024 CBC WITH DIFFE RENTI AL/PL ATELE T basos 0.2 % 0-2 normal Not Available [address], [address], 10/30/2024 17:15:05 10/30/19 25 10/30/2024 CBC WITH DIFFE RENTI AL/PL ATELE T neutrophils (absolute) 7.5 K/mm3 1.3-7. 0 above high normal Not Available [address], [address], 10/30/2024 17:15:05 10/30/19 25 10/30/2024 CBC WITH DIFFE RENTI AL/PL ATELE T lymphs (absolute) 3.2 K/mm3 0.8-3. 1 above high normal Not Available [address], [address], 10/30/2024 17:15:05 10/30/19 25 10/30/2024 CBC WITH DIFFE RENTI AL/PL ATELE T monocytes(ab solute) 0.8 K/mm3 0.4-0. 9 normal Not Available [address], [address], 10/30/2024 17:15:05 10/30/19 25 10/30/2024 CBC WITH DIFFE RENTI AL/PL ATELE T eos (absolute) 0.2 K/mm3 0.0-0. 4 normal Not Available [address], [address], 10/30/2024 17:15:05 10/30/19 25 10/30/2024 CBC WITH DIFFE RENTI AL/PL ATELE T baso (absolute) 0.0 K/mm3 0.0-0. 1 normal Not Available [address], [address], 10/30/2024 17:15:05 10/30/19 25 10/30/2024 CBC WITH DIFFE RENTI AL/PL ATELE T immature granulocytes 0.5 % Not Available [address], [address], 10/30/2024 17:15:05 10/30/19 25 10/30/2024 CBC WITH DIFFE RENTI AL/PL ATELE T immature grans (abs) 0.1 K/mm3 Not Available [address], [address], 10/30/2024 17:15:05 10/30/19 25 10/30/2024 CBC WITH DIFFE RENTI AL/PL ATELE T NRBC 0.0 #/100 _WBC' s Not Available [address], [address], 10/30/2024 17:15:05 10/30/19 25 10/30/2024 CBC WITH DIFFE RENTI AL/PL ATELE T hematology comments: Commen t AUTOM ATED DIFFE SALAZAR AL MPV 9.4 FL 9.4-1 2.4 N ABS. NRBC 0.0 K/MM3 N Not Available [address], [address], 10/30/2024 17:15:05 10/30/19 25 10/30/2024 SEDIM ENTAT ION RATE- WESTE RGREN sedimentatio n rate-westerg ryan 14 mm/HR 0-20 normal Not Available [address], [address], 10/30/2024 17:15:06 10/30/19 25 10/30/2024 C-JUDY CTIVE PROTE IN, QUANT C-reactive protein, quant <0.3 mg/dL 0-0.5 Not Available [address], [address], 10/30/2024 17:15:07 11/03/19 25 11/03/2024 XR, knee, 3 view [email or web address]:/ [email or web address] ?Encry pted=s hAaTro YD8dLq bEUv6g %2BXZw aYqtaq 0bqfl% 2Fg9IQ a4ajBk vP9nXo QUaueC m3YtLR FvZlgJ JJ8mAn HZtai3 9e5670 AC0Kqb 3uBVaS jKiQtr [facility] INTERFACE [facility] [address], [place], [address], 11/03/2024 10:15:01 11/03/19 25 11/03/2024 XR, knee, 3 view [email or web address]:/ [email or web address] ?Encry pted=s hAaTro YD8dLq bEUv6g %2BXZw aYqtaq 0bqfl% 2Fg9IQ a4ajBk vP9nXo QUaueC m3YtLR FvZlgJ JJ8mAn HZtai3 9p6372 AC0Kqb 3uBVaS jKiQtr MwF INTERFACE [facility] [address] [facility] [address] [facility] [address], [place], [address], 11/03/2024 10:15:03 11/03/19 25 11/03/2024 XR, pelvi s, 1 or 2 view [email or web address]:/ [email or web address] ?Encry pted=s hAaTro YD8dLq bEUv6g %2BXZw aYqtaq 0bqfl% 2Fg9IQ a4ajBk vP9nXo QUaueC m3YtLR FvZlJ JJ8Gerber HZtai3 1z7639 AC0Kqb 3uBWKC nKiQtr MwF INTERFACE [facility] [address] [facility] [address], [place], [address], 11/03/2024 10:47:35 11/03/19 25 11/03/2024 XR, pelvi s, 1 or 2 view [email or web address]:/ [email or web address] ?Encry pted=s hAaTro YD8dLq bEUv6g %2BXZw aYqtaq 0bqfl% 2Fg9IQ a4ajBk vP9nXo QUaueC m3YtLR FvZlJ JJ8[place] HZtai3 3d5305 AC0Kqb 3uBWKC nKiQtr MwF INTERFACE [facility] [address] [facility] [address], [place], [address], 11/03/2024 10:47:37 02/19/20 25 02/18/2025 XR, knee, 3 view [email or web address]:/ [email or web address] ?Encry pted=s hAaTro YD8dLq bEUv6g %2BXZw aYqtaq 0bqfl% 2Fg9IQ a4ajBk vP9nXo QUaueC m3YtLR FvZlgJ JJ8[place] HZtai3 5e0207 AC0Kla nuNUaK hKiQtr MwF INTERFACE [facility] [address], [place], [address], 02/18/2025 09:11:21 02/19/20 25 02/18/2025 XR, knee, 3 view [email or web address]:/ [email or web address] ?Encry pted=s hAaTro YD8dLq bEUv6g %2BXZw aYqtaq 0bqfl% 2Fg9IQ a4ajBk vP9nXo QUaueC m3YtLR FvZlgJ JJ8mAn HZtai3 7u0149 AC0Kla nuNUaK hKiQtr MwF INTERFACE [facility] [address], [place], [address], 02/18/2025 09:11:23 Result Notes None recorded. Problems Name Problem SNOMED Code Status Onset Date Resolution Date Notes Provider Name and Address Organization Details Recorded Time Intracrani al artery occlusion with infarction 6243778431123 04 Active 2014 Status : 'A'; Not Available [facility] 4 11:27:13 Transient cerebral ischemia 410140933 Active 2014 Status : 'A'; Not Available [facility] 4 11:27:13 Osteoarthr itis of right knee joint 0807665587341 00 Active 2023 [facility] 4 12:02:50 Problem Notes None recorded. Procedures Surgical History Date Name Laterality Status Provider Name and Address Organization Details Recorded Time 4 63981 Therapeutic Exercise (1:1) completed Myles Chan PTA [address], [place], [address], [facility] 05/21/2024 14:15:16 4 02214 Therapeutic Exercise (1:1) completed Sonali Tam DPT [address], [place], [address], [facility] 05/14/2024 12:28:58 4 83210 Therapeutic Exercise (1:1) completed Sonali Tam DPT [address], [place], [address], [facility] 05/12/2024 10:26:20 4 25248 Therapeutic Exercise (1:1) completed Myles Chan PTA [address], [place], [address], [facility] 05/07/2024 11:27:49 4 CQ - Medicare Services by [employer] completed Myles Chan PTA [address], [place], [address], [facility] 05/07/2024 11:27:51 4 61419 Therapeutic Exercise (1:1) completed Myles Chan PTA [address], [place], [address], [facility] 05/05/2024 11:27:05 4 74536 Therapeutic Exercise (1:1) completed Sonali Tam DPT [address], [place], [address], [facility] 04/30/2024 09:42:27 4 69492 Therapeutic Exercise (1:1) completed Sonali Tam DPT [address], [place], [address], [facility] 04/28/2024 12:57:15 4 67265 Therapeutic Exercise (1:1) completed Myles Chan PTA [address], [place], [address], [facility] 04/24/2024 10:44:30 4 CQ - Medicare Services by [employer] completed Myles Chan PTA [address], [place], [address], [facility] 04/24/2024 10:44:30 4 98338 Therapeutic Exercise (1:1) completed Myles Chan PTA [address], [place], [address], [facility] 04/22/2024 11:43:35 4 CQ - Medicare Services by [employer] completed Myles Chan PTA [address], [place], [address], [facility] 04/22/2024 10:43:57 4 33420 Therapeutic Exercise (1:1) completed Myles Chan PTA [address], [place], [address], [facility] 04/16/2024 14:52:44 4 CQ - Medicare Services by [employer] caren Chan PTA [address], [place], [address], [facility] 04/16/2024 16:14:57 4 64164 Therapeutic Exercise (1:1) completed Myles Chan PTA [address], [place], [address], [facility] 04/14/2024 16:02:40 4 47853 Therapeutic Exercise (1:1) completed Lashanda Floyd PTA [address], [place], [address], [facility] 04/06/2024 18:47:54 4 78564 Therapeutic Exercise (1:1) completed Sonali Tam DPT [address], [place], [address], [facility] 04/03/2024 20:52:07 4 45462 Therapeutic Exercise (1:1) completed Myles Chan PTA [address], [place], [address], [facility] 03/27/2024 13:13:15 4 CQ - Medicare Services by [employer] caren Chan PTA [address], [place], [address], [facility] 03/27/2024 13:13:15 4 62492 Therapeutic Exercise (1:1) completed Myles Chan, [employer] [address], [place], [address], [facility] 03/25/2024 13:20:24 4 CQ - Medicare Services by [employer] completed Myles Chan, [employer] [address], [place], [address], [facility] 03/25/2024 13:20:24 4 01953 Therapeutic Exercise (1:1) completed Myles Chan, [employer] [address], [place], [address], [facility] 03/19/2024 13:08:58 4 CQ - Medicare Services by [employer] completed Myles Chan, [employer] [address], [place], [address], [facility] 03/19/2024 12:30:40 4 13551 Therapeutic Exercise (1:1) completed Myles Chan, [employer] [address], [place], [address], [facility] 03/17/2024 13:28:15 4 31142: Manual therapy completed Myles Chan, [employer] [address], [place], [address], [facility] 03/17/2024 13:28:17 4 CQ - Medicare Services by [employer] completed Myles Chan, [employer] [address], [place], [address], [facility] 03/17/2024 13:28:38 4 85071 Therapeutic Exercise (1:1) completed Myles Chan, [employer] [address], [place], [address], [facility] 03/14/2024 15:52:18 4 12154 Therapeutic Exercise (1:1) completed Sonali Tam DPT [address], [place], [address], [facility] 03/12/2024 15:23:12 4 00509: Low complexity PT Eval completed FORD BallT [address], [place], [address], [facility] 03/12/2024 15:23:13 4 G8417 BMI Above Upper Parameters, F/U Documented completed Sonali Tam DPT [address], [place], [address], [facility] 03/12/2024 15:24:37 4 G8427 Current Medication Documented completed Sonali Tam DPT [address], [place], [address], [facility] 03/12/2024 15:24:34 4 Sports Shoulder completed Kumar Martinez PA-C [address], [place], [address], [facility] 01/23/2024 14:28:52 Imaging Results Imaging Date Name Status LastModified by Organiz ation Details LastModified Time 11/03/2024 XR, knee, 3 view completed INTERFACE [facility] [address], [place], [address], 11/03/2024 10:15:01 11/03/2024 XR, knee, 3 view completed INTERFACE [facility] [address], [place], [address], 11/03/2024 10:15:03 11/03/2024 XR, pelvis, 1 or 2 view completed INTERFACE [facility] [address], [place], [address], 11/03/2024 10:47:35 11/03/2024 XR, pelvis, 1 or 2 view completed INTERFACE [facility] [address], [place], [address], 11/03/2024 10:47:37 02/18/2025 XR, knee, 3 view completed INTERFACE [facility] [address], [place], [address], 02/18/2025 09:11:21 02/18/2025 XR, knee, 3 view completed INTERFACE [facility] [address], [place], [address], 02/18/2025 09:11:23 Procedure Notes None recorded. Medical Equipment None Reported. Allergies Allergen ID Allergen Name Allergen Category Reaction Reaction Severity Criticality Documentation Date Start Date Code Code System Note Provider Name and Address Organization Details Recorded Time 087011 morphine medicatio n Not available Not available Not available 01/03/2024 7052 RxNorm GAMALIEL carl [facility] 4 08:57:29 674173 acetamino phen / oxycodone medicatio n Not available Not available Not available 01/03/2024 43095 3 RxNorm GAMALIEL HARRISON [facility] 4 08:57:37 382661 Macrobid medicatio n Not available Not available Not available 01/03/2024 14008 1 RxNorm GAMALIEL HARRISON [facility] 4 08:57:43 27101 Dilaudid medicatio n Not available Not available Not available 12/17/20232017 98913 3 RxNorm Aller gyRea ction : 'Skin React ion'; Not Available [facility] 4 12:57:15 49057 acetamino phen / codeine medicatio n Not available Not available Not available 12/17/20232013 72996 9 RxNorm Aller gyNam e: 'Tyle nol/c odein e #3 Tabs' ; Aller gyRea ction : 'Skin React ion'; Not Available [facility] 4 12:57:15 08223 Shellfish (substanc e) food,medi cation Not available Not available Not available 12/17/20232013 43207 9006 SNOMED Aller gyRea ction : 'Skin React ion'; Not Available [facility] 4 12:57:15 37487 almond oil food,medi cation Not available Not available Not available 12/17/20232013 52689 38 RxNorm Not Available [facility] 4 12:57:15 20365 strawberr y allergeni c extract food,medi cation Not available Not available Not available 12/17/20232013 82880 4 RxNorm Not Available [facility] 4 12:57:15 51207 Substance with sulfonami de structure and antibacte rial mechanism of action (substanc e) medicatio n Not available Not available Not available 12/17/20232015 94182 8003 SNOMED Not Available [facility] 4 12:57:15 Medications Name Sig Start Date Stop Date Status Note LastModified by Organization Details LastModified Time amoxicillin 500 mg capsule TAKE 4 CAPSULES BY MOUTH 1 HOUR BEFORE PROCEDURE active Not Available Not Available No t Available neomycin-po lymyxin-hyd rocort 3.5 mg/mL-10,00 0 unit/mL-1 % ear solution INSTILL 4 DROPS INTO THE LEFT EAR EVERY 8 HOURS FOR 10 DAYS 01/02 completed Not Available Not Available Not Available prednisone 10 mg tablet TAKE 4 TABLETS DAILY FOR 3 DAYS, TAKE 3 TABLETS DAILY FOR 3 DAYS, TAKE 2 TABLETS DAILY FOR 3 DAYS, THEN 1 TAB DAILY FOR 3 DAYS active Not Available Not Available No t Available albuterol sulfate 2.5 mg/3 mL (0.083 %) solution for nebulizatio n INHALE 3ML VIA NEBULIZER EVERY 4-6 HOURS NEEDED FOR SHORTNESS OF BREATH OR WHEEZING active Not Available Not Available No t Available azithromyci n 250 mg tablet 01/02 completed Not Available Not Available Not Available senna 8.6 mg tablet TAKE 2 TABLETS BY MOUTH EVERY NIGHT AT BEDTIME active Not Available Not Available No t Available meloxicam 15 mg tablet TAKE 1 TABLET BY MOUTH EVERY DAY AFTER MEALS active Not Available Not Available No t Available phenazopyri dine 200 mg tablet TAKE 1 TABLET BY MOUTH THREE TIMES DAILY FOR 4 DAYS active Not Available Not Available No t Available ondansetron HCl 4 mg tablet TAKE 1 TABLET BY MOUTH 2 TO 3 TIMES A DAY NEEDED FOR NAUSEA OR VOMITING active Not Available Not Available No t Available prednisone 20 mg tablet 01/02 completed Not Available Not Available Not Available isosorbide mononitrate ER 30 mg tablet,exte nded release 24 hr TAKE 3 TABLETS BY MOUTH DAILY IN THE MORNING 90 MG DAILY active Not Available Not Available No t Available sertraline 100 mg tablet TAKE 1 AND 1/2 TABLETS BY MOUTH DAILY active Not Available Not Available No t Available melatonin 3 mg tablet TAKE 1 TABLET BY MOUTH EVERY NIGHT AT BEDTIME NEEDED active Not Available Not Available No t Available aspirin 81 mg tablet,kylah yed release TAKE 1 TABLET BY MOUTH DAILY. RESUME ONCE OFF ELIQUIS active Not Available Not Available No t Available tramadol 50 mg tablet TAKE 1 TABLET BY MOUTH THREE TIMES DAILY FOR 7 DAYS FOR PAIN active Not Available Not Available No t Available ondansetron 8 mg disintegrat ing tablet DISSOLVE 1 TABLET ON THE TONGUE DAILY NEEDED FOR NAUSEA OR VOMITING active Not Available Not Available No t Available isosorbide mononitrate ER 60 mg tablet,exte nded release 24 hr TAKE 1 TABLET BY MOUTH DAILY IN THE MORNING active Not Available Not Available No t Available dicyclomine 20 mg tablet TAKE 1 TABLET BY MOUTH THREE TIMES DAILY active Not Available Not Available No t Available diltiazem ER 120 mg capsule,24 hr,extended release TAKE 1 TABLET BY MOUTH DAILY THIS. REPLACES HER REGIMEN OF SHORT ACTING DILTIAZEM active Not Available Not Available No t Available pantoprazol e 40 mg tablet,kylah yed release TAKE 1 TABLET BY MOUTH TWICE DAILY active Not Available Not Available No t Available pseudoephed rine-guaife nesin ER 80-700 mg tablet,exte nded release Percocet 5-325MG Tablet 1 every 4 - 6 hours as needed 08/06 completed Statu s: 'Disc ontin ued'; Not Available Not Available Not Available buspirone 10 mg tablet TAKE 2 TABLETS BY MOUTH THREE TIMES DAILY active Not Available Not Available No t Available lidocaine 5 % topical patch Apply 1 patch every day by topical route as directed for 30 days, for 12 HOURS ON AND 12 HOURS OFF. 2023 active Not Available Not Available Not Avai lable clonazepam 2 mg tablet TAKE 1/2 TO 1 TABLET BY MOUTH DAILY NEEDED FOR ANXIETY active Not Available Not Available No t Available benztropine 1 mg tablet TAKE 1 TABLET BY MOUTH DAILY active Not Available Not Available No t Available nitroglycer in 0.4 mg sublingual tablet active Not Available Not Available Not Available montelukast 10 mg tablet TAKE 1 TABLET BY MOUTH DAILY AT BEDTIME active Not Available Not Available No t Available methylpredn isolone 4 mg tablets in a dose pack FOLLOW PACKAGE DIRECTION S 01/02 completed Not Available Not Available Not Available albuterol sulfate HFA 90 mcg/actuati on aerosol inhaler INHALE 2 PUFFS BY MOUTH FOUR TIMES DAILY NEEDED FOR WHEEZING active Not Available Not Available No t Available fluticasone propionate 50 mcg/actuati on nasal spray,suspe nsion SHAKE LIQUID AND USE 1 SPRAY IN EACH NOSTRIL TWICE DAILY NEEDED FOR CONGESTIO N active Not Available Not Available No t Available ipratropium bromide 21 mcg (0.03 %) nasal spray USE 2 SPRAYS IN EACH NOSTRIL TWICE DAILY NEEDED FOR NASAL CONGESTIO N active Not Available Not Available No t Available amoxicillin 875 mg-potassiu m clavulanate 125 mg tablet TAKE 1 TABLET BY MOUTH EVERY 12 HOURS FOR 7 DAYS 01/02 completed Not Available Not Available Not Available amoxicillin 500 mg-potassiu m clavulanate 125 mg tablet TAKE 1 TABLET BY MOUTH TWICE DAILY active Not Available Not Available No t Available oxycodone 5 mg tablet TAKE 1/2 (HALF) TO 1 TABLET BY MOUTH EVERY 4 HOURS NEEDED FOR SEVERE PAIN 06/12 completed Not Available Not Available Not Available aripiprazol e 5 mg tablet TAKE 1 TABLET BY MOUTH EVERY MORNING active Not Available Not Available No t Available rosuvastati n 20 mg tablet TAKE 1 TABLET BY MOUTH DAILY active Not Available Not Available No t Available rosuvastati n 40 mg tablet TAKE 1 TABLET BY MOUTH DAILY active Not Available Not Available No t Available Klonopin KlonoPIN 2MG Tablet 08/06 completed Statu s: 'Disc ontin ued'; Not Available Not Available Not Available nitroglycer in Nitroglyc tino 0.4MG/HR Patch 24 Hour as directed 08/06 completed Statu s: 'Disc ontin ued'; Not Available Not Available Not Available aripiprazol e ARIPipraz ole 5MG Tablet 06/12 completed Statu s: 'Curr ent'; Not Available Not Available Not Available oxycodone HCl-oxycodo ne-ASA RX GIVEN AT [facility], AT TIME OF SURGERY 08/06 completed Statu s: 'Disc ontin ued'; Not Available Not Available Not Available Linzess 290 mcg capsule TAKE 1 CAPSULE BY MOUTH EVERY MORNING active Not Available Not Available No t Available Linzess Linzess 290MCG Capsule 01/02 completed Statu s: 'Curr ent'; Not Available Not Available Not Available Eliquis 2.5 mg tablet TAKE 1 TABLET BY MOUTH TWO TIMES A DAY 06/12 completed Not Available Not Available Not Available Spiriva Respimat 2.5 mcg/actuati on solution for inhalation INHALE 2 PUFFS BY MOUTH DAILY active Not Available Not Available No t Available Belsomra 20 mg tablet TAKE 1 TABLET BY MOUTH AT BEDTIME NEEDED active Not Available Not Available No t Available Incruse Ellipta 62.5 mcg/actuati on powder for inhalation INHALE 1 PUFF BY MOUTH EVERY 24 HOURS active Not Available Not Available No t Available Breo Ellipta 200 mcg-25 mcg/dose powder for inhalation INHALE 1 PUFF BY MOUTH DAILY active Not Available Not Available No t Available Trelegy Ellipta Trelegy Ellipta 200-62.5- 25MCG/ACT Aerosol Powder Breath Activated 01/02 completed Statu s: 'Curr ent'; Not Available Not Available Not Available Trelegy Ellipta 200 mcg-62.5 mcg-25 mcg powder for inhalation 01/02 completed Not Available Not Available Not Available Vitals Date Recorded Body height Body mass index (BMI) Body weight Provider Name and Address Organization Details Last Updated DateTime 11/03/2024 149.86 cm 33.9 kg/m2 11080.52 g Fabiola Thomson [place] - [facility] 11/03/2024 10:07:01 Date Recorded Body height Body mass index (BMI) Body weight Provider Name and Address Organization Details Last Updated DateTime 01/29/2025 149.86 cm 34.3 kg/m2 87939.7 g Fabiloa Thomson [facility] 01/29/2025 10:31:04 Date Recorded Body height Body mass index (BMI) Body weight Provider Name and Address Organization Details Last Updated DateTime 02/18/2025 149.86 cm 34.3 kg/m2 44339.7 g Delfina Irby [facility] 02/18/2025 08:53:41 Social History Question Answer Notes LastModified by [employer] Details LastModified Time Tobacco Smoking Status Never Smoker FLORES SATISH carl [facility] 03/11/2024 10:09:21 What Is Your Relationship Status? Information not available 03/11/2024 Sex: Unknown Functional Status Question Answer Note LastModified by [employer] Details LastModified Time Do you use any illicit or recreational drugs? No Information not available 03/11/2024 Do you or have you ever used any other forms of tobacco or nicotine? No Information not available 03/11/2024 What is your level of alcohol consumption? None Information not available 03/11/2024 Mental Status None recorded. Family History Nothing Reported. Medical History Condition Response Allergies/Hayfever N Coronary Artery Disease N Anxiety/Depression Y Breathing or lung disorders Y Emphysema N Nerve Disorders N Thyroid Problems N COPD N Pacemaker N Anemia N Kidney/Bladder Problems N Vascular Disease N Heart Trouble Y Heart Attack (ID) N Gastrointestinal Disease N Cholesterol Y Diabetes N Autoimmune disease N Bleeding Disorder N Orthotics N Arthritis Y Seizures/Epilepsy N Blood Clot N AIDS/HIV N Congestive Heart Failure (CHF) N Acid Reflux (GERD) N Cancer N Stroke Y Asthma N Circulation Problems N Peripheral Vascular Disease N Sleep Apnea Y Hepatitis N Heart Disease N Rheumatoid Arthritis N Arrhythmia N Pulmonary Embolism N Headaches Y Fibromyalgia N Hypertension Y Osteoporosis N Gynecological HistoryNo gynecological history recorded. Obstetrics History GPAL:G 0 P 0 0 0 0 Past Encounters Encounter ID Performer Location Encounter Start Date Encounter Closed Date Diagnosis/Indication Diagnosis SNOMED-CT Code Diagnosis ICD10 Code Diagnosis Note [id number] [facility] [address] [place] [address] 01/23/2024 14:02:34 02/13/2024 14:46:09 Adhesive capsulitis of shoulder 358589243 M75.01 Adhesive c apsulitis of right shoulder 3161058520 37347 M75.01 [id number] MD Surendra Jiménez Clinical [address] [place], [place] [address] 01/03/2024 08:37:58 01/23/2024 08:17:52 Osteoarthritis of right knee joint 0496426398 86275 M17.11 [id number] Rosamaria Hinkle, CLINICAL EDUCATION SPECIALIST [facility] [address] [place] [address] 02/18/2024 09:02:10 03/12/2024 04:04:52 Osteoarthritis of right knee joint 5635538539 48282 M17.11 [id number] Timur Chavarria PA-C [facility] [address] [place] [address] 03/11/2024 09:52:53 03/27/2024 06:10:54 History of right total knee replacement 5832035627 396209 Z96.756 [id number] Sonali Tam, DPT [facility] [address] [place] [address] 03/12/2024 13:35:41 03/12/2024 14:43:18 History of right total knee replacement 2872235548 836620 Z96.651 Z47.1 [id number] Myles Chan, B[facility] RIV[employer]ER [facility] [address] [place] [address] 03/14/2024 15:00:57 03/14/2024 16:17:50 History of right total knee replacement 1068460205 465443 Z96.651 Z47.1 [id number] Myles Chan [facility] [address] [place] [address] 03/17/2024 11:58:56 03/17/2024 13:31:42 History of right total knee replacement 7934258407 375434 Z96.651 Z47.1 [id number] Myles Chan [facility] [address] [place] [address] 03/19/2024 11:55:36 03/19/2024 13:59:53 History of right total knee replacement 6418696917 886996 Z96.651 Z47.1 [id number] Timur Chavarria PA-C [facility] [address] [place] [address] 03/25/2024 10:36:30 04/29/2024 17:28:10 Aftercare 162011237 Z51.89 Implantati on of joint prosthesis 62809352 Z47.1 [id number] Myles Chan, B[employer]IV[employer]ER [facility] [address] [place] [address] 03/25/2024 13:13:36 03/25/2024 15:16:28 History of right total knee replacement 3040811749 480794 Z96.651 Z47.1 [id number] Myles Chan [facility] [address] [place] [address] 03/27/2024 13:03:24 03/27/2024 13:47:31 History of right total knee replacement 4330501608 302686 Z96.651 Z47.1 [id number] Sonali Tam, DPT [facility] [address] [place] [address] 04/04/2024 13:04:57 04/04/2024 13:06:22 History of right total knee replacement 7689957782 056922 Z96.651 Z47.1 [id number] Lashanda Floyd, [facility] [address] [place] [address] 04/07/2024 15:38:50 04/07/2024 16:32:55 History of right total knee replacement 7142395670 932431 Z96.651 Z47.1 [id number] Myles Chan, B[facility] [employer]IV[employer] [facility] [address] [place] [address] 04/14/2024 14:47:31 04/14/2024 16:06:48 History of right total knee replacement 1226385741 660740 Z96.651 Z47.1 [id number] Myles Chan, [facility]IV[employer] [address] [place] [address] 04/16/2024 14:46:44 04/16/2024 15:42:46 History of right total knee replacement 2540531432 621735 Z96.651 Z47.1 [id number] Myles Chan, B[facility] RIV[employer]ER [facility] [address] [place] [address] 04/22/2024 10:42:05 04/22/2024 11:40:32 History of right total knee replacement 6348092663 581139 Z96.651 Z47.1 [id number] Myles Chan, B[employer] RIVETER [facility] [address] [place] [address] 04/24/2024 10:42:56 04/24/2024 12:57:01 History of right total knee replacement 3392693136 016763 Z96.651 Z47.1 [id number] Sonali Tam, DPT [facility] [address] [place] [address] 04/28/2024 09:09:53 04/28/2024 10:46:50 History of right total knee replacement 0865857458 424231 Z96.651 Z47.1 [id number] Sonali Tam, DPT [facility] [address] [place] [address] 04/30/2024 09:26:39 04/30/2024 10:00:20 History of right total knee replacement 8084528526 544746 Z96.651 Z47.1 [id number] Myles Chan, [facility] [address] [place] [address] 05/05/2024 10:21:11 05/05/2024 11:45:13 History of right total knee replacement 8247758654 742375 Z96.651 Z47.1 [id number] Myles Chan, [facility] [address] [place] [address] 05/07/2024 10:31:33 05/07/2024 12:14:46 History of right total knee replacement 8565054766 443364 Z96.651 Z47.1 [id number] Sonali Castroon, DPT [facility] [address] [place] [address] 05/12/2024 12:27:09 05/12/2024 13:13:55 History of right total knee replacement 6392432190 434426 Z96.651 Z47.1 [id number] Sonali Matthewmadiha, DPT [facility] [address] [place] [address] 05/14/2024 12:21:30 05/14/2024 13:48:52 History of right total knee replacement 5526688643 675841 Z96.651 Z47.1 [id number] Myles Dustin, [facility] [address] [place] [address] 05/21/2024 13:34:52 05/21/2024 15:47:21 History of right total knee replacement 2916825358 918666 Z96.651 Z47.1 [id number] Sonali Tam, DPT [facility] [address] [place] [address] 05/26/2024 07:58:00 05/26/2024 08:34:13 History of right total knee replacement 6625061318 825840 Z96.651 Z47.1 [id number] Myles Chan, [facility]IV[employer] [facility] [address] [place] [address] 05/29/2024 08:56:31 05/29/2024 10:44:52 History of right total knee replacement 2648874012 407526 Z96.651 Z47.1 [id number] Myles Chan, B[employer] RIV[employer]ER [facility] [address] [place] [address] 06/04/2024 12:02:14 06/04/2024 12:42:47 History of right total knee replacement 0117437585 726246 Z96.651 Z47.1 [id number] Sonali Anel, DPT [facility] [address] [place] [address] 06/09/2024 10:58:55 06/09/2024 11:23:45 History of right total knee replacement 4971643039 674978 Z96.651 Z47.1 [id number] Jair Maciel MD [address] [place] [address] 06/12/2024 15:25:29 07/04/2024 10:56:58 History of right total knee replacement 6541367145 373319 Z96.651 Pain of scar 571580600 L 90.5 [id number] Sonali Tam, DPT [facility] [address] [place] [address] 06/13/2024 11:00:41 06/13/2024 11:34:15 History of right total knee replacement 3078051831 931844 Z96.651 Z47.1 [id number] Sonali Tam, DPT [facility] [address] [place] [address] 06/18/2024 14:59:04 06/18/2024 15:42:45 History of right total knee replacement 2175738391 871089 Z96.651 Z47.1 [id number] Sonali Tam, DPT [facility] [address] [place] [address] 06/20/2024 14:29:40 06/20/2024 16:04:25 History of right total knee replacement 3641801480 205584 Z96.651 Z47.1 [id number] Sonali Tam, DPT [facility] [address] [place] [address] 06/27/2024 08:29:24 06/27/2024 09:24:17 History of right total knee replacement 4282517452 020920 Z96.651 Z47.1 [id number] Sonali Tam, DPT [facility] [address] [place] [address] 07/04/2024 08:28:09 07/04/2024 09:38:09 History of right total knee replacement 1060428719 838162 Z96.651 Z47.1 [id number] Myles Chan, B[employer] RIVETER [facility] [address] [place] [address] 07/08/2024 10:30:29 07/08/2024 11:55:42 History of right total knee replacement 4131244734 350795 Z96.651 Z47.1 [id number] Sonali Tam, DPT [facility] [address] [place] [address] 07/16/2024 16:30:40 07/16/2024 17:18:45 History of right total knee replacement 1716273380 301837 Z96.651 Z47.1 [id number] Myles Chan, B[employer] RIVETER [facility] [address] [place] [address] 07/25/2024 11:02:51 07/25/2024 13:17:22 History of right total knee replacement 2732396582 062156 Z96.651 Z47.1 [id number] Sonali Tam, DPT [facility] [address] [place] [address] 07/30/2024 10:00:47 07/30/2024 10:47:52 History of right total knee replacement 3423312010 413068 Z96.651 Z47.1 [id number] Sonali Tam, DPT [facility] [address] [place] [address] 08/01/2024 09:22:39 08/04/2024 06:36:53 History of right total knee replacement 3998332478 068953 Z96.651 Z47.1 [id number] Myles Baron , DPT [facility] [address] [place] [address] 08/05/2024 09:30:40 08/05/2024 10:18:58 History of right total knee replacement 8790127364 490828 Z96.651 Z47.1 [id number] Myles Chan, B[employer] [facility]IV[employer]ER [facility] [address] [place] [address] 08/07/2024 09:58:45 08/07/2024 10:28:53 History of right total knee replacement 2529781323 687656 Z96.651 Z47.1 [id number] Myles Chan, B[facility] [facility] [address] [place] [address] 08/12/2024 09:31:34 08/12/2024 10:29:51 History of right total knee replacement 3583110760 205046 Z96.651 Z47.1 [id number] Timur Chavarria PA-C [facility] [address] [place] [address] 08/14/2024 15:39:08 09/04/2024 19:35:30 History of total knee arthroplasty 5505059090 105 Z96.651 Trochanter ic bursitis of right hip 6259109267 61879 M70.61 [id number] Sonali Tam, DPT [facility] [address] [place] [address] 08/18/2024 11:31:27 08/18/2024 12:11:42 Trochanteric bursitis of right hip 4525169692 75261 M70.61 [id number] Sonali Tam DPT [facility] [address] [place] [address] 08/22/2024 14:27:24 08/22/2024 15:52:26 Trochanteric bursitis of right hip 1690014110 07198 M70.61 [id number] Sara Damon PTA [facility] [address] [place] [address] 08/26/2024 10:57:51 08/26/2024 12:17:43 Trochanteric bursitis of right hip 6893568757 01760 M70.61 [id number] Sara Damon [facility] [address] [place] [address] 08/29/2024 14:30:51 08/29/2024 15:03:30 Trochanteric bursitis of right hip 1769484605 91177 M70.61 [id number] Sara Damon [facility] [address] [place] [address] 09/03/2024 13:06:58 09/03/2024 13:48:51 Trochanteric bursitis of right hip 6752760434 45113 M70.61 [id number] Sara Damon, B[facility] RIVETER [facility] [address] [place] [address] 09/09/2024 13:04:43 09/09/2024 13:45:17 Trochanteric bursitis of right hip 9558798487 30918 M70.61 [id number] Sonali Tam, DPT [facility] [address] [place] [address] 09/17/2024 08:33:04 09/17/2024 08:51:06 Trochanteric bursitis of right hip 4482039559 10574 M70.61 [id number] Sara Damon, B[facility] RIVETER [facility] [address] [place] [address] 09/24/2024 09:04:48 09/24/2024 09:35:25 Trochanteric bursitis of right hip 0438586292 96376 M70.61 [id number] Sara Nelson [facility] [address] [place] [address] 09/26/2024 08:48:25 09/26/2024 09:37:16 Trochanteric bursitis of right hip 3308837460 95200 M70.61 [id number] Sonali Tam, DPT [facility] [address] [place] [address] 09/29/2024 08:27:02 09/29/2024 10:47:56 Trochanteric bursitis of right hip 9837623872 66565 M70.61 [id number] Sonali Tma, DPT [facility] [address] [place] [address] 10/13/2024 08:38:17 10/13/2024 09:22:49 Trochanteric bursitis of right hip 1555569732 01233 M70.61 [id number] Sonali Tam, DPT [facility] [address] [place] [address] 10/17/2024 08:23:07 10/17/2024 08:55:20 Trochanteric bursitis of right hip 0605990456 09972 M70.61 [id number] Sara Damon, BULL RIVETER [facility] [address] [place] [address] 10/22/2024 08:55:35 10/22/2024 09:41:06 Trochanteric bursitis of right hip 0214255394 39924 M70.61 [id number] Sonali Tam, DPT [facility] [address] [place] [address] 10/27/2024 08:32:20 10/27/2024 09:08:40 Trochanteric bursitis of right hip 0139484981 59157 M70.61 [id number] Sonali Tam, DPT [facility] [address] [place] [address] 10/29/2024 08:30:18 10/29/2024 09:03:20 Trochanteric bursitis of right hip 6311780929 19567 M70.61 [id number] [facility] [address] [place] [address] 11/03/2024 09:57:38 11/12/2024 08:15:07 History of right total knee replacement 2988831945 491838 Z96.651 Pain of hip region 45281 002 M25.551 Trochanter ic bursitis of right hip 4558434266 80063 M70.61 [id number] [facility] [address] [place] [address] 01/29/2025 10:00:00 02/13/2025 13:11:18 Trochanteric bursitis of right hip 2522373770 84655 M70.61 [id number] [facility] [address] [place] [address] 02/18/2025 08:48:00 02/18/2025 09:36:25 History of right total knee replacement 1803460068 449380 Z96.651 Contusion of right knee 8513048840 2638830 S80.01XA Health Concerns Section Related Observation LastModified by Organization Detai ls LastModified Time None Recorded Concern Status LastModified by Organization Details LastModified Time None Recorded Advance Directives Directive None Recorded Payers Encounter Date Sequence Insurance Name Policy Number Policy Huggins Covered Member ID Huggins Member ID Guarantor Name 10/27/2024 1 [place] [employer] Di L Gastelum [id number] Di L Gastelum 10/27/2024 2 [place] Di L Gastelum [id number] Di L Gastelum 10/29/2024 1 [place] Di L Gastelum [id number] Di L Gastleum 10/29/2024 2 [place] Di L Gastelum [id number] Di L Gastelum 11/03/2024 1 [place] [employer] Di L Gastelum [id number] Di L Gastelum 11/03/2024 2 [place] Di L Gastelum [id number] Di L Gastelum 01/29/2025 1 [place] [employer] Di L Gastelum [id number] Di L Gastelum 01/29/2025 2 [place] Di L Gastelum [id number] Di L Gastelum 02/18/2025 1 [place] [employer] Di L Gastelum [id number] Di L Gastelum 02/18/2025 2 [place] Di L Gastelum [id number] Di L Gastelum Notes Date Note Type Note Provider Name and Address Organization Details Recorded Time 10/27/2024 text/html Patient reports continued pain and symptoms into hip and knee, is going to make a follow up appointment with MD marie. Sonali Tam DPT [address], [place], [address], [facility] 10/27/2024 11:06:25 10/29/2024 text/html Patient reports continued pain and symptoms into hip and knee, is going to make a follow up appointment with MD marie. Sonali Tam DPT [address], [place], [address], [facility] 10/29/2024 09:17:36 11/03/2024 text/html I am seeing the patient today under the supervision of {{Dr. Hortencia Villalta* Dr. Carlos Mckeon}} who was available but who did not see the patient. Patient comes in for recheck of right knee pain. Patient has history of right total knee arthroplasty February 2024. Patient has been struggling with symptoms most consistent with trochanteric bursitis and IT tendinitis which is affected both hip and the right knee. Patient was last seen for/back in July at which time underwent a cortisone injection which did give her temporary short-term relief. Patient has been diligent with physical therapy but overall still having pain discomfort that will start in the lateral aspect of the hip and radiate down to the lateral aspect of that knee. Unchanged from previous visit Phoenix Vega PA-C [address], [place], [address], [facility] 11/03/2024 12:23:44 01/29/2025 text/html I am seeing the patient today under the supervision of {{Dr. Hortencia Coles* Dr. Maciel}} who was available but who did not see the patient. The patient presents today for follow-up. Has known trochanteric bursitis of the {{Left Right* Bi-lat eral}} hip. Has had previous cortisone injection which gave relief until recently. Has had no recent trauma, no fevers or chills, no neurovascular changes. Presents today for further evaluation. PAST MEDICAL/SURGICAL HISTORY Past medical history is reviewed per intake sheet. PHYSICAL FINDINGS On physical examination, the patient is well appearing and in no apparent distress, alert and oriented x3. Gait is symmetric. Examination of the hip reveals the skin to be intact, normal musculature, continued tenderness on palpation over the greater trochanter. No pain with range of motion of the hip, has full range of motion, no crepitus noted with range of motion. No significant pain with straight leg raise. ASSESSMENT Symptomatic trochanteric bursitis of the {{Left Right* Bi-lat eral}} hip. PLAN I reviewed the findings with the patient, discussed different treatment options which included medications physical therapy and injections The patient wishes to proceed with cortisone injection. Please see procedure note. Monitor the effects and follow-up as directed. Phoenix Vega PA-C [address] [facility] [address], [place], [address], [facility] 01/29/2025 11:06:28 02/18/2025 text/html I am seeing the patient today under the supervision of Dr. Burnett who was available but who did not see the patient.HPI:Patient returns also history of a right total knee replacement done last year by Dr. Maciel. She developed arthrofibrosis postoperatively. However, one month ago she fell getting out of a car. She got the right leg stuck in the car and she actually landed on both knees. The left knee took the brunt of the hip. She had more bruising on the left great and the right knee. She has pain that wraps around the right total knee. She has some mild discomfort with walking activities. The left knee is not as painful.Past family, medical, social history and review of systems has been reviewed, updated and is located in the patient? s chart.Examination:T he patient is well appearing and in no apparent distress. Alert and oriented x3. Gait is symmetric. No significant swelling, warmth, erythema or ecchymosis about either knee. There is a well-healed incision about the right total knee. Range of motion right total knee is just about full extension and flexion knee air and 95-100? ? ? with stiffness and discomfort. She tells me this is her norm postoperatively. Quad tendon is intact. Good stability of the right total knee. Peripheral, vascular, lymphatic examination, skin, neurological, coordination, reflexes, sensation are within normal limits.X-rays ordered, obtained and reviewed at [facility] 3 views of the right total knee demonstrate good implant interfaces in good alignment. No fractures evident.Impression:S tatus post right total knee with arthrofibrosis and contusion due to fall 1 month ago.Plan:I reviewed the x-rays and diagnosed with the patient. We discussed conservative management for her knee that she injured during falling a month ago. Activity modification discussed. P.r.n. NSAIDs can be used. We discussed the risks associated with NSAID use. Topical treatments recommend discussed. We discussed long-term discomfort due to the arthrofibrosis. I recommended a home exercise program. I did offer to send her to formal therapy but she declined. All questions answered to his satisfaction today. Corey Lim PA-C [address], [place], [address], [facility] 02/18/2025 09:36:23 OBGyn Episode No OBEpisode recorded.
--- OUTSIDE RECORDS SUMMARY | 2025-02-26 07:23 | XMS_ITS | Data Portability ---
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 Plan of Treatment Reminders Order Date Submit Date Provider Last Modified By Organization Details Last Modified Time Details Appointments None recorded. Lab None recorded. Referral None recorded. Procedures None recorded. Surgeries None recorded. Imaging None recorded. Medication Orders amoxicillin 875 mg-potassiu m clavulanate 125 mg tablet 2021 022 [id number], [address], [place], [phone], 16:33:57 Patient TargetsNo targets recorded. Patient Instructions Encounter Date Encounter Id Patient Instructions Last Modified By Organization Details Last Modified Time 09/22/2022 [id number] ear infection (otitis media): care instructions [email or web address] Not available 09/22/2022 16:33:47 You have been [...] in the Eustachian Tube. 4. Saline Nasal [place] 5. Salt Water Gargle 6. Staying Hydrated [...] if you have any concerns or questions. [email or web address] Not available 09/22/2022 16:33:43 Reason for Referral None Reported. Problems Name Problem SNOMED Code Status Onset Date Resolution Date Notes Provider Name and Address Organization Details Recorded Time Gastroesophage al reflux disease 969736513 Active 2021 GISELLA carl, [place] - [facility] 2 15:50:20 Hyperlipidemia 29719561 Active 2021 GISELLA carl, [place] - [facility] 2 15:50:28 Asthma 884380316 Active 2021 GISELLA carl, [place] - [facility] 2 15:50:35 Heart disease 99299239 Active 2021 [facility] - [facility] [...] Name and Address Organization Details Recorded Time 50897 shellfish derived food,medi cation Not available Not available Not available 09/22/2022 [id number] UNK GISELLA RUEDAMOUNA carl, [place] - [facility] 2 15:48:48 21261 Substance with sulfonami de structure and antibacte rial mechanism of action (substanc e) medicatio n Not available Not available Not available 09/22/2022 14801 8003 SNOMED GISELLA RUEDAMOUNA null, PA - [facility] 2 15:48:54 34225 Macrobid medicatio n Not available Not available Not available 09/22/2022 [id number] 1 RxNorm GISELLA RUEDAMOUNA null, [place] - [facility] 2 15:48:59 90655 morphine medicatio n Not available Not available [...] t Available Vitals Date Recorded Body height Body mass index (BMI) Body weight Body temperature Oxygen saturation Oxygen saturation in Arterial blood by Pulse oximetry Heart rate Respiratory rate Systolic blood pressure Diastolic blood pressure Provider Name and Address Organization Details Last Updated DateTime 2 149.86 cm 32.7 kg/m2 17907.9 6 g 97.8 [degF] 99 % 99 % 60 /min 18 /min 122 mm[Hg] 77 mm[Hg] GISELLA ESCALERA [facility] 2 15:55:12 Social History Question Answer Notes LastModified by Organizat ion Details LastModified Time Tobacco Smoking Status Never Smoker [facility] 09/22/2022 15:51:54 Have You Had Direct Contact, Or Contact During Intimacy, With Monkeypox Rash, Scabs, Or Body Fluids From A Person With Monkeypox? No Information not available 09/22/2022 Have You Recently Traveled Abroad? No Information not available 09/22/2022 Sex: Unknown Functional Status Question Answer Note LastModified by Organizat ion Details LastModified Time Do you use any illicit or recreational drugs? No Information not available 09/22/2022 Do you or have you ever used any other forms of tobacco or nicotine? No Information not available 09/22/2022 What is your level of alcohol consumption? None Information not available 09/22/2022 Mental Status None recorded. Family History Relationship [...] SNOMED-CT Code Diagnosis ICD10 Code Diagnosis Note [id number] [address] [facility] [address] [place] [id number] 03/09/2018 08:40:11 03/09/2018 10:30:12 [id number] JW GREWAL [address] [facility] [address] [place] [address] 09/22/2022 14:22:46 09/22/2022 16:44:49 Acute right otitis media 473092401 H66.91 Health Concerns Section Related Observation LastModified by Organization Detai ls LastModified Time None Recorded Concern Status LastModified by Organization Details LastModified Time None Recorded Advance Directives Directive None Recorded Payers Insurance Date Sequence Insurance Name Policy Number Policy Huggins Covered Member ID Huggins Member ID Guarantor Name 09/22/2022 1 [place] [employer] Di L Gastelum [id number] Di L Gastelum 09/22/2022 2 [place] Di L Gastelum [id number] Di Gastelum Notes Date Note Type Note Provider [...] sore throat; no tinnitus;nasal congestion JW GREWAL [address], [place], [address], [place] - [facility] 09/22/2022 16:36:17 OBGyn Episode No OBEpisode recorded.
== END 2025-02-26 07:22 | disposition home or self-care (01) ==
LOC: HO.MAMMO 07:21
PROVIDERS: PCP Internal Medicine; Visit Provider Internal Medicine
DX: Z12.31 Encounter for screening mammogram for malignant neoplasm of breast (principal)
CPT/HCPCS: 77063; 77067

== ENCOUNTER → 2025-02-26 07:30 | Outpatient (BNV) | payer MEDICARE, MEDICAID, SELFPAY | PROVIDERS: PCP Internal Medicine; Visit Provider Internal Medicine | DX: Z12.31 Encounter for screening mammogram for malignant neoplasm of breast (principal) | CPT/HCPCS: 77063; 77067 ==

== ENCOUNTER 2025-03-18 13:47 | Outpatient (AMB) | payer MEDICARE, MEDICAID, SELFPAY ==
[2025-03-18 13:55] VITALS: BP 116/72; PULSE 71; O2SAT 98; BMI 32.4
--- NOTE | 2025-03-18 13:55 | A.OFFPC_ITS ---
Vital Signs 03/18/25 13:55 Height 4 ft 11 in Weight 160 lb 8 oz BMI 32.4 BP 116/72 Blood Pressure Location Lt brachial Position Sitting Pulse 71 Pulse Source Pulse Oximeter Pulse Oximetry (%) 98 Oxygen Delivery Method Room Air Intake Visit Reasons: knee pain Family Literacy Coordinator Required: No Accompanied by: Self / Same As Patient Allergies almond Allergy (Severe, Verified 03/18/25 13:55) DIFFICULTY BREATHING shellfish derived Allergy (Severe, Verified 03/18/25 13:55) ANAPHYLAXIS morphine Allergy (Intermediate, Verified 03/18/25 13:55) C/P - STOMACH CRAMPS, HIVES, DIFF BREATHING, anaphylaxis, shortness of breath strawberry Allergy (Mild, Verified 03/18/25 13:55) HIVES Sulfa (Sulfonamide Antibiotics) [SULFA (SULFONAMIDE ANTIBIOTICS)] Allergy (Mild, Verified 03/18/25 13:55) DIARRHEA gluten [GLUTEN] Allergy (Unknown, Verified 03/18/25 13:55) UNKNOWN meperidine [Demerol] Allergy (Unknown, Verified 03/18/25 13:55) upset stomach nitrofurantoin [Macrobid] Allergy (Unknown, Verified 03/18/25 13:55) Unknown codeine [From TYLENOL-CODEINE #3] Adverse Reaction (Mild, Verified 03/18/25 13:55) STOMACH SPASM hydromorphone [From DILAUDID] Adverse Reaction (Mild, Verified 03/18/25 13:55) STOMACH UPSET Tobacco use date assessed: 03/18/25 Dental Screening Dental Screen Date: 03/18/25 Did you have a dental visit in the last 12 months?: Yes Did you have a dental problem in the last 6 months where you did not have access to dental care?: No Was dental information given to patient?: Patient has dentist HPI knee pain HPI Details fall 6 weeks ago R knee pain - did see ortho, but with the fall Lhand pain and L foot pain- concern about fracture PFSH Medical History (Updated 03/18/25 @ 14:35 by Javy Schaefer MD) Asthma exacerbation Otitis externa Sinus congestion History of arthroplasty of finger Trigger finger Carpal tunnel syndrome Thumb injury Right otitis media Post-menopausal Screening for diabetes mellitus Pharyngitis Diverticulitis COVID-19 virus infection Breast cancer screening by mammogram Colon cancer screening Rectal bleed Sick sinus syndrome Hypercholesterolemia TIA (transient ischemic attack) Obstructive sleep apnea GERD (gastroesophageal reflux disease) Hypertension Superficial thrombophlebitis Pulmonary nocardiosis Osteopenia Celiac sprue Bipolar disorder Asthma Fibromyalgia Depression Anemia Knee osteoarthritis Surgical History H/O thumb surgery H/O carpal tunnel repair Hx of colonoscopy H/O cardiac catheterization History of laparoscopic partial gastrectomy History of foot surgery History of cardiac pacemaker History of arthroscopy of right shoulder Hx of arthroscopy of knee History of cholecystectomy History of appendectomy History of total hysterectomy with bilateral salpingo-oophorectomy (BSO) Family History Father No problems noted. 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 1. Little interest or pleasure in doing things: more than half the days 2. Feeling down, depressed, or hopeless: more than half the days 3. Trouble falling or staying asleep, or sleeping too much: more than half the days 4. Feeling tired or having little energy: more than half the days 5. Poor appetite or overeating: more than half the days 6. Feeling bad about yourself - or that you are a failure or have let yourself or your family down: more than half the days 7. Trouble concentrating on things, such as reading the newspaper or watching television: more than half the days 8. Moving or speaking so slowly that other people could have noticed. Or the opposite - being so fidgety or restless that you have been moving around a lot more than usual: not at all 9. Thoughts that you would be better off or of hurting yourself in some way: not at all Total score: 14 Source: Developed by Drs. Laron Cobb, Evelyn Osuna, Lane Garcia and colleagues, with an educational zaida from [employer]. Thrive Questionnaire Date Thrive assessed: 03/18/25 I am a: Patient What is your living situation today?: I have a steady place to live Within the past 12 months, did the food you bought not last and you didn't have the money to get more?: Often true Within the past 12 months, did you worry whether your food would run out before you got money to buy more?: Sometimes True Do you have trouble paying for medicines?: No Do you have trouble getting transportation to medical appointments?: No Do you have trouble paying your heating and electricity bill?: No Do you have trouble taking care of your child, family member or friend?: I choose not to answer this question Do you have trouble with day-to-day activities such as bathing, preparing meals, shopping, managing finances, etc.?: Yes Are you currently unemployed and looking for a job?: Yes Are you interested in more education?: Yes Please select the resources that you would like help with: None Currently or been in a relationship where the following occur: No concerns reported THRIVE Score: 2 AUDIT C Alcohol Use Questionnaire (AUDIT-C) 1. How often do you have a drink containing alcohol?: Never 3. How often do you have six or more drinks on one occasion?: Never Total Score: 0 MILE-7 AMB Questionnaire MILE-7 Date MILE - 7 assessed: 03/18/25 Feeling nervous, anxious, or on edge: 3 = Nearly every day Not being able to stop or control worryin = Nearly every day Worrying too much about different things: 3 = Nearly every day Trouble relaxin = Nearly every day Being so restless that it is hard to sit still: 2 = More than half the days Becoming easily annoyed or irritable: 3 = Nearly every day Feeling afraid as if something awful might happen: 3 = Nearly every day Total MILE-7 score (0-4 normal; 5-9 mild; 10-14 moderate; 15-21 severe): 20 Source: Developed by Drs. Laron Cobb, Evelyn Osuna, Lane Garcia and colleagues, with an educational zaida from [employer]. Physical exam (Primary Care) Vital Signs: Last Vital Signs Pulse 71 03/18/25 13:55 BP 116/72 03/18/25 13:55 Pulse Ox 98 03/18/25 13:55 Oxygen Delivery Method Room Air 03/18/25 13:55 BMI result Body Mass Index 32.4 Tobacco/Smoking Status: Tobacco use Status Tobacco use date assessed 03/18/25 03/18/25 14:03 Patient Tobacco Use Status Never used Tobacco 03/18/25 14:03 Tobacco use type Cigarette 03/18/25 14:03 e-Cigarette/Vaping Use Never Used 03/18/25 14:03 PHQ-9: PHQ-9 Score PHQ-9: Total score 14 03/18/25 14:36 Thrive Assessment: Date of Thrive Assessment Date Thrive assessed 03/18/25 03/18/25 14:03 Currently or been in a relationship where the following occur: No concerns reported Const General: alert; No acute distress Eyes Conjunctivae: conjunctivae normal Resp Auscultation: clear to auscultation bilaterally Cardio Rate: regular rate Rhythm: regular rhythm GI Inspection: Yes normal to inspection Extrem General: Yes normal to inspection and No edema Coding Level of Care Code Est Pt Level 4 (72387) Complex EM visit Add On G2211 Diagnoses Primary osteoarthritis of right knee M17.11 Osteoarthritis type: primary Hypercholesterolemia E78.00 Gastroesophageal reflux disease without esophagitis K21.9 Esophagitis presence: without esophagitis Essential hypertension I10 Hypertension type: essential hypertension Bipolar affective disorder, currently depressed, moderate F31.32 Active/Remission status: currently active Current bipolar episode type: depressed Current episode severity: moderate Mild intermittent asthma without complication J45.20 Asthma complication type: uncomplicated Asthma persistence: intermittent Asthma severity: mild History of laparoscopic partial gastrectomy Z90.3 Left hand pain M79.642 Left foot pain M79.672 Assessment & Plan Assessment & Plan (1) Osteoarthritis of right knee: Comment: Right knee arthroplasty Dr. Solomon 03/03/2024 Code(s): M17.11 - Unilateral primary osteoarthritis, right knee Category: Medical Qualifiers: Osteoarthritis type: primary Qualified Code(s): M17.11 - Unilateral primary osteoarthritis, right knee Plan: Patient follows up with Orthopedics. Advised home exercises NSAIDs as needed for pain (2) Hypercholesterolemia: Code(s): E78.00 - Pure hypercholesterolemia, unspecified Category: Medical Plan: Avoid fried foods, chicken skin, eggs, butter margarine, pastries and meat. Be it pork or beef they have a lot of cholesterol patient was advised to get blood work done on rosuvastatin (3) GERD (gastroesophageal reflux disease): Code(s): K21.9 - Gastro-esophageal reflux disease without esophagitis Category: Medical Qualifiers: Esophagitis presence: without esophagitis Qualified Code(s): K21.9 - Gastro-esophageal reflux disease without esophagitis Plan: Avoid the foods that causes that usually spicy foods, tomato products, juices, coffee, soda and foods that your sensitive to. After eating do not lie down, allow 3-4 hours before in lie down. And keep the head of bed above 30 degrees to avoid the acid from going up. (4) Hypertension: Comment: Catheterization 2016 clear coronary. Code(s): I10 - Essential (primary) hypertension Category: Medical Qualifiers: Hypertension type: essential hypertension Qualified Code(s): I10 - Essential (primary) hypertension Plan: Patient continues to be on diltiazem (5) Bipolar disorder: Comment: Counseling and psychiatry with emelia Hoyt September 2021 [facility]N Q 2 weeks Code(s): F31.9 - Bipolar disorder, unspecified Category: Medical Qualifiers: Active/Remission status: currently active Current bipolar episode type: depressed Current episode severity: moderate Qualified Code(s): F31.32 - Bipolar disorder, current episode depressed, moderate Plan: Continue with counseling and therapy (6) Asthma: Code(s): J45.909 - Unspecified asthma, uncomplicated Category: Medical Qualifiers: Asthma complication type: uncomplicated Asthma persistence: intermittent Asthma severity: mild Qualified Code(s): J45.20 - Mild intermittent asthma, uncomplicated Plan: Patient on albuterol inhaler as needed plus Breo (7) History of laparoscopic partial gastrectomy: Comment: 07-18-2018 Code(s): Z90.3 - Acquired absence of stomach [part of] Category: Surgical Plan: Keep active (8) Left hand pain: Code(s): M79.642 - Pain in left hand Category: Medical (9) Left foot pain: Code(s): M79.672 - Pain in left foot Category: Medical Plan History of Present Illness The patient is a 59-year-old female with concerns regarding her right knee following a recent fall. The knee was previously addressed with arthroplasty in February 2024, leading to issues such as arthrofibrosis. Six weeks ago, due to impaired mobility from knee stiffness, the patient fell and impacted her face and other extremities, potentially causing dental and hand injuries. Subsequent fears for her safety have led to recommended evaluations, including X-rays for the left hand and foot. Pain control with tramadol is currently inadequate, and a refill was required. Health Maintenance - Mammogram up to date - Bone density test last performed in 2020 - Colonoscopy performed in 2018 - Blood work recommended for lipid profile and other routine checks, especially aiming at reducing cholesterol levels while on rosuvastatin - Vaccinations: Tetanus, pneumonia updated; shingles shots discussed - Encouragement of physical activity relevant after knee care Social History - No current discussion on employment, housing, education, or family status - Physically active levels maintained as recommended Review of Systems - Musculoskeletal: Reports knee stiffness, fall injuries affecting hand, foot, and face - Dental: Reports dental pain post-fall - Gastrointestinal: Continues diltiazem for reflux management Physical Exam - Musculoskeletal- Requested X-ray of left hand and left foot Results - Labs: Recent blood work showed normal blood count, electrolytes, and renal function as of February 2024; LDL cholesterol level was at 44 - Imaging: Pending X-rays for left hand and left foot Plan The patient will undergo radiographic evaluation of the left hand and foot to confirm any injury from her recent fall. A prescription of tramadol was sent to her preferred pharmacy to aid in managing pain. Regular physical therapy sessions are emphasized to improve mobility and decrease knee stiffness. She was advised on the importance of continuous blood work check-ups to monitor health status, particularly hypercholesterolemia, managed with rosuvastatin. The use of diltiazem continues to manage GERD. We discussed preventive care, emphasizing the significance of Shingrix vaccination. Overall, the focus is on preventing further falls and improving mobility with physical therapy. Patient was informed and verbally consented to the use of an ambient scribe for clinic note documentation during this visit. Discussion Notes I discussed with the patient the importance of consistent physical therapy to improve knee mobility and stiffness post-arthroplasty. We evaluated the need for X-rays to review potential injuries of the left hand and foot. Pain management options, including re-prescribing tramadol, were established to address acute pain from existing conditions and injury . I highlighted the importance of managing hypercholesterolemia and reflux with medications. Preventative vaccine discussions included available shingles shot at the pharmacy. I advised ongoing efforts to maintain activity levels within safe limits and the arrangement of regular follow-ups for managing the existing conditions effectively. Patient Instructions - Undergo X-rays for left hand and foot as recommended - Use tramadol for pain management as directed - Continue physical therapy to improve knee function - Follow cholesterol and GERD management plans with medications - Stay updated with regular health check-ups; schedule at lab for blood work - Consider the shingles vaccine at your pharmacy - Maintain safe levels of physical activity to prevent falls Orders: Orders XR foot LT 2V Today M79.672 - Pain in left foot XR hand LT 2V Today M79.642 - Pain in left hand Hemoglobin A1c Today E78.00 - Pure hypercholesterolemia, unspecified Lipid Panel Today E78.00 - Pure hypercholesterolemia, unspecified Thyroid Stimulating Hormone Today E78.00 - Pure hypercholesterolemia, unspecified Complete Blood Count Auto Diff Today E78.00 - Pure hypercholesterolemia, unspecified Comprehensive Met. Panel Today E78.00 - Pure hypercholesterolemia, unspecified Free T4 (Free Thyroxine) Today E78.00 - Pure hypercholesterolemia, unspecified Vitamin B12 and Folate Today E78.00 - Pure hypercholesterolemia, unspecified Vitamin D 25-OH Total Today E78.00 - Pure hypercholesterolemia, unspecified Medications: New [ROLLATOR] As directed 1 ea 0RF M17.0 - Bilateral primary osteoarthritis of knee
--- OUTSIDE RECORDS SUMMARY | 2025-03-18 13:57 | XMS_ITS ---
Author Name [facility] Organization Unknown Care Team Organization Name Specialty Phone Email Start Date End [facility]
== END 2025-03-18 14:45 | disposition home or self-care (01) ==
LOC: HO.HMCH 13:48
PROVIDERS: PCP Internal Medicine; Visit Provider Internal Medicine
DX: M17.11 Unilateral primary osteoarthritis, right knee (principal); F31.32 Bipolar disorder, current episode depressed, moderate; E78.00 Pure hypercholesterolemia, unspecified; K21.9 Gastro-esophageal reflux disease without esophagitis; I10 Essential (primary) hypertension; J45.20 Mild intermittent asthma, uncomplicated; Z90.3 Acquired absence of stomach [part of]; M79.642 Pain in left hand; M79.672 Pain in left foot

== ENCOUNTER → 2025-03-18 13:47 | Outpatient (BNVA) | payer MEDICARE, MEDICAID, SELFPAY | PROVIDERS: PCP Internal Medicine; Visit Provider Internal Medicine | DX: M17.11 Unilateral primary osteoarthritis, right knee (principal); E78.00 Pure hypercholesterolemia, unspecified; K21.9 Gastro-esophageal reflux disease without esophagitis; I10 Essential (primary) hypertension; F31.32 Bipolar disorder, current episode depressed, moderate; J45.20 Mild intermittent asthma, uncomplicated; M79.642 Pain in left hand; M79.672 Pain in left foot; Z90.3 Acquired absence of stomach [part of] | CPT/HCPCS: 99212 ==

== ENCOUNTER 2025-03-25 08:46 | Outpatient (REF) | payer MEDICARE, MEDICAID, SELFPAY ==
--- NOTE | ~2025-03-25 | XR_ITS ---
EXAMINATION: XR FOOT 1-2 VIEWS LEFT HISTORY: M79.672 - Pain in left foot COMPARISON: There are no prior studies available for comparison. FINDINGS: Three views of the left foot are submitted. Osseous mineralization is normal. There is no fracture or dislocation. There is mild degenerative change of the intertarsal joints. There is a small plantar calcaneal spur. The soft tissues are unremarkable. XR/XR foot LT 2V IMPRESSION: Mild degenerative change of the intertarsal joints. Electronically signed by: Laron Prakash MD 03/25/2025 11:21 AM EDT
--- NOTE | ~2025-03-25 | XR_ITS ---
EXAMINATION: XR HAND 1-2 VIEWS LEFT HISTORY: M79.642 - Pain in left hand COMPARISON: There are no prior studies available for comparison. FINDINGS: Three views of the left hand are submitted. There is a subchondral cyst in the distal phalanx of the thumb. There is no fracture or dislocation. There is mild narrowing of the 1st carpometacarpal joint. The soft tissues are unremarkable. XR/XR hand LT 2V IMPRESSION: Mild narrowing of the 1st carpometacarpal joint. Electronically signed by: Laron Prakash MD 03/25/2025 11:20 AM EDT
--- OUTSIDE RECORDS SUMMARY | 2025-03-25 09:08 | XMS_ITS | Data Portability ---
Author Organization JW Germain [facility]ena [address] Address [address] [place] [address] Care Team Providers Care Composite Layup Worker Name Role Phone [facility] Primary Care Provider [phone] Assessment No assessment recorded. Plan of Treatment Reminders Order Date Submit Date Provider Last Modified By Organization Details Last Modified Time Details Appointments None recorded. Lab None recorded. Referral None recorded. Procedures None recorded. Surgeries None recorded. Imaging None recorded. Medication Orders amoxicillin 875 mg-potassiu m clavulanate 125 mg tablet 2021 022 [id number], [address], [place], [id number], 16:33:57 Patient TargetsNo targets recorded. Patient Instructions Encounter Date Encounter Id Patient Instructions Last Modified By Organization Details Last Modified Time 09/22/2022 [id number] ear infection (otitis media): care instructions Not available 09/22/2022 16:33:47 You have been [...] in the Eustachian Tube. 4. Saline Nasal [place] 5. Salt Water Gargle 6. Staying Hydrated [...] if you have any concerns or questions. [email or web address] Not available 09/22/2022 16:33:43 Reason for Referral None Reported. Problems Name Problem SNOMED Code Status Onset Date Resolution Date Notes Provider Name and Address Organization Details Recorded Time Gastroesophage al reflux disease 153376689 Active 2021 GISELLA carl, [place] - [facility] 2 15:50:20 Hyperlipidemia 04922871 Active 2021 GISELLA carl, [place] - [facility] 2 15:50:28 Asthma 189185197 Active 2021 GISELLA carl, [place] - [facility] 2 15:50:35 Heart disease 59869082 Active 2021 [facility] - [facility] [...] Name and Address Organization Details Recorded Time 48282 shellfish derived food,medi cation Not available Not available Not available 09/22/2022 [id number] UNK GISELLA RUEDAMOUNA carl, [place] - [facility] 2 15:48:48 50786 Substance with sulfonami de structure and antibacte rial mechanism of action (substanc e) medicatio n Not available Not available Not available 09/22/2022 87773 8003 SNOMED GISELLA RUEDAMOUNA null, [place] - [facility] 2 15:48:54 05185 Macrobid medicatio n Not available Not available Not available 09/22/2022 25450 1 RxNorm GISELLA RUEDAMOUNA null, [place] - [facility] 2 15:48:59 52089 morphine medicatio n Not available Not available [...] Updated DateTime 2 149.86 cm 32.7 kg/m2 38903.9 6 g 97.8 [degF] 99 % 99 % 60 /min 18 /min 122 mm[Hg] 77 mm[Hg] GISELLA ESCALERA [facility] 2 15:55:12 Social History Question Answer Notes LastModified by Organizat ion Details LastModified Time Tobacco Smoking Status Never Smoker [facility] 09/22/2022 15:51:54 Have You Had Direct [...] SNOMED-CT Code Diagnosis ICD10 Code Diagnosis Note [id number] [address] [facility] [address] [place] [phone] 03/09/2018 08:40:11 03/09/2018 10:30:12 [id number] JW GREWAL [address] [facility] [address] [place] [address] 09/22/2022 14:22:46 09/22/2022 16:44:49 Acute right otitis media [id number] H66.91 Health Concerns Section Related Observation LastModified by Organization Detai ls LastModified Time None Recorded Concern Status LastModified by Organization Details LastModified Time None Recorded Advance Directives Directive None Recorded Payers Insurance Date Sequence Insurance Name Policy Number Policy Huggins Covered Member ID Huggins Member ID Guarantor Name 09/22/2022 1 [place] [employer] Di L Gastelum [id number] Di L Gastelum 09/22/2022 2 [place] Di L Gastelum [id number] Di Gastelum Notes Date Note Type Note [...] tinnitus;nasal congestion JW GREWAL [address], [place], [address], [place] - [facility] 09/22/2022 16:36:17 OBGyn Episode No OBEpisode recorded.
[2025-03-25 09:13] LABS: MANUAL DIFF FLAG NO
[2025-03-25 10:00] LABS: Basophils Percent Auto 0.2 % (0-2); Eosinophils Absolute Auto 0.1 X10*3/uL (0.0-0.4); Eosinophils Percent Auto 1.4 % (0-4); Hematocrit 38.7 % (37.0-47.0); Hemoglobin 12.2 g/dl (12.0-16.0); Imm Gran Abs Auto 0.07 X10*3/uL (0.00-0.03); Imm Gran Pct Auto 0.8 % (0.0-0.4); Lymphocytes Absolute Auto 2.4 X10*3/uL (1.2-4.9); Lymphocytes Percent Auto 27.4 % (20-40); Mean Corpuscular HGB Conc 31.5 g/dl (31.0-35.0); Mean Corpuscular Volume 85.6 fL (80.0-98.0); Monocytes Absolute Auto 0.7 X10*3/uL (0.1-1.2); Monocytes Percent Auto 7.4 % (2-11); Neutrophils Absolute Auto 5.5 x10*3/uL (2.0-8.3); Neutrophils Percent Auto 62.8 % (45-73); Platelet Count 317 X10*3/uL (160-400); Red Blood Count 4.52 X10*6/uL (4.20-5.50); Red Cell Distribution Width 14.5 % (11.0-16.0); White Blood Count 8.7 X10*3/uL (4.8-10.8)
[2025-03-25 10:07] LABS: Appearance Urine Cloudy; Color Urine Yellow; Glucose Urine UA Negative (Negative); Leukocyte Esterase Urine Negative (Negative); Nitrite Urine Negative (Negative); PH 8.5 (5.0-9.0); Specific Gravity - Urine 1.015 (1.005-1.025); Urine Blood Negative (Negative); Urine Ketones Negative (Negative); Urine Protein Negative (Neg-Trace)
[2025-03-25 10:12] LABS: Estimated Average Glucose 117 mg/dL; Hemoglobin A1C 123.8906 umol/L; Hemoglobin A1c % 5.7 % (<6.0)
[2025-03-25 10:39] LABS: Alanine Aminotransferase 12 U/L (0-31); Albumin Level 3.9 g/dL (3.5-5.0); Alkaline Phosphatase 124 U/L (39-117); Anion Gap 10 (12-20); Aspartate Amino Transferase 23 U/L (5-31); Bilirubin Total 0.4 mg/dL (0.0-1.0); Blood Urea Nitrogen 11 mg/dL (9-16); Calcium 8.9 mg/dL (8.4-10.2); Carbon Dioxide 29 mmol/L (22-29); Chloride 106 mmol/L (96-108); Cholesterol 195 mg/dL (<200); Estimated Glomerular Filt Rate > 60; Glucose Random 85 mg/dL (60-115); HDL Cholesterol 69 mg/dL (>40); LDL Cholesterol Calculated 110 mg/dL (<100); Sodium 141 mmol/L (135-145); Total Protein 6.6 g/dL (6.5-8.0); Triglycerides 83 mg/dL (<150)
[2025-03-25 10:57] LABS: Free T4 (Free Thyroxine) 0.98 ng/dL (0.71-1.85); Thyroid Stimulating Hormone 1.93 uIU/mL (0.32-4.0); Vitamin D 25-OH Total 7.3 ng/mL (>30)
[2025-03-25 10:59] LABS: Folate 8.5 ng/mL (> or = 4.0); Vitamin B12 703 pg/mL (200-900)
== END 2025-03-25 08:47 | disposition home or self-care (01) ==
LOC: HO.XRAY 08:46
PROVIDERS: PCP Internal Medicine; Visit Provider Internal Medicine
DX: E78.00 Pure hypercholesterolemia, unspecified (principal); R30.0 Dysuria; R39.9 Unspecified symptoms and signs involving the genitourinary system; M79.672 Pain in left foot; M79.642 Pain in left hand
CPT/HCPCS: 36415; 73120; 73620; 80053; 80061; 81003; 82306; 82607; 82746; 83036; 84439; 84443; 85025

== ENCOUNTER → 2025-03-25 09:15 | Outpatient (BNV) | payer MEDICARE, MEDICAID, SELFPAY | PROVIDERS: PCP Internal Medicine; Visit Provider Radiology Diagnostic Radiology | DX: M79.642 Pain in left hand (principal); M79.672 Pain in left foot | CPT/HCPCS: 73120; 73620 ==

== ENCOUNTER 2025-05-20 12:54 | Outpatient (AMB) | payer MEDICARE, MEDICAID, SELFPAY ==
--- NOTE | 2025-05-20 12:57 | A.OFFVIS_ITS ---
Vital Signs 05/20/25 13:00 Height 4 ft 11 in Weight 158 lb 11.725 oz BMI 32.1 BP 98/52 L Blood Pressure Location Lt radial Position Sitting Pulse 62 Intake Visit Reasons: Follow up Intake Note: Di presents in the office as a follow up. CC: states she just needs refills on all her meds. Allergies almond Allergy (Severe, Verified 05/20/25 13:00) DIFFICULTY BREATHING shellfish derived Allergy (Severe, Verified 05/20/25 13:00) ANAPHYLAXIS morphine Allergy (Intermediate, Verified 05/20/25 13:00) C/P - STOMACH CRAMPS, HIVES, DIFF BREATHING, anaphylaxis, shortness of breath strawberry Allergy (Mild, Verified 05/20/25 13:00) HIVES Sulfa (Sulfonamide Antibiotics) (SULFA (SULFONAMIDE ANTIBIOTICS)) Allergy (Mild, Verified 05/20/25 13:00) DIARRHEA gluten (GLUTEN) Allergy (Unknown, Verified 05/20/25 13:00) UNKNOWN meperidine (Demerol) Allergy (Unknown, Verified 05/20/25 13:00) upset stomach nitrofurantoin (Macrobid) Allergy (Unknown, Verified 05/20/25 13:00) Unknown codeine (From TYLENOL-CODEINE #3) Adverse Reaction (Mild, Verified 05/20/25 13:00) STOMACH SPASM hydromorphone (From DILAUDID) Adverse Reaction (Mild, Verified 05/20/25 13:00) STOMACH UPSET HPI HPI Follow up: Details: Assessment & Plan (1) Chronic idiopathic constipation: Code(s): K59.04 - Chronic idiopathic constipation Category: Medical (2) GERD (gastroesophageal reflux disease): Code(s): K21.9 - Gastro-esophageal reflux disease without esophagitis Category: Medical Qualifiers: Esophagitis presence: without esophagitis Qualified Code(s): K21.9 - Gastro-esophageal reflux disease without esophagitis Plan She had her TKR and had to stay in the hospital a couple days longer because of hypotension. Also she had severe constipation after the surgery despite taking all of her medications. She ended up warming up prune juice which worked well but then she moved her bowels for several days. She has run out of the Linzess so obviously this is causing her problems, I am uncertain why this happened but I will send a today and if she does not get it I asked her to call me because it might be a prior approval/insurance problem. Otherwise she is satisfied with her GI regimen going forward. She continues with physical therapy for her knee. Apparently she developed a keloid in his using a lidocaine patch for this odd sensation. She continues on her Linzess 290, senna, dicyclomine, pantoprazole 40 mg twice a day and now her Zofran. ROV 6 mos. Medications: Changed From linaclotide (Linzess) 290 mcg PO DAILY PRN Constipation K59.04 - Chronic idiopathic constipation To linaclotide (Linzess) 290 mcg PO DAILY 30 caps 6RF Constipation K59.04 - Chronic idiopathic constipation Refilled pantoprazole 40 mg PO BID 180 tabs 2RF 90 days K21.9 - Gastro-esophageal reflux disease without esophagitis sennosides (senna) 17.2 mg (2 x 8.6 mg) PO BEDTIME 60 tabs 6RF dicyclomine 20 mg PO TID 90 tabs 0RF TODAYS VISIT She continues to do well with her GI conditions. She continues on her Linzess 290, senna, dicyclomine, pantoprazole 40 mg twice a day and now her Zofran. 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 ? scar tissue. ROV 6 mos. [facility] Medical History Asthma exacerbation Otitis externa Sinus congestion History of arthroplasty of finger Trigger finger Carpal tunnel syndrome Thumb injury Right otitis media Post-menopausal Screening for diabetes mellitus Pharyngitis Diverticulitis COVID-19 virus infection Breast cancer screening by mammogram Colon cancer screening Rectal bleed Sick sinus syndrome Hypercholesterolemia TIA (transient ischemic attack) Obstructive sleep apnea GERD (gastroesophageal reflux disease) Hypertension Superficial thrombophlebitis Pulmonary nocardiosis Osteopenia Celiac sprue Bipolar disorder Asthma Fibromyalgia Depression Anemia Knee osteoarthritis Surgical History H/O thumb surgery H/O carpal tunnel repair Hx of colonoscopy H/O cardiac catheterization History of laparoscopic partial gastrectomy History of foot surgery History of cardiac pacemaker History of arthroscopy of right shoulder Hx of arthroscopy of knee History of cholecystectomy History of appendectomy History of total hysterectomy with bilateral salpingo-oophorectomy (BSO) Family History Father No problems noted. Mother CAD (coronary artery disease) CVD (cerebrovascular disease) Glaucoma Stroke Breast cancer Maternal Grandmother Myocardial infarction Glaucoma Paternal Grandmother CAD (coronary artery disease) CVD (cerebrovascular disease) Sister Breast cancer Other Mental health disorder Social History Household Members: Spouse Housing: House Are you a primary wound care specialist to a significant other at home: No Do you presently have visiting nurse or other home services: Yes (COSMETIC MANAGER) Alcohol intake: never Patient Tobacco Use Status: Never used Tobacco Tobacco use type: Cigarette e-Cigarette/Vaping Use: Never Used Second Hand Smoke Exposure: No service: No Current occupational status: disabled Current occupational exposures/hazards: No Cognitive needs: Yes (cane) Hearing needs: No Vision needs: No Review of Systems Const Denies fatigue, Denies fever(s), Denies night sweats, Denies poor appetite and Denies weight loss ENT Reports Normal hearing present, Denies dental pain, Denies dysphagia, Denies hearing loss, Denies mouth pain, Denies odynophagia, Denies throat swelling, Denies tongue swelling and Reports other (Dentition adequate) Card Reports no additional complaints Resp Reports no additional complaints GI Details: Denies abdominal pain, Denies melena, Denies bloating, Denies hematochezia, Denies constipation, Denies GI cramping, Denies dysphagia, Denies excessive flatus, Denies early satiety, Reports heartburn, Denies diarrhea, Denies nausea, Denies odynophagia, Denies vomiting and Denies hematemesis Musc Reports arthralgias and Reports limited range of motion Skin/Breast Denies pruritus, Denies lesions, Denies rash and Denies jaundice Neuro Reports Normal hearing present and Denies Abnormal speech present Endo Denies fatigue Aller/Immun Denies throat swelling and Denies tongue swelling Physical Exam Vital Signs: Last Vital Signs Pulse 62 05/20/25 13:00 BP 98/52 L 05/20/25 13:00 BMI result Body Mass Index 32.1 Const General: cooperative, no acute distress, well developed and well groomed Nutritional Appearance: well nourished and obese Orientation/consciousness: oriented to person, oriented to place and oriented to time Limitations: No language barrier HEENT Head: Yes normocephalic and Yes atraumatic Eyes General: appearance normal, both eyes and all related structures Pupils: Equal, round and reactive pupils present Neck Neck: Yes normal visual inspection and Yes no lymphadenopathy Thyroid: Thyroid normal Resp Effort & Inspection: normal respiratory effort and able to speak in complete sentences Auscultation: clear to auscultation bilaterally Cardio Rate: regular rate Rhythm: regular rhythm Heart sounds: Normal, physiologic split S2 sound present Peripheral pulses: radial pulses present and posterior tibial pulses present GI Inspection: No distended, No Abdominal panniculus present and Yes obesity Palpation (GI): Soft to palpation, nontender, no guarding, not rigid and No hepatosplenomegaly present Percussion: Yes normal to percussion Auscultation: normal bowel sounds Rectal Exam - Female: deferred Skin General skin exam: no rashes or lesions noted, turgor normal, skin not dry, no j aundice, No spider nevi and no striae Rashes: no rashes Nails: normal Neuro General: oriented to person, oriented to place and oriented to time Cranial nerves: Yes Equal, round and reactive pupils present and Yes Normal hearing present Speech: No Abnormal speech present Extrem General: Yes normal to inspection, No clubbing, No cyanosis and No edema Psych Appearance: grossly normal and well kempt Mental Status: mental status grossly normal Speech and movement: Normal speech and movement present Affect: normal affect Attitude: cooperative Thought process: Normal thought process present and not confabulating Thought content: Normal thought content present Insight: Good insight present (Psych) Judgement: Good judgement present (Psych) Assessment & Plan Assessment & Plan (1) Chronic idiopathic constipation: Code(s): K59.04 - Chronic idiopathic constipation Category: Medical (2) GERD (gastroesophageal reflux disease): Code(s): K21.9 - Gastro-esophageal reflux disease without esophagitis Category: Medical Qualifiers: Esophagitis presence: without esophagitis Qualified Code(s): K21.9 - Gastro-esophageal reflux disease without esophagitis Plan She continues to do well with her GI conditions. She continues on her Linzess 290, senna, dicyclomine, pantoprazole 40 mg twice a day and now her Zofran. 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 ? scar tissue. ROV 6 mos. Medications: New ondansetron HCl 4 mg PO TID PRN 90 tabs 6RF nausea and vomiting Refilled pantoprazole 40 mg PO BID 180 tabs 2RF 90 days K21.9 - Gastro-esophageal reflux disease without esophagitis sennosides (senna) 17.2 mg (2 x 8.6 mg) PO BEDTIME 60 tabs 6RF dicyclomine 20 mg PO TID 90 tabs 0RF linaclotide (Linzess) 290 mcg PO DAILY 30 caps 6RF Constipation K59.04 - Chronic idiopathic constipation Coding Level of Care Code Est Pt Level 3 (65037) Diagnoses Chronic idiopathic constipation K59.04 Gastroesophageal reflux disease without esophagitis K21.9 Esophagitis presence: without esophagitis
[2025-05-20 13:00] VITALS: BP 98/52; PULSE 62; BMI 32.1
--- OUTSIDE RECORDS SUMMARY | 2025-05-20 13:28 | XMS_ITS ---
Author Name CRISP Organization Unknown Care Team Organization Name Specialty Phone Email Start Date End [facility]
--- OUTSIDE RECORDS SUMMARY | 2025-05-20 13:28 | XMS_ITS | Patient Health Record ---
Author Organization [facility] Address [address] [place] [address] Care Team Providers Care Air Chipper Name Role Phone Po Javy LAGUERRE Primary Care Provider UnavailBeka Martin Jr Unavailable Ed LAGUERRE, Jesu Unavailable Unavailable Allergies Allergen (clinical drug ingredient) Drug/Non Drug Allergy documented on EMR Reaction Allergy Type Onset Date Status Shellfish (FN) shell fish (uncoded) Unknown Allergy Active IV contrast (uncoded) Unknown Allergy Active morphine morphine (uncoded) Unknown Allergy A ctive Reason For Referral No Information Medications Medication SIG (Take, Route, Frequency, Duration) Notes Start Date End Date Status Fioricet Active Lipitor Active clonazePAM Active predniSONE Not-Takin g Nitroglycerin Active Dicyclomine HCl Unkn own Ambien Active Pantoprazole Sodium Active ProAir HFA Active MiraLax 17 grams one capful Orally Twice-daily for 30 days 10/02/2012 Active Benztropine Mesylate Active Singulair Active Abilify Active Sentradine Active dilTIAZem HCl Active traMADol HCl Active Problems Problem Type SNOMED Code ICD Code Onset Dates Problem Status W/U Status Risk Notes Problem Esophageal reflux (740073016) Esophageal reflux (530.81) Active confirmed Problem Diverticulosis of colon (finding) (268368061) Diverticulosis of colon (without mention of hemorrhage) (562.10) Active confirmed Problem Irritable bowel syndrome (77075191) Irritable bowel syndrome (564.1) Active confirmed Problem Celiac disease (316280195) Celiac disease (579.0) Active confirmed Problem Iron deficiency anemia (51586889) Iron deficiency anemia (280.9) Active confirmed Problem Abdominal pain (70778195) Abdominal pain (789.00) Active confirmed Plan Of Treatment Future Test Test Name Order Date UPPER GI ENDOSCOPY 06/26/2012 Insurance Providers Payer Name Payer Address Payer Phone Subscriber Number Group Number Insured Name Patient Relationship to Insured Coverage Start Date Coverage End Date MEDICARE OF [place] [address] [place]IL[place] [id number] DAKOTA GONZALES Self - patient is the insured [facility] [facility] [address] [place] [address] [phone] [id number] DAKOTA GONZALES Self - patient is the insured Medical (General) History Medical History History ICD Code Colonoscopy 05/06/2008 IBS Asthma chest pains Migraines fibromyalgia Denies CO,DM,CVA,renal disease Pacemaker Surgical History Surgery Date(Month/Year) Cholecystectomy Appendectomy Hysterectomy with Oophorectomy Chondromalacia status post arthroscopic surgery Pacemaker ankle surgery
== END 2025-05-20 14:50 | disposition home or self-care (01) ==
LOC: HO.HGI 12:55
PROVIDERS: PCP Internal Medicine; Visit Provider Nurse Practitioner
DX: K59.04 Chronic idiopathic constipation (principal); K21.9 Gastro-esophageal reflux disease without esophagitis
CPT/HCPCS: 99213

== ENCOUNTER → 2025-05-20 12:54 | Outpatient (BNVA) | payer MEDICARE, MEDICAID, SELFPAY | PROVIDERS: PCP Internal Medicine; Visit Provider Nurse Practitioner | DX: K59.04 Chronic idiopathic constipation (principal); K21.9 Gastro-esophageal reflux disease without esophagitis | CPT/HCPCS: 99212 ==

== ENCOUNTER 2025-08-31 13:55 | Outpatient (REF) | payer MEDICARE, MEDICAID, SELFPAY ==
--- NOTE | ~2025-08-31 | XR_ITS ---
EXAMINATION: XR CHEST CLINICAL INFORMATION: R05.9 - Cough, unspecified COMPARISON: Degenerative joint fourth 2022. TECHNIQUE: PA and lateral views FINDINGS: No hyperinflation. No consolidation, pleural effusion or pneumothorax. Cardiomediastinal silhouette size is normal. 2 intact electrode leads in the right heart chambers from a left-sided pacemaker. Calcified plaque thoracic aorta. Multilevel spondylosis and kyphotic deformity mid thoracic spine. Vascular clips right upper quadrant abdomen likely laparoscopic cholecystectomy. Patient's large body habitus/obesity. XR/XR chest 2V IMPRESSION: No acute airspace disease. Electronically signed by: Sanjay Hidalgo MD 08/31/2025 03:55 PM EST
== END 2025-08-31 13:56 | disposition home or self-care (01) ==
LOC: HO.XRAY 13:55
PROVIDERS: PCP Internal Medicine; Visit Provider Student in an Organized Health Care Education/Training Program
DX: J45.51 Severe persistent asthma with (acute) exacerbation (principal); K21.9 Gastro-esophageal reflux disease without esophagitis; Z79.899 Other long term (current) drug therapy
CPT/HCPCS: 71046; 99212

== ENCOUNTER → 2025-08-31 15:10 | Outpatient (BNV) | payer MEDICARE, MEDICAID, SELFPAY | PROVIDERS: PCP Internal Medicine; Visit Provider Radiology Diagnostic Radiology | DX: R05.9 Cough, unspecified (principal) | CPT/HCPCS: 71046 ==